=== PATIENT | male | born 1985 | race Two or more races ===

== ENCOUNTER 2020-05-23 20:52 | Emergency (ER) | payer OTHER, SELFPAY ==
--- NOTE | ~2020-05-23 | CT_ITS ---
EXAMINATION: CT ANGIOGRAM OF THE CHEST WITH AND WITHOUT CONTRAST (CT PULMONARY ANGIOGRAM FOR PE) CLINICAL INFORMATION: Reason for Exam covid tachy COMPARISON: None TECHNIQUE: Prior to contrast administration, noncontrast localization images were obtained. Subsequently, multidetector volumetric imaging was performed from the thoracic inlet to below the diaphragms following the administration of 65 mL Omnipaque 350 intravenous contrast. No contrast reaction reported Sagittal, coronal, and MIP oblique sagittal reformatted images were obtained on the CT workstation, uploaded to PACS, and reviewed. This CT examination was performed using dose optimization techniques as appropriate, variously including the following: *Automated exposure control *Adjustment of mA and/or kV according to patient size (this includes techniques or standardized protocols for targeted exams where dose is matched to indication/reason for exam; i.e. extremities or head) *Use of iterative reconstruction technique Total exam dose-length product 465 mGy-cm FINDINGS: QUALITY OF STUDY/CONTRAST BOLUS: Satisfactory. PULMONARY ARTERIES: No central or proximal segmental pulmonary emboli. Distal vessels are not adequately assessed due to extensive respiratory motion artifact. LUNG: There are moderately extensive multifocal regions of patchy consolidation and groundglass opacity bilaterally involving portions of all lobes, consistent with the history of Covid pneumonia. PLEURA: No pleural effusion or pneumothorax. MEDIASTINUM: The visualized thyroid gland is unremarkable. There are subcentimeter mediastinal lymph nodes within the range of normal variation. Cardiac size is within normal limits; no pericardial effusion. CHEST WALL/AXILLA: No axillary or internal mammary lymphadenopathy. OSSEOUS STRUCTURES: Mild degenerative endplate changes noted in the spine. UPPER ABDOMEN: The liver demonstrates hypoattenuation suspicious for steatosis. No reflux of contrast into the hepatic veins to suggest elevated right heart pressures. CT/CT angio chest PE protocol IMPRESSION: 1. No central or proximal segmental embolus identified. Incomplete assessment of the distal vasculature due to respiratory motion artifact, and therefore distal emboli cannot be excluded. 2. Moderately extensive multifocal patchy consolidations and groundglass opacities bilaterally, consistent with history of Covid infection. 3. Hepatic steatosis. VTE: negative
[2020-05-23 22:05] VITALS: BP 139/74; PULSE 118; RESP 22; TEMP 38.1; O2SAT 97
--- NOTE | 2020-05-23 23:44 | ED_ITS ---
HPI - SOB/Dyspnea General Chief Complaint: Upper Respiratory Symptoms Stated Complaint: SOB Time Seen by Provider: 05/23/20 23:30 Source: patient Mode of arrival: ambulatory Limitations: no limitations History of Present Illness HPI Narrative: Patient is a 35-year-old male with no significant past medical history who is presenting to the ED complaining of shortness of breath. Patient states that he tested positive for COVID last Wednesday and his symptoms were ?pretty bad ?, then got better then suddenly today while he was sitting on the couch, he became extremely short of breath. He states he was a little short of breath last night in his gave him some albuterol neb which helped him be able to fall asleep. Currently, he is complaining of dizziness, feeling warm alternating with chills, nausea, [place], body aches, reduced appetite but currently drinking a Gatorade. Patient states his kids are both sick wtih covid as well, they were diagnosed today before him. Related Data Previous Rx's Medication Instructions Recorded albuterol sulfate 2.5 mg INHALATION Q4-6H PRN #75 ml 05/24/20 ondansetron HCl [Zofran] 4 mg PO Q6H PRN #14 tab 05/24/20 Allergies Allergy/AdvReac Type Severity Reaction Status Date / Time SEAFOOD Allergy Unknown DIFFICULTY Uncoded 11/30/19 15:45 BREATHING Review of Systems Review of Systems: Yes all other systems are reviewed and are negative [facility] Past Medical History Medical History No known health problems Social History Social History Alcohol intake: current Smoking Status: Never smoker Advance Directives: No Physical Exam Vital Signs: Vital Signs: Last Vital Signs Temp 99.5 F 05/24/20 02:25 Pulse 113 H 05/24/20 02:25 Resp 20 05/24/20 00:16 BP 124/72 05/24/20 02:25 Pulse Ox 96 05/24/20 02:25 Body Mass Index 38.0 Const: General: cooperative, healthy appearing, well developed and tired appearing Nutritional Appearance: overweight Orientation/consciousness: patient oriented x3 Limitations: no limitations HENMT: Head: Yes normal to inspection Eyes: General: appearance normal, both eyes and all related structures Neck: Neck: Yes normal visual inspection and Yes full ROM Resp: Effort & Inspection: normal respiratory effort and able to speak in complete sentences Auscultation: clear to auscultation bilaterally Cardio: Rate: regular rate Rhythm: regular rhythm Heart sounds: normal S1 and S2 GI: Inspection: Yes normal to inspection Palpation (GI): Soft to palpation and nontender Skin: General skin exam: no rashes or lesions noted Neuro: General: patient oriented x3 Extrem: General: Yes normal to inspection Psych: Appearance: grossly normal and well kempt Speech and movement: Normal speech and movement present Affect: normal affect Attitude: c ooperative Thought process: Normal thought process present Thought content: Suicidality present, no homicidality, no hallucinations and Depressive thoughts present Insight: Good insight present (Psych) Judgement: Good judgement present (Psych) Course Course Course Narrative: Patient is a 35-year-old male with no significant past medical history who tested positive for COVID 6 days ago. He states he was managing his symptoms of cough, fever, nausea, diarrhea, abd pn, body aches, headache but suddenly today while he was sitting on the couch he became short of breath. Vital signs reveal pt tachy at 118BPM, respirations 22, temp 100.6 degrees and O2 saturation 97% on room air. Will get CTA to rule out PE as patient is tachycardic, will also get covid labs, cmp, cbc, trop, lactic acid and blood cultures. Will give 1L NS, give Tylenol and nebulizer tx. Reevaluation(s) Reevaluation #1: Patient states he is feeling a little bit better but still a little nauseous, will give IV Zofran. Explained discharge medications to patient, his has a nebulizer machine so I will give him some albuterol and some Zofran, both have been sent to his pharmacy. Lactic acid negative troponin negative. Waiting on results from CMP and CTA. 2AM Sign out to Dr King Time: 01:37 MDM - SOB/Dyspnea Lab Data Result diagrams: 05/24/20 00:07 05/24/20 00:07 Labs: Lab Results 05/24/20 05/24/20 05/24/20 Range/Units 00:07 00:07 00:07 WBC 4.1 L (4.8-10.8) X10*3/uL RBC 5.65 (4.60-5.80) X10*6/uL Hgb 15.3 (14.0-18.0) g/dl Hct 45.7 (42-52) % MCV 80.9 (80-98) fL MCH 27.1 (27.0-33.0) pg MCHC 33.5 (31.0-36.0) g/dl RDW 14.5 (11.0-16.0) % Plt Count 150 L (160-400) X10*3/uL MPV 11.4 (9.4-12.4) fL Immature Gran % (Auto) 0.2 (0.0-0.4) % Neut % (Auto) 70.0 (45-73) % Lymph % (Auto) 23.2 (20-40) % Banner % (Auto) 6.4 (2-11) % Eos % (Auto) 0.0 (0-4) % Baso % (Auto) 0.2 (0-2) % Lymph # (Auto) 0.9 L (1.2-4.9) X10*3/uL Banner # (Auto) 0.3 (0.1-1.2) X10*3/uL Eos # (Auto) 0.0 (0.0-0.4) X10*3/uL Baso # (Auto) 0.0 (0.0-0.2) X10*3/uL Abs Immat Gran (auto) 0.01 (0.00-0.03) X10*3/uL Absolute Neuts (auto) 2.8 (2.0-8.3) X10*3/uL Absolute Nucleated RBC 0.000 (0.0-0.012) X10*3/uL Nucleated RBC % (auto) 0.0 (0.0-0.2) /100WBC Sodium 136 (135-145) mmol/L Potassium 4.5 (3.3-5.1) mmol/L Chloride 101 (96-108) mmol/L Carbon Dioxide 25 (22-29) mmol/L Anion Gap 15 (12-20) BUN 8 L (9-16) mg/dL Creatinine 0.82 (0.5-1.4) mg/dL Estim Creat Clear Calc 160.2 Estimated GFR > 60 Random Glucose 155 H (60-115) mg/dL Lactic Acid (0.5-2.0) mmol/L Calcium 8.5 (8.4-10.2) mg/dL Ferritin 1730 H (20-250) ng/mL Total Bilirubin 0.4 (0.0-1.0) mg/dL AST 41 H (5-37) U/L ALT 60 H (0-40) U/L Alkaline Phosphatase 58 (39-117) U/L Lactate Dehydrogenase 315 H (118-273) U/L Troponin I High Sens 29.3 (<3.5-35.0) ng/L C-Reactive Protein 0.91 H (< or = 0.50) mg/dL Total Protein 7.2 (6.5-8.0) g/dL Albumin 4.3 (3.5-5.0) g/dL 05/24/20 Range/Units 00:07 WBC (4.8-10.8) X10*3/uL RBC (4.60-5.80) X10*6/uL Hgb (14.0-18.0) g/dl Hct (42-52) % MCV (80-98) fL MCH (27.0-33.0) pg MCHC (31.0-36.0) g/dl RDW (11.0-16.0) % Plt Count (160-400) X10*3/uL MPV (9.4-12.4) fL Immature Gran % (Auto) (0.0-0.4) % Neut % (Auto) (45-73) % Lymph % (Auto) (20-40) % Banner % (Auto) (2-11) % Eos % (Auto) (0-4) % Baso % (Auto) (0-2) % Lymph # (Auto) (1.2-4.9) X10*3/uL Banner # (Auto) (0.1-1.2) X10*3/uL Eos # (Auto) (0.0-0.4) X10*3/uL Baso # (Auto) (0.0-0.2) X10*3/uL Abs Immat Gran (auto) (0.00-0.03) X10*3/uL Absolute Neuts (auto) (2.0-8.3) X10*3/uL Absolute Nucleated RBC (0.0-0.012) X10*3/uL Nucleated RBC % (auto) (0.0-0.2) /100WBC Sodium (135-145) mmol/L Potassium (3.3-5.1) mmol/L Chloride (96-108) mmol/L Carbon Dioxide (22-29) mmol/L Anion Gap (12-20) BUN (9-16) mg/dL Creatinine (0.5-1.4) mg/dL Estim Creat Clear Calc Estimated GFR Random Glucose (60-115) mg/dL Lactic Acid 1.4 (0.5-2.0) mmol/L Calcium (8.4-10.2) mg/dL Ferritin (20-250) ng/mL Total Bilirubin (0.0-1.0) mg/dL AST (5-37) U/L ALT (0-40) U/L Alkaline Phosphatase (39-117) U/L Lactate Dehydrogenase (118-273) U/L Troponin I High Sens (<3.5-35.0) ng/L C-Reactive Protein (< or = 0.50) mg/dL Total Protein (6.5-8.0) g/dL Albumin (3.5-5.0) g/dL Discharge Plan Discharge Clinical Impression: COVID-19 Patient Disposition: Home, Self-Care Instructions: COVID-19 (Coronavirus Disease 2019) (ED) Additional Instructions: Resume all home medications as prescribed. Follow-up with your primary care provider in the next 2-3 days. Do not hesitate to return in this emergency department should you experience any additional worsening symptoms. Prescriptions: New ondansetron HCl [Zofran] 4 mg tablet 4 mg PO Q6H PRN (Reason: nausea and vomiting) Qty: 14 RF: 0 albuterol sulfate 2.5 mg /3 mL (0.083 %) solution for nebulization 2.5 mg inhalation Q4-6H PRN (Reason: shortness of breath or wheezing) Qty: 75 RF: 0 Referrals: Physician,None [Primary Care Provider] - 2 days Interventions: ED Discharge Assessment Last Done: 05/24/20 03:45 Discharge Date/Time: 05/24/20 03:55
[2020-05-23 23:47] VITALS: BP 128/80; PULSE 110; RESP 22; TEMP 38.8; O2SAT 91; BMI 38.0
[2020-05-23] MEDS: Albuterol Sulfate (0.083%) 2.5 MG/3 ML VIAL.NEB 5 MG INHALE (23:55)
[2020-05-24 00:05] VITALS: PULSE 118; O2SAT 95
[2020-05-24 00:16] VITALS: PULSE 118; RESP 20; O2SAT 98
[2020-05-24 00:19] LABS: MANUAL DIFF FLAG NO
[2020-05-24 00:21] LABS: Basophils Percent Auto 0.2 % (0-2); Hematocrit 45.7 % (42-52); Hemoglobin 15.3 g/dl (14.0-18.0); Imm Gran Abs Auto 0.01 X10*3/uL (0.00-0.03); Imm Gran Pct Auto 0.2 % (0.0-0.4); Lymphocytes Absolute Auto 0.9 X10*3/uL (1.2-4.9); Lymphocytes Percent Auto 23.2 % (20-40); Mean Corpuscular HGB Conc 33.5 g/dl (31.0-36.0); Mean Corpuscular Hemoglobin 27.1 pg (27.0-33.0); Mean Corpuscular Volume 80.9 fL (80-98); Mean Platelet Volume 11.4 fL (9.4-12.4); Monocytes Absolute Auto 0.3 X10*3/uL (0.1-1.2); Monocytes Percent Auto 6.4 % (2-11); Neutrophils Absolute Auto 2.8 X10*3/uL (2.0-8.3); Platelet Count 150 X10*3/uL (160-400); Red Blood Count 5.65 X10*6/uL (4.60-5.80); Red Cell Distribution Width 14.5 % (11.0-16.0); White Blood Count 4.1 X10*3/uL (4.8-10.8)
[2020-05-24] MEDS: 0.9 % Sodium Chloride 1,000 ML 999 ML IVCONT (00:30)
[2020-05-24] MEDS: Acetaminophen 325 MG TABLET 650 MG PO (00:30)
[2020-05-24 00:43] LABS: Lactic Acid 1.4 mmol/L (0.5-2.0)
[2020-05-24 00:46] LABS: Lactate Dehydrogenase 315 U/L (118-273)
[2020-05-24 00:53] LABS: Troponin-I High Sensitivity 29.3 ng/L (<3.5-35.0)
[2020-05-24 01:21] VITALS: BP 120/69; PULSE 113; TEMP 37.7; O2SAT 95
[2020-05-24 01:55] LABS: Alanine Aminotransferase 60 U/L (0-40); Albumin Level 4.3 g/dL (3.5-5.0); Alkaline Phosphatase 58 U/L (39-117); Anion Gap 15 (12-20); Aspartate Amino Transferase 41 U/L (5-37); Bilirubin Total 0.4 mg/dL (0.0-1.0); Blood Urea Nitrogen 8 mg/dL (9-16); C Reactive Protein 0.91 mg/dL (< or = 0.50); Calcium 8.5 mg/dL (8.4-10.2); Carbon Dioxide 25 mmol/L (22-29); Chloride 101 mmol/L (96-108); Creatinine Clr Calc Pharmacy 160.2; Estimated Glomerular Filt Rate > 60; Glucose Random 155 mg/dL (60-115); Potassium 4.5 mmol/L (3.3-5.1); Sodium 136 mmol/L (135-145); Total Protein 7.2 g/dL (6.5-8.0)
[2020-05-24 01:56] LABS: Ferritin 1730 ng/mL (20-250)
[2020-05-24] MEDS: ondansetron HCL 4 MG/2 ML VIAL IVPUSH (01:56)
[2020-05-24 02:25] VITALS: BP 124/72; PULSE 113; TEMP 37.5; O2SAT 96
== END 2020-05-24 03:55 | disposition home or self-care (01) ==
PROVIDERS: Physician Assistant; Emergency Provider Student in an Organized Health Care Education/Training Program
DX: U07.1 COVID-19 (principal); R06.02 Shortness of breath; R00.0 Tachycardia, unspecified; R50.9 Fever, unspecified
CPT/HCPCS: 36415; 71275; 80053; 82728; 83605; 83615; 84484; 85025; 86140; 87040; 94640; 94644; 96361; 96374; 99285; J2405; Q9967

== ENCOUNTER 2020-05-27 16:20 | Inpatient (IN) | payer OTHER, SELFPAY ==
--- NOTE | ~2020-05-27 | US_ITS ---
EXAMINATION: US ABDOMEN LIMITED CLINICAL INFORMATION: Right upper quadrant, elevated LFTs, evaluate for gallstones or CBD dilatation. COMPARISON: None TECHNIQUE: Real-time imaging of the right upper quadrant abdominal viscera. FINDINGS: PANCREAS: Normal. LIVER: There is increased hepatic echogenicity suggesting hepatic steatosis with regions of focal fatty sparing. The liver is normal in size. The liver contour is normal. No focal hepatic lesion. There is no intrahepatic biliary duct dilatation seen. GALLBLADDER: Normal. The gallbladder is contracted without evidence of stones, sludge, polyps, wall thickening or pericholecystic fluid. Sonographic Mena sign is negative. COMMON BILE DUCT: Normal in caliber measuring 0.3 cm in diameter. RIGHT KIDNEY: Normal. No hydronephrosis. No renal calculi or focal parenchymal lesions. The kidney measures 12.6 cm in maximum dimension. FREE FLUID: None. US/US abdomen limited IMPRESSION: Increased hepatic echogenicity suggesting hepatic steatosis with regions of focal fatty sparing.
--- NOTE | ~2020-05-27 | CT_ITS ---
EXAMINATION: CT ANGIOGRAM OF THE CHEST WITH AND WITHOUT CONTRAST (CT PULMONARY ANGIOGRAM FOR PE) CLINICAL INFORMATION: Reason for Exam sob, pain on inspiration, hypoxia COMPARISON: CT angiogram of the chest 3 days ago on 05/24/2020 TECHNIQUE: Prior to contrast administration, noncontrast localization images were obtained. Subsequently, multidetector volumetric imaging was performed from the thoracic inlet to below the diaphragms following the administration of 71 mL Omnipaque 350 intravenous contrast. No contrast reaction reported Sagittal, coronal, and MIP oblique sagittal reformatted images were obtained on the CT workstation, uploaded to PACS, and reviewed. This CT examination was performed using dose optimization techniques as appropriate, variously including the following: *Automated exposure control *Adjustment of mA and/or kV according to patient size (this includes techniques or standardized protocols for targeted exams where dose is matched to indication/reason for exam; i.e. extremities or head) *Use of iterative reconstruction technique Total exam dose-length product 394 mGy-cm FINDINGS: QUALITY OF STUDY/CONTRAST BOLUS: Satisfactory. PULMONARY ARTERIES: No large central or segmental pulmonary emboli. THORACIC AORTA: No aneurysm or dissection. LUNG: There has been worsening of groundglass infiltrates since the prior study with more areas of involvement involving all lobes. Findings are characteristic of Covid 19 infection. PLEURA: No pleural effusion or pneumothorax. MEDIASTINUM: The heart is enlarged.. No pericardial effusion. Some small mediastinal nodes are present but there is no hilar or mediastinal lymphadenopathy. No evidence of septal bowing or right heart strain. CHEST WALL/AXILLA: No axillary or internal mammary lymphadenopathy. OSSEOUS STRUCTURES: No acute or suspicious osseous abnormality. There is some mild wedging of a midthoracic vertebral body, unchanged. UPPER ABDOMEN: The liver is enlarged and demonstrates hepatic steatosis. No reflux of contrast into the hepatic veins to suggest elevated right heart pressures. CT/CT angio chest PE protocol IMPRESSION: 1. No evidence of acute pulmonary emboli. 2. Worsening of diffuse airspace disease consistent with progression of Covid pulmonary involvement. 3. Enlarged fatty liver VTE: negative
[2020-05-27 16:47] VITALS: BP 132/62; PULSE 89; RESP 20; TEMP 36.8; O2SAT 93; BMI 38.0
--- NOTE | 2020-05-27 17:19 | ED_ITS ---
HPI - General Adult General Chief complaint: General Medical Stated complaint: SOB Time Seen by Provider: 05/27/20 16:47 Source: patient Mode of arrival: ambulatory Limitations: no limitations History of Present Illness HPI narrative: 35-year-old male diagnosed with COVID-19 on 05/23/2020, presents with hypoxia, shortness of breath, pain on inspiration, pallor to his extremities, fevers, and diaphoresis. Patient has been monitoring his O2 saturation at home, dropped down to 86% on minimal exertion, is unable to walk up stairs. He has not been able to eat in several days. He is able to speak in complete sentences as long as he is not walking. Patient denies chest pain, palpitations, abdominal pain, abdominal distention, dysuria, hematuria, edema, and weakness. Onset (ago): day(s) (Several) Location: chest Radiation: non-radiation Severity: severe Severity scale (1-10): 9 Exacerbating factors: movement Associated symptoms: cough, diaphoresis, fever/chills, headaches, loss of appetite, malaise and shortness of breath Related Data Previous Rx's Medication Instructions Recorded albuterol sulfate 2.5 mg INHALATION Q4-6H PRN #75 ml 05/24/20 ondansetron HCl [Zofran] 4 mg PO Q6H PRN #14 tab 05/24/20 Allergies Allergy/AdvReac Type Severity Reaction Status Date / Time SEAFOOD Allergy Unknown DIFFICULTY Uncoded 11/30/19 15:45 BREATHING Review of Systems Review of Systems: Constitutional: positive Fever, positive Chills, positive fatigue, positive Malaise ENT/Mouth: No sore throat, positive runny nose Eyes: No Discharge Cardiovascular: No Chest Pain, positive SOB Respiratory: Positive Cough, No Sputum, positive Wheezing, No Smoke Exposure, positive Dyspnea Gastrointestinal: No Nausea, No Vomiting, No Diarrhea Genitourinary: no irregular bleeding, No Dysuria, No Urinary Frequency, No Hematuria, No Urinary Incontinence, No Urgency, No Flank Pain, Musculoskeletal: positive Myalgia Skin: No rash Neuro: Positive Headache Yes all other systems are reviewed and are negative [facility] Past Medical History Attestation statement: The following information was validated with the patient. Source: old records reviewed Medical History No known health problems Social History Social History Household Members: Family Housing: House Do you presently have visiting nurse or other home services: No Alcohol intake: never Smoking Status: Former smoker Cigarettes Per Day: 3 Smoked in Last 30 Days: No Use of substances other than those prescribed or required for medical reasons: No Have you been hit, kicked, punched, or otherwise hurt by someone within the past year? If so, by whom?: No Do you feel safe in your current relationship?: Yes Is there a partner from a previous relationship who is making you feel unsafe now?: No Are you made to feel afraid or neglected: No Advance Directives: No Advance Directives Information Provided: No Do you have thoughts of harming others: None Do you have a plan to hurt others: No Plan Recently lost weight without trying: No Physical Exam Vital Signs: Vital Signs: Last Vital Signs Temp 98.2 F 05/27/20 16:47 Pulse 95 05/27/20 22:41 Resp 28 H 05/27/20 22:41 BP 120/70 05/27/20 22:41 Pulse Ox 96 05/27/20 22:41 Body Mass Index 38.0 Appearance: Alert. Oriented X3. Moderate distress. Face is flushed Head: Normal external exam. Normocephalic. Atraumatic. No Navarro signs noted. No raccoon eyes noted Eyes: PERRLA. EOMI. Conjunctiva and sclera normal. Eyelids normal. ENT: TM's Normal. Pharynx normal. Uvula midline. Moist mucous membranes. No trismus noted. No drooling noted. No muffled voice noted. Neck: Normal inspection. Neck supple. No adenopathy. Thyroid Normal. No meningeal signs. No neck mass noted. CVS: Tachycardic heart rate and rhythm. Heart sound normal. No murmurs noted. Pulses equal to all extremities. Respiratory: Moderate respiratory distress. Painless inspiration. Lung sounds coarse with expiratory wheezing with decreased air movement. Chest nontender. No accessory muscle use Abdomen: Soft and nontender. Obese. Bowel sounds normal in all 4 quadrants. No distention noted. No organomegaly noted. No visible injury noted. Back: No CVA tenderness. Full range of motion noted. Skin: Skin flushed, warm and dry. Pallor noted to fingers and toes, pedal pulses and radial pulses are equal. Normal skin turgor. Extremities: No lower extremity edema. Extremities exhibit normal range of motion. Extremities nontender. Neuro: cranial nerves 2-12 intact, no focal neural deficits, strength 5/5 to all extremities, No motor deficit. No sensory deficit. Reflexes normal. Course Course Course Narrative: 35-year-old male presents with known positive COVID-19 on 05/23/2020, was worked up with CT for PE at that time which was negative. On my ambulatory pulse ox exam, patient's heart rate is bumped up to 120, O2 sats dropped down to 88%, and respiration rate between 30 and 35 on minimal exertion. Based on his history, his inability to walk up stairs, chest pain on inspiration, and intermittent diaphoresis I will repeat CT study for PE. Will place patient on nasal cannula for O2 supplementation. 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 PE study is negative, LDH 478, CRP 4.35, ferritin 2158. CT scan does show worse hugh patchy infiltrates consistent with COVID-19 since 05/23/2020. Discussion with hospitalist for admission for COVID-19, hypoxia. Will treat with azithromycin, ceftriaxone. No fluid resuscitation at this time secondary to COVID-19 viral infection. 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, both are in agreement of plan of care to admit for COVID-19 hypoxia. Consultations Consultation #1: tuan Time: 20:38 Medical Decision Making Differential Diagnosis Differential Diagnosis: COVID-19, hypoxia, PE, sepsis Medical Records Medical records reviewed: Yes I reviewed the patient's medical records. Lab Data Lab results reviewed: Yes I reviewed the patient's lab results. Result diagrams: 05/27/20 18:18 05/27/20 18:18 Labs: Lab Results 05/27/20 05/27/20 05/27/20 Range/Units 18:16 18:17 18:17 WBC (4.8-10.8) X10*3/uL RBC (4.60-5.80) X10*6/uL Hgb (14.0-18.0) g/dl Hct (42-52) % MCV (80-98) fL MCH (27.0-33.0) pg MCHC (31.0-36.0) g/dl RDW (11.0-16.0) % Plt Count (160-400) X10*3/uL MPV (9.4-12.4) fL Immature Gran % (Auto) (0.0-0.4) % Neut % (Auto) (45-73) % Lymph % (Auto) (20-40) % Mcintosh % (Auto) (2-11) % Eos % (Auto) (0-4) % Baso % (Auto) (0-2) % Lymph # (Auto) (1.2-4.9) X10*3/uL Mcintosh # (Auto) (0.1-1.2) X10*3/uL Eos # (Auto) (0.0-0.4) X10*3/uL Baso # (Auto) (0.0-0.2) X10*3/uL Abs Immat Gran (auto) (0.00-0.03) X10*3/uL Absolute Neuts (auto) (2.0-8.3) X10*3/uL Absolute Nucleated RBC (0.0-0.012) X10*3/uL Nucleated RBC % (auto) (0.0-0.2) /100WBC Smear Tech's Comments PT 15.0 H (10.8-13.0) SEC INR 1.3 H (0.9-1.1) APTT 30.6 (24.1-38.0) SEC Sodium (135-145) mmol/L Potassium (3.3-5.1) mmol/L Chloride (96-108) mmol/L Carbon Dioxide (22-29) mmol/L Anion Gap (12-20) BUN (9-16) mg/dL Creatinine (0.5-1.4) mg/dL Estim Creat Clear Calc Estimated GFR Random Glucose (60-115) mg/dL Lactic Acid (0.5-2.0) mmol/L Calcium (8.4-10.2) mg/dL Magnesium (1.6-2.6) mg/dL Ferritin (20-250) ng/mL Total Bilirubin (0.0-1.0) mg/dL Direct Bilirubin (0.0-0.5) mg/dL AST (5-37) U/L ALT (0-40) U/L Alkaline Phosphatase (39-117) U/L Lactate Dehydrogenase (118-273) U/L Troponin I High Sens 15.6 (<3.5-35.0) ng/L C-Reactive Protein (< or = 0.50) mg/dL Total Protein (6.5-8.0) g/dL Albumin (3.5-5.0) g/dL Lipase (8-78) U/L Procalcitonin 0.08 ng/mL Coronavirus (PCR) (Negative) Influenza Type A (PCR) (Negative) Influenza Type B (PCR) (Negative) RSV RNA Qual (PCR) (Negative) 05/27/20 05/27/20 05/27/20 Range/Units 18:17 18:17 18:18 WBC 4.4 L (4.8-10.8) X10*3/uL RBC 5.37 (4.60-5.80) X10*6/uL Hgb 14.4 (14.0-18.0) g/dl Hct 44.4 (42-52) % MCV 82.7 (80-98) fL MCH 26.8 L (27.0-33.0) pg MCHC 32.4 (31.0-36.0) g/dl RDW 14.8 (11.0-16.0) % Plt Count 273 D (160-400) X10*3/uL MPV 10.5 (9.4-12.4) fL Immature Gran % (Auto) 0.5 H (0.0-0.4) % Neut % (Auto) 57.7 (45-73) % Lymph % (Auto) 33.6 (20-40) % Mcintosh % (Auto) 7.3 (2-11) % Eos % (Auto) 0.7 (0-4) % Baso % (Auto) 0.2 (0-2) % Lymph # (Auto) 1.5 (1.2-4.9) X10*3/uL Mcintosh # (Auto) 0.3 (0.1-1.2) X10*3/uL Eos # (Auto) 0.0 (0.0-0.4) X10*3/uL Baso # (Auto) 0.0 (0.0-0.2) X10*3/uL Abs Immat Gran (auto) 0.02 (0.00-0.03) X10*3/uL Absolute Neuts (auto) 2.5 (2.0-8.3) X10*3/uL Absolute Nucleated RBC 0.000 (0.0-0.012) X10*3/uL Nucleated RBC % (auto) 0.0 (0.0-0.2) /100WBC Smear Tech's Comments VERIFIED PT (10.8-13.0) SEC INR (0.9-1.1) APTT (24.1-38.0) SEC Sodium (135-145) mmol/L Potassium (3.3-5.1) mmol/L Chloride (96-108) mmol/L Carbon Dioxide (22-29) mmol/L Anion Gap (12-20) BUN (9-16) mg/dL Creatinine (0.5-1.4) mg/dL Estim Creat Clear Calc Estimated GFR Random Glucose (60-115) mg/dL Lactic Acid (0.5-2.0) mmol/L Calcium (8.4-10.2) mg/dL Magnesium (1.6-2.6) mg/dL Ferritin 2158 H (20-250) ng/mL Total Bilirubin (0.0-1.0) mg/dL Direct Bilirubin (0.0-0.5) mg/dL AST (5-37) U/L ALT (0-40) U/L Alkaline Phosphatase (39-117) U/L Lactate Dehydrogenase (118-273) U/L Troponin I High Sens (<3.5-35.0) ng/L C-Reactive Protein (< or = 0.50) mg/dL Total Protein (6.5-8.0) g/dL Albumin (3.5-5.0) g/dL Lipase (8-78) U/L Procalcitonin ng/mL Coronavirus (PCR) POSITIVE A (Negative) Influenza Type A (PCR) NEGATIVE (Negative) Influenza Type B (PCR) NEGATIVE (Negative) RSV RNA Qual (PCR) NEGATIVE (Negative) 03/15/21 03/15/21 Range/Units 18:18 18:18 WBC (4.8-10.8) X10*3/uL RBC (4.60-5.80) X10*6/uL Hgb (14.0-18.0) g/dl Hct (42-52) % MCV (80-98) fL MCH (27.0-33.0) pg MCHC (31.0-36.0) g/dl RDW (11.0-16.0) % Plt Count (160-400) X10*3/uL MPV (9.4-12.4) fL Immature Gran % (Auto) (0.0-0.4) % Neut % (Auto) (45-73) % Lymph % (Auto) (20-40) % Mcintosh % (Auto) (2-11) % Eos % (Auto) (0-4) % Baso % (Auto) (0-2) % Lymph # (Auto) (1.2-4.9) X10*3/uL Mcintosh # (Auto) (0.1-1.2) X10*3/uL Eos # (Auto) (0.0-0.4) X10*3/uL Baso # (Auto) (0.0-0.2) X10*3/uL Abs Immat Gran (auto) (0.00-0.03) X10*3/uL Absolute Neuts (auto) (2.0-8.3) X10*3/uL Absolute Nucleated RBC (0.0-0.012) X10*3/uL Nucleated RBC % (auto) (0.0-0.2) /100WBC Smear Tech's Comments PT (10.8-13.0) SEC INR (0.9-1.1) APTT (24.1-38.0) SEC Sodium 140 (135-145) mmol/L Potassium 4.4 (3.3-5.1) mmol/L Chloride 101 (96-108) mmol/L Carbon Dioxide 30 H (22-29) mmol/L Anion Gap 13 (12-20) BUN 9 (9-16) mg/dL Creatinine 0.76 (0.5-1.4) mg/dL Estim Creat Clear Calc 172.9 Estimated GFR > 60 Random Glucose 97 D (60-115) mg/dL Lactic Acid 1.0 (0.5-2.0) mmol/L Calcium 8.5 (8.4-10.2) mg/dL Magnesium 2.3 (1.6-2.6) mg/dL Ferritin (20-250) ng/mL Total Bilirubin 0.9 (0.0-1.0) mg/dL Direct Bilirubin 0.4 (0.0-0.5) mg/dL AST 45 H (5-37) U/L ALT 49 H (0-40) U/L Alkaline Phosphatase 56 (39-117) U/L Lactate Dehydrogenase 478 H (118-273) U/L Troponin I High Sens (<3.5-35.0) ng/L C-Reactive Protein 4.35 H (< or = 0.50) mg/dL Total Protein 7.0 (6.5-8.0) g/dL Albumin 4.0 (3.5-5.0) g/dL Lipase 36 (8-78) U/L Procalcitonin ng/mL Coronavirus (PCR) (Negative) Influenza Type A (PCR) (Negative) Influenza Type B (PCR) (Negative) RSV RNA Qual (PCR) (Negative) Imaging Data CT PE: Attestation: I personally reviewed and interpreted this imaging study as follows: Radiologist's impression: EXAMINATION: CT ANGIOGRAM OF THE CHEST WITH AND WITHOUT CONTRAST (CT PULMONARY ANGIOGRAM FOR PE) CLINICAL INFORMATION: Reason for Exam sob, pain on inspiration, hypoxia COMPARISON: CT angiogram of the chest 3 days ago on 05/24/2020 TECHNIQUE: Prior to contrast administration, noncontrast localization images were obtained. Subsequently, multidetector volumetric imaging was performed from the thoracic inlet to below the diaphragms following the administration of 71 mL Omnipaque 350 intravenous contrast. No contrast reaction reported Sagittal, coronal, and MIP oblique sagittal reformatted images were obtained on the CT workstation, uploaded to PACS, and reviewed. This CT examination was performed using dose optimization techniques as appropriate, variously including the following: *Automated exposure control *Adjustment of mA and/or kV according to patient size (this includes techniques or standardized protocols for targeted exams where dose is matched to indication/reason for exam; i.e. extremities or head) *Use of iterative reconstruction technique Total exam dose-length product 394 mGy-cm FINDINGS: QUALITY OF STUDY/CONTRAST BOLUS: Satisfactory. PULMONARY ARTERIES: No large central or segmental pulmonary emboli. THORACIC AORTA: No aneurysm or dissection. LUNG: There has been worsening of groundglass infiltrates since the prior study with more areas of involvement involving all lobes. Findings are characteristic of Covid 19 infection. PLEURA: No pleural effusion or pneumothorax. MEDIASTINUM: The heart is enlarged.. No pericardial effusion. Some small mediastinal nodes are present but there is no hilar or mediastinal lymphadenopathy. No evidence of septal bowing or right heart strain. CHEST WALL/AXILLA: No axillary or internal mammary lymphadenopathy. OSSEOUS STRUCTURES: No acute or suspicious osseous abnormality. There is some mild wedging of a midthoracic vertebral body, unchanged. UPPER ABDOMEN: The liver is enlarged and demonstrates hepatic steatosis. No reflux of contrast into the hepatic veins to suggest elevated right heart pressures. CT/CT angio chest PE protocol IMPRESSION: 1. No evidence of acute pulmonary emboli. 2. Worsening of diffuse airspace disease consistent with progression of Covid pulmonary involvement. 3. Enlarged fatty liver ECG Data Attestation: I personally reviewed and interpreted this ECG as follows: Prior ECG tracings: available for review Interpretation: Vent. rate 97 BPM NE interval 168 ms QRS duration 84 ms QT/QTc 346/439 ms P-R-T axes 36 8 -12 Normal sinus rhythm Moderate voltage criteria for LVH, may be normal variant Nonspecific T wave abnormality Abnormal ECG No previous ECGs available 27-MAY-2020 18:05:46 Critical Care Time Critical Care Time Critical Care Time: Yes Total Critical Care Time: 60 Attestation: I have personally provided critical care time exclusive of time spent on separately billable procedures. Time includes review of laboratory data, radiology results, discussion with consultants, and monitoring for potential decompensation. Interventions were performed as documented. Discharge Plan Discharge Clinical Impression: COVID-19, Hypoxia Patient Disposition: Admitted As Inpatient Interventions: Admission Worksheet (ED) Last Done: 05/27/20 23:47 Discharge Date/Time: 05/27/20 23:50
--- NOTE | 2020-05-27 17:47 | ECG_ITS ---
Test Reason : SHORTNSS OF BREATH Blood Pressure : / mmHG Vent. Rate : 097 BPM Atrial Rate : 097 BPM P-R Int : 168 ms QRS Dur : 084 ms QT Int : 346 ms P-R-T Axes : 036 008 -12 degrees QTc Int : 439 ms Normal sinus rhythm Moderate voltage criteria for LVH, may be normal variant Nonspecific T wave abnormality Abnormal ECG No previous ECGs available Referred By: Nory Nguyễn Electronically Signed By:ERIC LINTON MD
--- NOTE | 2020-05-27 17:53 | PC.NURSE ---
male infertility specialist ambulated pt and state his o2 dropped to 88% and rr was 30. plan to move pt into covid + bed when one becomes available.
[2020-05-27 18:32] LABS: Basophils Percent Auto 0.2 % (0-2); Eosinophils Percent Auto 0.7 % (0-4); Hematocrit 44.4 % (42-52); Hemoglobin 14.4 g/dl (14.0-18.0); Imm Gran Abs Auto 0.02 X10*3/uL (0.00-0.03); Imm Gran Pct Auto 0.5 % (0.0-0.4); Lymphocytes Absolute Auto 1.5 X10*3/uL (1.2-4.9); Lymphocytes Percent Auto 33.6 % (20-40); MANUAL DIFF FLAG SCAN; Mean Corpuscular HGB Conc 32.4 g/dl (31.0-36.0); Mean Corpuscular Hemoglobin 26.8 pg (27.0-33.0); Mean Corpuscular Volume 82.7 fL (80-98); Mean Platelet Volume 10.5 fL (9.4-12.4); Monocytes Absolute Auto 0.3 X10*3/uL (0.1-1.2); Monocytes Percent Auto 7.3 % (2-11); Neutrophils Absolute Auto 2.5 X10*3/uL (2.0-8.3); Neutrophils Percent Auto 57.7 % (45-73); Platelet Count 273 X10*3/uL (160-400); Red Blood Count 5.37 X10*6/uL (4.60-5.80); Red Cell Distribution Width 14.8 % (11.0-16.0); SCAN SMEAR FLAG 1; White Blood Count 4.4 X10*3/uL (4.8-10.8)
[2020-05-27 18:41] LABS: INTERNATIONAL NORM RATIO 1.3 (0.9-1.1)
[2020-05-27] MEDS: methylPREDNISolone Sod Succ 125 MG/2 ML VIAL IVPUSH (18:42)
[2020-05-27] MEDS: Famotidine/PF 20 MG/2 ML VIAL IVPUSH (18:42)
[2020-05-27] MEDS: diphenhydrAMINE HCL 50 MG/ML VIAL IVPUSH (18:42)
[2020-05-27 18:44] LABS: Partial Thromboplastin Time 30.6 SEC (24.1-38.0)
--- NOTE | 2020-05-27 18:45 | PC.NURSE ---
pre medicated per corporate legal assistant order for ct
[2020-05-27 18:49] LABS: SLIDE REVIEW VERIFIED
[2020-05-27 19:01] LABS: Alanine Aminotransferase 49 U/L (0-40); Alkaline Phosphatase 56 U/L (39-117); Anion Gap 13 (12-20); Aspartate Amino Transferase 45 U/L (5-37); Bilirubin Direct 0.4 mg/dL (0.0-0.5); Bilirubin Total 0.9 mg/dL (0.0-1.0); Blood Urea Nitrogen 9 mg/dL (9-16); C Reactive Protein 4.35 mg/dL (< or = 0.50); Calcium 8.5 mg/dL (8.4-10.2); Carbon Dioxide 30 mmol/L (22-29); Chloride 101 mmol/L (96-108); Creatinine Clr Calc Pharmacy 172.9; Estimated Glomerular Filt Rate > 60; Glucose Random 97 mg/dL (60-115); Lactate Dehydrogenase 478 U/L (118-273); Lipase 36 U/L (8-78); Magnesium 2.3 mg/dL (1.6-2.6); Potassium 4.4 mmol/L (3.3-5.1); Sodium 140 mmol/L (135-145)
[2020-05-27 19:07] LABS: Troponin-I High Sensitivity 15.6 ng/L (<3.5-35.0)
[2020-05-27 19:14] VITALS: BP 117/69; PULSE 94; RESP 20; O2SAT 95
[2020-05-27 19:15] LABS: Influenza A PCR NEGATIVE (Negative); Influenza B PCR NEGATIVE (Negative); Resp Syncy Virus RNA Qual PCR NEGATIVE (Negative); SARS COV2 PCR INHOUSE POSITIVE (Negative)
[2020-05-27 19:17] LABS: Procalcitonin 0.08 ng/mL
--- NOTE | 2020-05-27 19:27 | PC.NURSE ---
PT BACK FROM CT SCAN, IN NO DISTRESS AND FEELING MILDLY DYSPNEIC ON 3 LPM AT REST.
[2020-05-27 20:13] LABS: Ferritin 2158 ng/mL (20-250)
--- NOTE | 2020-05-27 20:59 | P.HPHOSP_ITS ---
History of Present Illness Date of Service: 05/27/20 Chief Complaint: Shortness of breath 35-year-old male with no significant past medical history, recently diagnosed with COVID on 05/23/2020 presented to the hospital today with a chief complaint of cough and shortness of breath. Patient mentioned that he becomes severely short of breath with minimal exertion. Denies any chest pain palpitations. Denies any numbness tingling. Reports diarrhea. Review of all other systems is negative except mentioned above ER course: Per ER team patient was noted to be hypoxic to 88% on room air with minimal movement. Placed on 3 L of nasal cannula with increase in oxygenation to 95%. CT scan showed no evidence of PE but noted worsening opacities consistent with the COVID-19 pneumonia. Admitted to the hospital for further management. ER team mentioned that patient was given Solu-Medrol for premedication for con trast. Also given ceftriaxone and azithromycin. [facility] Medical History No known health problems Social History Household Members: Family Housing: House Do you presently have visiting nurse or other home services: No Alcohol intake: never Smoking Status: Former smoker Cigarettes Per Day: 3 Smoked in Last 30 Days: No Use of substances other than those prescribed or required for medical reasons: No Currently Displaying Signs/Symptoms of Drug Intoxication Withdrawal: No Have you been hit, kicked, punched, or otherwise hurt by someone within the past year? If so, by whom?: No Do you feel safe in your current relationship?: Yes Is there a partner from a previous relationship who is making you feel unsafe now?: No Are you made to feel afraid or neglected: No Advance Directives: No Advance Directives Information Provided: No Do you have thoughts of harming others: None Do you have a plan to hurt others: No Plan Recently lost weight without trying: No Meds Allergies Allergy/AdvReac Type Severity Reaction Status Date / Time SEAFOOD Allergy Unknown DIFFICULTY Uncoded 11/30/19 15:45 BREATHING Active Medications: Current Medications Generic Name Dose Route Start Last Admin Trade Name Freq PRN Reason Stop Dose Admin Acetaminophen 650 mg 05/27/20 20:38 Acetaminophen 325 Mg Tablet PO Q6H PRN Pain, Mild (Pain Scale 1-3) Albuterol Sulfate 2.5 mg 05/27/20 20:52 Albuterol Sulfate (0.083%) 2.5 Mg/3 Ml Vial.Neb INHALE Q4-6H PRN shortness of breath or wheezing Azithromycin 500 mg 05/27/20 20:45 Azithromycin 500 Mg Tablet PO Q24H [facility] Dexamethasone 6 mg 05/28/20 09:00 Dexamethasone 6 Mg Tablet PO DAILY [facility] Enoxaparin Sodium 40 mg 05/27/20 20:45 Enoxaparin Sodium 40 Mg/0.4 Ml Syringe SUBCUT Q24H [facility] Ceftriaxone Sodium 1 gm/ 50 mls @ 100 mls/hr 05/27/20 20:37 Sodium Chloride IV 05/27/20 21:06 ONCE ONE Ceftriaxone Sodium 1 gm/ 50 mls @ 100 mls/hr 05/27/20 20:45 Sodium Chloride IV Q24H [facility] Pharmacy Consult 1 each 05/27/20 19:25 Consult Rx Perform Med Rec MISCELLANE ONCE PRN Consult order Senna 17.2 mg 05/27/20 20:38 Sennosides 8.6 Mg Tablet PO BEDTIME PRN Constipation Sodium Chloride 3 ml 05/28/20 00:00 0.9 % Sodium Chloride Flush 3 Ml Syringe IVFLUSH QSHIFT [facility] Physical Exam Vital Signs and Narrative: Vital Signs: Last Vital Signs Temp 98.2 F 05/27/20 16:47 Pulse 94 05/27/20 19:14 Resp 20 05/27/20 19:14 BP 117/69 05/27/20 19:14 Pulse Ox 95 05/27/20 19:14 Body Mass Index 38.0 Gen: Appears be in no acute distress. Speaks in full sentences HEENT: NCAT, Moist mucosa. Pulmonary: Course breath sounds, fair air entry CVS: Normal S1-S2 Abdomen: BS+, Soft, Nontender Extremities: Warm well perfused Neuro: Alert and awake. Results Labs CBC and Chem 7: 05/27/20 18:18 05/27/20 18:18 Labs: Laboratory Results - last 24 hr 05/27/20 05/27/20 05/27/20 18:16 18:17 18:17 MCV MCH MCHC RDW Plt Count MPV Immature Gran % (Auto) Neut % (Auto) Lymph % (Auto) Alcorn % (Auto) Eos % (Auto) Baso % (Auto) Lymph # (Auto) [place] # (Auto) Eos # (Auto) Baso # (Auto) Abs Immat Gran (auto) Absolute Neuts (auto) Absolute Nucleated RBC Nucleated RBC % (auto) Smear Tech's Comments PT 15.0 H INR 1.3 H APTT 30.6 Anion Gap Estim Creat Clear Calc Estimated GFR Random Glucose Lactic Acid Calcium Magnesium Ferritin Total Bilirubin Direct Bilirubin AST ALT Alkaline Phosphatase Lactate Dehydrogenase Troponin I High Sens 15.6 C-Reactive Protein Total Protein Albumin Lipase Procalcitonin 0.08 Coronavirus (PCR) Influenza Type A (PCR) Influenza Type B (PCR) RSV RNA Qual (PCR) 05/27/20 05/27/20 05/27/20 18:17 18:17 18:18 MCV 82.7 MCH 26.8 L MCHC 32.4 RDW 14.8 Plt Count 273 D MPV 10.5 Immature Gran % (Auto) 0.5 H Neut % (Auto) 57.7 Lymph % (Auto) 33.6 [place]corn % (Auto) 7.3 Eos % (Auto) 0.7 Baso % (Auto) 0.2 Lymph # (Auto) 1.5 [place] # (Auto) 0.3 Eos # (Auto) 0.0 Baso # (Auto) 0.0 Abs Immat Gran (auto) 0.02 Absolute Neuts (auto) 2.5 Absolute Nucleated RBC 0.000 Nucleated RBC % (auto) 0.0 Smear Tech's Comments VERIFIED PT INR APTT Anion Gap Estim Creat Clear Calc Estimated GFR Random Glucose Lactic Acid Calcium Magnesium Ferritin 2158 H Total Bilirubin Direct Bilirubin AST ALT Alkaline Phosphatase Lactate Dehydrogenase Troponin I High Sens C-Reactive Protein Total Protein Albumin Lipase Procalcitonin Coronavirus (PCR) POSITIVE A Influenza Type A (PCR) NEGATIVE Influenza Type B (PCR) NEGATIVE RSV RNA Qual (PCR) NEGATIVE 05/27/20 05/27/20 18:18 18:18 MCV MCH MCHC RDW Plt Count MPV Immature Gran % (Auto) Neut % (Auto) Lymph % (Auto) Alcorn % (Auto) Eos % (Auto) Baso % (Auto) Lymph # (Auto) [place] # (Auto) Eos # (Auto) Baso # (Auto) Abs Immat Gran (auto) Absolute Neuts (auto) Absolute Nucleated RBC Nucleated RBC % (auto) Smear Tech's Comments PT INR APTT Anion Gap 13 Estim Creat Clear Calc 172.9 Estimated GFR > 60 Random Glucose 97 D Lactic Acid 1.0 Calcium 8.5 Magnesium 2.3 Ferritin Total Bilirubin 0.9 Direct Bilirubin 0.4 AST 45 H ALT 49 H Alkaline Phosphatase 56 Lactate Dehydrogenase 478 H Troponin I High Sens C-Reactive Protein 4.35 H Total Protein 7.0 Albumin 4.0 Lipase 36 Procalcitonin Coronavirus (PCR) Influenza Type A (PCR) Influenza Type B (PCR) RSV RNA Qual (PCR) Imaging Radiologist's Impressions: Impressions Chest CTA 05/27/20 17:47 IMPRESSION: 1. No evidence of acute pulmonary emboli. 2. Worsening of diffuse airspace disease consistent with progression of Covid pulmonary involvement. 3. Enlarged fatty liver VTE: negative Assessment and Plan (1) COVID-19: Status: Acute 35-year-old male with no significant past medical history presented to the hospital with a chief complaint of shortness of breath or dyspnea on exertion. Noted to have COVID-19 pneumonia causing acute hypoxic failure. Admitted for further management. Acute hypoxic respiratory failure: In the setting of COVID-19 pneumonia. Improving on supplemental oxygen. Will continue to monitor. Albuterol inhaler p.r.n.. COVID-19 pneumonia: Continue ceftriaxone, azithromycin, dexamethasone. Id consultation for further recommendations. Diarrhea: Received Fluids in ER; supportive care. DVT prophylaxis: Lovenox GI prophylaxis: Pepcid Code status: Full code
[2020-05-27] MEDS: cefTRIAXone sodium 1 GM in 0.9 % Sodium Chloride 50 ML IV (21:04)
[2020-05-27] MEDS: Azithromycin 500 MG TABLET PO (21:04)
--- NOTE | 2020-05-27 22:20 | PC.NURSE ---
report given to rn, pt ready for transport.
[2020-05-27 22:41] VITALS: BP 120/70; PULSE 95; RESP 28; O2SAT 96
[2020-05-28] VITALS (7 sets, daily range): BP systolic 112–149; BP diastolic 67–80; PULSE 86–93; RESP 18–32; TEMP 35.8–37.1; O2SAT 90–93; BMI 38.0
[2020-05-28] MEDS: Enoxaparin Sodium 40 MG/0.4 ML SYRINGE SUBCUT ×2 (00:47→21:42)
[2020-05-28] MEDS: 0.9 % Sodium Chloride Flush 3 ML SYRINGE IVFLUSH ×4 (00:47→21:42)
[2020-05-28 07:11] LABS: Hematocrit 44.1 % (42-52); Hemoglobin 14.2 g/dl (14.0-18.0); Imm Gran Abs Auto 0.01 X10*3/uL (0.00-0.03); Imm Gran Pct Auto 0.4 % (0.0-0.4); Lymphocytes Absolute Auto 0.8 X10*3/uL (1.2-4.9); Lymphocytes Percent Auto 30.3 % (20-40); MANUAL DIFF FLAG SCAN; Mean Corpuscular HGB Conc 32.2 g/dl (31.0-36.0); Mean Corpuscular Hemoglobin 26.7 pg (27.0-33.0); Mean Corpuscular Volume 83.1 fL (80-98); Mean Platelet Volume 10.7 fL (9.4-12.4); Monocytes Absolute Auto 0.1 X10*3/uL (0.1-1.2); Monocytes Percent Auto 4.6 % (2-11); Neutrophils Absolute Auto 1.7 X10*3/uL (2.0-8.3); Neutrophils Percent Auto 64.7 % (45-73); Platelet Count 304 X10*3/uL (160-400); Red Blood Count 5.31 X10*6/uL (4.60-5.80); Red Cell Distribution Width 14.7 % (11.0-16.0); SCAN SMEAR FLAG 1; White Blood Count 2.6 X10*3/uL (4.8-10.8)
[2020-05-28 07:36] LABS: Anion Gap 16 (12-20); Blood Urea Nitrogen 12 mg/dL (9-16); Calcium 8.8 mg/dL (8.4-10.2); Carbon Dioxide 25 mmol/L (22-29); Chloride 103 mmol/L (96-108); Creatinine Clr Calc Pharmacy 182.5; Estimated Glomerular Filt Rate > 60; Glucose Random 149 mg/dL (60-115); Magnesium 2.3 mg/dL (1.6-2.6); Sodium 139 mmol/L (135-145)
[2020-05-28] MEDS: Famotidine 20 MG TABLET PO (07:40)
[2020-05-28] MEDS: dexAMETHasone 6 MG TABLET PO (07:40)
[2020-05-28 07:55] LABS: SLIDE REVIEW VERIFIED
--- NOTE | 2020-05-28 09:49 | MHC.CM.PN ---
Male 35 DX Covid+. He lives with family. He is independent all functional mobility. No HCP, Education provided. HCP offered and declined. The Pt does not have a PCP. [facility] provider information given to the pt. DP home no services family transport. CM will follow.
[2020-05-28] MEDS: guaiFENesin 100 MG/5 ML LIQUID PO (11:14)
[2020-05-28] MEDS: ondansetron HCL 4 MG/2 ML VIAL IVPUSH (11:14)
[2020-05-28] MEDS: Acetaminophen 325 MG TABLET 650 MG PO (12:03)
--- NOTE | 2020-05-28 15:29 | W.PM.IDCN ---
History of Present Illness Data of Consult Service Date: 05/28/20 Requesting physician: Montez Lopez Primary Care Provider: None Physician HPI Reason for consult: COVID pneumonia He presents to hospital with shortness of breath and cough and had oxygen saturation of 88% He has no productive phlegm He has exposure from children who had asymptomatic COVID He has no productive sputum or leg pain He has had symptoms for two weeks and was diagnosed on 05/23 He is on 3 liters but is comfortable and brushing his teeth Review of Systems Review of Systems: Yes all other systems are reviewed and are negative PMFSH Past Medical History Medical History No known health problems Family History Family history: reviewed and not pertinent Social History Social History Household Members: Family Housing: House Do you presently have visiting nurse or other home services: No Alcohol intake: never Smoking Status: Former smoker Cigarettes Per Day: 3 Smoked in Last 30 Days: No Use of substances other than those prescribed or required for medical reasons: No Currently Displaying Signs/Symptoms of Drug Intoxication Withdrawal: No Have you been hit, kicked, punched, or otherwise hurt by someone within the past year? If so, by whom?: No Do you feel safe in your current relationship?: Yes Is there a partner from a previous relationship who is making you feel unsafe now?: No Are you made to feel afraid or neglected: No Advance Directives: No Advance Directives Information Provided: No Do you have thoughts of harming others: None Do you have a plan to hurt others: No Plan Recently lost weight without trying: No service: No Current occupational status: employed Meds Allergies Allergy/AdvReac Type Severity Reaction Status Date / Time SEAFOOD Allergy Unknown DIFFICULTY Uncoded 11/30/19 15:45 BREATHING Active Medications: Current Medications Generic Name Dose Route Start Last Admin Trade Name Freq PRN Reason Stop Dose Admin Acetaminophen 650 mg 05/27/20 20:38 05/28/20 12:03 Acetaminophen 325 Mg Tablet PO 650 mg Q6H PRN Administration Pain, Mild (Pain Scale 1-3) Albuterol Sulfate 2.5 mg 05/27/20 20:52 Albuterol Sulfate (0.083%) 2.5 Mg/3 Ml Vial.Neb INHALE Q4H PRN shortness of breath or wheezin Azithromycin 500 mg 05/28/20 20:00 Azithromycin 500 Mg Tablet PO Q24H GABBIE Dexamethasone 6 mg 05/28/20 09:00 05/28/20 07:40 Dexamethasone 6 Mg Tablet PO 6 mg DAILY GABBIE Administration Enoxaparin Sodium 40 mg 05/27/20 22:00 05/28/20 00:47 Enoxaparin Sodium 40 Mg/0.4 Ml Syringe SUBCUT 40 mg Q24H GABBIE Administration Famotidine 20 mg 05/28/20 09:00 05/28/20 07:40 Famotidine 20 Mg Tablet PO 20 mg DAILY GABBIE Administration Guaifenesin 5 ml 05/28/20 10:59 05/28/20 11:14 Guaifenesin 100 Mg/5 Ml Liquid PO 5 ml Q6H PRN Administration Cough Ceftriaxone Sodium 1 gm/ 50 mls @ 100 mls/hr 05/28/20 21:00 Sodium Chloride IV Q24H GABBIE Ondansetron HCl 4 mg 05/28/20 10:58 05/28/20 11:14 Ondansetron Hcl 4 Mg/2 Ml Vial IVPUSH 4 mg Q6H PRN Administration Nausea and Vomiting Pharmacy Consult 1 each 05/27/20 19:25 Consult Rx Perform Med Rec MISCELLANE ONCE PRN Consult order Senna 17.2 mg 05/27/20 20:38 Sennosides 8.6 Mg Tablet PO BEDTIME PRN Constipation Sodium Chloride 3 ml 05/28/20 00:00 05/28/20 15:14 0.9 % Sodium Chloride Flush 3 Ml Syringe IVFLUSH 3 ml QSHIFT GABBIE Administration Physical Exam Vital Signs: Vital Signs: Last Vital Signs Temp 97.5 F 05/28/20 15:13 Pulse 88 05/28/20 15:13 Resp 20 05/28/20 15:13 BP 112/68 05/28/20 15:13 Pulse Ox 92 05/28/20 15:13 Body Mass Index 38.0 Const: General: cooperative HENMT: Head: Yes normal to inspection Mouth: Normal oral and palatal mucosa present Eyes: General: appearance normal, both eyes and all related structures Neck: Neck: Yes normal visual inspection Resp: Effort & Inspection: normal respiratory effort and able to speak in complete sentences Cardio: Rate: regular rate Rhythm: regular rhythm GI: Palpation (GI): nontender : General: Yes no CVA tenderness Back/Spine/Pelvis: Back: no CVA tenderness Results Labs CBC & Chem 7: 05/28/20 06:52 05/28/20 06:52 Labs: Short CBC 05/27/20 05/27/20 05/28/20 Range/Units 18:16 18:18 06:52 WBC 4.4 L 2.6 L (4.8-10.8) X10*3/uL Hgb 14.4 14.2 (14.0-18.0) g/dl Hct 44.4 44.1 (42-52) % Plt Count 273 D 304 (160-400) X10*3/uL Procalcitonin 0.08 ng/mL BMP 05/27/20 05/28/20 18:18 06:52 Sodium 140 139 Potassium 4.4 5.0 Chloride 101 103 Carbon Dioxide 30 H 25 BUN 9 12 Creatinine 0.76 0.72 Calcium 8.5 8.8 Liver Function 05/27/20 Range/Units 18:18 Total Bilirubin 0.9 (0.0-1.0) mg/dL Direct Bilirubin 0.4 (0.0-0.5) mg/dL AST 45 H (5-37) U/L ALT 49 H (0-40) U/L Alkaline Phosphatase 56 (39-117) U/L Albumin 4.0 (3.5-5.0) g/dL Assessment and Plan (1) COVID-19: Problem details: COVID pneumonia He has had symptoms for two weeks She has no purulence sputum or signs of bacterial infection Status: Acute Would continue oxygen and steroids as indicated No Remdesivir as over 10 days (2) Hypoxia: Problem details: oxygen as needed Status: Acute
--- NOTE | 2020-05-28 15:53 | HO.PM.IMPN ---
Subjective Subjective Date of Service: 05/28/20 Interval History: Patient seen and examined at bedside Patient was reporting shortness of breath Review of Systems Constitutional: positive Fever, positive Chills, positive fatigue, positive Malaise ENT/Mouth: No sore throat, positive runny nose Eyes: No Discharge Cardiovascular: No Chest Pain, positive SOB Respiratory: Positive Cough, No Sputum, positive Wheezing, No Smoke Exposure, positive Dyspnea Gastrointestinal: No Nausea, No Vomiting, No Diarrhea Genitourinary: no irregular bleeding, No Dysuria, No Urinary Frequency, No Hematuria, No Urinary Incontinence, No Urgency, No Flank Pain, Musculoskeletal: positive Myalgia Skin: No rash Neuro: Positive Headache Physical Exam Vital Signs: Vital Signs: Last Vital Signs Temp 97.5 F 05/28/20 15:13 Pulse 88 05/28/20 15:13 Resp 20 05/28/20 15:13 BP 112/68 05/28/20 15:13 Pulse Ox 92 05/28/20 15:13 Body Mass Index 38.0 Const: General: cooperative HENMT: Head: Yes normal to inspection Mouth: Normal oral and palatal mucosa present Eyes: General: appearance normal, both eyes and all related structures Neck: Neck: Yes normal visual inspection Resp: Auscultation: wheezes Cardio: Rate: regular rate Rhythm: regular rhythm GI: Palpation (GI): nontender : General: Yes no CVA tenderness Back/Spine/Pelvis: Back: no CVA tenderness Objective Data Current Medications Generic Name Dose Route Start Last Admin Trade Name Freq PRN Reason Stop Dose Admin Acetaminophen 650 mg 05/27/20 20:38 05/28/20 12:03 Acetaminophen 325 Mg Tablet PO 650 mg Q6H PRN Administration Pain, Mild (Pain Scale 1-3) Albuterol Sulfate 2.5 mg 05/27/20 20:52 Albuterol Sulfate (0.083%) 2.5 Mg/3 Ml Vial.Neb INHALE Q4H PRN shortness of breath or wheezin Azithromycin 500 mg 05/28/20 20:00 Azithromycin 500 Mg Tablet PO Q24H GABBIE Dexamethasone 6 mg 05/28/20 09:00 05/28/20 07:40 Dexamethasone 6 Mg Tablet PO 6 mg DAILY GABBIE Administration Enoxaparin Sodium 40 mg 05/27/20 22:00 05/28/20 00:47 Enoxaparin Sodium 40 Mg/0.4 Ml Syringe SUBCUT 40 mg Q24H GABBIE Administration Famotidine 20 mg 05/28/20 09:00 05/28/20 07:40 Famotidine 20 Mg Tablet PO 20 mg DAILY GABBIE Administration Guaifenesin 5 ml 05/28/20 10:59 05/28/20 11:14 Guaifenesin 100 Mg/5 Ml Liquid PO 5 ml Q6H PRN Administration Cough Ceftriaxone Sodium 1 gm/ 50 mls @ 100 mls/hr 05/28/20 21:00 Sodium Chloride IV Q24H GABBIE Ondansetron HCl 4 mg 05/28/20 10:58 05/28/20 11:14 Ondansetron Hcl 4 Mg/2 Ml Vial IVPUSH 4 mg Q6H PRN Administration Nausea and Vomiting Pharmacy Consult 1 each 05/27/20 19:25 Consult Rx Perform Med Rec MISCELLANE ONCE PRN Consult order Senna 17.2 mg 05/27/20 20:38 Sennosides 8.6 Mg Tablet PO BEDTIME PRN Constipation Sodium Chloride 3 ml 05/28/20 00:00 05/28/20 15:14 0.9 % Sodium Chloride Flush 3 Ml Syringe IVFLUSH 3 ml QSHIFT GABBIE Administration Labs CBC & Chem 7: 05/28/20 06:52 05/28/20 06:52 Assessment and Plan (1) COVID-19: Status: Acute Assessment and Plan: 35-year-old male with no significant past medical history presented to the hospital with a chief complaint of shortness of breath or dyspnea on exertion. Noted to have COVID-19 pneumonia causing acute hypoxic failure. Admitted for further management. Acute hypoxic respiratory failure: In the setting of COVID-19 pneumonia. Continue oxygen supplementation Continue supportive management Continue antibiotic for now follow-up cultures Continue dexamethasone Id consult pending DVT prophylaxis: Lovenox
[2020-05-29 04:00] VITALS: BP 134/68; PULSE 74; RESP 18; TEMP 36.3; O2SAT 94
[2020-05-29 07:42] VITALS: BP 118/70; PULSE 80; RESP 20; TEMP 36.8; O2SAT 94
[2020-05-29] MEDS: Famotidine 20 MG TABLET PO (10:08)
[2020-05-29] MEDS: dexAMETHasone sod phosphate 4 MG/ML VIAL 6 MG IVPUSH (10:08)
[2020-05-29] MEDS: 0.9 % Sodium Chloride Flush 3 ML SYRINGE IVFLUSH ×3 (10:08→22:34)
[2020-05-29 11:27] VITALS: BP 114/63; PULSE 81; RESP 27; TEMP 36.7; O2SAT 91
--- NOTE | 2020-05-29 13:31 | MHC.CM.PN ---
Patient is on IV Dexamethasone and 4.5 liters O2 via [place] for COVID+. Discharge plan is home no services. family will provide transport. CM will continue to follow patient for discharge needs.
--- NOTE | 2020-05-29 15:06 | HO.PM.IMPN ---
Subjective Subjective Date of Service: 05/29/20 Interval History: Patient seen and examined at bedside Patient was reporting shortness of breath and cough Review of Systems Constitutional: positive Fever, positive Chills, positive fatigue, positive Malaise ENT/Mouth: No sore throat, positive runny nose Eyes: No Discharge Cardiovascular: No Chest Pain, positive SOB Respiratory: Positive Cough, No Sputum, positive Wheezing, No Smoke Exposure, positive Dyspnea Gastrointestinal: No Nausea, No Vomiting, No Diarrhea Genitourinary: no irregular bleeding, No Dysuria, No Urinary Frequency, No Hematuria, No Urinary Incontinence, No Urgency, No Flank Pain, Musculoskeletal: positive Myalgia Skin: No rash Neuro: Positive Headache Physical Exam Vital Signs: Vital Signs: Last Vital Signs Temp 98.1 F 05/29/20 11:27 Pulse 81 05/29/20 11:27 Resp 27 H 05/29/20 11:27 BP 114/63 05/29/20 11:27 Pulse Ox 91 L 05/29/20 11:27 Body Mass Index 38.0 Const: General: cooperative HENMT: Head: Yes normal to inspection Mouth: Normal oral and palatal mucosa present Eyes: General: appearance normal, both eyes and all related structures Neck: Neck: Yes normal visual inspection Resp: Auscultation: wheezes Cardio: Rate: regular rate Rhythm: regular rhythm GI: Palpation (GI): nontender : General: Yes no CVA tenderness Back/Spine/Pelvis: Back: no CVA tenderness Objective Data Current Medications Generic Name Dose Route Start Last Admin Trade Name Freq PRN Reason Stop Dose Admin Acetaminophen 650 mg 05/27/20 20:38 05/28/20 12:03 Acetaminophen 325 Mg Tablet PO 650 mg Q6H PRN Administration Pain, Mild (Pain Scale 1-3) Albuterol Sulfate 2.5 mg 05/29/20 15:00 Albuterol Sulfate (0.083%) 2.5 Mg/3 Ml Vial.Neb INHALE Q6H GABBIE Dexamethasone Sodium Phosphate 6 mg 05/29/20 09:00 05/29/20 10:08 Dexamethasone Sod Phosphate 4 Mg/Ml Vial IVPUSH 6 mg DAILY GABBIE Administration Enoxaparin Sodium 40 mg 05/27/20 22:00 05/28/20 21:42 Enoxaparin Sodium 40 Mg/0.4 Ml Syringe SUBCUT 40 mg Q24H GABBIE Administration Famotidine 20 mg 05/28/20 09:00 05/29/20 10:08 Famotidine 20 Mg Tablet PO 20 mg DAILY GABBIE Administration Guaifenesin 5 ml 05/28/20 10:59 05/28/20 11:14 Guaifenesin 100 Mg/5 Ml Liquid PO 5 ml Q6H PRN Administration Cough Ondansetron HCl 4 mg 05/28/20 10:58 05/28/20 11:14 Ondansetron Hcl 4 Mg/2 Ml Vial IVPUSH 4 mg Q6H PRN Administration Nausea and Vomiting Pharmacy Consult 1 each 05/27/20 19:25 Consult Rx Perform Med Rec MISCELLANE ONCE PRN Consult order Senna 17.2 mg 05/27/20 20:38 Sennosides 8.6 Mg Tablet PO BEDTIME PRN Constipation Sodium Chloride 3 ml 05/28/20 00:00 05/29/20 10:08 0.9 % Sodium Chloride Flush 3 Ml Syringe IVFLUSH 3 ml QSHIFT GABBIE Administration Labs CBC & Chem 7: 05/28/20 06:52 05/28/20 06:52 Microbiology Microbiology Results: Microbiology 05/27/20 21:03 Blood - Venous Blood Culture - Preliminary No growth after 24 hours. 05/27/20 18:16 Blood - Venous Blood Culture - Preliminary No growth after 24 hours. Assessment and Plan (1) COVID-19: Status: Acute Assessment and Plan: 35-year-old male with no significant past medical history presented to the hospital with a chief complaint of shortness of breath or dyspnea on exertion. Noted to have COVID-19 pneumonia causing acute hypoxic failure. Admitted for further management. Acute hypoxic respiratory failure: In the setting of COVID-19 pneumonia. Continue oxygen supplementation Continue supportive management Continue dexamethasone Id consulted recommended continue dexamethasone commended no remdesivir given symptoms for more than 10 days Monitor closely DVT prophylaxis: Lovenox
[2020-05-29 15:26] VITALS: BP 108/72; PULSE 81; RESP 20; TEMP 36.1; O2SAT 95
[2020-05-29 15:51] LABS: D Dimer < 200 NG/ML
[2020-05-29 19:13] VITALS: BP 114/65; PULSE 82; RESP 20; TEMP 36.6; O2SAT 94
[2020-05-29] MEDS: Enoxaparin Sodium 40 MG/0.4 ML SYRINGE SUBCUT (22:33)
[2020-05-30] VITALS (7 sets, daily range): BP systolic 119–136; BP diastolic 64–79; PULSE 74–90; RESP 18–21; TEMP 36.1–37.1; O2SAT 90–96
[2020-05-30] MEDS: Famotidine 20 MG TABLET PO (09:04)
[2020-05-30] MEDS: 0.9 % Sodium Chloride Flush 3 ML SYRINGE IVFLUSH ×3 (09:04→23:41)
[2020-05-30] MEDS: dexAMETHasone sod phosphate 4 MG/ML VIAL 6 MG IVPUSH (09:04)
--- NOTE | 2020-05-30 14:59 | HO.PM.IMPN ---
Subjective Subjective Date of Service: 05/30/20 Interval History: Patient seen and examined at bedside Patient was reporting shortness of breath and cough Review of Systems Constitutional: positive Fever, positive Chills, positive fatigue, positive Malaise ENT/Mouth: No sore throat, positive runny nose Eyes: No Discharge Cardiovascular: No Chest Pain, positive SOB Respiratory: Positive Cough, No Sputum, positive Wheezing, No Smoke Exposure, positive Dyspnea Gastrointestinal: No Nausea, No Vomiting, No Diarrhea Genitourinary: no irregular bleeding, No Dysuria, No Urinary Frequency, No Hematuria, No Urinary Incontinence, No Urgency, No Flank Pain, Musculoskeletal: positive Myalgia Skin: No rash Neuro: Positive Headache Physical Exam Vital Signs: Vital Signs: Last Vital Signs Temp 97.8 F 05/30/20 11:52 Pulse 90 05/30/20 11:52 Resp 20 05/30/20 11:52 BP 125/70 05/30/20 11:52 Pulse Ox 92 05/30/20 11:52 Body Mass Index 38.0 Const: General: cooperative HENMT: Head: Yes normal to inspection Mouth: Normal oral and palatal mucosa present Eyes: General: appearance normal, both eyes and all related structures Neck: Neck: Yes normal visual inspection Resp: Auscultation: wheezes Cardio: Rate: regular rate Rhythm: regular rhythm GI: Palpation (GI): nontender : General: Yes no CVA tenderness Back/Spine/Pelvis: Back: no CVA tenderness Objective Data Current Medications Generic Name Dose Route Start Last Admin Trade Name Freq PRN Reason Stop Dose Admin Acetaminophen 650 mg 05/27/20 20:38 05/28/20 12:03 Acetaminophen 325 Mg Tablet PO 650 mg Q6H PRN Administration Pain, Mild (Pain Scale 1-3) Albuterol Sulfate 1 puff 05/30/20 18:00 Albuterol Sulfate 90 Mcg 8 Gm Inhaler INHALE RQ6H GABBIE Dexamethasone Sodium Phosphate 6 mg 05/29/20 09:00 05/30/20 09:04 Dexamethasone Sod Phosphate 4 Mg/Ml Vial IVPUSH 6 mg DAILY GABBIE Administration Enoxaparin Sodium 40 mg 05/27/20 22:00 05/29/20 22:33 Enoxaparin Sodium 40 Mg/0.4 Ml Syringe SUBCUT 40 mg Q24H GABBIE Administration Famotidine 20 mg 05/28/20 09:00 05/30/20 09:04 Famotidine 20 Mg Tablet PO 20 mg DAILY GABBIE Administration Guaifenesin 5 ml 05/28/20 10:59 05/28/20 11:14 Guaifenesin 100 Mg/5 Ml Liquid PO 5 ml Q6H PRN Administration Cough Ondansetron HCl 4 mg 05/28/20 10:58 05/28/20 11:14 Ondansetron Hcl 4 Mg/2 Ml Vial IVPUSH 4 mg Q6H PRN Administration Nausea and Vomiting Pharmacy Consult 1 each 05/27/20 19:25 Consult Rx Perform Med Rec MISCELLANE ONCE PRN Consult order Senna 17.2 mg 05/27/20 20:38 Sennosides 8.6 Mg Tablet PO BEDTIME PRN Constipation Sodium Chloride 3 ml 05/28/20 00:00 05/30/20 09:04 0.9 % Sodium Chloride Flush 3 Ml Syringe IVFLUSH 3 ml QSHIFT GABBIE Administration Labs CBC & Chem 7: 05/28/20 06:52 05/28/20 06:52 Microbiology Microbiology Results: Microbiology 05/27/20 21:03 Blood - Venous Blood Culture - Preliminary No growth after 48 hours. 05/27/20 18:16 Blood - Venous Blood Culture - Preliminary No growth after 48 hours. Assessment and Plan (1) COVID-19: Status: Acute Assessment and Plan: 35-year-old male with no significant past medical history presented to the hospital with a chief complaint of shortness of breath or dyspnea on exertion. Noted to have COVID-19 pneumonia causing acute hypoxic failure. Admitted for further management. Acute hypoxic respiratory failure: In the setting of COVID-19 pneumonia. history of asthma still requiring 3-4 L of oxygen reported shortness of breath Continue oxygen supplementation Continue supportive management Continue dexamethasone continue inhaler Id consulted recommended continue dexamethasone recommended no remdesivir given symptoms for more than 10 days Monitor closely DVT prophylaxis: Lovenox
[2020-05-30] MEDS: guaiFENesin 100 MG/5 ML LIQUID PO (21:10)
[2020-05-30] MEDS: Enoxaparin Sodium 40 MG/0.4 ML SYRINGE SUBCUT (21:10)
[2020-05-30] MEDS: ondansetron HCL 4 MG/2 ML VIAL IVPUSH (21:10)
[2020-05-31] VITALS (8 sets, daily range): BP systolic 107–131; BP diastolic 64–85; PULSE 68–92; RESP 18–20; TEMP 36.4–36.9; O2SAT 92–98
[2020-05-31] MEDS: Albuterol Sulfate 90 MCG 8 GM INHALER 1 PUFF INHALE ×4 (00:10→18:00)
[2020-05-31 09:10] LABS: Alanine Aminotransferase 170 U/L (0-40); Albumin Level 3.9 g/dL (3.5-5.0); Alkaline Phosphatase 52 U/L (39-117); Anion Gap 13 (12-20); Aspartate Amino Transferase 69 U/L (5-37); Bilirubin Total 0.8 mg/dL (0.0-1.0); Blood Urea Nitrogen 19 mg/dL (9-16); Calcium 8.9 mg/dL (8.4-10.2); Carbon Dioxide 27 mmol/L (22-29); Chloride 102 mmol/L (96-108); Creatinine Clr Calc Pharmacy 185.1; Estimated Glomerular Filt Rate > 60; Glucose Random 106 mg/dL (60-115); Potassium 4.7 mmol/L (3.3-5.1); Sodium 137 mmol/L (135-145)
[2020-05-31] MEDS: Famotidine 20 MG TABLET PO (09:46)
[2020-05-31] MEDS: dexAMETHasone sod phosphate 4 MG/ML VIAL 6 MG IVPUSH (09:46)
[2020-05-31] MEDS: 0.9 % Sodium Chloride Flush 3 ML SYRINGE IVFLUSH ×3 (09:46→22:26)
--- NOTE | 2020-05-31 16:55 | P.PNIM_ITS ---
Subjective Subjective Date of Service: 05/31/20 Interval History: Patient seen and examined at bedside Patient was reporting shortness of breath and cough with some improvement Review of Systems Constitutional: positive Fever, positive Chills, positive fatigue, positive Malaise ENT/Mouth: No sore throat, positive runny nose Eyes: No Discharge Cardiovascular: No Chest Pain, positive SOB Respiratory: Positive Cough, No Sputum, positive Wheezing, No Smoke Exposure, positive Dyspnea Gastrointestinal: No Nausea, No Vomiting, No Diarrhea Genitourinary: no irregular bleeding, No Dysuria, No Urinary Frequency, No Hematuria, No Urinary Incontinence, No Urgency, No Flank Pain, Musculoskeletal: positive Myalgia Skin: No rash Neuro: Positive Headache Physical Exam Vital Signs: Vital Signs: Last Vital Signs Temp 98.4 F 05/31/20 15:56 Pulse 82 05/31/20 15:56 Resp 18 05/31/20 15:56 BP 123/74 05/31/20 15:56 Pulse Ox 93 05/31/20 15:56 Body Mass Index 38.0 Const: General: cooperative HENMT: Head: Yes normal to inspection Mouth: Normal oral and palatal mucosa present Eyes: General: appearance normal, both eyes and all related structures Neck: Neck: Yes normal visual inspection Resp: Auscultation: wheezes Cardio: Rate: regular rate Rhythm: regular rhythm GI: Palpation (GI): nontender : General: Yes no CVA tenderness Back/Spine/Pelvis: Back: no CVA tenderness Objective Data Current Medications Generic Name Dose Route Start Last Admin Trade Name Freq PRN Reason Stop Dose Admin Acetaminophen 650 mg 05/27/20 20:38 05/28/20 12:03 Acetaminophen 325 Mg Tablet PO 650 mg Q6H PRN Administration Pain, Mild (Pain Scale 1-3) Albuterol Sulfate 1 puff 05/30/20 18:00 05/31/20 11:59 Albuterol Sulfate 90 Mcg 8 Gm Inhaler INHALE 1 puff RQ6H GABBIE Administration Dexamethasone Sodium Phosphate 6 mg 05/29/20 09:00 05/31/20 09:46 Dexamethasone Sod Phosphate 4 Mg/Ml Vial IVPUSH 6 mg DAILY GABBIE Administration Enoxaparin Sodium 40 mg 05/27/20 22:00 05/30/20 21:10 Enoxaparin Sodium 40 Mg/0.4 Ml Syringe SUBCUT 40 mg Q24H GABBIE Administration Famotidine 20 mg 05/28/20 09:00 05/31/20 09:46 Famotidine 20 Mg Tablet PO 20 mg DAILY GABBIE Administration Guaifenesin 5 ml 05/28/20 10:59 05/30/20 21:10 Guaifenesin 100 Mg/5 Ml Liquid PO 5 ml Q6H PRN Administration Cough Ondansetron HCl 4 mg 05/28/20 10:58 05/30/20 21:10 Ondansetron Hcl 4 Mg/2 Ml Vial IVPUSH 4 mg Q6H PRN Administration Nausea and Vomiting Pharmacy Consult 1 each 05/27/20 19:25 Consult Rx Perform Med Rec MISCELLANE ONCE PRN Consult order Senna 17.2 mg 05/27/20 20:38 Sennosides 8.6 Mg Tablet PO BEDTIME PRN Constipation Sodium Chloride 3 ml 05/28/20 00:00 05/31/20 09:46 0.9 % Sodium Chloride Flush 3 Ml Syringe IVFLUSH 3 ml QSHIFT GABBIE Administration Labs CBC & Chem 7: 05/28/20 06:52 05/31/20 08:25 Microbiology Microbiology Results: Microbiology 05/27/20 21:03 Blood - Venous Blood Culture - Preliminary No growth after 48 hours. 05/27/20 18:16 Blood - Venous Blood Culture - Preliminary No growth after 48 hours. Assessment and Plan (1) COVID-19: Status: Acute Assessment and Plan: 35-year-old male with no significant past medical history [facility] with a chief complaint of shortness of breath or dyspnea on exertion. Noted to have COVID-19 pneumonia causing acute hypoxic failure. Admitted for further management. Acute hypoxic respiratory failure: In the setting of COVID-19 pneumonia. history of asthma still requiring 3-4 L of oxygen reported shortness of breath Continue oxygen supplementation Continue supportive management Continue dexamethasone continue inhaler Id consulted recommended continue dexamethasone recommended no remdesivir given symptoms for more than 10 days Monitor closely DVT prophylaxis: Lovenox
[2020-05-31] MEDS: Enoxaparin Sodium 40 MG/0.4 ML SYRINGE SUBCUT (22:25)
[2020-06-01] VITALS (7 sets, daily range): BP systolic 113–140; BP diastolic 62–73; PULSE 68–112; RESP 18–20; TEMP 36.2–37; O2SAT 91–98
[2020-06-01] MEDS: Albuterol Sulfate 90 MCG 8 GM INHALER 1 PUFF INHALE (08:33)
[2020-06-01] MEDS: Famotidine 20 MG TABLET PO (09:34)
[2020-06-01] MEDS: 0.9 % Sodium Chloride Flush 3 ML SYRINGE IVFLUSH (09:35)
[2020-06-01] MEDS: dexAMETHasone sod phosphate 4 MG/ML VIAL 6 MG IVPUSH (09:35)
--- NOTE | 2020-06-01 14:22 | PM.DS ---
DS: Providers Provider Date of Service: 06/01/20 Date of admission: 05/27/20 20:38 Primary care physician: None Physician Consults: 05/27/20 20:52 Consult to Infectious Diseases Routine Consulting Provider: Zainab Silva Reason for consultation: COVID PNA DS: Diagnosis Discharge Diagnosis (1) COVID-19: Status: Acute DS: Medications Discharge Medications Home Medications: Previous Rx's Medication Instructions Recorded albuterol sulfate 2.5 mg INHALATION Q4-6H PRN #75 ml 05/24/20 ondansetron HCl [Zofran] 4 mg PO Q6H PRN #14 tab 05/24/20 dexamethasone 6 mg PO DAILY #5 tab 06/01/20 guaifenesin 100 mg PO Q6H PRN #500 ml 06/01/20 DS: Summary Hospital Course Hospital Course: HPI 35-year-old male with no significant past medical history, recently diagnosed with COVID on 05/23/2020 presented to the hospital today with a chief complaint of cough and shortness of breath. Patient mentioned that he becomes severely short of breath with minimal exertion. Denies any chest pain palpitations. Denies any numbness tingling. Reports diarrhea. Review of all other systems is negative except mentioned above ER course: Per ER team patient was noted to be hypoxic to 88% on room air with minimal movement. Placed on 3 L of nasal cannula with increase in oxygenation to 95%. CT scan showed no evidence of PE but noted worsening opacities consistent with the COVID-19 pneumonia. Admitted to the hospital for further management. ER team mentioned that patient was given Solu-Medrol for premedication for contrast. Also given ceftriaxone and azithromycin. Hospital course 35-year-old male admitted with COVID pneumonia and acute hypoxic respiratory failure, patient was started on oxygen supplementation and dexamethasone, patient was seen by infectious disease recommended no remdesivir given symptoms more than 10 days, patient's hypoxia was , patient's symptoms were improving, patient was evaluated for home oxygen patient did not qualify for home oxygen, patient was stable discharged home on p.o. dexamethasone, patient was instructed to quarantine for total 14 days. Time Spent with Patient Time attestation: Total time spent providing and/or coordinating discharge services: Discharge coordination time: Greater than 30 minutes Physical Exam Vital Signs: Vital Signs: Last Vital Signs Temp 97.2 F 06/01/20 12:00 Pulse 82 06/01/20 12:00 Resp 20 06/01/20 12:00 BP 113/62 06/01/20 12:00 Pulse Ox 93 06/01/20 14:17 Body Mass Index 38.0 DS: Data Data Completed and Pending Labs on day of discharge: Preliminary micro results at discharge 05/27/20 21:03 Blood Culture - Preliminary Blood - Venous No growth after 48 hours. 05/27/20 18:16 Blood Culture - Preliminary Blood - Venous No growth after 48 hours. Discharge Plan Discharge Anticipated Discharge Date/Time: 06/01/20 14:19 Patient Disposition: Home, Self-Care Referrals: Physician,None [Primary Care Provider] - Discharge Medications: New guaifenesin 100 mg/5 mL Liquid 100 mg PO Q6H PRN (Reason: Cough) Qty: 500 RF: 0 dexamethasone 6 mg tablet 6 mg PO DAILY Qty: 5 RF: 0 Continued ondansetron HCl [Zofran] 4 mg tablet 4 mg PO Q6H PRN (Reason: nausea and vomiting) Qty: 14 RF: 0 albuterol sulfate 2.5 mg /3 mL (0.083 %) solution for nebulization 2.5 mg inhalation Q4-6H PRN (Reason: shortness of breath or wheezing) Qty: 75 RF: 0 Discharge Orders: Discharge Order (Routine); Ordered 06/01/20 Ordered By: Montez Lopez Activity on Discharge: As tolerated Stand Alone Forms: Patient Portal Discharge page Care Plan Goals: see above Health Concerns: see above Plan of Treatment: see above Discharge Date/Time: 06/01/20 15:26
--- NOTE | 2020-06-01 15:47 | MHC.CM.PN ---
PT DISCHAEGED HOME SELF-CARE, FAMILY TRANSPORTED.
== END 2020-06-01 15:26 | disposition home or self-care (01) | DRG 137 ==
LOC: HO.ED 20:39 → HO.IMC 21:04
PROVIDERS: Nurse Practitioner Family; Admitting Provider Hospitalist; Emergency Provider Emergency Medicine; Visit Provider Internal Medicine
DX: U07.1 COVID-19 (principal); J96.01 Acute respiratory failure with hypoxia; J12.82 Pneumonia due to coronavirus disease 2019; Z87.891 Personal history of nicotine dependence; Z79.899 Other long term (current) drug therapy
CPT/HCPCS: 0241U; 36415; 71275; 76705; 80048; 80053; 80076; 82728; 83605; 83615; 83690; 83735; 84145; 84484; 85025; 85379; 85610; 85730; 86140; 87040; 93005; 96365; 96375; 99285; 99291; J0696; J1100; J1200; J1650; J2405; J2930; J8540; Q9967

== ENCOUNTER 2020-06-05 08:58 | Emergency (ER) | payer OTHER, SELFPAY ==
--- NOTE | ~2020-06-05 | US_ITS ---
EXAMINATION: US VENOUS ULTRASOUND WITH DOPPLER LOWER EXTREMITY, BILATERAL CLINICAL INFORMATION: Bilateral calf pain. COMPARISON: None TECHNIQUE: Ultrasound of the deep veins is performed from the hip to the calf with compression sonography and color and pulse Doppler assessment. Spectral analysis with color-flow imaging is performed. FINDINGS: RIGHT: There is normal venous compression and respiratory variation and augmented flow. The visualized common femoral vein, superficial femoral vein, profunda femoral vein, popliteal vein, and the trifurcation region shows no evidence of deep venous thrombosis. There is no significant popliteal fossa cyst. LEFT: There is acute thrombus in the proximal posterior tibial vein and peroneal veins. The left common femoral, greater saphenous, superficial femoral and profunda veins are widely patent with normal compression. The soft tissues are normal. No Fernandez's cyst seen. If the patient's symptoms persist, followup ultrasound in 5 days 7 days might be of value to exclude proximal propagation from a non-visualized calf vein. US/US venous duplex LE BI IMPRESSION: DVT demonstrated in the left lower extremity below the popliteal fossa. Normal right lower leg ultrasound venous study. No evidence of DVT.
[2020-06-05 09:03] VITALS: BP 156/90; PULSE 99; RESP 20; TEMP 36.6; O2SAT 95; BMI 38.0
--- NOTE | 2020-06-05 09:29 | ED.LOWEXIN ---
HPI - Extremity Injury (Lower) General Chief Complaint: Extremity Injury, Lower Stated Complaint: bilateral calf pain Time Seen by Provider: 06/05/20 09:11 Source: patient Mode of arrival: ambulatory History of Present Illness HPI Narrative: 35-year-old male with a past medical history recent COVID-19 positive on 05/23, discharged on at 06/01/20 complaining of bilateral calf pain/cramping x4-5 days. Admits to continued exertional shortness of breath from COVID-19, however improved from diagnosis. Patient was previous cigarette smoker. Denies being on anticoagulation. Denies recent travel, fever, chills, numbness, tingling Of Note patient with Negative D-dimer on 05/29 and two negative CTAs on 05/24 and 05/27 Related Data Previous Rx's Medication Instructions Recorded albuterol sulfate 2.5 mg INHALATION Q4-6H PRN #75 ml 05/24/20 ondansetron HCl [Zofran] 4 mg PO Q6H PRN #14 tab 05/24/20 dexamethasone 6 mg PO DAILY #5 tab 06/01/20 guaifenesin 100 mg PO Q6H PRN #500 ml 06/01/20 apixaban [Eliquis DVT-PE Treat 30D 5 mg PO PER PKG DIR #74 ea 06/05/20 Start] Allergies Allergy/AdvReac Type Severity Reaction Status Date / Time SEAFOOD Allergy Unknown DIFFICULTY Uncoded 11/30/19 15:45 BREATHING Review of Systems Review of Systems: Constitutional:No Fever, No Chills Cardiovascular: No Chest Pain, +exertional SOB, no edema Respiratory: No Cough, No Sputum, No Wheezing Musculoskeletal:+ joint pain, No Myalgias, No Joint Swelling Skin: No Skin Lesions, No rash Neuro: No Weakness, No Numbness, No Paresthesias Yes all other systems are reviewed and are negative [facility] Past Medical History Attestation statement: The following information was validated with the patient. Medical History No known health problems Social History Social History Household Members: Family Housing: House Alcohol intake: never Smoking Status: Former smoker Cigarettes Per Day: 3 Advance Directives: No Advance Directives Information Provided: No service: No Current occupational status: employed Physical Exam Vital Signs: Vital Signs: Last Vital Signs Temp 97.8 F 06/05/20 09:03 Pulse 88 06/05/20 10:34 Resp 17 06/05/20 10:34 BP 134/76 06/05/20 10:34 Pulse Ox 96 06/05/20 10:34 Body Mass Index 38.0 Const: General: cooperative and healthy appearing Orientation/consciousness: patient oriented x3 Limitations: no limitations HENMT: Head: Yes normal to inspection Ears: hearing grossly normal bilaterally General nose exam: Normal external nose present Face and sinus: Yes normal facial exam Eyes: General: appearance normal, both eyes and all related structures EOM: EOMs intact bilaterally Neck: Neck: Yes normal visual inspection Resp: Effort & Inspection: normal respiratory effort Auscultation: clear to auscultation bilaterally, no rales, no rhonchi and no wheezes Cardio: Rate: regular rate Heart sounds: S1 normal heart sound present and S2 normal heart sound present Peripheral pulses: dorsalis pedis present Skin: Rashes: no rashes Wounds: no wounds Neuro: General: patient oriented x3 Gait exam (Neuro): Normal gait present Extrem: General: Yes normal to inspection, Yes no pedal edema and Yes calf tenderness (bilateral) Course Course Course Narrative: US venous duplex LE BI IMPRESSION: DVT demonstrated in the left lower extremity below the popliteal fossa. Normal right lower leg ultrasound venous study. No evidence of DVT >> results discussed with patient and at bedside. Patient given 1st dose of Eliquis in the ED. Worrisome signs and symptoms and strict return precautions discussed. He verbalized understanding feel safe for discharge home to follow-up with Hematology MDM - Extremity Injury (Lower) MDM Narrative Medical decision making narrative: 35-year-old male with a past medical history recent COVID-19 positive on 05/23, discharged on at 06/01/20 complaining of bilateral calf pain/cramping x4-5 days. On exam VSS, NAD/well-appearing, bilateral calf tenderness elicited on exam, lungs CTA, no edema. Concern for DVT. Lower concern for PE without new or worsening SOB. Two recent CTA's negative for PE Plan: Bilateral venous duplex ultrasound Medical Records Attestation: I reviewed the patient's medical records. Lab Data Attestation: I reviewed the patient's lab results. Discharge Plan Discharge Clinical Impression: DVT (deep venous thrombosis) Qualifiers: DVT location: lower extremity Affected thrombotic vein of extremity: popliteal Chronicity: acute Laterality: left Qualified Code(s): I82.432 - Acute embolism and thrombosis of left popliteal vein Patient Disposition: Home, Self-Care Instructions: Deep Vein Thrombosis (ED) Additional Instructions: Your ultrasound showed a DVT in your left lower extremity below the popliteal fossa Eliquis as a blood thinner, take as prescribed, your supplied with a 30 day starter pack, you need to follow-up with a civil rights attorney for further management/extension of this blood thinner, call to make an appointment within the next 1-2 weeks If you develop any worsening or unremitting calf pain/shortness of breath, chest pain, redness, swelling in her legs return to the ED Prescriptions: New Eliquis DVT-PE Treat 30D Start 5 mg (74 tabs) tablets,dose pack 5 mg PO PER PKG DIR Qty: 74 RF: 0 No Action ondansetron HCl [Zofran] 4 mg tablet 4 mg PO Q6H PRN (Reason: nausea and vomiting) Qty: 14 RF: 0 albuterol sulfate 2.5 mg /3 mL (0.083 %) solution for nebulization 2.5 mg inhalation Q4-6H PRN (Reason: shortness of breath or wheezing) Qty: 75 RF: 0 guaifenesin 100 mg/5 mL Liquid 100 mg PO Q6H PRN (Reason: Cough) Qty: 500 RF: 0 dexamethasone 6 mg tablet 6 mg PO DAILY Qty: 5 RF: 0 Referrals: Alonzo Franco MD [Physician] - 1 week
[2020-06-05 10:34] VITALS: BP 134/76; PULSE 88; RESP 17; O2SAT 96
[2020-06-05] MEDS: Apixaban 5 MG TABLET 10 MG PO (10:37)
== END 2020-06-05 11:00 | disposition home or self-care (01) ==
PROVIDERS: Emergency Provider Emergency Medicine; PCP Family Medicine
DX: I82.432 Acute embolism and thrombosis of left popliteal vein (principal); M79.662 Pain in left lower leg; M79.661 Pain in right lower leg; Z86.16 Personal history of COVID-19; Z79.899 Other long term (current) drug therapy
CPT/HCPCS: 93970; 99283; 99284

== ENCOUNTER 2020-06-14 08:38 | Outpatient (REF) | payer OTHER, SELFPAY ==
[2020-06-14 11:16] LABS: Alanine Aminotransferase 108 U/L (0-40); Albumin Level 4.2 g/dL (3.5-5.0); Alkaline Phosphatase 63 U/L (39-117); Anion Gap 14 (12-20); Aspartate Amino Transferase 29 U/L (5-37); Bilirubin Total 0.5 mg/dL (0.0-1.0); Blood Urea Nitrogen 13 mg/dL (9-16); Calcium 9.2 mg/dL (8.4-10.2); Carbon Dioxide 24 mmol/L (22-29); Chloride 105 mmol/L (96-108); Cholesterol 246 mg/dL; Estimated Glomerular Filt Rate > 60; Glucose Fasting 156 mg/dL (60-99); HDL Cholesterol 43 mg/dL; LDL Cholesterol Calculated 173 mg/dl; Potassium 4.2 mmol/L (3.3-5.1); Sodium 139 mmol/L (135-145); Total Protein 7.5 g/dL (6.5-8.0); Triglycerides 154 mg/dL
[2020-06-14 11:36] LABS: TSH reflex Free T4 1.59 uIU/mL (0.32-4.0)
== END 2020-06-14 08:39 | disposition home or self-care (01) ==
LOC: HO.WFDLDS 08:38
PROVIDERS: Visit Provider Family Medicine
DX: Z00.00 Encounter for general adult medical examination without abnormal findings (principal)
CPT/HCPCS: 36415; 80053; 80061; 84443

== ENCOUNTER 2020-09-12 10:12 | Outpatient (REF) | payer OTHER, SELFPAY ==
--- NOTE | ~2020-09-12 | US_ITS ---
EXAMINATION: US VENOUS ULTRASOUND WITH DOPPLER LOWER EXTREMITY, LEFT CLINICAL INFORMATION: Follow-up left leg DVT COMPARISON: Previous exam May 2020 TECHNIQUE: Ultrasound of the deep veins is performed from the hip to the calf with compression sonography and color and pulse Doppler assessment. Spectral analysis with color-flow imaging is performed. FINDINGS: There is normal venous compression and respiratory variation and augmented flow. The visualized common femoral vein, superficial femoral vein, profunda femoral vein, popliteal vein, and the trifurcation region shows no evidence of deep venous thrombosis. There is no significant popliteal fossa cyst. US/US venous duplex LE LT IMPRESSION: No DVT demonstrated in the left lower extremity. The previously identified posterior tibial and peroneal vein calf DVT is no longer seen.
== END 2020-09-12 10:13 | disposition home or self-care (01) ==
LOC: HO.US 10:12
PROVIDERS: PCP Family Medicine; Visit Provider Internal Medicine Medical Oncology
DX: I82.402 Acute embolism and thrombosis of unspecified deep veins of left lower extremity (principal)
CPT/HCPCS: 93971

== ENCOUNTER 2021-08-08 07:18 | Outpatient (REF) | payer OTHER, SELFPAY ==
[2021-08-08 11:24] LABS: MANUAL DIFF FLAG NO
[2021-08-08 11:34] LABS: Basophils Percent Auto 0.3 % (0-2); Eosinophils Absolute Auto 0.2 X10*3/uL (0.0-0.4); Eosinophils Percent Auto 3.1 % (0-4); Hematocrit 47.4 % (42.0-52.0); Hemoglobin 15.3 g/dl (14.0-18.0); Imm Gran Abs Auto 0.05 X10*3/uL (0.00-0.03); Imm Gran Pct Auto 0.7 % (0.0-0.4); Lymphocytes Absolute Auto 2.5 X10*3/uL (1.2-4.9); Lymphocytes Percent Auto 35.2 % (20-40); Mean Corpuscular HGB Conc 32.3 g/dl (31.0-36.0); Mean Corpuscular Hemoglobin 27.3 pg (27.0-33.0); Mean Corpuscular Volume 84.5 fL (80.0-98.0); Mean Platelet Volume 11.9 fL (9.4-12.4); Monocytes Absolute Auto 0.6 X10*3/uL (0.1-1.2); Monocytes Percent Auto 7.9 % (2-11); Neutrophils Absolute Auto 3.8 x10*3/uL (2.0-8.3); Neutrophils Percent Auto 52.8 % (45-73); Platelet Count 207 X10*3/uL (160-400); Red Blood Count 5.61 X10*6/uL (4.60-5.80); Red Cell Distribution Width 14.9 % (11.0-16.0); White Blood Count 7.2 X10*3/uL (4.8-10.8)
[2021-08-08 11:59] LABS: Alanine Aminotransferase 81 U/L (0-40); Albumin Level 4.3 g/dL (3.5-5.0); Alkaline Phosphatase 53 U/L (39-117); Anion Gap 11 (12-20); Aspartate Amino Transferase 34 U/L (5-37); Bilirubin Total 0.7 mg/dL (0.0-1.0); Blood Urea Nitrogen 14 mg/dL (9-16); Calcium 9.4 mg/dL (8.4-10.2); Carbon Dioxide 27 mmol/L (22-29); Chloride 104 mmol/L (96-108); Cholesterol 241 mg/dL; Estimated Glomerular Filt Rate > 60; Glucose Fasting 114 mg/dL (60-99); HDL Cholesterol 41 mg/dL; LDL Cholesterol Calculated 181 mg/dl; Potassium 4.5 mmol/L (3.3-5.1); Sodium 137 mmol/L (135-145); Total Protein 7.4 g/dL (6.5-8.0); Triglycerides 95 mg/dL
[2021-08-08 12:22] LABS: TSH reflex Free T4 1.22 uIU/mL (0.32-4.0)
[2021-08-08 13:15] LABS: Creatinine Urine 143.36 mg/dL; Microalbum/Creatinine Ratio Ur 4.1 ug/mg cr
== END 2021-08-08 07:19 | disposition home or self-care (01) ==
LOC: HO.WFDLDS 07:18
PROVIDERS: Visit Provider Family Medicine
DX: Z00.00 Encounter for general adult medical examination without abnormal findings (principal); I10 Essential (primary) hypertension
CPT/HCPCS: 36415; 80053; 80061; 82043; 84443; 85025

== ENCOUNTER 2022-01-02 10:14 | Outpatient (REF) | payer OTHER, SELFPAY ==
[2022-01-02 15:30] LABS: Alanine Aminotransferase 75 U/L (0-40); Albumin Level 4.6 g/dL (3.5-5.0); Alkaline Phosphatase 58 U/L (39-117); Anion Gap 17 (12-20); Aspartate Amino Transferase 38 U/L (5-37); Bilirubin Total 0.7 mg/dL (0.0-1.0); Blood Urea Nitrogen 12 mg/dL (9-16); Calcium 9.5 mg/dL (8.4-10.2); Carbon Dioxide 25 mmol/L (22-29); Chloride 102 mmol/L (96-108); Cholesterol 170 mg/dL; Estimated Glomerular Filt Rate > 60; Glucose Random 122 mg/dL (60-115); HDL Cholesterol 43 mg/dL; LDL Cholesterol Calculated 108 mg/dl; Potassium 4.6 mmol/L (3.3-5.1); Sodium 139 mmol/L (135-145); Total Protein 7.7 g/dL (6.5-8.0); Triglycerides 96 mg/dL
== END 2022-01-02 10:15 | disposition home or self-care (01) ==
LOC: HO.WFDLDS 10:14
PROVIDERS: Visit Provider Family Medicine
DX: Z00.00 Encounter for general adult medical examination without abnormal findings (principal); E78.00 Pure hypercholesterolemia, unspecified; R74.8 Abnormal levels of other serum enzymes
CPT/HCPCS: 36415; 80053; 80061

== ENCOUNTER 2022-10-22 13:17 | Outpatient (AMB) | payer OTHER, SELFPAY ==
--- NOTE | 2022-10-22 13:22 | MHC.PC.OV ---
Vital Signs 10/22/22 13:24 Height 5 ft 10 in Weight 275 lb BMI 39.5 BP 124/80 Blood Pressure Location Lt brachial Position Sitting Pulse 76 Pulse Source Pulse Oximeter Pulse Oximetry (%) 97 Oxygen Delivery Method Room Air Intake Visit Reasons: Diabetic follow up Intake Note: Patient is here to follow up on his diabetes. Allergies SEAFOOD Allergy (Severe, Uncoded 10/22/22 13:25) DIFFICULTY BREATHING Medication List - Last Reconciled 10/22/22 by Liu Nava MD atorvastatin 40 mg PO BEDTIME 30 days metformin 500 mg PO DAILY 90 days Tobacco use date assessed: 10/22/22 Dental Screening Did you have a dental visit in the last 12 months?: Yes Did you have a dental problem in the last 6 months where you did not have access to dental care?: No Was dental information given to patient?: No HPI Diabetic follow up HPI Details 37 y/o male presents to f/u diabetes. Last A1c 01/02/22 6.2%. A1c today 10/22/22 is 6.4%. He is on metformin 500mg daily. He denies any problems with his metformin. [facility] Medical History DVT (deep venous thrombosis) History of asthma History of COVID-19 Surgical History No pertinent past surgical history Family History Mother Glioblastoma Social History Household Members: Family Housing: House Do you presently have visiting nurse or other home services: No Alcohol intake: current Alcohol intake frequency: holidays/special occasions only Patient Tobacco Use Status: Former Tobacco user Quit Date: 2020 Tobacco use type: Cigarette e-Cigarette/Vaping Use: Never Used Substance Use Type: Marijuana service: No Current occupational status: employed 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 Current occupational exposures/hazards: No Cognitive needs: No Hearing needs: No Vision needs: No Questionnaire PHQ-9 Over the last 2 weeks, how often have you been bothered by any of the following problems? 1. Little interest or pleasure in doing things: not at all 2. Feeling down, depressed, or hopeless: not at all 3. Trouble falling or staying asleep, or sleeping too much: not at all 4. Feeling tired or having little energy: not at all 5. Poor appetite or overeating: not at all 6. Feeling bad about yourself - or that you are a failure or have let yourself or your family down: not at all 7. Trouble concentrating on things, such as reading the newspaper or watching television: not at all 8. Moving or speaking so slowly that other people could have noticed. Or the opposite - being so fidgety or restless that you have been moving around a lot more than usual: not at all 9. Thoughts that you would be better off or of hurting yourself in some way: not at all Total score: 0 Source: Developed by Drs. Henri Chavez, Ana Jett, Pedro Gibson and colleagues, with an educational livier from [employer]. Thrive Questionnaire Date Thrive assessed: 09/26/20 I am a: Patient What is your living situation today?: I have a steady place to live Within the past 12 months, did the food you bought not last and you didn't have the money to get more?: Never true Within the past 12 months, did you worry whether your food would run out before you got money to buy more?: Never true Do you have trouble paying for medicines?: No Do you have trouble getting transportation to medical appointments?: No Do you have trouble paying your heating and electricity bill?: No Do you have trouble taking care of your child, family member or friend?: No Do you have trouble with day-to-day activities such as bathing, preparing meals, shopping, managing finances, etc.?: No Are you currently unemployed and looking for a job?: No Are you interested in more education?: No AUDIT C Alcohol Use Questionnaire (AUDIT-C) 1. How often do you have a drink containing alcohol?: 2-3 times a week 2. How many drinks containing alcohol do you have on a typical day when you are drinking?: 5 or 6 3. How often do you have six or more drinks on one occasion?: Weekly Total Score: 8 ZULY-7 AMB Questionnaire ZULY-7 Feeling nervous, anxious, or on edge: 0 = Not at all Not being able to stop or control worryin = Not at all Worrying too much about different things: 0 = Not at all Trouble relaxin = Not at all Being so restless that it is hard to sit still: 0 = Not at all Becoming easily annoyed or irritable: 0 = Not at all Feeling afraid as if something awful might happen: 0 = Not at all Total ZULY-7 score (0-4 normal; 5-9 mild; 10-14 moderate; 15-21 severe): 0 Source: Developed by Drs. Henri Chavez, Ana Jett, Pedro Gibson and colleagues, with an educational livier from [employer]. Review of Systems Const Denies chills, Denies fatigue, Denies fever(s), Denies headache(s) and Denies weakness ENT Denies dizziness and Denies headache(s) Card Denies dyspnea Resp Denies cough, Denies dyspnea, Denies wheezing and Denies other (shortness of breath) Musc Denies numbness and Denies tingling Neuro Denies dizziness, Denies headache(s), Denies numbness, Denies tingling and Denies weakness Psych Denies anxiety and Denies depression Endo Denies fatigue Aller/Immun Denies wheezing Physical exam (Primary Care) Vital Signs: Last Vital Signs Pulse 76 10/22/22 13:24 BP 124/80 10/22/22 13:24 Pulse Ox 97 10/22/22 13:24 Oxygen Delivery Method Room Air 10/22/22 13:24 BMI result Body Mass Index 39.5 Tobacco/Smoking Status: Tobacco use Status Tobacco use date assessed 10/22/22 10/22/22 13:27 Patient Tobacco Use Status Former Tobacco user 10/22/22 13:27 Tobacco use type Cigarette 10/22/22 13:27 e-Cigarette/Vaping Use Never Used 10/22/22 13:27 PHQ-9: PHQ-9 Score PHQ-9: Total score 0 10/22/22 13:53 Thrive Assessment: Date of Thrive Assessment Date Thrive assessed 09/26/20 10/22/22 13:27 Const General: well developed; No acute distress Nutritional Appearance: well nourished Orientation/consciousness: patient oriented x3 HENMT Head: Yes normocephalic and Yes atraumatic Eyes General: appearance normal, both eyes and all related structures Pupils: Equal, round and reactive pupils present EOM: EOMs intact bilaterally Resp Effort & Inspection: normal respiratory effort Auscultation: clear to auscultation bilaterally Cardio Rate: regular rate Rhythm: regular rhythm Heart sounds: S1 normal heart sound present, S2 normal heart sound present, no gallops, no murmurs and no rubs Neuro General: patient oriented x3 and gait normal Cranial nerves: Yes Equal, round and reactive pupils present Psych Affect: normal affect Results AMB Hemoglobin A1c AMB Hemoglobin A1c 6.4 % Last Edit by Coral Graham CMA on 10/22/22 13:47 Results Reviewed Results Reviewed: Laboratory Last Values Hgb A1c (Clinic) 6.4 % (4.0-6.0) H 10/22/22 13:46 Assessment and Plan Assessment & Plan (1) Diabetes: Code(s): E11.9 - Type 2 diabetes mellitus without complications Plan: A1c is 6.4%; good control. Goal is less than 7.0% Continue current medication Has not had an eye exam. Will resend referral Orders: Orders Comprehensive [place]. Panel Fast Today Z00.00 - Encounter for general adult medical examination without abnormal findings Lipid Panel Today Z00.00 - Encounter for general adult medical examination without abnormal findings TSH reflex Free T4 Today Z00.00 - Encounter for general adult medical examination without abnormal findings Microalbumin, Random (w Creat) Today I10 - Essential (primary) hypertension UA and rflx microscopic Today Z00.00 - Encounter for general adult medical examination without abnormal findings AMB Hemoglobin A1c Today Z13.9 - Encounter for screening, unspecified Coding Level of Care Code Est Pt Level 3 (13712) Diagnoses Diabetes E11.9
[2022-10-22 13:24] VITALS: BP 124/80; PULSE 76; O2SAT 97; BMI 39.5
== END 2022-10-22 14:21 | disposition home or self-care (01) ==
PROVIDERS: PCP Family Medicine; Visit Provider Family Medicine
DX: E11.9 Type 2 diabetes mellitus without complications (principal)
CPT/HCPCS: 83036; 99213

== ENCOUNTER 2023-01-28 09:02 | Outpatient (AMB) | payer OTHER, SELFPAY ==
[2023-01-28 09:12] VITALS: BP 122/74; PULSE 78; O2SAT 98; BMI 40.2
--- NOTE | 2023-01-28 09:12 | MHC.PC.OV ---
Vital Signs 01/28/23 09:12 Height 5 ft 10 in Weight 280 lb 8 oz BMI 40.2 BP 122/74 Blood Pressure Location Lt brachial Position Sitting Pulse 78 Pulse Source Pulse Oximeter Pulse Oximetry (%) 98 Oxygen Delivery Method Room Air Intake Visit Reasons: CPE Intake Note: Patient is here for a physical today. Allergies SEAFOOD Allergy (Severe, Uncoded 10/22/22 13:25) DIFFICULTY BREATHING Tobacco use date assessed: 01/28/23 HPI CPE HPI Details 37 y/o male presents for a CPE with f/u labs and health maintenance. No recent labs to review. Last A1c 10/22/22 6.4%. A1c today 01/28/23 6.6%. He is on metformin 500mg daily. He continues to work on a diabetic diet. He denies any tingling/burning or loss of sensation of his feet. Pt does report fungal infection of his foot. He states he has an appt. with an eye doctor at [facility]. Pt reports mild hearing loss that has been the same for years. Pt reports recent coughing. His son was recently sick with a viral illness. [facility] Medical History DVT (deep venous thrombosis) History of asthma History of COVID-19 Surgical History No pertinent past surgical history Family History Mother Glioblastoma Social History Household Members: Family Housing: House Do you presently have visiting nurse or other home services: No Alcohol intake: current Alcohol intake frequency: holidays/special occasions only Patient Tobacco Use Status: Former Tobacco user Quit Date: 2020 Tobacco use type: Cigarette e-Cigarette/Vaping Use: Never Used Substance Use Type: Marijuana service: No Current occupational status: employed 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 Current occupational exposures/hazards: No Cognitive needs: No Hearing needs: No Vision needs: No Questionnaire Thrive Questionnaire Date Thrive assessed: 09/26/20 Review of Systems Const Denies chills, Denies fatigue, Denies fever(s), Denies headache(s) and Denies weakness Eyes Denies change in vision ENT Denies dizziness, Denies headache(s), Denies hearing loss, Denies nasal congestion, Denies sinus pain, Denies sinus pressure and Denies sore throat Card Denies chest pain, Denies lightheadedness, Denies dyspnea and Denies other (palpitations) Resp Reports cough, Denies dyspnea and Denies wheezing GI Denies abdominal pain, Denies melena, Denies hematochezia, Denies change in bowel habits, Denies dyspepsia and Denies nausea Denies hematuria and Denies dysuria Musc Denies abnormal gait, Denies myalgias, Denies arthralgias, Denies numbness and Denies tingling Skin/Breast Denies rash, Denies unusual bruising and Denies wounds Neuro Denies abnormal gait, Denies dizziness, Denies headache(s), Denies memory loss, Denies numbness, Denies Sensory deficit (Neuro), Denies tingling and Denies weakness Psych Denies anxiety, Denies depression and Denies memory loss Endo Denies cold intolerance, Denies fatigue, Denies heat intolerance, Denies polydipsia and Denies polyuria Chad/Lymph Denies easy bleeding and Denies easy bruising Aller/Immun Denies wheezing Physical exam (Primary Care) Vital Signs: Last Vital Signs Pulse 78 01/28/23 09:12 BP 122/74 01/28/23 09:12 Pulse Ox 98 01/28/23 09:12 Oxygen Delivery Method Room Air 01/28/23 09:12 BMI result Body Mass Index 40.2 Tobacco/Smoking Status: Tobacco use Status Tobacco use date assessed 01/28/23 01/28/23 09:20 Patient Tobacco Use Status Former Tobacco user 01/28/23 09:13 Tobacco use type Cigarette 01/28/23 09:13 e-Cigarette/Vaping Use Never Used 01/28/23 09:13 Thrive Assessment: Date of Thrive Assessment Date Thrive assessed 09/26/20 01/28/23 09:13 Const General: no acute distress, well developed, alert and awake Nutritional Appearance: well nourished and obese morbidly obese Orientation/consciousness: patient oriented x3 HENMT Head: Yes normocephalic and Yes atraumatic Ears: hearing grossly normal bilaterally and TM's normal bilaterally General nose exam: Normal external nose present and Normal nares present Mouth: Normal oral and palatal mucosa present and moist mucous membranes Teeth and gingiva: dentition normal Throat: Yes posterior oropharynx normal Eyes General: appearance normal, both eyes and all related structures Pupils: Equal, round and reactive pupils present and Pupil accommodation reflex normal EOM: EOMs intact bilaterally Neck Neck: Yes normal visual inspection, Yes no lymphadenopathy and Yes trachea midline Thyroid: Thyroid normal Carotids: no bruits Lymphatic: no lymphadenopathy noted Chest Chest palpation & inspection: normal inspection of the chest Resp Effort & Inspection: normal respiratory effort Auscultation: clear to auscultation bilaterally Cardio Rate: regular rate Rhythm: regular rhythm Heart sounds: S1 normal heart sound present, S2 normal heart sound present, no gallops, no murmurs and no rubs Bruits: no abdominal aortic bruits and no carotid bruits GI Palpation (GI): No Abdominal aortic bruit present, Soft to palpation, nontender, No hepatosplenomegaly present and No Rebound tenderness present Auscultation: normal bowel sounds General: Yes no CVA tenderness Back/Spine/Pelvis Back: no CVA tenderness Cervical Spine: cervical ROM normal and No Cervical spine tenderness Thoracic/Lumbar Spine: thoraco-lumbar ROM normal, No pain with thoraco-lumbar ROM, No thoracic spinal tenderness and No lumbar spinal tenderness Skin Lesions: no lesions Rashes: no rashes Trauma: no lacerations or abrasions Wounds: no wounds Nails: normal Neuro General: patient oriented x3 Cranial nerves: Yes Equal, round and reactive pupils present Cognition (Neuro): normal cognition Gait exam (Neuro): Normal gait present Motor exam (neuro): 5/5 motor strength present throughout Sensory Exam: No Sensory deficit (Neuro) Deep tendon reflexes (DTR's): Right patellar reflex intensity grade: 2+ and Left patellar reflex intensity grade: 2+ Extrem General: Yes normal to inspection and No edema Psych Appearance: grossly normal Affect: normal affect Attitude: cooperative Thought process: Normal thought process present Results AMB Hemoglobin A1c AMB Hemoglobin A1c 6.6 % Last Edit by Coral Graham CMA on 01/28/23 09:27 Results Reviewed Results Reviewed: Laboratory Last Values Hgb A1c (Clinic) 6.6 % (4.0-6.0) H 01/28/23 09:23 Assessment and Plan Assessment & Plan (1) Annual physical exam: Code(s): Z00.00 - Encounter for general adult medical examination without abnormal findings Plan: 37-year-old?male?presents?for?complete?physical?exam (2) Diabetes: Code(s): E11.9 - Type 2 diabetes mellitus without complications Plan: A1c?6.6%?is?good?control.??Goal?is?less?than?7.0% Encouraged?diabetic?diet Encouraged?weight?loss (3) Essential hypertension: Code(s): I10 - Essential (primary) hypertension Plan: Blood?pressure?is?controlled. Goal?is?less?than?140/90 Continue?diet-control (4) Elevated liver enzymes: Code(s): R74.8 - Abnormal levels of other serum enzymes Plan: Elevated?liver?enzymes. Encouraged?weight?loss Will?continue?to?follow (5) Hypercholesterolemia: Code(s): E78.00 - Pure hypercholesterolemia, unspecified Plan: Continue?atorvastatin Recheck?labs; LDL?was?slightly?above?goal?of?less?than?100?at?last?check (6) Decreased hearing of left ear: Code(s): H91.92 - Unspecified hearing loss, left ear Plan: Stable He?will?let?me?know?if?this?is?changing (7) Fungal infection of foot: Code(s): B35.3 - Tinea pedis Plan: Avoid?excess?moisture Trial?terbinafine Change?socks?twice?a?day Orders: Orders AMB Hemoglobin A1c Today Z13.9 - Encounter for screening, unspecified Medications: New terbinafine HCl 1% (Antifungal (terbinafine)) 1 appl topical BID 45 grams 2RF 30 days Coding Level of Care Code Est Pt Level 3 (74473) Est Pt Prev Care 18-39y(48392) Diagnoses Annual physical exam Z00.00 Diabetes E11.9 Essential hypertension I10 Elevated liver enzymes R74.8 Hypercholesterolemia E78.00 Decreased hearing of left ear H91.92 Fungal infection of foot B35.3
== END 2023-01-28 09:42 | disposition home or self-care (01) ==
PROVIDERS: PCP Family Medicine; Visit Provider Family Medicine
DX: Z00.00 Encounter for general adult medical examination without abnormal findings (principal); E11.9 Type 2 diabetes mellitus without complications; I10 Essential (primary) hypertension; R74.8 Abnormal levels of other serum enzymes; E78.00 Pure hypercholesterolemia, unspecified; H91.92 Unspecified hearing loss, left ear; B35.3 Tinea pedis
CPT/HCPCS: 83036; 99395

== ENCOUNTER 2023-02-12 07:18 | Outpatient (REF) | payer OTHER, SELFPAY ==
[2023-02-12 11:26] LABS: Appearance Urine Clear; Color Urine Yellow; Glucose Urine UA Negative (Negative); Leukocyte Esterase Urine Negative (Negative); Nitrite Urine Negative (Negative); PH 7.5 (5.0-9.0); Specific Gravity - Urine 1.025 (1.005-1.025); Urine Blood Negative (Negative); Urine Ketones Negative (Negative); Urine Protein Negative (Neg-Trace)
[2023-02-12 12:23] LABS: Alanine Aminotransferase 68 U/L (0-40); Albumin Level 4.2 g/dL (3.5-5.0); Alkaline Phosphatase 53 U/L (39-117); Anion Gap 9 (12-20); Aspartate Amino Transferase 32 U/L (5-37); Bilirubin Total 0.6 mg/dL (0.0-1.0); Blood Urea Nitrogen 14 mg/dL (9-16); Calcium 9.2 mg/dL (8.4-10.2); Carbon Dioxide 29 mmol/L (22-29); Chloride 106 mmol/L (96-108); Cholesterol 153 mg/dL (<200); Estimated Glomerular Filt Rate > 60; Glucose Fasting 142 mg/dL (60-99); HDL Cholesterol 41 mg/dL (>40); LDL Cholesterol Calculated 98 mg/dL (<100); Potassium 4.4 mmol/L (3.3-5.1); Sodium 140 mmol/L (135-145); Total Protein 7.5 g/dL (6.5-8.0); Triglycerides 74 mg/dL (<150)
[2023-02-12 12:24] LABS: TSH reflex Free T4 1.44 uIU/mL (0.32-4.0)
[2023-02-12 12:30] LABS: Creatinine Urine 120.91 mg/dL; Microalbum/Creatinine Ratio Ur 6.6 ug/mg cr (<30)
== END 2023-02-12 07:19 | disposition home or self-care (01) ==
LOC: HO.WFDLDS 07:18
PROVIDERS: Visit Provider Family Medicine
DX: Z00.00 Encounter for general adult medical examination without abnormal findings (principal); I10 Essential (primary) hypertension
CPT/HCPCS: 36415; 80053; 80061; 81003; 82043; 82570; 84443

== ENCOUNTER 2023-03-11 14:20 | Outpatient (AMB) | payer OTHER, SELFPAY ==
--- NOTE | 2023-03-11 14:17 | A.OFFPC_ITS ---
Intake Visit Reasons: f/u CPE-labs Intake Note: Patient would like to go over his lab results. Sales And Training Specialist Required: No Allergies SEAFOOD Allergy (Severe, Uncoded 10/22/22 13:25) DIFFICULTY BREATHING Tobacco use date assessed: 01/28/23 HPI f/u CPE-labs HPI Details 37 y/o male presents to f/u CPE-labs via telemedicine. Labs were drawn 02/12/23. Reviewed labs with pt. Elevated fasting glucose of 142 and last A1c in January 6.6%. ALT elevated at 68. Triglycerides 74. TC 153. LDL 98. HDL 41. He is on artovastatin 40mg. [facility] Medical History DVT (deep venous thrombosis) History of asthma History of COVID-19 Surgical History No pertinent past surgical history Family History Mother Glioblastoma Social History Household Members: Family Housing: House Do you presently have visiting nurse or other home services: No Alcohol intake: current Alcohol intake frequency: holidays/special occasions only Comment: sleeping Patient Tobacco Use Status: Former Tobacco user Quit Date: 2020 Tobacco use type: Cigarette e-Cigarette/Vaping Use: Never Used Substance Use Type: Marijuana service: No Current occupational status: employed 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 Current occupational exposures/hazards: No Cognitive needs: No Hearing needs: No Vision needs: No Questionnaire Thrive Questionnaire Date Thrive assessed: 09/26/20 Review of Systems Const Denies chills, Denies fatigue, Denies fever(s), Denies headache(s) and Denies weakness ENT Denies dizziness and Denies headache(s) Card Denies dyspnea Resp Denies cough, Denies dyspnea, Denies wheezing and Denies other (shortness of breath) Musc Denies numbness and Denies tingling Neuro Denies dizziness, Denies headache(s), Denies numbness, Denies tingling and Denies weakness Psych Denies anxiety and Denies depression Endo Denies fatigue Aller/Immun Denies wheezing Physical exam (Primary Care) Tobacco/Smoking Status: Tobacco use Status Tobacco use date assessed 01/28/23 03/11/23 14:19 Patient Tobacco Use Status Former Tobacco user 03/11/23 14:19 Tobacco use type Cigarette 03/11/23 14:19 e-Cigarette/Vaping Use Never Used 03/11/23 14:19 Thrive Assessment: Date of Thrive Assessment Date Thrive assessed 09/26/20 03/11/23 14:19 Telehealth Telehealth Location of provider rendering services: practice address Location of patient: address on file Patient Identification confirmed using: Name, : Yes Telehealth method: voice only Patient verbally consented to treatment: Yes Patient verbally consented to billing insurance company: Yes Patient informed of any privacy concerns related to visit: Yes Minutes spent on Phone/Video with Pt.: 5 Assessment and Plan Assessment & Plan (1) Hypercholesterolemia: Code(s): E78.00 - Pure hypercholesterolemia, unspecified Plan: Cholesterol?levels?appear?well?controlled?on?atorvastatin Continue?current?medication (2) Elevated liver enzymes: Code(s): R74.8 - Abnormal levels of other serum enzymes Plan: Liver?enzymes?have?decreased?though?still?elevated. He?had?an?ultrasound?in?2020?which?showed?hepatic?steatosis?and?this? is?the?most?likely?cause?of?his?elevated?liver?enzymes. Encouraged?weight?loss Will?recheck?transaminase?levels?prior?to?his?next?visit Orders: Orders Comprehensive [place]. Panel Fast Today R74.8 - Abnormal levels of other serum enzymes, Z00.00 - Encounter for general adult medical examination without abnormal findings Microalbumin, Random (w Creat) Today I10 - Essential (primary) hypertension Coding Level of Care Code Tele Est Pt Level 2 (90243) Diagnoses Hypercholesterolemia E78.00 Elevated liver enzymes R74.8
== END 2023-03-11 16:45 | disposition home or self-care (01) ==
PROVIDERS: PCP Family Medicine; Visit Provider Family Medicine
DX: E78.00 Pure hypercholesterolemia, unspecified (principal); R74.8 Abnormal levels of other serum enzymes
CPT/HCPCS: 99212

== ENCOUNTER 2023-04-29 08:34 | Outpatient (AMB) | payer OTHER, SELFPAY ==
[2023-04-29 08:41] VITALS: BP 130/82; PULSE 86; O2SAT 96; BMI 38.6
--- NOTE | 2023-04-29 08:41 | MHC.PC.OV ---
Vital Signs 04/29/23 08:41 Height 5 ft 10 in Weight 269 lb BMI 38.6 BP 130/82 Blood Pressure Location Lt brachial Position Sitting Pulse 86 Pulse Source Pulse Oximeter Pulse Oximetry (%) 96 Oxygen Delivery Method Room Air Intake Visit Reasons: f/u diabetes, hypertension Intake Note: Pt presents to the office today for a follow up for diabetes and hypertension. Allergies SEAFOOD Allergy (Severe, Uncoded 04/29/23 08:43) DIFFICULTY BREATHING Medication List - Last Reconciled 04/29/23 by Liu Nava MD atorvastatin 40 mg PO BEDTIME 30 days metformin 500 mg PO DAILY 90 days Tobacco use date assessed: 04/29/23 Dental Screening Dental Screen Date: 04/29/23 Did you have a dental visit in the last 12 months?: No Did you have a dental problem in the last 6 months where you did not have access to dental care?: No Was dental information given to patient?: Patient declined HPI f/u diabetes, hypertension HPI Details 38 y/o male presents to f/u diabetes and hypertension. Also following up elevated liver enzymes. Last A1c in January 6.6%. A1c today 04/29/23 is 11.7%. He is on metformin 500mg daily. He notes increased polydipsia/polyuria but otherwise had no changes to his diet. Pt also reports tingling. No recent labs to review for his liver enzymes. Blood pressure today is PFSH Medical History History of COVID-19 History of asthma DVT (deep venous thrombosis) Surgical History No pertinent past surgical history Family History Mother Glioblastoma Social History Household Members: Family Housing: House Do you presently have visiting nurse or other home services: No Alcohol intake: current Alcohol intake frequency: holidays/special occasions only Comment: sleeping Patient Tobacco Use Status: Former Tobacco user Quit Date: 2020 Tobacco use type: Cigarette e-Cigarette/Vaping Use: Never Used Substance Use Type: Marijuana service: No Current occupational status: employed 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 Current occupational exposures/hazards: No Cognitive needs: No Hearing needs: No Vision needs: No Questionnaire PHQ-9 Over the last 2 weeks, how often have you been bothered by any of the following problems? 1. Little interest or pleasure in doing things: not at all 2. Feeling down, depressed, or hopeless: not at all 3. Trouble falling or staying asleep, or sleeping too much: not at all 4. Feeling tired or having little energy: not at all 5. Poor appetite or overeating: not at all 6. Feeling bad about yourself - or that you are a failure or have let yourself or your family down: not at all 7. Trouble concentrating on things, such as reading the newspaper or watching television: not at all 8. Moving or speaking so slowly that other people could have noticed. Or the opposite - being so fidgety or restless that you have been moving around a lot more than usual: not at all 9. Thoughts that you would be better off or of hurting yourself in some way: not at all Total score: 0 Source: Developed by Drs. Henri Chavez, Ana Jett, Pedro Gibson and colleagues, with an educational livier from [employer]. Thrive Questionnaire Date Thrive assessed: 09/26/20 I am a: Patient What is your living situation today?: I have a steady place to live Within the past 12 months, did the food you bought not last and you didn't have the money to get more?: Never true Within the past 12 months, did you worry whether your food would run out before you got money to buy more?: Never true Do you have trouble paying for medicines?: No Do you have trouble getting transportation to medical appointments?: No Do you have trouble paying your heating and electricity bill?: No Do you have trouble taking care of your child, family member or friend?: No Do you have trouble with day-to-day activities such as bathing, preparing meals, shopping, managing finances, etc.?: No Are you currently unemployed and looking for a job?: No Are you interested in more education?: No THRIVE Score: 0 AUDIT C Alcohol Use Questionnaire (AUDIT-C) 1. How often do you have a drink containing alcohol?: Monthly or less 2. How many drinks containing alcohol do you have on a typical day when you are drinking?: 3 or 4 3. How often do you have six or more drinks on one occasion?: Never Total Score: 2 ZULY-7 AMB Questionnaire ZULY-7 Feeling nervous, anxious, or on edge: 0 = Not at all Not being able to stop or control worryin = Not at all Worrying too much about different things: 0 = Not at all Trouble relaxin = Not at all Being so restless that it is hard to sit still: 0 = Not at all Becoming easily annoyed or irritable: 0 = Not at all Feeling afraid as if something awful might happen: 0 = Not at all Total ZULY-7 score (0-4 normal; 5-9 mild; 10-14 moderate; 15-21 severe): 0 Source: Developed by Drs. Henri Chavez, Ana Jett, Pedro Gibson and colleagues, with an educational livier from [employer]. Review of Systems Const Denies chills, Denies fatigue, Denies fever(s), Denies headache(s) and Denies weakness ENT Denies dizziness and Denies headache(s) Card Denies dyspnea Resp Denies cough, Denies dyspnea, Denies wheezing and Denies other (shortness of breath) Musc Denies numbness and Denies tingling Neuro Denies dizziness, Denies headache(s), Denies numbness, Denies tingling and Denies weakness Psych Denies anxiety and Denies depression Endo Denies fatigue, Reports polydipsia and Reports polyuria Aller/Immun Denies wheezing Physical exam (Primary Care) Vital Signs: Last Vital Signs Pulse 86 04/29/23 08:41 BP 130/82 04/29/23 08:41 Pulse Ox 96 04/29/23 08:41 Oxygen Delivery Method Room Air 04/29/23 08:41 BMI result Body Mass Index 38.6 Tobacco/Smoking Status: Tobacco use Status Tobacco use date assessed 04/29/23 04/29/23 08:48 Patient Tobacco Use Status Former Tobacco user 04/29/23 08:48 Tobacco use type Cigarette 04/29/23 08:48 e-Cigarette/Vaping Use Never Used 04/29/23 08:48 PHQ-9: PHQ-9 Score PHQ-9: Total score 0 02/15/24 09:07 Thrive Assessment: Date of Thrive Assessment Date Thrive assessed 09/26/20 04/29/23 08:48 Const General: well developed; No acute distress Nutritional Appearance: obese Orientation/consciousness: patient oriented x3 HENMT Head: Yes normocephalic and Yes atraumatic Eyes General: appearance normal, both eyes and all related structures Pupils: Equal, round and reactive pupils present EOM: EOMs intact bilaterally Resp Effort & Inspection: normal respiratory effort Auscultation: clear to auscultation bilaterally Cardio Rate: regular rate Rhythm: regular rhythm Heart sounds: S1 normal heart sound present, S2 normal heart sound present, no gallops, no murmurs and no rubs Neuro General: patient oriented x3 and gait normal Cranial nerves: Yes Equal, round and reactive pupils present Psych Affect: normal affect Results AMB Hemoglobin A1c AMB Hemoglobin A1c 11.7 % Last Edit by Ana Wilcox MA on 04/29/23 08:54 Results Reviewed Results Reviewed: Laboratory Last Values Hgb A1c (Clinic) 11.7 % (4.0-6.0) H 04/29/23 08:52 Assessment and Plan Assessment & Plan (1) Uncontrolled diabetes mellitus with hyperglycemia: Code(s): E11.65 - Type 2 diabetes mellitus with hyperglycemia Plan: A1c very high Increase metformin and added glipizide. Also?gave?Patient?a?meter?to?check?blood?sugars?at?home (2) Essential hypertension: Code(s): I10 - Essential (primary) hypertension Plan: BP in prehypertensive range Encouraged?lifestyle?change Orders: Orders AMB Hemoglobin A1c Today E11.9 - Type 2 diabetes mellitus without complications Medications: New blood sugar diagnostic (FreeStyle Lite Strips) DX: E11.9, test blood sugar 2 times a day, 90 days 200 ea 4RF E11.9 - Type 2 diabetes mellitus without complications lancets (FreeStyle Lancets) As directed 200 ea 4RF DX: E11.9, test blood sugar 2 times a day, 90 day E11.9 - Type 2 diabetes mellitus without complications blood-glucose meter (FreeStyle Lite Meter kit) DX: E11.9, test blood sugar 2 times a day, duration 999 days 1 ea 0RF E11.65 - Type 2 diabetes mellitus with hyperglycemia glipizide 5 mg PO QAM 30 tabs 2RF 30 days Changed From metformin 500 mg PO DAILY 90 days 90 tabs 3RF To metformin 500 mg PO BID 180 tabs 3RF 90 days Coding Level of Care Code Est Pt Level 3 (68113) Diagnoses Uncontrolled diabetes mellitus with hyperglycemia E11.65 Essential hypertension I10
== END 2023-04-29 09:27 | disposition home or self-care (01) ==
PROVIDERS: PCP Family Medicine; Visit Provider Family Medicine
DX: E11.65 Type 2 diabetes mellitus with hyperglycemia (principal); I10 Essential (primary) hypertension; E11.9 Type 2 diabetes mellitus without complications
CPT/HCPCS: 83036; 99213

== ENCOUNTER 2023-05-20 07:32 | Outpatient (REF) | payer OTHER, SELFPAY ==
[2023-05-20 12:32] LABS: Creatinine Urine 228.56 mg/dL; Microalbum/Creatinine Ratio Ur 8.3 ug/mg cr (<30)
[2023-05-20 12:39] LABS: Alanine Aminotransferase 98 U/L (0-40); Albumin Level 4.5 g/dL (3.5-5.0); Alkaline Phosphatase 63 U/L (39-117); Anion Gap 11 (12-20); Aspartate Amino Transferase 41 U/L (5-37); Bilirubin Total 0.8 mg/dL (0.0-1.0); Blood Urea Nitrogen 13 mg/dL (9-16); Calcium 9.4 mg/dL (8.4-10.2); Carbon Dioxide 27 mmol/L (22-29); Chloride 105 mmol/L (96-108); Cholesterol 114 mg/dL (<200); Estimated Glomerular Filt Rate > 60; Glucose Fasting 175 mg/dL (60-99); HDL Cholesterol 41 mg/dL (>40); LDL Cholesterol Calculated 59 mg/dL (<100); Potassium 4.1 mmol/L (3.3-5.1); Sodium 139 mmol/L (135-145); Total Protein 7.4 g/dL (6.5-8.0); Triglycerides 74 mg/dL (<150)
== END 2023-05-20 07:33 | disposition home or self-care (01) ==
LOC: HO.WFDLDS 07:32
PROVIDERS: Visit Provider Family Medicine
DX: Z00.00 Encounter for general adult medical examination without abnormal findings (principal); R74.8 Abnormal levels of other serum enzymes; I10 Essential (primary) hypertension; E78.00 Pure hypercholesterolemia, unspecified
CPT/HCPCS: 36415; 80053; 80061; 82043; 82570

== ENCOUNTER 2024-01-06 15:09 | Outpatient (AMB) | payer OTHER, SELFPAY ==
--- NOTE | 2024-01-06 15:41 | A.OFFPC_ITS ---
Vital Signs 01/06/24 15:42 01/06/24 15:47 Height 5 ft 10 in Weight 276 lb BMI 39.6 BP 106/57 L 119/68 Blood Pressure Location Lt brachial Lt brachial Position Sitting Sitting Respiration 16 Pulse 84 Pulse Source Pulse Oximeter Temp 97.3 F Temp Source Temporal Artery Scan Pulse Oximetry (%) 97 Oxygen Delivery Method Room Air Intake Visit Reasons: F/U Diabetes Intake Note: f/u DM Allergies SEAFOOD Allergy (Severe, Uncoded 01/06/24 15:41) DIFFICULTY BREATHING Tobacco use date assessed: 04/29/23 Dental Screening Dental Screen Date: 04/29/23 HPI F/U Diabetes HPI Details 38 y/o male presents to f/u diabetes, el evated liver enzymes and lipids. Had increased metformin and added glipizide. Last A1c 04/29/23 11.7%. A1c today 01/06/24 6.2%. Blood pressure today 119/68, 84p. Most recent labs drawn 05/20/23. Reviewed labs with pt. Ongoing elevated liver enzymes - AST 41/ALT 98. Triglycerides 74. TC 114. LDL 59. HDL 41. 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 Current occupational exposures/hazards: No Cognitive needs: No Hearing needs: No Vision needs: No Questionnaire PHQ-9 Over the last 2 weeks, how often have you been bothered by any of the following problems? 1. Little interest or pleasure in doing things: not at all 2. Feeling down, depressed, or hopeless: not at all 3. Trouble falling or staying asleep, or sleeping too much: not at all 4. Feeling tired or having little energy: not at all 5. Poor appetite or overeating: not at all 6. Feeling bad about yourself - or that you are a failure or have let yourself or your family down: not at all 7. Trouble concentrating on things, such as reading the newspaper or watching television: not at all 8. Moving or speaking so slowly that other people could have noticed. Or the opposite - being so fidgety or restless that you have been moving around a lot more than usual: not at all 9. Thoughts that you would be better off or of hurting yourself in some wa y: not at all Total score: 0 Source: Developed by Drs. Henri Chavez, Ana Jett, Pedro Gibson and colleagues, with an educational livier from [employer]. Thrive Questionnaire Date Thrive assessed: 01/06/24 I am a: Patient What is your living situation today?: I have a steady place to live Within the past 12 months, did the food you bought not last and you didn't have the money to get more?: Never true THRIVE Score: 0 Review of Systems Const Denies chills, Denies fatigue, Denies fever(s), Denies headache(s) and Denies weakness ENT Denies dizziness and Denies headache(s) Card Denies dyspnea Resp Denies cough, Denies dyspnea, Denies wheezing and Denies other (shortness of breath) Musc Denies numbness and Denies tingling Neuro Denies dizziness, Denies headache(s), Denies numbness, Denies tingling and Denies weakness Psych Denies anxiety and Denies depression Endo Denies fatigue Aller/Immun Denies wheezing Physical exam (Primary Care) Vital Signs: Last Vital Signs Temp 97.3 F 01/06/24 15:42 Pulse 84 01/06/24 15:42 Resp 16 01/06/24 15:42 BP 119/68 01/06/24 15:47 Pulse Ox 97 01/06/24 15:42 Oxygen Delivery Method Room Air 01/06/24 15:42 BMI result Body Mass Index 39.6 Tobacco/Smoking Status: Tobacco use Status Tobacco use date assessed 04/29/23 01/06/24 15:46 Patient Tobacco Use Status Former Tobacco user 01/06/24 15:46 Tobacco use type Cigarette 01/06/24 15:46 e-Cigarette/Vaping Use Never Used 01/06/24 15:46 PHQ-9: PHQ-9 Score PHQ-9: Total score 0 01/06/24 16:15 Thrive Assessment: Date of Thrive Assessment Date Thrive assessed 01/06/24 01/06/24 15:46 Const General: well developed; No acute distress Nutritional Appearance: well nourished Orientation/consciousness: patient oriented x3 HENMT Head: Yes normocephalic and Yes atraumatic Eyes General: appearance normal, both eyes and all related structures Pupils: Equal, round and reactive pupils present EOM: EOMs intact bilaterally Resp Effort & Inspection: normal respiratory effort Auscultation: clear to auscultation bilaterally Cardio Rate: regular rate Rhythm: regular rhythm Heart sounds: S1 normal heart sound present, S2 normal heart sound present, no gallops, no murmurs and no rubs Neuro General: patient oriented x3 and gait normal Cranial nerves: Yes Equal, round and reactive pupils present Psych Affect: normal affect Coding Level of Care Code Est Pt Level 4 (56909) Diagnoses Diabetes E11.9 Essential hypertension I10 Hypercholesterolemia E78.00 Elevated liver enzymes R74.8 Assessment & Plan Assessment & Plan (1) Diabetes: Code(s): E11.9 - Type 2 diabetes mellitus without complications Category: Medical Plan: A1c?much?improved?and?now?6.2%.??Good?control?and?at?goal?of?less?than?7.0% Continue?current?medication Continue?to?work?at?a?diet?low?in?sugars?and?starches,?advised?exercise?and?weig ht?loss Referred?to?ophthalmology (2) Essential hypertension: Code(s): I10 - Essential (primary) hypertension Category: Medical Plan: Blood?pressure?is?controlled.??Goal?is?less?than?140/90 No?medication?changes (3) Hypercholesterolemia: Code(s): E78.00 - Pure hypercholesterolemia, unspecified Category: Medical Plan: Lipids?are?well?controlled?on?atorvastatin Continue?current?medication (4) Elevated liver enzymes: Code(s): R74.8 - Abnormal levels of other serum enzymes Category: Medical Plan: History?of?elevated?liver?enzymes?and?hepatic?steatosis Will?recheck?liver?enzymes Recheck?ultrasound?of?liver?and?will?check?elastography Advised?weight?loss Orders: Orders AMB Hemoglobin A1c Today E11.9 - Type 2 diabetes mellitus without complications US abdomen soria w elastography Today R74.8 - Abnormal levels of other serum enzymes Lipid Panel Today E78.00 - Pure hypercholesterolemia, unspecified, Z00.00 - Encounter for general adult medical examination without abnormal findings Comprehensive Colp. Panel Fast Today R74.8 - Abnormal levels of other serum enzymes, Z00.00 - Encounter for general adult medical examination without abnormal findings SARS-CoV2/FLU/RSV Today I10 - Essential (primary) hypertension, Z20.822 - Contact with and (suspected) exposure to COVID-19 Referrals Ophthalmology Referral E11.9 - Type 2 diabetes mellitus without complications Medications: Refilled metformin 500 mg PO BID 180 tabs 3RF 90 days glipizide 5 mg PO QAM 30 tabs 2RF 30 days
[2024-01-06 15:42] VITALS: BP 106/57; PULSE 84; RESP 16; TEMP 36.3; O2SAT 97; BMI 39.6
[2024-01-06 15:47] VITALS: BP 119/68
== END 2024-01-06 16:27 | disposition home or self-care (01) ==
PROVIDERS: PCP Family Medicine; Visit Provider Family Medicine
DX: E11.9 Type 2 diabetes mellitus without complications (principal); I10 Essential (primary) hypertension; E78.00 Pure hypercholesterolemia, unspecified; R74.8 Abnormal levels of other serum enzymes

== ENCOUNTER → 2024-01-06 15:09 | Outpatient (BNVA) | payer OTHER, SELFPAY | PROVIDERS: PCP Family Medicine; Visit Provider Family Medicine ==

== ENCOUNTER 2024-02-29 08:31 | Outpatient (REF) | payer OTHER, SELFPAY ==
[2024-02-29 10:48] LABS: Alanine Aminotransferase 95 U/L (0-40); Albumin Level 4.3 g/dL (3.5-5.0); Alkaline Phosphatase 50 U/L (39-117); Anion Gap 10 (12-20); Aspartate Amino Transferase 42 U/L (5-37); Bilirubin Total 0.7 mg/dL (0.0-1.0); Blood Urea Nitrogen 12 mg/dL (9-16); Carbon Dioxide 30 mmol/L (22-29); Chloride 103 mmol/L (96-108); Cholesterol 169 mg/dL (<200); Estimated Glomerular Filt Rate > 60; Glucose Fasting 174 mg/dL (60-99); HDL Cholesterol 46 mg/dL (>40); LDL Cholesterol Calculated 100 mg/dL (<100); Potassium 4.1 mmol/L (3.3-5.1); Sodium 139 mmol/L (135-145); Total Protein 7.6 g/dL (6.5-8.0); Triglycerides 118 mg/dL (<150)
== END 2024-02-29 08:32 | disposition home or self-care (01) ==
LOC: HO.US 08:31
PROVIDERS: PCP Family Medicine; Visit Provider Family Medicine
DX: Z00.00 Encounter for general adult medical examination without abnormal findings (principal); R74.8 Abnormal levels of other serum enzymes; E11.9 Type 2 diabetes mellitus without complications; E78.00 Pure hypercholesterolemia, unspecified
CPT/HCPCS: 76705; 76981; 80053; 80061

== ENCOUNTER → 2024-02-29 08:33 | Outpatient (BNV) | payer OTHER, SELFPAY | PROVIDERS: PCP Family Medicine; Visit Provider Radiology Diagnostic Radiology | DX: R16.0 Hepatomegaly, not elsewhere classified (principal); K76.0 Fatty (change of) liver, not elsewhere classified | CPT/HCPCS: 76705 ==

== ENCOUNTER 2024-04-25 15:22 | Outpatient (AMB) | payer OTHER, SELFPAY ==
--- NOTE | 2024-04-25 15:35 | MHC.PC.OV ---
Vital Signs 04/25/24 15:37 Height 5 ft 10 in Weight 275 lb 8 oz BMI 39.5 BP 110/60 Blood Pressure Location Rt brachial Position Sitting Respiration 14 Pulse 74 Pulse Source Pulse Oximeter Temp 98.2 F Temp Source Oral Pulse Oximetry (%) 97 Oxygen Delivery Method Room Air Intake Visit Reasons: f/u diabetes, elevated liver enzymes, labs Intake Note: f/u for dm Allergies SEAFOOD Allergy (Severe, Uncoded 01/06/24 15:41) DIFFICULTY BREATHING Medication List - Last Reconciled 04/25/24 by Liu Nava MD atorvastatin 40 mg PO BEDTIME 30 days blood sugar diagnostic (FreeStyle Lite Strips) DX: E11.9, test blood sugar 2 times a day, 90 days blood-glucose meter (FreeStyle Lite Meter kit) DX: E11.9, test blood sugar 2 times a day, duration 999 days glipizide 5 mg PO QAM 30 days lancets (FreeStyle Lancets) As directed metformin 500 mg PO BID 90 days Tobacco use date assessed: 04/29/23 Dental Screening Dental Screen Date: 04/29/23 HPI f/u diabetes, elevated liver enzymes, labs HPI Details 39 y/o male presents to f/u diabetes, elevated liver enzymes, labs. Last A1c 01/06/24 6.2%. A1c today 04/25/24 is 9.3%. He reports he had stopped taking his glipizide. He is only on his metformin. Labs drawn 02/29/24. Reviewed labs with pt. Ongoing elevated liver enzymes - AST 42, ALT 95. Triglycerides 118. TC 169. LDl 100. HDL 46. HPI Comments History of Present Illness Details Documentation assistance for Liu Nava MD, was provided by Terry Francisco,? Mechanic Chief on 04/25/2024 at 3:45 PM EST. I, Dr. Nava, have read, observed, and verified documentation. ?? [facility] Medical History History of COVID-19 History of asthma DVT (deep venous thrombosis) Surgical History No pertinent past surgical history Family History Mother Glioblastoma Social History Household Members: Family Housing: House Do you presently have visiting nurse or other home services: No Alcohol intake: current Alcohol intake frequency: holidays/special occasions only Comment: sleeping Patient Tobacco Use Status: Former Tobacco user Tobacco use type: Cigarette e-Cigarette/Vaping Use: Never Used Substance Use Type: Marijuana service: No Current occupational status: employed 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 Current occupational exposures/hazards: No Cognitive needs: No Hearing needs: No Vision needs: No Questionnaire PHQ-9 Over the last 2 weeks, how often have you been bothered by any of the following problems? 1. Little interest or pleasure in doing things: not at all 2. Feeling down, depressed, or hopeless: not at all 3. Trouble falling or staying asleep, or sleeping too much: not at all 4. Feeling tired or having little energy: not at all 5. Poor appetite or overeating: not at all 6. Feeling bad about yourself - or that you are a failure or have let yourself or your family down: not at all 7. Trouble concentrating on things, such as reading the newspaper or watching television: not at all 8. Moving or speaking so slowly that other people could have noticed. Or the opposite - being so fidgety or restless that you have been moving around a lot more than usual: not at all 9. Thoughts that you would be better off or of hurting yourself in some way: not at all Total score: 0 Source: Developed by Drs. Henri Chavez, Ana Jett, Pedro Gibson and colleagues, with an educational livier from [employer]. Thrive Questionnaire Date Thrive assessed: 01/06/24 I am a: Patient What is your living situation today?: I have a steady place to live Within the past 12 months, did the food you bought not last and you didn't have the money to get more?: Never true Within the past 12 months, did you worry whether your food would run out before you got money to buy more?: Never true Do you have trouble paying for medicines?: No Do you have trouble getting transportation to medical appointments?: No Do you have trouble paying your heating and electricity bill?: No Do you have trouble taking care of your child, family member or friend?: No Do you have trouble with day-to-day activities such as bathing, preparing meals, shopping, managing finances, etc.?: No Are you currently unemployed and looking for a job?: No Are you interested in more education?: No Please select the resources that you would like help with: None Currently or been in a relationship where the following occur: No concerns reported THRIVE Score: 0 AUDIT C Alcohol Use Questionnaire (AUDIT-C) 1. How often do you have a drink containing alcohol?: 2-4 times a month 2. How many drinks containing alcohol do you have on a typical day when you are drinking?: 1 or 2 3. How often do you have six or more drinks on one occasion?: Less than monthly Total Score: 3 ZULY-7 AMB Questionnaire ZULY-7 Feeling nervous, anxious, or on edge: 0 = Not at all Not being able to stop or control worryin = Not at all Worrying too much about different things: 0 = Not at all Trouble relaxin = Not at all Being so restless that it is hard to sit still: 0 = Not at all Becoming easily annoyed or irritable: 0 = Not at all Feeling afraid as if something awful might happen: 0 = Not at all Total ZULY-7 score (0-4 normal; 5-9 mild; 10-14 moderate; 15-21 severe): 0 Source: Developed by Drs. Henri Chavez, Ana Jett, Pedro Gibson and colleagues, with an educational livier from [employer]. Review of Systems Const Denies chills, Denies fatigue, Denies fever(s), Denies headache(s) and Denies weakness ENT Denies dizziness and Denies headache(s) Card Denies dyspnea Resp Denies cough, Denies dyspnea, Denies wheezing and Denies other (shortness of breath) Musc Denies numbness and Denies tingling Neuro Denies dizziness, Denies headache(s), Denies numbness, Denies tingling and Denies weakness Psych Denies anxiety and Denies depression Endo Denies fatigue Aller/Immun Denies wheezing Physical exam (Primary Care) Vital Signs: Last Vital Signs Temp 98.2 F 04/25/24 15:37 Pulse 74 04/25/24 15:37 Resp 14 04/25/24 15:37 BP 110/60 04/25/24 15:37 Pulse Ox 97 04/25/24 15:37 Oxygen Delivery Method Room Air 04/25/24 15:37 BMI result Body Mass Index 39.5 Tobacco/Smoking Status: Tobacco use Status Tobacco use date assessed 04/29/23 04/25/24 15:36 Patient Tobacco Use Status Former Tobacco user 04/25/24 15:36 Tobacco use type Cigarette 04/25/24 15:36 e-Cigarette/Vaping Use Never Used 04/25/24 15:36 PHQ-9: PHQ-9 Score PHQ-9: Total score 0 04/25/24 15:43 Thrive Assessment: Date of Thrive Assessment Date Thrive assessed 01/06/24 04/25/24 15:36 Currently or been in a relationship where the following occur: No concerns reported Const General: well developed; No acute distress Nutritional Appearance: well nourished and obese Orientation/consciousness: patient oriented x3 HENMT Head: Yes normocephalic and Yes atraumatic Eyes General: appearance normal, both eyes and all related structures Pupils: Equal, round and reactive pupils present EOM: EOMs intact bilaterally Resp Effort & Inspection: normal respiratory effort Auscultation: clear to auscultation bilaterally Cardio Rate: regular rate Rhythm: regular rhythm Heart sounds: S1 normal heart sound present, S2 normal heart sound present, no gallops, no murmurs and no rubs Neuro General: patient oriented x3 and gait normal Cranial nerves: Yes Equal, round and reactive pupils present Psych Affect: normal affect Results AMB Hemoglobin A1c AMB Hemoglobin A1c 9.3 % Last Edit by Ana Maria Li CMA on 04/25/24 15:45 Results Reviewed Results Reviewed: Laboratory Last Values Hgb A1c (Clinic) 9.3 % (4.0-6.0) H 04/25/24 15:42 Coding Level of Care Code Est Pt Level 4 (46015) Diagnoses Diabetes E11.9 Essential hypertension I10 Elevated liver enzymes R74.8 Hypercholesterolemia E78.00 Assessment & Plan Assessment & Plan (1) Diabetes: Code(s): E11.9 - Type 2 diabetes mellitus without complications Category: Medical Plan: A1c?climbed?from?controlled?range?up?to?9.3%.??Goal?is?less?than?7.0% He?had?discontinued?glipizide?as?he?was?feeling?shaky/sweaty?from?this.??He?was?taking?the?immediate?release?formulation. He?will?continue?metformin?and?we?will?give?him?glipizide?ER?5?mg?daily He?has?heard?to?check?his?blood?sugars?will?let?me?know?if?he?is?having?low?blood?sugars. Work?on?diet?low?in?sugars?and?starches Patient?inquires?about?Ozempic?but?his?insurance?does?not?cover. If?he?is?not?tolerating extended?release?glipizide,?we?could?try?Trulicity?which?is?covered?by?insurance (2) Essential hypertension: Code(s): I10 - Essential (primary) hypertension Category: Medical Plan: Blood?pressure?is?within?normal?range (3) Elevated liver enzymes: Code(s): R74.8 - Abnormal levels of other serum enzymes Category: Medical Plan: Ongoing?mildly?elevated?liver?enzymes Ultrasound?shows?hepatic?steatosis?without?focal?mass?and?elastography?is?within?range Encouraged?weight?loss (4) Hypercholesterolemia: Code(s): E78.00 - Pure hypercholesterolemia, unspecified Category: Medical Plan: LDL?cholesterol?climbed?from?59-100.??Fair?control.??Goal?is?less?than?100 He?is?on?atorvastatin?40?mg?daily No?change?to?his?medication?but?I?advised?work?on?diet?low?in?saturated?fats?and?cholesterol?and?work?at?weight?loss. Orders: Orders AMB Hemoglobin A1c Today E11.9 - Type 2 diabetes mellitus without complications Medications: New glipizide ER 5 mg PO QAM 90 days 90 tabs 3RF Discontinued glipizide Discontinued Reason: Doctor's Order 5 mg PO QAM 30 days 30 tabs 2RF
[2024-04-25 15:37] VITALS: BP 110/60; PULSE 74; RESP 14; TEMP 36.8; O2SAT 97; BMI 39.5
== END 2024-04-25 16:01 | disposition home or self-care (01) ==
PROVIDERS: PCP Family Medicine; Visit Provider Family Medicine
DX: E11.9 Type 2 diabetes mellitus without complications (principal); I10 Essential (primary) hypertension; R74.8 Abnormal levels of other serum enzymes; E78.00 Pure hypercholesterolemia, unspecified

== ENCOUNTER → 2024-04-25 15:22 | Outpatient (BNVA) | payer OTHER, SELFPAY | PROVIDERS: PCP Family Medicine; Visit Provider Family Medicine | DX: E11.9 Type 2 diabetes mellitus without complications (principal); I10 Essential (primary) hypertension; R74.8 Abnormal levels of other serum enzymes; E78.00 Pure hypercholesterolemia, unspecified; Z79.899 Other long term (current) drug therapy | CPT/HCPCS: 83036; 96127 ==

== ENCOUNTER 2024-07-24 07:28 | Outpatient (REF) | payer BC, SELFPAY ==
--- OUTSIDE RECORDS SUMMARY | 2024-07-24 07:31 | XMS_ITS | Clinical Summary ---
Author Organization [facility] Address [address] [place] [address] Phone Care Team Providers Care Periodontist Name Role Phone Liu Nava MD Primary Care Provider [phone] Allergies Active Allergy Reactions Criticality Noted Date Comments Shellfish Derived Shortness of breath High 5 Medications aspirin 81 mg EC tablet Take 1 tablet (81 mg total) by mouth 1 (one) time each day. 30 each 2 07/14/19 25 026 Active atorvastatin (LIPITOR) 80 mg tablet Take 1 tablet (80 mg total) by mouth at bedtime. 30 each 2 07/14/19 25 026 Active Admelog U-100 insulin lispro 100 unit/mL injection Inject 2-12 Units under the skin 4 (four) times a day (before meals and nightly). -Administer within 15 minutes of a meal 10 mL 2 07/14/19 25 025 Active glipiZIDE (GLUCOTROL XL) 5 mg 24 hr tablet Take 1 tablet (5 mg total) by mouth 1 (one) time each day. Do not crush, chew, or split. Active metFORMIN 750 mg tabletIndicati ons:Type 2 diabetes mellitus with hyperglycemia, without long-term current use of insulin (CMS/[facility] V24, CMS/HCC V28) Take 750 mg by mouth 2 (two) times a day with meals. 60 tablet 2 07/16/19 25 Active metoprolol succinate (TOPROL-XL) 50 mg 24 hr tablet Take 1 tablet (50 mg total) by mouth 1 (one) time for 1 dose. Do not crush or chew. 1 each 07/14/19 Active empagliflozin (Jardiance) 10 mg tabletIndicati ons:NSTEMI (non-ST elevated myocardial infarction) ([facility] V24, [facility] V28),Type 2 diabetes mellitus with hyperglycemia, without long-term current use of insulin ([facility] V24, [facility] V28) Take 1 tablet (10 mg total) by mouth 1 (one) time each day. 30 tablet 2 07/14/19 Active insulin syringe-needle U-100 0.5 mL 29 gauge x 1/2 syringe Use to inject 1-4 times daily as directed. 200 each 1 07/14/19 25 026 Active atorvastatin (LIPITOR) 40 mg tablet Take 1 tablet (40 mg total) by mouth at bedtime. at bedtime. 04/23/19 25 025 Discontinued(St op Taking at Discharge) glipiZIDE (GLUCOTROL XL) 5 mg 24 hr tablet Take 1 tablet (5 mg total) by mouth 1 (one) time each day in the morning. 04/25/19 025 Discontinued(St op Taking at Discharge) metFORMIN (GLUCOPHAGE) 500 mg tablet Take 1 tablet (500 mg total) by mouth 2 (two) times a day. 07/09/19 025 Discontinued(St op Taking at Discharge) atorvastatin (LIPITOR) 80 mg tablet Take 1 tablet (80 mg total) by mouth at bedtime. 30 each 11 07/12/19 025 Discontinued Admelog U-100 insulin lispro 100 unit/mL injection Inject 2-12 Units under the skin 4 (four) times a day (before meals and nightly). -Administer within 15 minutes of a meal 0 07/12/19 025 Discontinued heparin sodium,porcine /D5W (heparin, UFH,) 25,000 unit/250 mL(100 unit/mL) parenteral solution in D5W infusion Infuse 944 Units/hr into a venous catheter continuously . 07/12/19 025 Discontinued(St op Taking at Discharge) aspirin 81 mg EC tablet Take 1 tablet (81 mg total) by mouth 1 (one) time each day. 07/13/19 025 Discontinued metFORMIN (GLUCOPHAGE) 500 mg tablet Take 1 tablet (500 mg total) by mouth 2 (two) times a day with meals. 60 each 2 07/14/19 25 025 Discontinued(St op Taking at Discharge) metFORMIN (GLUCOPHAGE) 500 mg tablet Take 1 tablet (500 mg total) by mouth 2 (two) times a day with meals. 025 Discontinued Active Problems Problem Noted Date Diagnosed Date NSTEMI (non-ST elevated myoc ardial infarction) ([facility] V24, [facility] V28) 07/10/2024 Encounters Date Type Department Care Team Description 07/12/2024 2:49 PM EDT - 07/12/2024 4:19 PM EDT Surgery [facility] [address] [place] [id number] Yaquelin Kim MD Left heart cath / Coronary angiography 07/11/2024 4:03 PM EDT - 07/13/2024 2:31 PM EDT Hospital Encounter [facility] 9-[address] [place] [id number] Di Tse MD Kochar, MD Mary Hein Rachna, MD Kapur, MD Pastora Type 2 diabetes mellitus with hyperglycemia, without long-term current use of insulin ([facility] V24, [facility] V28) (Primary Dx); NSTEMI (non-ST elevated myocardial infarction) ([facility] V24, [facility] V28) Discharge Disposition: Home or Self Care 07/10/2024 5:08 PM EDT - 07/11/2024 3:37 PM EDT Hospital Encounter [facility] [address] [place] [phone] Yong Monaco MD Japaridze, Anna, MD Chest pain, unspecified type (Primary Dx); Troponin level elevated; NSTEMI (non-ST elevated myocardial infarction) ([facility] V24, [facility] V28) Discharge Disposition: Short Term Hospital from Last 3 Months Medical History Medical History Date Comments Diabetes mellitus ([facility] V24, [facility] V28) Hyperlipidemia Family History Medical History Relation Name Comments Glioblastoma Maternal Grandmother Glioblastoma Mother Relation Name Status Comments Maternal Grandmother Mother Social History Tobacco Use Types Packs/Day Years Used Date Smoking Tobacco: Former Cigarettes Smokeless Tobacco: Never Tobacco Cessation:Counseling Given: Not Answered Comments:Smoking cessation occurring a few months ago Alcohol Use Standard Drinks/Week Comments Yes 0 (1 standard drink = 0.6 oz pur e alcohol) Socially Interpersonal Safety Answer Date Record ed Physical Abuse 07/11/2024 Verbal Abuse 07/11/2024 Sex and Gender Information Value Date Recorded Sex Assigned at Male 07/12/2024 9:03 AM EDT Legal Sex Male 4:57 PM EDT Gender Identity Male 07/12/2024 9:03 AM EDT Sexual Orientation Straight 07/12/2024 9: 03 AM EDT Obstetrics History Last Filed Vital Signs Vital Sign Reading Time Taken Comments Blood Pressure 126/95 07/13/2024 12:13 PM EDT Pulse 102 07/13/2024 12:13 PM EDT Temperature 36.4 ??C (97.5 ??F) 07/13/2024 8:47 AM ED T Respiratory Rate 15 07/13/2024 12:13 PM EDT Oxygen Saturation 98% 07/13/2024 12:13 PM EDT Inhaled Oxygen Concentration - - Weight 119 kg (261 lb 4.8 oz) 07/13/2024 4:15 AM EDT Height 177.8 cm (5' 10 ) 07/11/2024 4:13 PM EDT Body Mass Index 37.49 07/11/2024 4:13 PM EDT Plan of Treatment Health Maintenance Due Date Last Done Comments Diabetes: Annual Foot Exam 1993 Diabetes: Annual Retina Eye Exam 1993 DTaP,Tdap,and Td Vaccines (1 - Tdap) 2002 Hepatitis B Vaccines (1 of 3 - 19+ 3-dose series) 2002 Pneumococcal Vaccine: Pediatrics (0 to 5 Years) and At-Risk Patients (6 to 64 Years) (1 of 2 - PCV) 2002 COVID-19 Vaccine ( season) 2023 03/23/2021, 07/28/2020, 07/07/2020 Depression Screening 07/11/2024 HIV Screening 07/11/2024 Social Influencers of Health Screening 07/11/2024 Diabetes: Annual Urine Albumin-Creatinine Ratio (uACR) 07/13/2024 Influenza Vaccine (Season Ended) 2024 Diabetes: Blood Sugar Control Test (HGBA1C) 01/09/2025 07/10/2024 Diabetes: Annual GFR (Glomerular Filtration Rate) 07/13/2025 07/13/2024, 07/12/2024, 07/11/2024, Additional history exists Cholesterol Screening (Lipid Panel) 07/11/2029 07/11/2024 Hepatitis C Screening Completed 07/11/2024 HIB Vaccines Aged Out No longer eligi ble based on patient's age to complete this topic HPV Vaccines Aged Out No longer eligi ble based on patient's age to complete this topic Hepatitis A Vaccines Aged Out No long er eligible based on patient's age to complete this topic IPV Vaccines Aged Out No longer eligi ble based on patient's age to complete this topic MMR Vaccines Aged Out No longer eligi ble based on patient's age to complete this topic Meningococcal ACWY Vaccine Aged Out N o longer eligible based on patient's age to complete this topic Meningococcal B Vaccine Aged Out No l onger eligible based on patient's age to complete this topic RSV Immunization Patients Under 20 months Aged Out No longer eligible based on patient's age to complete this topic Varicella Vaccines Aged Out No longer eligible based on patient's age to complete this topic Procedures Procedure Name Priority Date/Time Associated Diagnosis Comments POCT GLUCOSE BLOOD Routine 07/13/2024 1: 11 PM EDT ECG 12-LEAD STAT 07/13/2024 12:51 PM EDT POCT GLUCOSE BLOOD Routine 07/13/2024 9: 16 AM EDT COMPREHENSIVE METABOLIC PANEL Timed 07/13/2024 5:52 AM EDT MAGNESIUM Timed 07/13/2024 5:52 AM EDT COMPLETE BLOOD COUNT Timed 07/13/2024 5:52 AM EDT POCT GLUCOSE BLOOD Routine 07/12/2024 5: 10 PM EDT LEFT HEART CATH / CORONARY ANGIOGRAPHY Routine 07/12/2024 3:18 PM EDT NSTEMI (non-ST elevated myocardial infarction) (CMS/HCC V24, CMS/HCC V28) HEPARIN ANTI XA Timed 07/12/2024 1:50 PM EDT OXYGEN THERAPY, ADULT Routine 07/12/2024 8:02 AM EDT HEPARIN ANTI XA Timed 07/12/2024 6:20 AM EDT COMPLETE BLOOD COUNT Routine 07/12/2024 6:20 AM EDT MAGNESIUM Routine 07/12/2024 6:20 AM EDT BASIC METABOLIC PANEL Routine 07/12/2024 6:20 AM EDT ECG ANNOTATED 07/12/2024 OXYGEN THERAPY, ADULT Routine 07/11/2024 8:01 PM EDT XR CHEST 1 VIEW STAT 07/11/2024 6:06 PM EDT CBC WITH AUTO DIFFERENTIAL STAT 07/11/2024 4:54 PM EDT BASIC METABOLIC PANEL STAT 07/11/2024 4:54 PM EDT CBC AND DIFFERENTIAL STAT 07/11/2024 4:54 PM EDT TROPONIN I HIGH SENSITIVITY STAT 07/11/2024 4:54 PM EDT OXYGEN THERAPY, ADULT Routine 07/11/2024 4:28 PM EDT OXYGEN THERAPY, ADULT Routine 07/11/2024 4:28 PM EDT POCT GLUCOSE BLOOD Routine 07/11/2024 12 :16 PM EDT TRANSTHORACIC ECHOCARDIOGRAM (TTE) COMPLETE W/ CONTRAST Routine 07/11/2024 10:49 AM EDT NSTEMI (non-ST elevated myocardial infarction) (CMS/HCC V24, CMS/HCC V28) HEPARIN ANTI XA Timed 07/11/2024 10:28 AM EDT POCT GLUCOSE BLOOD Routine 07/11/2024 7: 51 AM EDT CBC WITH AUTO DIFFERENTIAL Routine 07/11/2024 4:09 AM EDT HEPATITIS PANEL, ACUTE WITH REFLEX TO CONFIRMATION Routine 07/11/2024 4:09 AM EDT TROPONIN I HIGH SENSITIVITY Routine 07/11/2024 4:09 AM EDT LIPID PANEL WITH REFLEX TO DIRECT LDL Routine 07/11/2024 4:09 AM EDT CBC AND DIFFERENTIAL Routine 07/11/2024 4:09 AM EDT BASIC METABOLIC PANEL Routine 07/11/2024 4:09 AM EDT HEPARIN ANTI XA Timed 07/11/2024 4:09 AM EDT HEPARIN ANTI XA STAT 07/10/2024 11:01 PM EDT SST - GOLD Routine 07/10/2024 10:55 PM EDT EXTRA TUBES Routine 07/10/2024 10:55 PM EDT POCT GLUCOSE BLOOD Routine 07/10/2024 9: [address] ANGIO CHEST WO AND/OR W CONTRAST STAT 07/10/2024 8:51 PM EDT Chest pain, unspecified type TROPONIN I HIGH SENSITIVITY STAT 07/10/2024 6:48 PM EDT ECG 12-LEAD STAT 07/10/2024 6:37 PM EDT XR CHEST 2 VIEWS STAT 07/10/2024 5:41 PM EDT HEMOGLOBIN A1C Add-On 07/10/2024 5:32 PM EDT PROTHROMBIN TIME WITH INR STAT 07/10/2024 5:32 PM EDT ACTIVATED PARTIAL THROMBOPLASTIN TIME STAT 07/10/2024 5:32 PM EDT CBC WITH AUTO DIFFERENTIAL STAT 07/10/2024 5:32 PM EDT B-TYPE NATRIURETIC PEPTIDE STAT 07/10/2024 5:32 PM EDT MAGNESIUM STAT 07/10/2024 5:32 PM EDT LIPASE STAT 07/10/2024 5:32 PM EDT COMPREHENSIVE METABOLIC PANEL STAT 07/10/2024 5:32 PM EDT CBC AND DIFFERENTIAL STAT 07/10/2024 5:32 PM EDT TROPONIN I HIGH SENSITIVITY STAT 07/10/2024 5:32 PM EDT ECG 12-LEAD STAT 07/10/2024 5:01 PM EDT from Last 3 Months Results * (ABNORMAL) POCT Glucose, blood (07/13/2024 1:11 PM EDT) Only the most recent of6 resultswithin the time period is included. [facility] Glucose POCT 229(H) 70 - 199 mg/dL 07/13/2024 1:13 PM EDT [facility] ([facility] Comment: Fasting Reference Range: ? 70-99 mg/dL Non-Fasting Reference Range: 70-199 mg/dL Blood Capillary blood specimen / Unknown 07/13/2024 1:11 PM EDT 07/13/2024 1:14 PM EDT us Pastora Eastman MD LAB POINT OF CARE TE ST DOCKED DEVICE UNSOLICITED RESULTS Final Result Performing Organization Address City/[facility]/ZIP Co de Phone Number [facility] [address] [place] [address], [place] [phone] * ECG 12 lead (07/13/2024 12:51 PM EDT) Only the most recent of3 resultswithin the time period is included. Pathologist [facility] Ventricular Rate ECG 81 BPM GEMUSE Atrial Rate 81 BPM GEMUSE P-R Interval 208 ms GEMUSE QRS Duration 88 ms GEMUSE Q-T Interval 344 ms GEMUSE QTc 399 ms GEMUSE P Wave [place] 18 degrees GEMUSE R [place] 10 degrees GEMUSE T [place] -30 degrees GEMUSE ECG Interpretation Normal sinus rhythm Minimal voltage criteria for LVH, may be normal variant ( R in aVL ) Nonspecific T wave abnormality Abnormal ECG No previous ECGs available Confirmed by Cira Yanez ([id number]) on 07/13/2024 5:46:23 PM GEMUSE 07/13/2024 12:5 1 PM EDT 07/13/2024 5:46 PM EDT Pastora Eastman MD ECG ORDERABLES Final Result Performing Organization Address City/[facility]/ZIP Co de Phone Number GEMUSE * Complete blood count (07/13/2024 5:52 AM EDT) Only the most recent of2 resultswithin the time period is included. WBC 6.2 4.0 - 10.5 K/mcL LAB HEMETOLOGY METHOD 07/13/2024 6:45 AM EDT [facility] RBC 5.81 4.70 - 6.00 M/mcL LAB HEMETOLOGY METHOD 07/13/2024 6:45 AM EDT [facility] Hemoglobin 15.8 13.5 - 18.0 g/dL LAB HEMETOLOGY METHOD 07/13/2024 6:45 AM EDT [facility] Hematocrit 48.3 40.0 - 54.0 % LAB HEMETOLOGY METHOD 07/13/2024 6:45 AM EDT [facility] MCV 83.1 78.0 - 100.0 FL LAB HEMETOLOGY METHOD 07/13/2024 6:45 AM EDT [facility] MCH 27.1 25.0 - 33.0 pcg LAB HEMETOLOGY METHOD 07/13/2024 6:45 AM EDT [facility] MCHC 32.7 32.0 - 36.0 g/dL LAB HEMETOLOGY METHOD 07/13/2024 6:45 AM EDT [facility] RDW 14.4 12.1 - 17.7 % LAB HEMETOLOGY METHOD 07/13/2024 6:45 AM EDT [facility] Platelets 174 150 - 450 K/mcL LAB HEMETOLOGY METHOD 07/13/2024 6:45 AM EDT [facility] MPV 10.0 7.4 - 11.4 FL LAB HEMETOLOGY METHOD 07/13/2024 6:45 AM EDT [facility] Blood Venous blood specimen / Unknown Venipuncture / Unknown 07/13/2024 5:52 AM EDT 07/13/2024 6:32 AM EDT us Rekha Hernandez MD LAB BLOOD ORDERABLES Final Resu lt [facility] [address] [place] [address], [place] [phone] * Magnesium (07/13/2024 5:52 AM EDT) Only the most recent of3 resultswithin the time period is included. Magnesium 2.0 1.7 - 2.8 mg/dL LAB CHEMISTRY METHOD 07/13/2024 7:12 AM EDT [facility] Blood Venous blood specimen / Unknown Venipuncture / Unknown 07/13/2024 5:52 AM EDT 07/13/2024 6:32 AM EDT us Rekha Hernandez MD LAB BLOOD ORDERABLES Final Resu lt [facility] [address] [place] [address], [place] [phone] * (ABNORMAL) Comprehensive metabolic panel (07/13/2024 5:52 AM EDT) Only the most recent of2 resultswithin the time period is included. Sodium 138 135 - 145 mmol/L LAB CHEMISTRY METHOD 07/13/2024 7:12 AM EDT [facility] Potassium 4.4 3.5 - 5.1 mmol/L LAB CHEMISTRY METHOD 07/13/2024 7:12 AM EDT [facility] Chloride 100 98 - 107 mmol/L LAB CHEMISTRY METHOD 07/13/2024 7:12 AM EDT [facility] CO2 30 24 - 32 mmol/L LAB CHEMISTRY METHOD 07/13/2024 7:12 AM EDT [facility] Anion Gap 8 5 - 14 LAB CHEMISTRY METHOD 07/13/2024 7:12 AM EDT [facility] Glucose 167 70 - 199 mg/dL LAB CHEMISTRY METHOD 07/13/2024 7:12 AM EDT [facility] BUN 12 9 - 20 mg/dL LAB CHEMISTRY METHOD 07/13/2024 7:12 AM EDT [facility] Creatinine 0.80 0.70 - 1.30 mg/dL LAB CHEMISTRY METHOD 07/13/2024 7:12 AM EDT [facility] eGFR 114 >=60 mL/min/1. 73m2 LAB CHEMISTRY METHOD 07/13/2024 7:12 AM EDT [facility] Comment:Calculation based on the??Chronic Kidney Disease Epidemiology Collaboration (CKD-EPI) equation refit??without adjustment for race. BUN/Creatinine Ratio 15.0 12.0 - 20.0 LAB CHEMISTRY METHOD 07/13/2024 7:12 AM EDT [facility] Calcium 9.2 8.4 - 10.2 mg/dL LAB CHEMISTRY METHOD 07/13/2024 7:12 AM EDT [facility] AST (SGOT) 44(H) 5 - 40 unit/L LAB CHEMISTRY METHOD 07/13/2024 7:12 AM EDT [facility] ALT (SGPT) 82(H) 7 - 52 unit/L LAB CHEMISTRY METHOD 07/13/2024 7:12 AM EDT [facility] Alkaline Phosphatase 53 34 - 104 unit/L LAB CHEMISTRY METHOD 07/13/2024 7:12 AM EDT [facility] Total Protein 7.1 6.4 - 8.5 g/dL LAB CHEMISTRY METHOD 07/13/2024 7:12 AM EDT [facility] Albumin 4.3 3.5 - 5.0 g/dL LAB CHEMISTRY METHOD 07/13/2024 7:12 AM EDT [facility] Total Bilirubin 0.7 0.3 - 1.0 mg/dL LAB CHEMISTRY METHOD 07/13/2024 7:12 AM EDT [facility] Blood Venous blood specimen / Unknown Venipuncture / Unknown 07/13/2024 5:52 AM EDT 07/13/2024 6:32 AM EDT us Rekha Hernandez MD LAB BLOOD ORDERABLES Final Resu lt [facility] [address] [place] [address], [place] [phone] * LEFT HEART CATH / CORONARY ANGIOGRAPHY (07/12/2024 3:18 PM EDT) Anatomical Region Laterality Modality X-Ray Angiograph y Narrative 07/12/2024 6:54 PM EDT No significant epicardial coronary artery disease. Normal left-sided filling pressures, LVEDP 12 mmHg. Recommendations Continue lifestyle and risk factor modifications. Routine post cath care. Continue rest of the care per inpatient cardiology team. Coronary Findings Diagnostic Dominance: Right Left Main: The vessel was visualized by angiography. Left main arises from the left coronary cusp. Left main is a large-caliber vessel that bifurcates into LAD and left circumflex branches. Proximal left main has 30 to 40% stenosis. Distal left main and proximal LAD are large caliber vessels in comparison to the rest of the epicardial coronary arterial tree. Left Anterior Descending: The vessel was visualized by angiography. LAD is a large-caliber vessel that runs in the interventricular groove and reaches LV apex. LAD gives rise to medium sized diagonal 1 and 2 branches. Proximal LAD is a large caliber compared to the rest of the vessel. LAD has slow flow but no significant disease. Left Circumflex: The vessel was visualized by angiography. Left circumflex is a large-caliber vessel that gives rise to medium sized OM1, small sized OM 2, OM 3 and large sized OM 4 and OM 5 branches. Left circumflex has no significant disease. Right Coronary Artery: The vessel was visualized by angiography. RCA arises from the right coronary cusp with an anterior takeoff. RCA is a large-caliber vessel that gives rise to conus and right atrial branches proximally, small sized RV marginal branches in the midsection and terminates by bifurcating into PDA and PLV branches. RCA has minimal luminal irregularities, slow flow but no significant disease. Intervention No interventions have been documented. Study Details NSTEMI Cardiac Cath Measurements 1 Pressure measurements: LVED pressure = 12 mmHg. Cardiac Cath Measurements 2 Pressure measurements: LVED pressure = 7 mmHg. Cath Recommendations Recommendations: routine post-cath care. Clinical Background 39-year-old male with past medical history of DM2, provoked DVT, HLD, morbid obesity, prior tobacco use who presented to [facility] on 07/10 for chest pain at rest and exertion. He was admitted for NSTEMI and transferred to [facility] for coronary angiogram. TTE showed preserved LVEF around 60% without wall motion abnormalities. He now presents for coronary angiogram to evaluate for coronary artery disease. Procedure Details The risks, benefits, complications, treatment options, and expected outcomes were discussed with the patient. The patient and/or family concurred with the proposed plan, giving informed consent. An Darrell's test was performed and was favorable. The patient was evaluated for moderate sedation and felt to be an appropriate candidate for moderate sedation. He was prepped and draped in the usual manner. Arterial access was obtained via the right radial artery using a 6F sheath. A 6F JL 3.5 catheter was used to engage the LCA. A 6F JR 4.0 catheter was used to engage the RCA and to cross into the LV to measure LVEDP and the gradient across the AV. At the end of the procedure a TR band was used to achieve hemostasis. Yaquelin Kim MD CV CARDIAC CATH PROCEDURES Brianda l Result * Heparin and low molecular weight anti Xa level (07/12/2024 1:50 PM EDT) Only the most recent of5 resultswithin the time period is included. Heparin Anti-Xa 0.49 I Unit/mL LAB COAGULATION METHOD 07/12/2024 2:17 PM EDT [facility] Blood Venous blood specimen / Unknown Venipuncture / Unknown 07/12/2024 1:50 PM EDT 07/12/2024 1:55 PM EDT Narrative [facility] - 07/12/2024 2:17 PM EDT Therapeutic Ranges Heparin Thromboembolic/Standard/Full Dose Protocol: Age 18+ Years ?? 0.30-0.70 IU/mL Age 0-17 Years ??0.35-0.70 IU/mL Heparin Cardiac/Low Dose Protocol: 0.30-0.5 IU/mL Low Molecular Weight Heparin: Age 18+ Years ?? 0.50-1.50 IU/mL Age 0-17 Years ??0.50-1.00 IU/mL us Rekha Hernandez MD LAB BLOOD ORDERABLES Final Resu lt [facility] [address] [place] [address], [place] [phone] * Basic metabolic panel (07/12/2024 6:20 AM EDT) Only the most recent of3 resultswithin the time period is included. Sodium 138 135 - 145 mmol/L LAB CHEMISTRY METHOD 07/12/2024 7:11 AM T [facility] Potassium 4.6 3.5 - 5.1 mmol/L LAB CHEMISTRY METHOD 07/12/2024 7:11 AM [facility] Chloride 102 98 - 107 mmol/L LAB CHEMISTRY METHOD 07/12/2024 7:11 AM [facility] CO2 30 24 - 32 mmol/L LAB CHEMISTRY METHOD 07/12/2024 7:11 AM [facility] Anion Gap 6 5 - 14 LAB CHEMISTRY METHOD 07/12/2024 7:11 AM [facility] Glucose 186 70 - 199 mg/dL LAB CHEMISTRY METHOD 07/12/2024 7:11 AM [facility] BUN 13 9 - 20 mg/dL LAB CHEMISTRY METHOD 07/12/2024 7:11 AM [facility] Creatinine 0.80 0.70 - 1.30 mg/dL LAB CHEMISTRY METHOD 07/12/2024 7:11 AM [facility] eGFR 114 >=60 mL/min/1. 73m2 LAB CHEMISTRY METHOD 07/12/2024 7:11 AM [facility] Comment:Calculation based on the??Chronic Kidney Disease Epidemiology Collaboration (CKD-EPI) equation refit??without adjustment for race. BUN/Creatinine Ratio 16.3 12.0 - 20.0 LAB CHEMISTRY METHOD 07/12/2024 7:11 AM [facility] Calcium 9.3 8.4 - 10.2 mg/dL LAB CHEMISTRY METHOD 07/12/2024 7:11 AM [facility] Blood Venous blood specimen / Unknown Venipuncture / Unknown 07/12/2024 6:20 AM EDT 07/12/2024 6:32 AM EDT us Oanh Parham MD LAB BLOOD ORDERABLES Fi nal Result [facility] ([facility]) [facility] [address] [place] [address], [place] [phone] * ECG-Annotated (07/12/2024) us Provider Onbase ECG ORDERABLES Final Result * XR Chest 1 View (07/11/2024 6:06 PM EDT) Anatomical Region Laterality Modality Body Radiographic Vonda ging 07/11/2024 9:03 PM EDT Impressions 07/11/2024 9:05 PM EDT 1. No acute process in the chest. Report reviewed and signed by : Dr. Kei Myers MD on 07/11/2024 9:05 PM. Workstation Name - [id number] -------- FINAL REPORT -------- Dictated By: Kei Myers Dictated Date: 07/11/2024 21:03 ET Assigned Physician: Kei Myers Reviewed and Electronically Signed By: Kei Myers Signed Date: 07/11/2024 21:05 ET Workstation ID: [id number] Transcribed By: Self Edit Transcribed Date: 07/11/2024 21:03 ET Narrative 07/11/2024 9:05 PM EDT EXAMINATION: Radiography of the Chest CLINICAL INDICATION: shortneses of breath NUMBER OF VIEWS: 1 COMPARISON: None. FINDINGS: LUNGS/PLEURA: Lungs are clear. No pleural effusion. No pneumothorax. MEDIASTINUM AND LISA: Unremarkable. HEART AND VESSELS: Normal sized heart. BONES: No acute osseous abnormality. LINES/TUBES/DEVICES: None Procedure Note Kei Myers MD - 07/11/2024 EXAMINATION: Radiography of the Chest CLINICAL INDICATION: shortneses of breath NUMBER OF VIEWS: 1 COMPARISON: None. FINDINGS: LUNGS/PLEURA: Lungs are clear. No pleural effusion. No pneumothorax. MEDIASTINUM AND LISA: Unremarkable. HEART AND VESSELS: Normal sized heart. BONES: No acute osseous abnormality. LINES/TUBES/DEVICES: None IMPRESSION: 1. No acute process in the chest. Report reviewed and signed by : Dr. Kei Myers MD on 07/11/2024 9:05 PM.Workstation Name - [id number] -------- FINAL REPORT -------- Dictated By: Kei Myers Dictated Date: 07/11/2024 21:03 ET Assigned Physician: Kei Myers Reviewed and Electronically Signed By: Kei Myers Signed Date: 07/11/2024 21:05 ET Workstation ID: [id number] Transcribed By: Self Edit Transcribed Date: 07/11/2024 21:03 ET Oanh Parham MD IMG XR PROCEDURES Final Result * (ABNORMAL) Troponin I high sensitivity (07/11/2024 4:54 PM EDT) Only the most recent of4 resultswithin the time period is included. High Sensitivity Troponin I 36(H) 0 - 20 ng/L LAB CHEMISTRY METHOD 07/11/2024 6:00 PM EDT [facility] Blood Venous blood specimen / Unknown Venipuncture / Unknown 07/11/2024 4:54 PM EDT 07/11/2024 5:19 PM EDT Narrative [facility] - 07/11/2024 6:00 PM EDT HSTnI results stratify to HIGH RISK category if any value >100 ng/L or delta at 1 hour is greater than or equal to 15 ng/L (male and female). Note: Delta values are not applicable if symptoms began more than 12 hours pre-arrival. Risk stratification should include the calculation of the HEART score. The testing method is an immunoenzymatic assay manufactured by [employer] and performed on the Spotzer DxI 800. us Oanh Parham MD LAB BLOOD ORDERABLES Fi nal Result [facility] [address] [place] [address], [place] [phone] * CBC auto differential (07/11/2024 4:54 PM EDT) Only the most recent of3 resultswithin the time period is included. [facility] Signature WBC 7.1 4.0 - 10.5 K/mcL LAB HEMETOLOGY METHOD 07/11/2024 5:30 PM EDT [facility] RBC 5.80 4.70 - 6.00 M/mcL LAB HEMETOLOGY METHOD 07/11/2024 5:30 PM EDT [facility] Hemoglobin 15.9 13.5 - 18.0 g/dL LAB HEMETOLOGY METHOD 07/11/2024 5:30 PM EDT [facility] Hematocrit 48.5 40.0 - 54.0 % LAB HEMETOLOGY METHOD 07/11/2024 5:30 PM EDT [facility] MCV 83.6 78.0 - 100.0 FL LAB HEMETOLOGY METHOD 07/11/2024 5:30 PM EDT [facility] MCH 27.4 25.0 - 33.0 pcg LAB HEMETOLOGY METHOD 07/11/2024 5:30 PM EDT [facility] MCHC 32.7 32.0 - 36.0 g/dL LAB HEMETOLOGY METHOD 07/11/2024 5:30 PM EDT [facility] RDW 14.4 12.1 - 17.7 % LAB HEMETOLOGY METHOD 07/11/2024 5:30 PM EDT [facility] Platelets 184 150 - 450 K/mcL LAB HEMETOLOGY METHOD 07/11/2024 5:30 PM EDT [facility] MPV 10.0 7.4 - 11.4 FL LAB HEMETOLOGY METHOD 07/11/2024 5:30 PM EDT [facility] Neutrophils Relative 54.2 44.0 - 74.0 % LAB HEMETOLOGY METHOD 07/11/2024 5:30 PM EDT [facility] Lymphocytes Relative 35.8 20.0 - 48.0 % LAB HEMETOLOGY METHOD 07/11/2024 5:30 PM EDT [facility] Monocytes Relative 8.0 2.0 - 12.0 % LAB HEMETOLOGY METHOD 07/11/2024 5:30 PM EDT [facility] Eosinophils Relative 1.7 0.0 - 6.0 % LAB HEMETOLOGY METHOD 07/11/2024 5:30 PM EDT [facility] Basophils Relative 0.3 0.0 - 2.0 % LAB HEMETOLOGY METHOD 07/11/2024 5:30 PM EDT [facility] Neutrophils Absolute 3.80 1.80 - 7.80 K/mcL LAB HEMETOLOGY METHOD 07/11/2024 5:30 PM EDT [facility] Lymphocytes Absolute 2.50 1.00 - 3.20 K/mcL LAB HEMETOLOGY METHOD 07/11/2024 5:30 PM EDT [facility] Monocytes Absolute 0.60 0.00 - 0.80 K/mcL LAB HEMETOLOGY METHOD 07/11/2024 5:30 PM EDT [facility] Eosinophils Absolute 0.10 0.00 - 0.50 K/mcL LAB HEMETOLOGY METHOD 07/11/2024 5:30 PM EDT [facility] Basophils Absolute 0.00 0.00 - 0.20 K/mcL LAB HEMETOLOGY METHOD 07/11/2024 5:30 PM EDT [facility] Blood Venous blood specimen / Unknown Venipuncture / Unknown 07/11/2024 4:54 PM EDT 07/11/2024 5:19 PM EDT us Oanh Parham MD LAB BLOOD ORDERABLES Fi nal Result [facility] [address] [place] [address], [place] [phone] * (ABNORMAL) TRANSTHORACIC ECHOCARDIOGRAM (TTE) COMPLETE W/ CONTRAST (07/11/2024 10:49 AM EDT) BSA 2.44 m2 CV PACS Est. RA Pressure 3 mmHg CV PACS LVPWD 1.1(A) 0.6 - 1.0 cm CV PACS IVSD 1.3(A) 0.6 - 1.0 cm CV PACS TR Peak Gradient 212 mmHg CV PACS Anatomical Region Laterality Modality Ultrasound Narrative 07/11/2024 11:07 AM EDT ?Left ventricle cavity size is normal. There is mild concentric hypertrophy. Systolic function is normal with an ejection fraction of 55-60%. There are no regional LV wall motion abnormalities. ?Right ventricle was not well visualized. Right ventricle cavity appears dilated. ?No hemodynamically significant valvular disease. Left Ventricle Left ventricle cavity size is normal. There is mild concentric hypertrophy. Systolic function is normal with an ejection fraction of 55-60%. There are no regional LV wall motion abnormalities. There is no diastolic dysfunction. Right Ventricle Right ventricle was not well visualized. Right ventricle cavity appears dilated. Left Atrium Left atrium cavity size is normal. Right Atrium Right atrium was not well visualized. IVC/SVC Inferior vena cava structure is normal. RA pressures is estimated to be 3 mmHg (IVC diameter <21 mm and decreases >50% during inspiration). Mitral Valve The leaflets are mildly thickened. There is mild annular calcification. There is trace regurgitation. There is no evidence of mitral valve stenosis. Tricuspid Valve Tricuspid valve structure is normal. There is trace regurgitation. There is no evidence of tricuspid valve stenosis. Cannot assess RVSP. Aortic Valve The aortic valve is trileaflet. The leaflets are mildly thickened. There is no regurgitation or stenosis. Pulmonic Valve Pulmonic valve structure is normal. There is trace pulmonic valve regurgitation. There is no evidence of pulmonic valve stenosis. Ascending Aorta The aorta appears normal in size. Pericardium Pericardium appears normal. There is no pericardial effusion. Study Details Overall the study quality was adequate. Definity contrast was given to enhance imaging. Lilian TAVERAS CV ECHO PROCEDURES Final Result * Lipid panel with reflex to direct LDL (07/11/2024 4:09 AM EDT) Cholesterol 144 0 - 200 mg/dL LAB CHEMISTRY METHOD 07/11/2024 6:41 AM T [facility] Triglycerides 145 0 - 150 mg/dL LAB CHEMISTRY METHOD 07/11/2024 6:41 AM EDT [facility] HDL 45 >=40 mg/dL LAB CHEMISTRY METHOD 07/11/2024 6:41 AM EDT [facility] LDL Calculated 70 0 - 100 mg/dL LAB CHEMISTRY METHOD 07/11/2024 6:41 AM [facility] VLDL Cholesterol Naun 29 mg/dL LAB CHEMISTRY METHOD 07/11/2024 6:41 AM [facility] Non HDL Chol. (LDL+VLDL) 99 <145 mg/dL LAB CHEMISTRY METHOD 07/11/2024 6:41 AM [facility] Chol/HDL Ratio 3.2 0.0 - 4.4 LAB CHEMISTRY METHOD 07/11/2024 6:41 AM [facility] Blood Venous blood specimen / Unknown Venipuncture / Unknown 07/11/2024 4:09 AM EDT 07/11/2024 4:14 AM EDT us Lilian TAVERAS LAB BLOOD ORDERABLES Final Resu lt [facility] [address] [place] [address], [place] [phone] * Hepatitis panel, acute with reflex to confirmation (07/11/2024 4:09 AM EDT) Pathologist [facility] Hepatitis B Surface Ag Negative Negative LAB CHEMISTRY METHOD 07/11/2024 11:27 AM EDT [facility] Hepatitis A Antibody IgM Negative Negative LAB CHEMISTRY METHOD 07/11/2024 11:27 AM EDT [facility] Hep B Core IgM Negative Negative LAB CHEMISTRY METHOD 07/11/2024 11:27 AM EDT [facility] Hepatitis C Antibody Negative Negative LAB CHEMISTRY METHOD 07/11/2024 11:27 AM EDT [facility] Blood Venous blood specimen / Unknown Venipuncture / Unknown 07/11/2024 4:09 AM EDT 07/11/2024 4:14 AM EDT Lilian TAVERAS LAB BLOOD ORDERABLES Final Resu lt Performing Organization Address [facility]/ZIP Co de Phone Number [facility] [address] [place] [address], [place] [phone] * SST tube (07/10/2024 10:55 PM EDT) Extra Tube Hold for add-ons. 07/11/2024 1:01 AM EDT [facility] Comment:Auto resulted. Blood Venous blood specimen / Unknown 07/10/2024 10:55 PM EDT 07/10/2024 11:09 PM EDT Yong Monaco MD LAB BLOOD ORDERABLES Final Result Performing Organization Address [facility]/ZIP Co de Phone Number [facility] [address] [place] [address], [place] [phone] * CT Angio Chest wo and/or w Contrast (07/10/2024 8:51 PM EDT) Anatomical Region Laterality Modality Body Computed Tomogra phy 07/10/2024 9:41 PM EDT Impressions 07/10/2024 9:41 PM EDT 1. No pulmonary embolus. 2. Abnormal RV/LV ratio. 3. Hepatic steatosis and likely hepatomegaly. This document has been electronically signed by: Kell Bansal MD on 07/10/2024 21:41:55 Narrative 07/10/2024 9:41 PM EDT INDICATION: PE suspected, high prob CT angiography chest with contrast. 3D Postprocessing. Comparison: None Findings: The heart is borderline enlarged. RV/LV ratio is abnormal normal, greater than 1. No pericardial effusion. Unremarkable thoracic aorta with no aneurysm. No acute pulmonary embolus. Main pulmonary artery within normal limits in size. Low lung volumes. No consolidation, pleural effusion or pneumothorax. Thyroid and thoracic esophagus within normal limits. The upper abdomen demonstrate hepatic steatosis and likely hepatomegaly. No acute fractures. Procedure Note Kell Bansal MD - 07/10/2024 INDICATION: PE suspected, high prob CT angiography chest with contrast. 3D Postprocessing. Comparison: None Findings: The heart is borderline enlarged. RV/LV ratio is abnormal normal,greater than 1. No pericardial effusion. Unremarkable thoracic aorta with no aneurysm. No acute pulmonaryembolus. Main pulmonary artery within normal limits in size. Low lung volumes. No consolidation, pleural effusion or pneumothorax. Thyroid and thoracic esophagus within normal limits. The upper abdomen demonstrate hepatic steatosis and likely hepatomegaly. No acute fractures. IMPRESSION: 1. No pulmonary embolus. 2. Abnormal RV/LV ratio. 3. Hepatic steatosis and likely hepatomegaly. This document has been electronically signed by: Kell Bansal MD on 07/10/2024 21:41:[address] PROCEDURES Final Result * XR Chest 2 Views (07/10/2024 5:41 PM EDT) Anatomical Region Laterality Modality Body Radiographic Vonda ging 07/11/2024 8:53 AM EDT Impressions 07/11/2024 8:54 AM EDT Impression: 1. Poor inspiration. 2. No active pulmonary process. Chato TAVERAS ([id number]) -------- FINAL REPORT -------- Dictated By: Jory Johnson Dictated Date: 07/11/2024 08:53 ET Assigned Physician: Jory Johnson Reviewed and Electronically Signed By: Jory Johnson Signed Date: 07/11/2024 08:54 ET Workstation ID: [id number] Transcribed By: Self Edit Transcribed Date: 07/11/2024 08:53 ET Narrative 07/11/2024 8:54 AM EDT History: Chest pain since yesterday. Comparison: No previous imaging at this institution. Findings: PA and lateral views. This is a poor inspiration. The cardiac silhouette is normal in size. Hilar contours and pulmonary vascularity are within normal limits. The lungs are clear. The costophrenic angles are sharp. Minimal thoracic vertebral endplate spurring is seen. Procedure Note Jory Johnson MD - 07/11/2024 History: Chest pain since yesterday. Comparison: No previous imaging at this institution. Findings: PA and lateral views. This is a poor inspiration. The cardiac silhouetteis normal in size. Hilar contours and pulmonary vascularity are withinnormal limits. The lungs are clear. The costophrenic angles are sharp. Minimal thoracic vertebral endplate spurring is seen. IMPRESSION: Impression: 1. Poor inspiration. 2. No active pulmonary process. Telerad DARCY ([id number]) -------- FINAL REPORT -------- Dictated By: Jory Johnson Dictated Date: 07/11/2024 08:53 ET Assigned Physician: Jory Johnson Reviewed and Electronically Signed By: Jory Johnson Signed Date: 07/11/2024 08:54 ET Workstation ID: [id number] Transcribed By: Self Edit Transcribed Date: 07/11/2024 08:53 ET Yong Monaco MD IMG XR PROCEDURES Final Res ult * APTT (07/10/2024 5:32 PM EDT) aPTT 31.1 24.1 - 39.3 sec LAB COAGULATION METHOD 07/10/2024 6:29 PM EDT [facility] ([facility] Blood Venous blood specimen / Unknown Venipuncture / Unknown 07/10/2024 5:32 PM EDT 07/10/2024 6:10 PM EDT Yong Monaco MD LAB BLOOD ORDERABLES Final Result [facility] [address] [place] [address], [place] [phone] * Protime-INR (07/10/2024 5:32 PM EDT) [facility] Protime 10.7 10.6 - 13.9 sec LAB COAGULATION METHOD 07/10/2024 6:29 PM EDT [facility] INR 0.9 LAB COAGULATION METHOD 07/10/2024 6:29 PM EDT [facility] Blood Venous blood specimen / Unknown Venipuncture / Unknown 07/10/2024 5:32 PM EDT 07/10/2024 6:10 PM EDT Yong Monaco MD LAB BLOOD ORDERABLES Final Result Performing Organization Address [facility]/ZIP Co de Phone Number [facility] [address] [place] [address], [place] [phone] * B-type natriuretic peptide (07/10/2024 5:32 PM EDT) [facility] BNP 9 <=100 pcg/mL LAB CHEMISTRY METHOD 07/10/2024 6:57 PM EDT [facility] Blood Venous blood specimen / Unknown Venipuncture / Unknown 07/10/2024 5:32 PM EDT 07/10/2024 6:11 PM EDT Yong Monaco MD LAB BLOOD ORDERABLES Final Result [facility] [address] [place] [address], [place] [phone] * Lipase (07/10/2024 5:32 PM EDT) [facility] Lipase 33 13 - 75 unit/L LAB CHEMISTRY METHOD 07/10/2024 6:52 PM EDT [facility] Blood Venous blood specimen / Unknown Venipuncture / Unknown 07/10/2024 5:32 PM EDT 07/10/2024 6:10 PM EDT Yong Monaco MD LAB BLOOD ORDERABLES Final Result [facility] [address] [place] [address], [place] [phone] * (ABNORMAL) Hemoglobin A1c (07/10/2024 5:32 PM EDT) Hemoglobin A1C 10.6(H) <6.5 % LAB CHEMISTRY METHOD 07/11/2024 12:47 PM EDT [facility] Mean Bld Glu Estim. 258 mg/dL LAB CHEMISTRY METHOD 07/11/2024 12:47 PM EDT [facility] Blood Venous blood specimen / Unknown Venipuncture / Unknown 07/10/2024 5:32 PM EDT 07/10/2024 6:10 PM EDT Yong Monaco MD LAB BLOOD ORDERABLES Final Result [facility] [address] [place] [address], [place] [phone] from Last 3 Months Insurance [facility] Advance Directives * Full Code - Default (Latest Code Status on File) Date Activated Date Inactivated Comments 07/11/2024 4:28 PM 07/13/2024 4:36 PM This is order is used when code status has not been discussed with the patient, or code status is otherwise unknown/unconfirmed To update the patient's code status, place a code status order. Do not modify or discontinue any currently active code status orders. * Full Code - Default Date Activated Date Inactivated Comments 07/10/2024 10:12 PM 07/11/2024 4:03 PM This is ord er is used when code status has not been discussed with the patient, or code status is otherwise unknown/unconfirmed To update the patient's code status, place a code status order. Do not modify or discontinue any currently active code status orders. Care Teams Periodontist Relationship Specialty Start Date End Date Liu Nava MD [address] [place] [id number] PCP - General Family Medicine 07/10/24
--- OUTSIDE RECORDS SUMMARY | 2024-07-24 07:31 | XMS_ITS ---
Author Name [facility] Organization Unknown Results Test Name/Text Value Interpretation Date Range Source Glucose Bld-mCnc 229mg/dL Above high normal [id number] 70 - 199 [facility] Glucose Bld-mCnc 182mg/dL Normal [id number] 70 - 199 [facility] BUN SerPl-mCnc 12mg/dL Normal [id number] 9 - 20 [facility] Bilirub SerPl-mCnc 0.7mg/dL Normal [id number] 0.3 - 1 [facility] ALT SerPl-cCnc 82unit/L Above high normal [id number] 7 - 52 [facility] Potassium SerPl-sCnc 4.4mmol/L Normal [id number] 3.5 - 5.1 [facility] CO2 SerPl-sCnc 30mmol/L Normal [id number] 24 - 32 [facility] Prot SerPl-mCnc 7.1g/dL Normal [id number] 6.4 - 8.5 [facility] Glucose SerPl-mCnc 167mg/dL Normal [id number] 70 - 199 [facility] eGFRcr SerPlBld CKD-EPI 2020 114mL/min/1. 73m2 Normal [id number] - [facility] AST SerPl-cCnc 44unit/L Above high normal [id number] 5 - 40 [facility] Anion Gap SerPl Calc-sCnc 8 Normal [id number] 5 - 14 [facility] Calcium SerPl-mCnc 9.2mg/dL Normal [id number] 8.4 - 10 .2 [facility] ALP SerPl-cCnc 53unit/L Normal [id number] 34 - 104 [facility] Chloride SerPl-sCnc 100mmol/L Normal [id number] 98 - 10 7 [facility] Sodium SerPl-sCnc 138mmol/L Normal [id number] 135 - 145 [facility] Albumin SerPl-mCnc 4.3g/dL Normal [id number] 3.5 - 5 [facility] BUN/Creat SerPl 15 Normal [id number] 12 - 20 [facility] Creat SerPl-mCnc 0.8mg/dL Normal 0.7 - 1.3 [facility] Magnesium SerPl-mCnc 2mg/dL Normal 1.7 - 2.8 [facility] Hgb Bld-mCnc 15.8g/dL Normal 13.5 - 18 [facility] Platelet # Bld Auto 174K/mcL Normal [id number] 150 - 4 50 [facility] PMV Bld Auto 10FL Normal [id number] 7.4 - 11.4 [facility] RBC Auto 83.1FL Normal 78 - 100 [facility] MCH RBC Qn Auto 27.1pcg Normal [id number] 25 - 33 [facility] MCHC RBC Auto-EntMCnc 32.7g/dL Normal 32 - 36 [facility] Hct VFr Bld Auto 48.3% Normal [id number] 40 - 54 [facility] WBC # Bld Auto 6.2K/mcL Normal [id number] 4 - 10.5 [facility] RDW RBC Auto 14.4% Normal [id number] 12.1 - 17.7 [facility] RBC # Bld Auto 5.81M/mcL Normal 4.7 - 6 [facility] Glucose Bld-mCnc 195mg/dL Normal [id number] 70 - 199 [facility] Heparin Anti Xa Fld.NB-aCnc 0.49IUnit/mL Normal [id number] [facility] CO2 SerPl-sCnc 30mmol/L Normal [id number] 24 - 32 [facility] Chloride SerPl-sCnc 102mmol/L Normal [id number] 98 - 10 7 [facility] Creat SerPl-mCnc 0.8mg/dL Normal [id number] 0.7 - 1.3 [facility] Calcium SerPl-mCnc 9.3mg/dL Normal [id number] 8.4 - 10 .2 [facility] BUN/Creat SerPl 16.3 Normal [id number] 12 - 20 [facility] eGFRcr SerPlBld CKD-EPI 2020 114mL/min/1. 73m2 Normal [id number] - [facility] Sodium SerPl-sCnc 138mmol/L Normal [id number] 135 - 145 [facility] Potassium SerPl-sCnc 4.6mmol/L Normal [id number] 3.5 - 5.1 [facility] BUN SerPl-mCnc 13mg/dL Normal [id number] 9 - 20 [facility] Glucose SerPl-mCnc 186mg/dL Normal [id number] 70 - 199 [facility] Anion Gap SerPl Calc-sCnc 6 Normal [id number] 5 - 14 [facility] Magnesium SerPl-mCnc 2mg/dL Normal [id number] 1.7 - 2.8 [facility] Heparin Anti Xa Fld.NB-aCnc 0.26IUnit/mL Normal [id number] [facility] RBC # Bld Auto 5.88M/mcL Normal [id number] 4.7 - 6 [facility] RDW RBC Auto 14.4% Normal [id number] 12.1 - 17.7 [facility] PMV Bld Auto 9.5FL Normal [id number] 7.4 - 11.4 [facility] Hct VFr Bld Auto 49% Normal [id number] 40 - 54 [facility] RBC Auto 83.3FL Normal [id number] 78 - 100 [facility] MCHC RBC Auto-EntMCnc 32.5g/dL Normal [id number] 32 - 36 [facility] WBC # Bld Auto 5.9K/mcL Normal [id number] 4 - 10.5 [facility] Hgb Bld-mCnc 15.9g/dL Normal [id number] 13.5 - 18 [facility] MCH RBC Qn Auto 27.1pcg Normal [id number] 25 - 33 [facility] Platelet # Bld Auto 176K/mcL Normal [id number] 150 - 4 50 [facility] Troponin I SerPl HS-mCnc 36ng/L Above high normal [id number] 0 - 20 [facility] Glucose SerPl-mCnc 120mg/dL Normal [id number] 70 - 199 [facility] Creat SerPl-mCnc 0.8mg/dL Normal [id number] 0.7 - 1.3 [facility] BUN SerPl-mCnc 9mg/dL Normal [id number] 9 - 20 [facility] Potassium SerPl-sCnc 4.1mmol/L Normal [id number] 3.5 - 5.1 [facility] CO2 SerPl-sCnc 28mmol/L Normal [id number] 24 - 32 [facility] eGFRcr SerPlBld CKD-EPI 2020 114mL/min/1. 73m2 Normal [id number] - [facility] Anion Gap SerPl Calc-sCnc 11 Normal [id number] 5 - 14 [facility] BUN/Creat SerPl 11.3 Below low normal [id number] 12 - 20 [facility] Chloride SerPl-sCnc 100mmol/L Normal [id number] 98 - 10 7 [facility] Sodium SerPl-sCnc 139mmol/L Normal [id number] 135 - 145 [facility] Calcium SerPl-mCnc 9.6mg/dL Normal [id number] 8.4 - 10 .2 [facility] Neutrophils NFr Bld Auto 54.2% Normal [id number] 44 - 74 [facility] Basophils NFr Bld Auto 0.3% Normal [id number] 0 - 2 [facility] Eosinophil NFr Bld Auto 1.7% Normal [id number] 0 - 6 [facility] Eosinophil # Bld Auto 0.1K/mcL Normal [id number] 0 - 0.5 [facility] RDW RBC Auto 14.4% Normal [id number] 12.1 - 17.7 [facility] RBC # Bld Auto 5.8M/mcL Normal [id number] 4.7 - 6 [facility] MCHC RBC Auto-EntMCnc 32.7g/dL Normal [id number] 32 - 36 [facility] Hgb Bld-mCnc 15.9g/dL Normal [id number] 13.5 - 18 [facility] Lymphocytes # Bld Auto 2.5K/mcL Normal [id number] 1 - 3.2 [facility] PMV Bld Auto 10FL Normal [id number] 7.4 - 11.4 [facility] Lymphocytes NFr Bld Auto 35.8% Normal [id number] 20 - 48 [facility] Neutrophils # Bld Auto 3.8K/mcL Normal [id number] 1.8 - 7.8 [facility] MCH RBC Qn Auto 27.4pcg Normal [id number] 25 - 33 [facility] RBC Auto 83.6FL Normal [id number] 78 - 100 [facility] Hct VFr Bld Auto 48.5% Normal [id number] 40 - 54 [facility] Monocytes NFr Bld Auto 8% Normal [id number] 2 - 12 [facility] Platelet # Bld Auto 184K/mcL Normal [id number] 150 - 4 50 [facility] Basophils # Bld Auto 0K/mcL Normal [id number] 0 - 0.2 [facility] Monocytes # Bld Auto 0.6K/mcL Normal [id number] 0 - 0.8 [facility] WBC # Bld Auto 7.1K/mcL Normal [id number] 4 - 10.5 [facility] History of Medication Use Medication Directions Dispensed Refills Start Date End Date Stat metFORMIN 750 mg tablet Take 750 mg by mouth 2 (two) times a day with meals. 07/15/2024 active metFORMIN (GLUCOPHAGE) 500 mg tablet Take 1 tablet (500 mg total) by mouth 2 (two) times a day with meals. 07/13/2024 07/13/2024 aborted empagliflozin (Jardiance) 10 mg tablet Take 1 tablet (10 mg total) by mouth 1 (one) time each day. 07/13/2024 active insulin syringe-needle U-100 0.5 mL 29 gauge x 1/2 syringe Use to inject 1-4 times daily as directed. 07/13/2024 active metoprolol succinate (TOPROL-XL) 24 Hour tablet 25 mg 25 mg, oral, Once, On Cherie 07/13/24 at 1245, For 1 dose, Do not crush or chew. 07/13/2024 active metoprolol succinate (TOPROL-XL) 50 mg 24 hr tablet Take 1 tablet (50 mg total) by mouth 1 (one) time for 1 dose. Do not crush or chew. 07/13/2024 active aspirin 81 mg EC tablet Take 1 tablet (81 mg total) by mouth 1 (one) time each day. 07/12/2024 07/13/2024 active dextrose (D50W) 50% injection 12.5 g 12.5 g, intravenous, Every 15 min PRN, low blood sugar, moderate hypoglycemia *Patient is Unconscious, NPO, unable to swallow: BG 54 - 69 mg/dl*, Starting on Wed07/12/24 at 1540 07/12/2024 active dextrose (D50W) 50% injection 25 g 25 g, intravenous, Every 15 min PRN, low blood sugar, severe hypoglycemia *Patient is Unconscious, NPO, unable to swallow: BG LESS than 54 mg/dL*, Starting on Wed07/12/24 at 1540 07/12/2024 active dextrose 15 gram/60 mL oral solution 15 g 15 g, oral, Every 15 min PRN, low blood sugar, hypoglycemia *Patient conscious AND able to drink and swallow safely*, Starting on Wed07/12/24 at 1540 07/12/2024 active dextrose 15 gram/60 mL oral solution 30 g 30 g, oral, Every 15 min PRN, low blood sugar, hypoglycemia *Patient conscious AND able to drink and swallow safely*, Starting on Wed07/12/24 at 1540 07/12/2024 active Glucagon HCl (rDNA) injection 1 mg 1 mg, intramuscular, Once as needed, low blood sugar, severe hypoglycemia, Starting on Wed07/12/24 at 1540, For 1 dose 07/12/2024 active metoprolol tartrate (LOPRESSOR) tablet 25 mg 25 mg, oral, 2 times daily, First dose on Wed07/11/24 at 2100 07/12/2024 active senna-docusate (PERICOLACE) 8.6-50 mg per tablet 1 tablet 1 tablet, oral, Nightly, First dose on Wed07/11/24 at 2100, Bowel Regimen - for prevention of constipation 07/12/2024 active sodium chloride 0.9 % flush 10 mL [Order 1 Start] Name: Insert peripheral IV Signed Summary: STAT, Once, On Wed07/11/24 at 1628, For 1 occurrence [Order 1 End] [Order 2 Start] Name: Maintain IV access Signed Summary: Until discontinued, Starting on Wed07/11/24 at 1628, Until Specified [Order 2 End] [Order 3 Start] Name: Saline lock 07/12/2024 active Admelog U-100 insulin lispro 100 unit/mL injection Inject 2-12 Units under the skin 4 (four) times a day (before meals and nightly). -Administer within 15 minutes of a meal 07/11/2024 07/13/2024 active atorvastatin (LIPITOR) 80 mg tablet Take 1 tablet (80 mg total) by mouth at bedtime. 07/11/2024 07/13/2024 active heparin sodium,porcine/D5W (heparin, UFH,) 25,000 unit/250 mL(100 unit/mL) parenteral solution in D5W infusion Infuse 944 Units/hr into a venous catheter continuously. 07/11/2024 07/13/2024 aborted acetaminophen (TYLENOL) tablet 650 mg 650 mg, oral, Every 6 hours PRN, mild pain, Starting on Wed07/11/24 at 1627 07/11/2024 active polyethylene glycol (MIRALAX) packet 17 g 17 g, oral, Daily, First dose on Wed07/11/24 at 1645, Bowel Regimen - for prevention of constipation 07/11/2024 active glipiZIDE (GLUCOTROL XL) 5 mg 24 hr tablet Take 1 tablet (5 mg total) by mouth 1 (one) time each day. Do not crush, chew, or split. active Problems Problem Status Onset Date Problem Type Date of Resolution Source Type 2 diabetes mellitus with hyperglycemia, without long-term current use of [place] [place] [facility] [place] active [facility]counterDiagnosisAct [facility] NSTEMI (non-ST elevated myocardial infarction) [place] [place] [facility] [place] active 2024-07-[address] [facility] Encounters Encounter Type Encounter Reason Primary Diagnosis Location Date Inpatient NStemi Type 2 diabetes mellitus [facility] hyperglycemia [place] [place] [facility] [place] [facility] 07/11/2024 Care Team Organization Name Specialty Phone Email Start Date End [facility] te [facility] [place]/12/2024 [facility] 07/11/2024
[2024-07-24 12:49] LABS: Alanine Aminotransferase 98 U/L (0-40); Albumin Level 4.4 g/dL (3.5-5.0); Alkaline Phosphatase 47 U/L (39-117); Anion Gap 13 (12-20); Aspartate Amino Transferase 56 U/L (5-37); Bilirubin Total 0.5 mg/dL (0.0-1.0); Blood Urea Nitrogen 14 mg/dL (9-16); Calcium 9.4 mg/dL (8.4-10.2); Carbon Dioxide 28 mmol/L (22-29); Chloride 104 mmol/L (96-108); Estimated Glomerular Filt Rate > 60; Glucose Fasting 118 mg/dL (60-99); Potassium 4.1 mmol/L (3.3-5.1); Sodium 141 mmol/L (135-145); Total Protein 7.5 g/dL (6.5-8.0)
== END 2024-07-24 07:29 | disposition home or self-care (01) ==
LOC: HO.WFDLDS 07:28
PROVIDERS: Visit Provider Family Medicine
DX: Z00.00 Encounter for general adult medical examination without abnormal findings (principal); E11.9 Type 2 diabetes mellitus without complications; R74.8 Abnormal levels of other serum enzymes
CPT/HCPCS: 36415; 80053; 83036

== ENCOUNTER 2024-07-24 15:36 | Outpatient (AMB) | payer BC, SELFPAY ==
--- OUTSIDE RECORDS SUMMARY | 2024-07-24 15:39 | XMS_ITS | Clinical Summary ---
Author Organization [facility] Address [address] [place] [address] Phone Care Team Providers Care Vocational Teacher Name Role Phone Liu Nava MD Primary Care Provider [phone] Allergies Active Allergy Reactions Criticality Noted Date [...] hyperglycemia, without long-term current use of insulin (CMS/[facility] V24, CMS/HCC V28) Take 750 mg by mouth 2 (two) times a day with meals. 60 tablet 2 07/16/19 25 Active metoprolol succinate (TOPROL-XL) 50 mg 24 hr tablet Take 1 tablet (50 mg total) by mouth 1 (one) time for 1 dose. Do not crush or chew. 1 each 07/14/19 Active empagliflozin (Jardiance) 10 mg tabletIndicati ons:NSTEMI (non-ST elevated myocardial infarction) ([facility] V24, [facility] V28),Type 2 diabetes mellitus with hyperglycemia, without long-term current use of insulin ([facility] V24, [facility] V28) Take 1 tablet (10 mg total) [...] Date NSTEMI (non-ST elevated myoc ardial infarction) ([facility] V24, [facility] V28) 07/10/2024 Encounters Date Type Department Care Team Description 07/12/2024 2:49 PM EDT - 07/12/2024 4:19 PM EDT Surgery [facility] Cardiac Siding Installer [address] [place] [phone] Yaquelin Kim MD Left heart cath / Coronary angiography 07/11/2024 4:03 PM EDT - 07/13/2024 2:31 PM EDT Hospital Encounter [facility] Med Card 9-[address] [place] [phone] Di Tse MD Kochar, MD Mary Hein Rachna, MD Kapur, MD Pastora Type 2 diabetes mellitus with hyperglycemia, without long-term current use of insulin ([facility] V24, [facility] V28) (Primary Dx); NSTEMI (non-ST elevated myocardial infarction) ([facility] V24, [facility] V28) Discharge Disposition: Home or Self Care 07/10/2024 5:08 PM EDT - 07/11/2024 3:37 PM EDT Hospital Encounter [facility] [address] [place] [phone] Yong Monaco MD Japaridze, Anna, MD Chest pain, unspecified type (Primary Dx); Troponin level elevated; NSTEMI (non-ST elevated myocardial infarction) ([facility] V24, [facility] V28) Discharge Disposition: Short Term Hospital from Last 3 Months Medical History Medical History Date Comments Diabetes mellitus ([facility] V24, [facility] V28) Hyperlipidemia Family History Medical History Relation [...] of6 resultswithin the time period is included. [facility] Glucose POCT 229(H) 70 - 199 mg/dL 07/13/2024 1:13 PM EDT [facility] Comment: Fasting Reference Range: ? 70-99 mg/dL Non-Fasting Reference Range: 70-199 mg/dL Blood Capillary blood specimen / Unknown 07/13/2024 1:11 PM EDT 07/13/2024 1:14 PM EDT us Pastora Eastman MD LAB POINT OF CARE TE ST DOCKED DEVICE UNSOLICITED RESULTS Final Result Performing Organization Address City/[facility]/ZIP Co de Phone Number [facility] [address] [place] [address], [place] [phone] * ECG 12 lead (07/13/2024 12:51 PM EDT) Only the most recent of3 resultswithin the time period is included. Pathologist [facility] Ventricular Rate ECG 81 BPM GEMUSE Atrial Rate 81 BPM GEMUSE P-R Interval 208 ms GEMUSE QRS Duration 88 ms GEMUSE Q-T Interval 344 ms GEMUSE QTc 399 ms GEMUSE P Wave Porter 18 degrees GEMUSE R Porter 10 degrees GEMUSE T Porter -30 degrees GEMUSE ECG Interpretation Normal sinus rhythm Minimal voltage criteria for LVH, may be normal variant ( R in aVL ) Nonspecific T wave abnormality Abnormal ECG No previous ECGs available Confirmed by Cira Yanez ([id number]) on 07/13/2024 5:46:23 PM GEMUSE 07/13/2024 12:5 1 PM EDT 07/13/2024 5:46 PM EDT Pastora Eastman MD ECG ORDERABLES Final Result Performing Organization Address City/[facility]/ZIP Co de Phone Number GEMUSE * Complete blood count (07/13/2024 5:52 AM EDT) Only the most recent of2 resultswithin the time period is included. WBC 6.2 4.0 - 10.5 K/mcL LAB HEMETOLOGY METHOD 07/13/2024 6:45 AM EDT [facility] RBC 5.81 4.70 - 6.00 M/mcL LAB HEMETOLOGY METHOD 07/13/2024 6:45 AM EDT [facility] Hemoglobin 15.8 13.5 - 18.0 g/dL LAB HEMETOLOGY METHOD 07/13/2024 6:45 AM EDT [facility] Hematocrit 48.3 40.0 - 54.0 % LAB HEMETOLOGY METHOD 07/13/2024 6:45 AM EDT [facility] MCV 83.1 78.0 - 100.0 FL LAB HEMETOLOGY METHOD 07/13/2024 6:45 AM EDT [facility] MCH 27.1 25.0 - 33.0 pcg LAB HEMETOLOGY METHOD 07/13/2024 6:45 AM EDT [facility] MCHC 32.7 32.0 - 36.0 g/dL LAB HEMETOLOGY METHOD 07/13/2024 6:45 AM EDT [facility] RDW 14.4 12.1 - 17.7 % LAB HEMETOLOGY METHOD 07/13/2024 6:45 AM EDT [facility] Platelets 174 150 - 450 K/mcL LAB HEMETOLOGY METHOD 07/13/2024 6:45 AM EDT [facility] MPV 10.0 7.4 - 11.4 FL LAB HEMETOLOGY METHOD 07/13/2024 6:45 AM EDT [facility] Blood Venous blood specimen / Unknown Venipuncture / Unknown 07/13/2024 5:52 AM EDT 07/13/2024 6:32 AM EDT us Rekha Hernandez MD LAB BLOOD ORDERABLES Final Resu lt [facility] [address] [place] [address], [place] [phone] * Magnesium (07/13/2024 5:52 AM EDT) Only the most recent of3 resultswithin the time period is included. Magnesium 2.0 1.7 - 2.8 mg/dL LAB CHEMISTRY METHOD 07/13/2024 7:12 AM EDT [facility] Blood Venous blood specimen / Unknown Venipuncture / Unknown 07/13/2024 5:52 AM EDT 07/13/2024 6:32 AM EDT us Rekha Hernandez MD LAB BLOOD ORDERABLES Final Resu lt [facility] [address] [place] [address], [place] [phone] * (ABNORMAL) Comprehensive metabolic panel (07/13/2024 5:52 AM EDT) Only the most recent of2 resultswithin the time period is included. Sodium 138 135 - 145 mmol/L LAB CHEMISTRY METHOD 07/13/2024 7:12 AM EDT [facility] Potassium 4.4 3.5 - 5.1 mmol/L LAB CHEMISTRY METHOD 07/13/2024 7:12 AM EDT [facility] Chloride 100 98 - 107 mmol/L LAB CHEMISTRY METHOD 07/13/2024 7:12 AM EDT [facility] CO2 30 24 - 32 mmol/L LAB CHEMISTRY METHOD 07/13/2024 7:12 AM EDT [facility] Anion Gap 8 5 - 14 LAB CHEMISTRY METHOD 07/13/2024 7:12 AM EDT [facility] Glucose 167 70 - 199 mg/dL LAB CHEMISTRY METHOD 07/13/2024 7:12 AM EDT [facility] BUN 12 9 - 20 mg/dL LAB CHEMISTRY METHOD 07/13/2024 7:12 AM EDT [facility] Creatinine 0.80 0.70 - 1.30 mg/dL LAB CHEMISTRY METHOD 07/13/2024 7:12 AM EDT [facility] eGFR 114 >=60 mL/min/1. 73m2 LAB CHEMISTRY METHOD 07/13/2024 7:12 AM EDT [facility] Comment:Calculation based on the??Chronic Kidney Disease Epidemiology Collaboration (CKD-EPI) equation refit??without adjustment for race. BUN/Creatinine Ratio 15.0 12.0 - 20.0 LAB CHEMISTRY METHOD 07/13/2024 7:12 AM EDT [facility] Calcium 9.2 8.4 - 10.2 mg/dL LAB CHEMISTRY METHOD 07/13/2024 7:12 AM EDT [facility] AST (SGOT) 44(H) 5 - 40 unit/L LAB CHEMISTRY METHOD 07/13/2024 7:12 AM EDT [facility] ALT (SGPT) 82(H) 7 - 52 unit/L LAB CHEMISTRY METHOD 07/13/2024 7:12 AM EDT [facility] Alkaline Phosphatase 53 34 - 104 unit/L LAB CHEMISTRY METHOD 07/13/2024 7:12 AM EDT [facility] Total Protein 7.1 6.4 - 8.5 g/dL LAB CHEMISTRY METHOD 07/13/2024 7:12 AM EDT [facility] Albumin 4.3 3.5 - 5.0 g/dL LAB CHEMISTRY METHOD 07/13/2024 7:12 AM EDT [facility] Total Bilirubin 0.7 0.3 - 1.0 mg/dL LAB CHEMISTRY METHOD 07/13/2024 7:12 AM EDT [facility] Blood Venous blood specimen / Unknown Venipuncture / Unknown 07/13/2024 5:52 AM EDT 07/13/2024 6:32 AM EDT us Rekha Hernandez MD LAB BLOOD ORDERABLES Final Resu lt [facility] [address] [place] [address], [place] [phone] * LEFT HEART CATH / CORONARY ANGIOGRAPHY [...] obesity, prior tobacco use who presented to [facility] on 07/10 for chest pain at rest and exertion. He was admitted for NSTEMI and transferred to [facility] for coronary angiogram. TTE showed preserved LVEF [...] LAB COAGULATION METHOD 07/12/2024 2:17 PM EDT [facility] Blood Venous blood specimen / Unknown Venipuncture / Unknown 07/12/2024 1:50 PM EDT 07/12/2024 1:55 PM EDT Narrative [facility] - 07/12/2024 2:17 PM EDT Therapeutic Ranges Heparin Thromboembolic/Standard/Full Dose Protocol: Age 18+ Years ?? 0.30-0.70 IU/mL Age 0-17 Years ??0.35-0.70 IU/mL Heparin Cardiac/Low Dose Protocol: 0.30-0.5 IU/mL Low Molecular Weight Heparin: Age 18+ Years ?? 0.50-1.50 IU/mL Age 0-17 Years ??0.50-1.00 IU/mL us Rekha Hernandez MD LAB BLOOD ORDERABLES Final Resu lt [facility] [address] [place] [address], [place] [phone] * Basic metabolic panel (07/12/2024 6:20 AM EDT) Only the most recent of3 resultswithin the time period is included. Sodium 138 135 - 145 mmol/L LAB CHEMISTRY METHOD 07/12/2024 7:11 AM T [facility] Potassium 4.6 3.5 - 5.1 mmol/L LAB CHEMISTRY METHOD 07/12/2024 7:11 AM [facility] Chloride 102 98 - 107 mmol/L LAB CHEMISTRY METHOD 07/12/2024 7:11 AM [facility] CO2 30 24 - 32 mmol/L LAB CHEMISTRY METHOD 07/12/2024 7:11 AM [facility] Anion Gap 6 5 - 14 LAB CHEMISTRY METHOD 07/12/2024 7:11 AM [facility] Glucose 186 70 - 199 mg/dL LAB CHEMISTRY METHOD 07/12/2024 7:11 AM [facility] BUN 13 9 - 20 mg/dL LAB CHEMISTRY METHOD 07/12/2024 7:11 AM [facility] Creatinine 0.80 0.70 - 1.30 mg/dL LAB CHEMISTRY METHOD 07/12/2024 7:11 AM [facility] eGFR 114 >=60 mL/min/1. 73m2 LAB CHEMISTRY METHOD 07/12/2024 7:11 AM [facility] Comment:Calculation based on the??Chronic Kidney Disease Epidemiology Collaboration (CKD-EPI) equation refit??without adjustment for race. BUN/Creatinine Ratio 16.3 12.0 - 20.0 LAB CHEMISTRY METHOD 07/12/2024 7:11 AM [facility] Calcium 9.3 8.4 - 10.2 mg/dL LAB CHEMISTRY METHOD 07/12/2024 7:11 AM [facility] Blood Venous blood specimen / Unknown Venipuncture / Unknown 07/12/2024 6:20 AM EDT 07/12/2024 6:32 AM EDT us Oanh Parham MD LAB BLOOD ORDERABLES Fi nal Result [facility] ([facility] [address] [place] [address], [place] [phone] * ECG-Annotated (07/12/2024) us Provider Onbase ECG ORDERABLES Final Result * XR Chest 1 View (07/11/2024 6:06 PM EDT) Anatomical Region Laterality Modality Body Radiographic Vonda ging 07/11/2024 9:03 PM EDT Impressions 07/11/2024 9:05 PM EDT 1. No acute process in the chest. Report reviewed and signed by : Dr. Kei Myers MD on 07/11/2024 9:05 PM. Workstation Name - [id number] -------- FINAL REPORT -------- Dictated By: Kei Myers Dictated Date: 07/11/2024 21:03 ET Assigned Physician: Kei Myers Reviewed and Electronically Signed By: Kei Myers Signed Date: 07/11/2024 21:05 ET Workstation ID: [id number] Transcribed By: Self Edit Transcribed Date: 07/11/2024 [...] MD on 07/11/2024 9:05 PM.Workstation Name - [id number] -------- FINAL REPORT -------- Dictated By: Kei Myers Dictated Date: 07/11/2024 21:03 ET Assigned Physician: Kei Myers Reviewed and Electronically Signed By: Kei Myers Signed Date: 07/11/2024 21:05 ET Workstation ID: [id number] Transcribed By: Self Edit Transcribed Date: 07/11/2024 21:03 ET Oanh Parham MD IMG XR PROCEDURES Final Result * (ABNORMAL) Troponin I high sensitivity (07/11/2024 4:54 PM EDT) Only the most recent of4 resultswithin the time period is included. High Sensitivity Troponin I 36(H) 0 - 20 ng/L LAB CHEMISTRY METHOD 07/11/2024 6:00 PM EDT [facility] Blood Venous blood specimen / Unknown Venipuncture / Unknown 07/11/2024 4:54 PM EDT 07/11/2024 5:19 PM EDT Narrative [facility] - 07/11/2024 6:00 PM EDT [...] method is an immunoenzymatic assay manufactured by [employer] and performed on the [employer] DxI 800. us Oanh Parham MD LAB BLOOD ORDERABLES Fi nal Result [facility] [address] [place] [address], [place] [phone] * CBC auto differential (07/11/2024 4:54 PM EDT) Only the most recent of3 resultswithin the time period is included. [facility] Signature WBC 7.1 4.0 - 10.5 K/mcL LAB HEMETOLOGY METHOD 07/11/2024 5:30 PM EDT [facility] RBC 5.80 4.70 - 6.00 M/mcL LAB HEMETOLOGY METHOD 07/11/2024 5:30 PM EDT [facility] Hemoglobin 15.9 13.5 - 18.0 g/dL LAB HEMETOLOGY METHOD 07/11/2024 5:30 PM EDT [facility] Hematocrit 48.5 40.0 - 54.0 % LAB HEMETOLOGY METHOD 07/11/2024 5:30 PM EDT [facility] MCV 83.6 78.0 - 100.0 FL LAB HEMETOLOGY METHOD 07/11/2024 5:30 PM EDT [facility] MCH 27.4 25.0 - 33.0 pcg LAB HEMETOLOGY METHOD 07/11/2024 5:30 PM EDT [facility] MCHC 32.7 32.0 - 36.0 g/dL LAB HEMETOLOGY METHOD 07/11/2024 5:30 PM EDT [facility] RDW 14.4 12.1 - 17.7 % LAB HEMETOLOGY METHOD 07/11/2024 5:30 PM EDT [facility] Platelets 184 150 - 450 K/mcL LAB HEMETOLOGY METHOD 07/11/2024 5:30 PM EDT [facility] MPV 10.0 7.4 - 11.4 FL LAB HEMETOLOGY METHOD 07/11/2024 5:30 PM EDT [facility] Neutrophils Relative 54.2 44.0 - 74.0 % LAB HEMETOLOGY METHOD 07/11/2024 5:30 PM EDT [facility] Lymphocytes Relative 35.8 20.0 - 48.0 % LAB HEMETOLOGY METHOD 07/11/2024 5:30 PM EDT [facility] Monocytes Relative 8.0 2.0 - 12.0 % LAB HEMETOLOGY METHOD 07/11/2024 5:30 PM EDT [facility] Eosinophils Relative 1.7 0.0 - 6.0 % LAB HEMETOLOGY METHOD 07/11/2024 5:30 PM EDT [facility] Basophils Relative 0.3 0.0 - 2.0 % LAB HEMETOLOGY METHOD 07/11/2024 5:30 PM EDT [facility] Neutrophils Absolute 3.80 1.80 - 7.80 K/mcL LAB HEMETOLOGY METHOD 07/11/2024 5:30 PM EDT [facility] Lymphocytes Absolute 2.50 1.00 - 3.20 K/mcL LAB HEMETOLOGY METHOD 07/11/2024 5:30 PM EDT [facility] Monocytes Absolute 0.60 0.00 - 0.80 K/mcL LAB HEMETOLOGY METHOD 07/11/2024 5:30 PM EDT [facility] Eosinophils Absolute 0.10 0.00 - 0.50 K/mcL LAB HEMETOLOGY METHOD 07/11/2024 5:30 PM EDT [facility] Basophils Absolute 0.00 0.00 - 0.20 K/mcL LAB HEMETOLOGY METHOD 07/11/2024 5:30 PM EDT [facility] Blood Venous blood specimen / Unknown Venipuncture / Unknown 07/11/2024 4:54 PM EDT 07/11/2024 5:19 PM EDT us Oanh Parham MD LAB BLOOD ORDERABLES Fi nal Result [facility] [address] [place] [address], [place] [phone] * (ABNORMAL) TRANSTHORACIC ECHOCARDIOGRAM (TTE) COMPLETE W/ [...] LAB CHEMISTRY METHOD 07/11/2024 6:41 AM T [facility] Triglycerides 145 0 - 150 mg/dL LAB CHEMISTRY METHOD 07/11/2024 6:41 AM EDT [facility] HDL 45 >=40 mg/dL LAB CHEMISTRY METHOD 07/11/2024 6:41 AM EDT [facility] LDL Calculated 70 0 - 100 mg/dL LAB CHEMISTRY METHOD 07/11/2024 6:41 AM [facility] VLDL Cholesterol Naun 29 mg/dL LAB CHEMISTRY METHOD 07/11/2024 6:41 AM [facility] Non HDL Chol. (LDL+VLDL) 99 <145 mg/dL LAB CHEMISTRY METHOD 07/11/2024 6:41 AM [facility] Chol/HDL Ratio 3.2 0.0 - 4.4 LAB CHEMISTRY METHOD 07/11/2024 6:41 AM [facility] Blood Venous blood specimen / Unknown Venipuncture / Unknown 07/11/2024 4:09 AM EDT 07/11/2024 4:14 AM EDT us Lilian TAVERAS LAB BLOOD ORDERABLES Final Resu lt [facility] [address] [place] [address], [place] [phone] * Hepatitis panel, acute with reflex to confirmation (07/11/2024 4:09 AM EDT) Pathologist [facility] Hepatitis B Surface Ag Negative Negative LAB CHEMISTRY METHOD 07/11/2024 11:27 AM EDT [facility] Hepatitis A Antibody IgM Negative Negative LAB CHEMISTRY METHOD 07/11/2024 11:27 AM EDT [facility] Hep B Core IgM Negative Negative LAB CHEMISTRY METHOD 07/11/2024 11:27 AM EDT [facility] Hepatitis C Antibody Negative Negative LAB CHEMISTRY METHOD 07/11/2024 11:27 AM EDT [facility] Blood Venous blood specimen / Unknown Venipuncture / Unknown 07/11/2024 4:09 AM EDT 07/11/2024 4:14 AM EDT Lilian TAVERAS LAB BLOOD ORDERABLES Final Resu lt Performing Organization Address [facility]/ZIP Co de Phone Number [facility] [address] [place] [address], [place] [phone] * SST tube (07/10/2024 10:55 PM EDT) Extra Tube Hold for add-ons. 07/11/2024 1:01 AM EDT [facility] Comment:Auto resulted. Blood Venous blood specimen / Unknown 07/10/2024 10:55 PM EDT 07/10/2024 11:09 PM EDT Yong Monaco MD LAB BLOOD ORDERABLES Final Result Performing Organization Address [facility]/ZIP Co de Phone Number [facility] [address] [place] [address], [place] [phone] * CT Angio Chest wo and/or w [...] 2. No active pulmonary process. Chato TAVERAS ([id number]) -------- FINAL REPORT -------- Dictated By: Jory Johnson Dictated Date: 07/11/2024 08:53 ET Assigned Physician: Jory Johnson Reviewed and Electronically Signed By: Jory Johnson Signed Date: 07/11/2024 08:54 ET Workstation ID: [id number] Transcribed By: Self Edit Transcribed Date: 07/11/2024 [...] 2. No active pulmonary process. Telerad DARCY ([id number]) -------- FINAL REPORT -------- Dictated By: Jory Johnson Dictated Date: 07/11/2024 08:53 ET Assigned Physician: Jory Johnson Reviewed and Electronically Signed By: Jory Johnson Signed Date: 07/11/2024 08:54 ET Workstation ID: [id number] Transcribed By: Self Edit Transcribed Date: 07/11/2024 08:53 ET Yong Monaco MD IMG XR PROCEDURES Final Res ult * APTT (07/10/2024 5:32 PM EDT) aPTT 31.1 24.1 - 39.3 sec LAB COAGULATION METHOD 07/10/2024 6:29 PM EDT [facility] Blood Venous blood specimen / Unknown Venipuncture / Unknown 07/10/2024 5:32 PM EDT 07/10/2024 6:10 PM EDT Yong Monaco MD LAB BLOOD ORDERABLES Final Result [facility] [address] [place] [address], [place] [phone] * Protime-INR (07/10/2024 5:32 PM EDT) [facility] Protime 10.7 10.6 - 13.9 sec LAB COAGULATION METHOD 07/10/2024 6:29 PM EDT [facility] INR 0.9 LAB COAGULATION METHOD 07/10/2024 6:29 PM EDT [facility] Blood Venous blood specimen / Unknown Venipuncture / Unknown 07/10/2024 5:32 PM EDT 07/10/2024 6:10 PM EDT Yong Monaco MD LAB BLOOD ORDERABLES Final Result Performing Organization Address [facility]/ZIP Co de Phone Number [facility] [address] [place] [address], [place] [phone] * B-type natriuretic peptide (07/10/2024 5:32 PM EDT) [facility] BNP 9 <=100 pcg/mL LAB CHEMISTRY METHOD 07/10/2024 6:57 PM EDT [facility] Blood Venous blood specimen / Unknown Venipuncture / Unknown 07/10/2024 5:32 PM EDT 07/10/2024 6:11 PM EDT Yong Monaco MD LAB BLOOD ORDERABLES Final Result [facility] [address] [place] [address], [place] [phone] * Lipase (07/10/2024 5:32 PM EDT) [facility] Lipase 33 13 - 75 unit/L LAB CHEMISTRY METHOD 07/10/2024 6:52 PM EDT [facility] Blood Venous blood specimen / Unknown Venipuncture / Unknown 07/10/2024 5:32 PM EDT 07/10/2024 6:10 PM EDT Yong Monaco MD LAB BLOOD ORDERABLES Final Result [facility] [address] [place] [address], [place] [phone] * (ABNORMAL) Hemoglobin A1c (07/10/2024 5:32 PM EDT) Hemoglobin A1C 10.6(H) <6.5 % LAB CHEMISTRY METHOD 07/11/2024 12:47 PM EDT [facility] Mean Bld Glu Estim. 258 mg/dL LAB CHEMISTRY METHOD 07/11/2024 12:47 PM EDT [facility] Blood Venous blood specimen / Unknown Venipuncture / Unknown 07/10/2024 5:32 PM EDT 07/10/2024 6:10 PM EDT Yong Monaco MD LAB BLOOD ORDERABLES Final Result [facility] [address] [place] [address], [place] [phone] from Last 3 Months Insurance [facility] Advance Directives * Full Code [...] currently active code status orders. Care Teams Vocational Teacher Relationship Specialty Start Date End Date Liu Nava MD [address] [place] [address] PCP - General Family Medicine 07/10/24
--- NOTE | 2024-07-24 15:57 | A.OFFPC_ITS ---
Vital Signs 07/24/24 16:03 Height 5 ft 10 in Weight 265 lb BMI 38.0 BP 110/78 Blood Pressure Location Rt brachial Position Sitting Respiration 14 Pulse 75 Pulse Source Pulse Oximeter Temp 98.0 F Temp Source Oral Pulse Oximetry (%) 97 Oxygen Delivery Method Room Air Intake Visit Reasons: f/u DM, labs Intake Note: patient is scheduled for dm follow up. patient would also like todiscuss if he should be taking all 3 dm meds due to developing sx after taking them Care Transport Nurse Required: No Allergies SEAFOOD Allergy (Severe, Uncoded 01/06/24 15:41) DIFFICULTY BREATHING Tobacco use date assessed: 04/29/23 Dental Screening Dental Screen Date: 04/29/23 HPI f/u DM, labs HPI Details 39 y/o male presents to f/u [facility]. Recent ED visit for chest pain, admit date 07/10/24, discharge date 07/11/24. Had experienced sudden onset chest tightness while watching TV. Workup significant for mildly elevated troponin with EKG changes suspicious for acute coronary syndrome. CTA ruled out PE, demonstrated abnormal RV to LV ratio and hepatic steatosis with likely hepatomegaly. Was admitted and initiated on IV heparin drip. DC diagnosis ACS/NSTEMI [facility] Medical History History of COVID-19 History of asthma DVT (deep venous thrombosis) Surgical History No pertinent past surgical history Family History Mother Glioblastoma Social History Household Members: Family Housing: House Do you presently have visiting nurse or other home services: No Alcohol intake: current Alcohol intake frequency: holidays/special occasions only Comment: sleeping Patient Tobacco Use Status: Former Tobacco user Tobacco use type: Cigarette e-Cigarette/Vaping Use: Never Used Substance Use Type: Marijuana service: No Current occupational status: employed 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 Current occupational exposures/hazards: No Cognitive needs: No Hearing needs: No Vision needs: No Questionnaire Thrive Questionnaire Date Thrive assessed: 04/25/24 I am a: Patient What is your living situation today?: I have a steady place to live Within the past 12 months, did the food you bought not last and you didn't have the money to get more?: Never true Within the past 12 months, did you worry whether your food would run out before you got money to buy more?: Never true Do you have trouble paying for medicines?: No Do you have trouble getting transportation to medical appointments?: No Do you have trouble paying your heating and electricity bill?: No Do you have trouble taking care of your child, family member or friend?: No Do you have trouble with day-to-day activities such as bathing, preparing meals, shopping, managing finances, etc.?: No Are you currently unemployed and looking for a job?: No Are you interested in more education?: No Please select the resources that you would like help with: None Currently or been in a relationship where the following occur: No concerns reported THRIVE Score: 0 Review of Systems Const Denies chills, Denies fatigue, Denies fever(s), Denies headache(s) and Denies weakness ENT Denies dizziness and Denies headache(s) Card Denies dyspnea Resp Denies cough, Denies dyspnea, Denies wheezing and Denies other (shortness of breath) Musc Denies numbness and Denies tingling Neuro Denies dizziness, Denies headache(s), Denies numbness, Denies tingling and Denies weakness Psych Denies anxiety and Denies depression Endo Denies fatigue Aller/Immun Denies wheezing Physical exam (Primary Care) Vital Signs: Last Vital Signs Temp 98.0 F 07/24/24 16:03 Pulse 75 07/24/24 16:03 Resp 14 07/24/24 16:03 BP 110/78 07/24/24 16:03 Pulse Ox 97 07/24/24 16:03 Oxygen Delivery Method Room Air 07/24/24 16:03 BMI result Body Mass Index 38.0 Tobacco/Smoking Status: Tobacco use Status Tobacco use date assessed 04/29/23 07/24/24 15:59 Patient Tobacco Use Status Former Tobacco user 07/24/24 15:59 Tobacco use type Cigarette 07/24/24 15:59 e-Cigarette/Vaping Use Never Used 07/24/24 15:59 Thrive Assessment: Date of Thrive Assessment Date Thrive assessed 04/25/24 07/24/24 15:59 Currently or been in a relationship where the following occur: No concerns reported Const General: well developed; No acute distress Nutritional Appearance: well nourished Orientation/consciousness: patient oriented x3 [facility] Head: Yes normocephalic and Yes atraumatic Eyes General: appearance normal, both eyes and all related structures Pupils: Equal, round and reactive pupils present EOM: EOMs intact bilaterally Resp Effort & Inspection: normal respiratory effort Auscultation: clear to auscultation bilaterally Cardio Rate: regular rate Rhythm: regular rhythm Heart sounds: S1 normal heart sound present, S2 normal heart sound present, no gallops, no murmurs and no rubs Neuro General: patient oriented x3 and gait normal Cranial nerves: Yes Equal, round and reactive pupils present Psych Affect: normal affect Coding Level of Care Code Est Pt Level 4 (63552) Diagnoses Diabetes E11.9 Essential hypertension I10 NSTEMI (non-ST elevated myocardial infarction) I21.4 Assessment & Plan Assessment & Plan (1) Diabetes: Code(s): E11.9 - Type 2 diabetes mellitus without complications Category: Medical Plan: Poorly?controlled?diabetes?with?A1c?still?above?8%. He?also?notes?some?hypoglycemic?episodes Currently?taking?metformin?500?mg?b.i.d.?and?glipizide?ER?5?mg?daily. He?recently?c hanged?insurance?and?would?like?to?try?Ozempic?which?was?declined?by?prior?insur ance - will?send?script As?he?is?having both?high?and?low?blood?sugars?and?is?symptomatic,?I?am?referring?him?to?endocr inology (2) Essential hypertension: Code(s): I10 - Essential (primary) hypertension Category: Medical Plan: Controlled Blood?pressure?goal?is?less?than?130/80 Will?follow (3) NSTEMI (non-ST elevated myocardial infarction): Code(s): I21.4 - Non-ST elevation (NSTEMI) myocardial infarction Category: Medical Plan: Recent?hospital?visit?for?NSTEMI?with?preserved?EF?and?major?vessels?clear Continue?atorvastatin and ASA,?continue?good?blood?pressure?control?needs?improved?blood?sugar?control Referred?to?cardiology Orders: Referrals Cardiology Referral I21.4 - Non-ST elevation (NSTEMI) myocardial infarction Endocrinology Referral E11.9 - Type 2 diabetes mellitus without complications, E16.2 - Hypoglycemia, unspecified
[2024-07-24 16:03] VITALS: BP 110/78; PULSE 75; RESP 14; TEMP 36.7; O2SAT 97; BMI 38.0
== END 2024-07-24 16:59 | disposition home or self-care (01) ==
LOC: HO.HMCFM 15:37
PROVIDERS: PCP Family Medicine; Visit Provider Family Medicine
DX: E11.9 Type 2 diabetes mellitus without complications (principal)

== ENCOUNTER 2024-08-15 14:36 | Outpatient (AMB) | payer BC, SELFPAY ==
--- NOTE | 2024-08-15 14:38 | A.OFFVIS_ITS ---
Vital Signs 08/15/24 14:45 Height 5 ft 10 in Weight 262 lb 9.129 oz BMI 37.7 BP 126/70 Blood Pressure Location Rt brachial Position Sitting Pulse 96 Pulse Source Pulse Oximeter Pulse Oximetry (%) 96 Oxygen Delivery Method Room Air Intake Visit Reasons: T2DM Intake Note: New patient internally referred by PCP for T2DM. Patient reports he started Ozempic last week, no side effects reported. Last Diabetic Eye exam: Approx in February 2024 Last Podiatry Visit: Does not see a Public Health Assistant Random Glucose: 110 mg/dl HgA1C: 8.9% 07/24/2024 Capsule Filling Machine Operator Required: No Accompanied by: Self / Same As Patient Allergies SEAFOOD Allergy (Severe, Uncoded 08/15/24 14:46) DIFFICULTY BREATHING HPI Comments Details: This is a 39-year-old male with a past medical history of type 2 diabetes, NSTEMI, hypertension, hyperlipidemia, hepatic steatosis and obesity presenting to establish care for diabetic management. He was diagnosed with diabetes in 2020 when he had lab work that demonstrated a hemoglobin A1c of 7.4%. Hemoglobin A1c was as high as 11.7% in April of 2023. His hemoglobin A1c on 07/24/2024 was 8.9%. He forgot his freestyle glucometer. During the past week he reports fasting sugars in the morning are between 100-12 0, and at night when he checks blood sugars are between 100-150. He endorses frequent hypoglycemia. Episodes occur 3 times per week late morning and afternoon while he is working. 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 He gets shaky and dizzy. It makes it difficult for him to treat low sugars because he is less coordinated. He attempts treatment with a candy or something else sweet. Lowest blood sugar recorded was 63, but he is not always able to check when he feels low so he might have been lower than this. Current medication regimen: Metformin 500 mg twice daily, Ozempic 0.25 mg weekly, glipizide ER 5 mg every morning. He has had 2 doses of Ozempic, and he denies side effects. Compliance issues: None The patient was hospitalized for chest pain 07/10/2024. Discharge diagnosis was ACS/NSTEMI. He is on high-dose atorvastatin and baby aspirin. He has a follow up scheduled with Cardiology. He has changed his diet drastically in the last couple of weeks. He stopped drinking soda, and he has no juice. He only has water and seltzer water. He stopped having sugary foods and fried foods and cut back on carbohydrates. He is eating more salads, vegetables and protein. He has 1 cup of coffee in the morning with splenda. He has lost 3 lb. He started walking for exercise. Hypoglycemia symptoms: See above Hyperglycemia symptoms: Previously polyuria and polydipsia. Eye exam: Up-to-date and no retinopathy per patient Microvascular complications: None Macrovascular complications: CAD Hyperlipidemia: treated with LDL at goal <100. ROS: Constitutional: No unexplained weight loss, fever, chills, fatigue or night sweats. Eyes: No vision changes, blurry vision, double vision Respiratory: No shortness of breath, cough or sputum production. Cardiovascular: No chest pain, chest pressure or chest discomfort. No palpitations or pedal edema. Gastrointestinal: No anorexia, nausea, vomiting or diarrhea. No abdominal pain or blood in stool. Neurologic: No headache, syncope, unilateral weakness, ataxia, numbness or tingling in the extremities. Endocrine: No cold or heat intolerance. Physical exam: Constitutional: Alert, in no distress. Head: Normocephalic. Neck: Supple, Full range of motion. No lymphadenopathy. No palpable thyroid masses. Respiratory: Clear to auscultation. Cardiovascular: S1 S2 regular. No murmurs. Right foot: Warm and well perfused. No clubbing, cyanosis or edema. Intact DP pulse. Intact vibratory sensation. Intact sensation to monofilament. No open wounds. Left foot: Warm and well perfused. No clubbing, cyanosis or edema. Intact DP pulse. Intact vibratory sensation. Intact sensation to monofilament. No open wounds. [facility] Medical History (Updated 08/15/24 @ 15:41 by DARCY Stoddard) Hepatic steatosis Uncontrolled type 2 diabetes mellitus with hyperglycemia History of COVID-19 History of asthma DVT (deep venous thrombosis) Surgical History No pertinent past surgical history Family History Mother Glioblastoma Social History Household Members: Family Housing: House Do you presently have visiting nurse or other home services: No Alcohol intake: current Alcohol intake frequency: holidays/special occasions only Comment: sleeping Patient Tobacco Use Status: Former Tobacco user Tobacco use type: Cigarette e-Cigarette/Vaping Use: Never Used Substance Use Type: Marijuana service: No Current occupational status: employed 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 Current occupational exposures/hazards: No Cognitive needs: No Hearing needs: No Vision needs: No Physical Exam Vital Signs: Last Vital Signs Pulse 96 08/15/24 14:45 BP 126/70 08/15/24 14:45 Pulse Ox 96 08/15/24 14:45 Oxygen Delivery Method Room Air 08/15/24 14:45 BMI result Body Mass Index 37.7 Results Reviewed Results Reviewed: Laboratory Last Values Glucose (Clinic) 110 mg/dL (60-115) 08/15/24 14:51 Laboratory Tests 08/08/21 02/12/23 05/20/23 07:25 07:21 07:56 Plt Count 207 Creatinine Estimated GFR Hgb A1c (Clinic) AST ALT Alkaline Phosphatase Triglycerides Cholesterol LDL Cholesterol, Calc HDL Cholesterol TSH 1.44 Urine Creatinine 228.56 Urine Microalbumin 19.0 Microalb/Creat Ratio 8.3 02/29/24 07/24/24 07/24/24 09:08 07:29 17:31 Plt Count Creatinine 0.74 Estimated GFR > 60 Hgb A1c (Clinic) 8.9 H AST 56 H ALT 98 H Alkaline Phosphatase 47 Triglycerides 118 Cholesterol 169 LDL Cholesterol, Calc 100 H HDL Cholesterol 46 TSH Urine Creatinine Urine Microalbumin Microalb/Creat Ratio Assessment & Plan Assessment & Plan (1) Uncontrolled type 2 diabetes mellitus with hyperglycemia: Code(s): E11.65 - Type 2 diabetes mellitus with hyperglycemia Category: Medical Plan: In summary this is a 39-year-old male with type 2 diabetes and CAD. Stop glipizide due to hypoglycemia. Continue metformin 500 mg twice a day. After 1 month on Ozempic 0.25 mg increase to 0.5 mg weekly. Side effects and administration reviewed. Discussed pathophysiology of Type II Diabetes Mellitus with the patient in detail.? I explained the terminal clerk risks and complications associated with uncontrolled diabetes including nephropathy, neuropathy, peripheral vascular disease, retinopathy, increased risk of heart disease and stroke.? Given information on [email or web address]. Lifestyle modifications and dietary recommendations reviewed. Defers referral to dietitian. Recommended avoidance of alcohol given hepatic steatosis and diabetes. Instructed to bring glucometer to appointments. Refilled test supplies. Submitted CGM to pharmacy. (2) Hypoglycemia: Code(s): E16.2 - Hypoglycemia, unspecified Category: Medical Plan: The patient has problematic, frequent hypoglycemia, and it is difficult for him to check his blood sugar and treat lows due to decreased coordination, shakiness and dizziness during episodes. CGM is medically necessary. Prescribed freestyle Ivette 3 Plus. Patient advised to call us when he picks it up from the pharmacy to schedule appointment with myself for the certified lactation educator so we can set this up. Written instructions given on treating hypoglycemia. Glucose tablets sent to pharmacy. Reviewed rule a 15s. Plan Follow up in 5-6 weeks for type 2 diabetes. Medications: New semaglutide (Ozempic) 0.5 mg (0.736 mL) subcut QWEEK 3 mL 1RF glucose (Dex4 Glucose Quick Dissolve) until symptoms of low blood sugar are controlled 16 grams (4 x 4 gram) PO Q15M PRN 10 tabs 3RF hypoglycemia Changed From lancets (FreeStyle Lancets) As directed 200 ea 4RF DX: E11.9, test blood sugar 2 times a day, 90 day E11.9 - Type 2 diabetes mellitus without complications To lancets (FreeStyle Lancets) As directed to test blood sugar twice daily 200 ea 4RF DX: E11.9, test blood sugar 2 times a day, 90 day E11.9 - Type 2 diabetes mellitus without complications From blood sugar diagnostic (FreeStyle Lite Strips) DX: E11.9, test blood sugar 2 times a day, 90 days 200 ea 4RF E11.9 - Type 2 diabetes mellitus without complications To blood sugar diagnostic (FreeStyle Lite Strips) As directed to check blood sugar twice daily 200 ea 4RF E11.9 - Type 2 diabetes mellitus without complications Discontinued glipizide ER Discontinued Reason: Doctor's Order 5 mg PO QAM 90 days 90 tabs 3RF semaglutide (Ozempic) for 4 weeks Discontinued Reason: Duplicate 0.25 mg (0.368 mL) subcut QWEEK 28 days 1.472 mL 3RF E11.9 - Type 2 diabetes mellitus without complications Patient Instructions: Stop Glipizide. Take 2 more doses of Ozempic 0.25 mg weekly and then increase to 0.5 mg weekly. Continue metformin 500 mg twice a day. Please bring your glucometer with you to all appointments. I will submit a prescription for the continuous glucose meter due to episodes of hypoglycemia. It will require a prior authorization. If the insurance covers it and you diamond picker the sensors and reader from the pharmacy please call the office so we can set up an appointment with the certified lactation educator or myself to set it up. If you experience low blood sugar, treat this by eating a chewable fruit candy like skittles or jelly beans (about 8 pieces), 4 ounces (1/2 cup) of fruit juice (not diet), 1 tablespoon of honey or 4 glucose tablets. If your blood sugar is under 55, take double the amount of one of the above. Recheck your blood sugar in 15 minutes. [email or web address] Coding Level of Care Code New Pt Level 4 (01285) Complex EM visit Add On G2211 Diagnoses Uncontrolled type 2 diabetes mellitus with hyperglycemia E11.65 Hypoglycemia E16.2
[2024-08-15 14:45] VITALS: BP 126/70; PULSE 96; O2SAT 96; BMI 37.7
[2024-08-15 14:54] LABS: Glucose, Whole Blood 110 mg/dL (60-115)
--- OUTSIDE RECORDS SUMMARY | 2024-08-15 16:23 | XMS_ITS | Clinical Summary ---
Author Organization [facility] Address [address] [place] [address] Phone Care Team Providers Care Clinical Laboratory Service Teacher Name Role Phone Liu Nava MD Primary Care Provider [phone] Allergies Active Allergy Reactions Criticality Noted Date Comments Shellfish Derived Shortness of breath High 5 Medications aspirin 81 mg EC tablet Take 1 tablet (81 mg total) by mouth 1 (one) time each day. 30 each 2 07/13/2024 6 Active atorvastatin (LIPITOR) 80 mg tablet Take 1 tablet (80 mg total) by mouth at bedtime. 30 each 2 07/13/2024 6 Active Admelog U-100 insulin lispro 100 unit/mL injection Inject 2-12 Units under the skin 4 (four) times a day (before meals and nightly). -Administer within 15 minutes of a meal 10 mL 2 07/13/2024 5 Active glipiZIDE (GLUCOTROL XL) 5 mg 24 hr tablet Take 1 tablet (5 mg total) by mouth 1 (one) time each day. Do not crush, chew, or split. Active metFORMIN 750 mg tabletIndicatio ns:Type 2 diabetes mellitus with hyperglycemia, without long-term current use of insulin (CMS/[facility] V24, CMS/HCC V28) Take 750 mg by mouth 2 (two) times a day with meals. 60 tablet 2 07/15/2024 Active metoprolol succinate (TOPROL-XL) 50 mg 24 hr tablet Take 1 tablet (50 mg total) by mouth 1 (one) time for 1 dose. Do not crush or chew. 1 each 07/13/2024 Active empagliflozin (Jardiance) 10 mg tabletIndicatio ns:NSTEMI (non-ST elevated myocardial infarction) ([facility] V24, [facility] V28),Type 2 diabetes mellitus with hyperglycemia, without long-term current use of insulin ([facility] V24, [facility] V28) Take 1 tablet (10 mg total) by mouth 1 (one) time each day. 30 tablet 2 07/13/2024 Active insulin syringe-needle U-100 0.5 mL 29 gauge x 1/2 syringe Use to inject 1-4 times daily as directed. 200 each 1 07/13/2024 Active Active Problems Problem Noted Date Diagnosed Date NSTEMI (non-ST elevated myoc ardial infarction) ([facility] V24, [facility] V28) 07/10/2024 Encounters Date Type Department Care Team Description 07/12/2024 2:49 PM EDT - 07/12/2024 4:19 PM EDT Surgery [facility] Cardiac Cargo Service Agent [address] [place] [phone] Yaquelin Kim MD Left heart cath / Coronary angiography 07/11/2024 4:03 PM EDT - 07/13/2024 2:31 PM EDT Hospital Encounter [facility] Med Card 9-[address] [place] [address] [phone] Di Tse MD Kochar, MD Mary Hein Rachna, MD Kapur, MD Pastora Type 2 diabetes mellitus with hyperglycemia, without long-term current use of insulin ([facility] V24, [facility] V28) (Primary Dx); NSTEMI (non-ST elevated myocardial infarction) ([facility] V24, [facility] V28) Discharge Disposition: Home or Self Care 07/10/2024 5:08 PM EDT - 07/11/2024 3:37 PM EDT Hospital Encounter [facility] [address] [place] [phone] Yong Monaco MD Japaridze, Anna, MD Chest pain, unspecified type (Primary Dx); Troponin level elevated; NSTEMI (non-ST elevated myocardial infarction) ([facility] V24, [facility] V28) Discharge Disposition: Short Term Hospital from Last 3 Months Medical History Medical History Date Comments Diabetes mellitus ([facility] V24, [facility] V28) Hyperlipidemia Family History Medical History Relation [...] of 2 - PCV) 2002 COVID-19 Vaccine (4 - season) 2023 03/23/2021, 07/28/2020, 07/07/2020 Depression Screening [...] of6 resultswithin the time period is included. [facility] Glucose POCT 229(H) 70 - 199 mg/dL 07/13/2024 1:13 PM EDT [facility] Comment: Fasting Reference Range: ? 70-99 mg/dL Non-Fasting Reference Range: 70-199 mg/dL Blood Capillary blood specimen / Unknown 07/13/2024 1:11 PM EDT 07/13/2024 1:14 PM EDT Pastora Eastman MD LAB POINT OF CARE TE ST DOCKED DEVICE UNSOLICITED RESULTS Final Result Performing Organization Address City/[facility]/ZIP Co de Phone Number [facility] [address] [place] [address], [place] [phone] * ECG 12 lead (07/13/2024 12:51 PM EDT) Only the most recent of3 resultswithin the time period is included. Ventricular Rate ECG 81 BPM GEMUSE Atrial Rate 81 BPM GEMUSE P-R Interval 208 ms GEMUSE QRS Duration 88 ms GEMUSE Q-T Interval 344 ms GEMUSE QTc 399 ms GEMUSE P Wave [place] 18 degrees GEMUSE R [place] 10 degrees GEMUSE T [place] -30 degrees GEMUSE ECG Interpretation Normal sinus rhythm Minimal voltage criteria for LVH, may be normal variant ( R in aVL ) Nonspecific T wave abnormality Abnormal ECG No previous ECGs available Confirmed by Cira Yanez ([id number]) on 07/13/2024 5:46:23 PM GEMUSE 07/13/2024 12:5 1 PM EDT 07/13/2024 5:46 PM EDT Pastora Eastman MD ECG ORDERABLES Final Result Performing Organization Address City/[facility]/ZIP Co de Phone Number GEMUSE * Complete blood count (07/13/2024 5:52 AM EDT) Only the most recent of2 resultswithin the time period is included. WBC 6.2 4.0 - 10.5 K/[facility] LAB HEMETOLOGY METHOD 07/13/2024 6:45 AM EDT [facility] RBC 5.81 4.70 - 6.00 M/[facility] LAB HEMETOLOGY METHOD 07/13/2024 6:45 AM EDT [facility] Hemoglobin 15.8 13.5 - 18.0 g/dL LAB HEMETOLOGY METHOD 07/13/2024 6:45 AM EDT [facility] Hematocrit 48.3 40.0 - 54.0 % LAB HEMETOLOGY METHOD 07/13/2024 6:45 AM EDT [facility] MCV 83.1 78.0 - 100.0 FL LAB HEMETOLOGY METHOD 07/13/2024 6:45 AM EDT [facility] MCH 27.1 25.0 - 33.0 pcg LAB HEMETOLOGY METHOD 07/13/2024 6:45 AM EDT [facility] MCHC 32.7 32.0 - 36.0 g/dL LAB HEMETOLOGY METHOD 07/13/2024 6:45 AM EDT [facility] RDW 14.4 12.1 - 17.7 % LAB HEMETOLOGY METHOD 07/13/2024 6:45 AM EDT [facility] Platelets 174 150 - 450 K/mcL LAB HEMETOLOGY METHOD 07/13/2024 6:45 AM EDT [facility] MPV 10.0 7.4 - 11.4 FL LAB HEMETOLOGY METHOD 07/13/2024 6:45 AM EDT [facility] Blood Venous blood specimen / Unknown Venipuncture / Unknown 07/13/2024 5:52 AM EDT 07/13/2024 6:32 AM EDT us Rekha Hernandez MD LAB BLOOD ORDERABLES Final Resu lt [facility] [address] [place] [address], [place] [phone] * Magnesium (07/13/2024 5:52 AM EDT) Only the most recent of3 resultswithin the time period is included. Magnesium 2.0 1.7 - 2.8 mg/dL LAB CHEMISTRY METHOD 07/13/2024 7:12 AM EDT [facility] Blood Venous blood specimen / Unknown Venipuncture / Unknown 07/13/2024 5:52 AM EDT 07/13/2024 6:32 AM EDT us Rekha Hernandez MD LAB BLOOD ORDERABLES Final Resu lt [facility] [address] [place] [address], [place] [phone] * (ABNORMAL) Comprehensive metabolic panel (07/13/2024 5:52 AM EDT) Only the most recent of2 resultswithin the time period is included. Sodium 138 135 - 145 mmol/L LAB CHEMISTRY METHOD 07/13/2024 7:12 AM EDT [facility] Potassium 4.4 3.5 - 5.1 mmol/L LAB CHEMISTRY METHOD 07/13/2024 7:12 AM EDT [facility] Chloride 100 98 - 107 mmol/L LAB CHEMISTRY METHOD 07/13/2024 7:12 AM EDT [facility] CO2 30 24 - 32 mmol/L LAB CHEMISTRY METHOD 07/13/2024 7:12 AM EDT [facility] Anion Gap 8 5 - 14 LAB CHEMISTRY METHOD 07/13/2024 7:12 AM EDT [facility] Glucose 167 70 - 199 mg/dL LAB CHEMISTRY METHOD 07/13/2024 7:12 AM EDT [facility] BUN 12 9 - 20 mg/dL LAB CHEMISTRY METHOD 07/13/2024 7:12 AM EDT [facility] Creatinine 0.80 0.70 - 1.30 mg/dL LAB CHEMISTRY METHOD 07/13/2024 7:12 AM EDT [facility] eGFR 114 >=60 mL/min/1. 73m2 LAB CHEMISTRY METHOD 07/13/2024 7:12 AM EDT [facility] Comment:Calculation based on the??Chronic Kidney Disease Epidemiology Collaboration (CKD-EPI) equation refit??without adjustment for race. BUN/Creatinine Ratio 15.0 12.0 - 20.0 LAB CHEMISTRY METHOD 07/13/2024 7:12 AM EDT [facility] Calcium 9.2 8.4 - 10.2 mg/dL LAB CHEMISTRY METHOD 07/13/2024 7:12 AM EDT [facility] AST (SGOT) 44(H) 5 - 40 unit/L LAB CHEMISTRY METHOD 07/13/2024 7:12 AM EDT [facility] ALT (SGPT) 82(H) 7 - 52 unit/L LAB CHEMISTRY METHOD 07/13/2024 7:12 AM EDT [facility] Alkaline Phosphatase 53 34 - 104 unit/L LAB CHEMISTRY METHOD 07/13/2024 7:12 AM EDT [facility] Total Protein 7.1 6.4 - 8.5 g/dL LAB CHEMISTRY METHOD 07/13/2024 7:12 AM EDT [facility] Albumin 4.3 3.5 - 5.0 g/dL LAB CHEMISTRY METHOD 07/13/2024 7:12 AM EDT [facility] Total Bilirubin 0.7 0.3 - 1.0 mg/dL LAB CHEMISTRY METHOD 07/13/2024 7:12 AM EDT [facility] Blood Venous blood specimen / Unknown Venipuncture / Unknown 07/13/2024 5:52 AM EDT 07/13/2024 6:32 AM EDT us Rekha Hernandez MD LAB BLOOD ORDERABLES Final Resu lt [facility] [address] [place] [address], [place] [phone] * LEFT HEART CATH / CORONARY ANGIOGRAPHY [...] was admitted for NSTEMI and transferred to [facility] for coronary angiogram. TTE showed preserved LVEF [...] TR band was used to achieve hemostasis. us Yaquelin Kim MD CV CARDIAC CATH PROCEDURES Brianda l Result * Heparin and low molecular weight anti Xa level (07/12/2024 1:50 PM EDT) Only the most recent of5 resultswithin the time period is included. Heparin Anti-Xa 0.49 I Unit/mL LAB COAGULATION METHOD 07/12/2024 2:17 PM EDT [facility] Blood Venous blood specimen / Unknown Venipuncture / Unknown 07/12/2024 1:50 PM EDT 07/12/2024 1:55 PM EDT Narrative [facility] - 07/12/2024 2:17 PM EDT Therapeutic Ranges Heparin Thromboembolic/Standard/Full Dose Protocol: Age 18+ Years ?? 0.30-0.70 IU/mL Age 0-17 Years ??0.35-0.70 IU/mL Heparin Cardiac/Low Dose Protocol: 0.30-0.5 IU/mL Low Molecular Weight Heparin: Age 18+ Years ?? 0.50-1.50 IU/mL Age 0-17 Years ??0.50-1.00 IU/mL Rekha Hernandez MD LAB BLOOD ORDERABLES Final Resu lt [facility] [address] [place] [address], [place] [phone] * Basic metabolic panel (07/12/2024 6:20 AM EDT) Only the most recent of3 resultswithin the time period is included. Sodium 138 135 - 145 mmol/L LAB CHEMISTRY METHOD 07/12/2024 7:11 AM EDT [facility] Potassium 4.6 3.5 - 5.1 mmol/L LAB CHEMISTRY METHOD 07/12/2024 7:11 AM EDT [facility] Chloride 102 98 - 107 mmol/L LAB CHEMISTRY METHOD 07/12/2024 7:11 AM EDT [facility] CO2 30 24 - 32 mmol/L LAB CHEMISTRY METHOD 07/12/2024 7:11 AM EDT [facility] Anion Gap 6 5 - 14 LAB CHEMISTRY METHOD 07/12/2024 7:11 AM EDT [facility] Glucose 186 70 - 199 mg/dL LAB CHEMISTRY METHOD 07/12/2024 7:11 AM EDT [facility] BUN 13 9 - 20 mg/dL LAB CHEMISTRY METHOD 07/12/2024 7:11 AM EDT [facility] Creatinine 0.80 0.70 - 1.30 mg/dL LAB CHEMISTRY METHOD 07/12/2024 7:11 AM EDT [facility] eGFR 114 >=60 mL/min/1. 73m2 LAB CHEMISTRY METHOD 07/12/2024 7:11 AM EDT [facility] Comment:Calculation based on the??Chronic Kidney Disease Epidemiology Collaboration (CKD-EPI) equation refit??without adjustment for race. BUN/Creatinine Ratio 16.3 12.0 - 20.0 LAB CHEMISTRY METHOD 07/12/2024 7:11 AM EDT [facility] Calcium 9.3 8.4 - 10.2 mg/dL LAB CHEMISTRY METHOD 07/12/2024 7:11 AM EDT [facility] Blood Venous blood specimen / Unknown Venipuncture / Unknown 07/12/2024 6:20 AM EDT 07/12/2024 6:32 AM EDT us Oanh Parham MD LAB BLOOD ORDERABLES Fi nal Result [facility] [address] [place] [address], [place] [phone] * ECG-Annotated (07/12/2024) us Provider Onbase MD ECG ORDERABLES Final Result * XR Chest 1 View (07/11/2024 6:06 PM EDT) Anatomical Region Laterality Modality Body Radiographic Vonda ging 07/11/2024 9:03 PM EDT Impressions 07/11/2024 9:05 PM EDT 1. No acute process in the chest. Report reviewed and signed by : Dr. Kei Myers MD on 07/11/2024 9:05 PM. Workstation Name - [id number] -------- FINAL REPORT -------- Dictated By: Kei Myers Dictated Date: 07/11/2024 21:03 ET Assigned Physician: Kei Myers Reviewed and Electronically Signed By: Kei Myers Signed Date: 07/11/2024 21:05 ET Workstation ID: [id number] Transcribed By: Self Edit Transcribed Date: 07/11/2024 [...] MD on 07/11/2024 9:05 PM.Workstation Name - [id number] -------- FINAL REPORT -------- Dictated By: Kei Myers Dictated Date: 07/11/2024 21:03 ET Assigned Physician: Kei Myers Reviewed and Electronically Signed By: Kei Myers Signed Date: 07/11/2024 21:05 ET Workstation ID: [id number] Transcribed By: Self Edit Transcribed Date: 07/11/2024 21:03 ET Oanh Parham MD IMG XR PROCEDURES Final Result * (ABNORMAL) Troponin I high sensitivity (07/11/2024 4:54 PM EDT) Only the most recent of4 resultswithin the time period is included. Pathologist [facility] High Sensitivity Troponin I 36(H) 0 - 20 ng/L LAB CHEMISTRY METHOD 07/11/2024 6:00 PM EDT [facility] Blood Venous blood specimen / Unknown Venipuncture / Unknown 07/11/2024 4:54 PM EDT 07/11/2024 5:19 PM EDT Narrative [facility] - 07/11/2024 6:00 PM EDT [...] method is an immunoenzymatic assay manufactured by [employer] and performed on the [employer] DxI 800. us Oanh Parham MD LAB BLOOD ORDERABLES Fi nal Result [facility] [address] [place] [address], [place] [phone] * CBC auto differential (07/11/2024 4:54 PM EDT) Only the most recent of3 resultswithin the time period is included. [facility] WBC 7.1 4.0 - 10.5 K/mcL LAB HEMETOLOGY METHOD 07/11/2024 5:30 PM EDT [facility] RBC 5.80 4.70 - 6.00 M/mcL LAB HEMETOLOGY METHOD 07/11/2024 5:30 PM EDT [facility] Hemoglobin 15.9 13.5 - 18.0 g/dL LAB HEMETOLOGY METHOD 07/11/2024 5:30 PM EDT [facility] Hematocrit 48.5 40.0 - 54.0 % LAB HEMETOLOGY METHOD 07/11/2024 5:30 PM EDT [facility] MCV 83.6 78.0 - 100.0 FL LAB HEMETOLOGY METHOD 07/11/2024 5:30 PM EDT [facility] MCH 27.4 25.0 - 33.0 pcg LAB HEMETOLOGY METHOD 07/11/2024 5:30 PM EDT [facility] MCHC 32.7 32.0 - 36.0 g/dL LAB HEMETOLOGY METHOD 07/11/2024 5:30 PM EDT [facility] RDW 14.4 12.1 - 17.7 % LAB HEMETOLOGY METHOD 07/11/2024 5:30 PM EDT [facility] Platelets 184 150 - 450 K/mcL LAB HEMETOLOGY METHOD 07/11/2024 5:30 PM EDT [facility] MPV 10.0 7.4 - 11.4 FL LAB HEMETOLOGY METHOD 07/11/2024 5:30 PM EDT [facility] Neutrophils Relative 54.2 44.0 - 74.0 % LAB HEMETOLOGY METHOD 07/11/2024 5:30 PM EDT [facility] Lymphocytes Relative 35.8 20.0 - 48.0 % LAB HEMETOLOGY METHOD 07/11/2024 5:30 PM EDT [facility] Monocytes Relative 8.0 2.0 - 12.0 % LAB HEMETOLOGY METHOD 07/11/2024 5:30 PM EDT [facility] Eosinophils Relative 1.7 0.0 - 6.0 % LAB HEMETOLOGY METHOD 07/11/2024 5:30 PM EDT [facility] Basophils Relative 0.3 0.0 - 2.0 % LAB HEMETOLOGY METHOD 07/11/2024 5:30 PM EDT [facility] Neutrophils Absolute 3.80 1.80 - 7.80 K/mcL LAB HEMETOLOGY METHOD 07/11/2024 5:30 PM EDT [facility] Lymphocytes Absolute 2.50 1.00 - 3.20 K/mcL LAB HEMETOLOGY METHOD 07/11/2024 5:30 PM EDT [facility] Monocytes Absolute 0.60 0.00 - 0.80 K/mcL LAB HEMETOLOGY METHOD 07/11/2024 5:30 PM EDT [facility] Eosinophils Absolute 0.10 0.00 - 0.50 K/mcL LAB HEMETOLOGY METHOD 07/11/2024 5:30 PM EDT [facility] Basophils Absolute 0.00 0.00 - 0.20 K/mcL LAB HEMETOLOGY METHOD 07/11/2024 5:30 PM EDT [facility] Blood Venous blood specimen / Unknown Venipuncture / Unknown 07/11/2024 4:54 PM EDT 07/11/2024 5:19 PM EDT us Oanh Parham MD LAB BLOOD ORDERABLES Fi nal Result [facility]) [facility] [address] [place] [address], [place] [phone] * (ABNORMAL) TRANSTHORACIC ECHOCARDIOGRAM (TTE) COMPLETE W/ [...] Definity contrast was given to enhance imaging. us Lilian TAVERAS CV ECHO PROCEDURES Final Result * Lipid panel with reflex to direct LDL (07/11/2024 4:09 AM EDT) Cholesterol 144 0 - 200 mg/dL LAB CHEMISTRY METHOD 07/11/2024 6:41 AM EDT [facility] Triglycerides 145 0 - 150 mg/dL LAB CHEMISTRY METHOD 07/11/2024 6:41 AM [facility] HDL 45 >=40 mg/dL LAB CHEMISTRY METHOD 07/11/2024 6:41 AM [facility] LDL Calculated 70 0 - 100 mg/dL LAB CHEMISTRY METHOD 07/11/2024 6:41 AM [facility] VLDL Cholesterol Naun 29 mg/dL LAB CHEMISTRY METHOD 07/11/2024 6:41 AM [facility] Non HDL Chol. (LDL+VLDL) 99 <145 mg/dL LAB CHEMISTRY METHOD 07/11/2024 6:41 AM [facility] Chol/HDL Ratio 3.2 0.0 - 4.4 LAB CHEMISTRY METHOD 07/11/2024 6:41 AM [facility] Blood Venous blood specimen / Unknown Venipuncture / Unknown 07/11/2024 4:09 AM EDT 07/11/2024 4:14 AM EDT us Lilian TAVERAS LAB BLOOD ORDERABLES Final Resu lt [facility] [address] [place] [address], [place] [phone] * Hepatitis panel, acute with reflex to confirmation (07/11/2024 4:09 AM EDT) Pathologist [facility] Hepatitis B Surface Ag Negative Negative LAB CHEMISTRY METHOD 07/11/2024 11:27 AM EDT [facility] Hepatitis A Antibody IgM Negative Negative LAB CHEMISTRY METHOD 07/11/2024 11:27 AM EDT [facility] Hep B Core IgM Negative Negative LAB CHEMISTRY METHOD 07/11/2024 11:27 AM EDT [facility] Hepatitis C Antibody Negative Negative LAB CHEMISTRY METHOD 07/11/2024 11:27 AM EDT [facility] Blood Venous blood specimen / Unknown Venipuncture / Unknown 07/11/2024 4:09 AM EDT 07/11/2024 4:14 AM EDT Lilian TAVERAS LAB BLOOD ORDERABLES Final Resu lt Performing Organization Address City/[facility]/ZIP Co de Phone Number [facility] [address] [place] [address], [place] [phone] * SST tube (07/10/2024 10:55 PM EDT) [facility] Extra Tube Hold for add-ons. 07/11/2024 1:01 AM EDT [facility] Comment:Auto resulted. Blood Venous blood specimen / Unknown 07/10/2024 10:55 PM EDT 07/10/2024 11:09 PM EDT us Yong Monaco MD LAB BLOOD ORDERABLES Final Result [facility] [address] [place] [address], [place] [phone] * CT Angio Chest wo and/or w [...] 2. No active pulmonary process. Chato TAVERAS ([id number]) -------- FINAL REPORT -------- Dictated By: Jory Johnson Dictated Date: 07/11/2024 08:53 ET Assigned Physician: Jory Johnson Reviewed and Electronically Signed By: Jory Johnson Signed Date: 07/11/2024 08:54 ET Workstation ID: [id number] Transcribed By: Self Edit Transcribed Date: 07/11/2024 [...] 2. No active pulmonary process. Telerad DARCY ([id number]) -------- FINAL REPORT -------- Dictated By: Jory Johnson Dictated Date: 07/11/2024 08:53 ET Assigned Physician: Jory Johnosn Reviewed and Electronically Signed By: Jory Johnson Signed Date: 07/11/2024 08:54 ET Workstation ID: [id number] Transcribed By: Self Edit Transcribed Date: 07/11/2024 08:53 ET us Yong Monaco MD IMG XR PROCEDURES Final Res ult * APTT (07/10/2024 5:32 PM EDT) aPTT 31.1 24.1 - 39.3 sec LAB COAGULATION METHOD 07/10/2024 6:29 PM EDT [facility]) [facility] Blood Venous blood specimen / Unknown Venipuncture / Unknown 07/10/2024 5:32 PM EDT 07/10/2024 6:10 PM EDT us Yong Monaco MD LAB BLOOD ORDERABLES Final Result [facility] [address] [place] [address], [place] [phone] * Protime-INR (07/10/2024 5:32 PM EDT) Protime 10.7 10.6 - 13.9 sec LAB COAGULATION METHOD 07/10/2024 6:29 PM EDT [facility] INR 0.9 LAB COAGULATION METHOD 07/10/2024 6:29 PM EDT [facility] Blood Venous blood specimen / Unknown Venipuncture / Unknown 07/10/2024 5:32 PM EDT 07/10/2024 6:10 PM EDT us Yong Monaco MD LAB BLOOD ORDERABLES Final Result Performing Organization Address [facility]/ZIP Co de Phone Number [facility] [address] [place] [address], [place] [phone] * B-type natriuretic peptide (07/10/2024 5:32 PM EDT) BNP 9 <=100 pcg/mL LAB CHEMISTRY METHOD 07/10/2024 6:57 PM EDT [facility] Blood Venous blood specimen / Unknown Venipuncture / Unknown 07/10/2024 5:32 PM EDT 07/10/2024 6:11 PM EDT us Yong Monaco MD LAB BLOOD ORDERABLES Final Result [facility] [address] [place] [address], [place] [phone] * Lipase (07/10/2024 5:32 PM EDT) Lipase 33 13 - 75 unit/L LAB CHEMISTRY METHOD 07/10/2024 6:52 PM EDT [facility] Blood Venous blood specimen / Unknown Venipuncture / Unknown 07/10/2024 5:32 PM EDT 07/10/2024 6:10 PM EDT Yong Monaco MD LAB BLOOD ORDERABLES Final Result [facility] [address] [place] [address], [place] [phone] * (ABNORMAL) Hemoglobin A1c (07/10/2024 5:32 PM EDT) [facility] Hemoglobin A1C 10.6(H) <6.5 % LAB CHEMISTRY METHOD 07/11/2024 12:47 PM EDT [facility] Mean Bld Glu Estim. 258 mg/dL LAB CHEMISTRY METHOD 07/11/2024 12:47 PM EDT [facility] Blood Venous blood specimen / Unknown Venipuncture / Unknown 07/10/2024 5:32 PM EDT 07/10/2024 6:10 PM EDT Yong Monaco MD LAB BLOOD ORDERABLES Final Result [facility] [address] [place] [address], [place] [phone] from Last 3 Months Insurance Advance Directives * Full Code - Default [...] currently active code status orders. Care Teams Clinical Laboratory Service Teacher Relationship Specialty Start Date End Date Liu Nava MD [address] [place] [address] PCP - General Family Medicine 07/10/24
== END 2024-08-15 15:37 | disposition home or self-care (01) ==
LOC: HO.ENCR 14:36
PROVIDERS: PCP Family Medicine; Visit Provider Physician Assistant Medical
DX: E11.65 Type 2 diabetes mellitus with hyperglycemia (principal); E16.2 Hypoglycemia, unspecified

== ENCOUNTER → 2024-08-15 14:36 | Outpatient (BNVA) | payer BC, SELFPAY | PROVIDERS: PCP Family Medicine; Visit Provider Physician Assistant Medical | DX: E16.2 Hypoglycemia, unspecified (principal) | CPT/HCPCS: 82947 ==

== ENCOUNTER 2024-09-01 14:51 | Outpatient (AMB) | payer BC, SELFPAY ==
--- OUTSIDE RECORDS SUMMARY | 2024-09-01 14:55 | XMS_ITS | Clinical Summary ---
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 60 tablet 2 07/15/2024 Active metoprolol succinate (TOPROL-XL) 50 mg 24 hr tablet Take 1 tablet (50 mg total) by mouth 1 (one) time for 1 dose. Do not crush or chew. 1 each 07/13/2024 Active empagliflozin (Jardiance) 10 mg tabletIndicatio ns:NSTEMI (non-ST elevated myocardial infarction) ([facility] V24, [facility] V28),Type 2 diabetes mellitus with hyperglycemia, without long-term current use of insulin ([facility] V24, [facility] V28) Take 1 tablet (10 mg total) by mouth 1 (one) time each day. 30 tablet 2 07/13/2024 Active insulin syringe-needle U-100 0.5 mL 29 gauge x 1/2 syringe Use to inject 1-4 times daily as directed. 200 each 1 07/13/2024 Active Active Problems Problem Noted Date Diagnosed Date NSTEMI (non-ST elevated myoc ardial infarction) ([facility] V24, [facility] V28) 07/10/2024 Encounters Date Type Department Care Team Description 07/12/2024 2:49 PM EDT - 07/12/2024 4:19 PM EDT Surgery [facility] Cardiac [employer] Transactions Attorney [address] [place] [address] [phone] Yaquelin Kim MD Left heart cath / Coronary angiography 07/11/2024 4:03 PM EDT - 07/13/2024 2:31 PM EDT Hospital Encounter [facility] Med Card 9-[address] [place] [address] [phone] Di Tse MD Kochar, MD Mary Hein Rachna, MD Kapur, MD Pastora Type 2 diabetes mellitus with hyperglycemia, without long-term current use of insulin ([facility] V24, [facility] V28) (Primary Dx); NSTEMI (non-ST elevated myocardial infarction) ([facility] V24, [facility] V28) Discharge Disposition: Home or Self Care 07/10/2024 5:08 PM EDT - 07/11/2024 3:37 PM EDT Hospital Encounter [facility] [address] [place] [phone] Yong Monaco MD Japaridze, Anna, MD Chest pain, unspecified type (Primary Dx); Troponin level elevated; NSTEMI (non-ST elevated myocardial infarction) ([facility] V24, [facility] V28) Discharge Disposition: Short Term Hospital from Last 3 Months Medical History Medical History Date Comments Diabetes mellitus ([facility] V24, [facility] V28) Hyperlipidemia Family History Medical History Relation [...] 102 07/13/2024 12:13 PM EDT Temperature 36.4 C (97.5 F) 07/13/2024 8:47 AM EDT Respiratory Rate 15 07/13/2024 12:13 PM EDT [...] 2 - PCV) 2002 COVID-19 Vaccine ( - season) 2023 03/23/2021, 07/28/2020, 07/07/2020 Depression [...] of6 resultswithin the time period is included. [facility] Glucose POCT 229(H) 70 - 199 mg/dL 07/13/2024 1:13 PM EDT [facility] ([facility] Comment: Fasting Reference Range: 70-99 mg/dL Non-Fasting Reference Range: 70-199 mg/dL Blood Capillary blood specimen / Unknown 07/13/2024 1:11 PM EDT 07/13/2024 1:14 PM EDT Pastora Eastman MD LAB POINT OF CARE TE ST DOCKED DEVICE UNSOLICITED RESULTS Final Result Performing Organization Address [facility]/ZIP Co de Phone Number [facility] [address] [place] [address], [place] [phone] * ECG 12 lead (07/13/2024 12:51 PM EDT) Only the most recent of3 resultswithin the time period is included. Ventricular Rate ECG 81 BPM GEMUSE Atrial Rate 81 BPM GEMUSE P-R Interval 208 ms GEMUSE QRS Duration 88 ms GEMUSE Q-T Interval 344 ms GEMUSE QTc 399 ms GEMUSE P Wave Lillian 18 degrees GEMUSE R Lillian 10 degrees GEMUSE T Lillian -30 degrees GEMUSE ECG Interpretation Normal sinus rhythm Minimal voltage criteria for LVH, may be normal variant ( R in aVL ) Nonspecific T wave abnormality Abnormal ECG No previous ECGs available Confirmed by Cira Yanez ([id number]) on 07/13/2024 5:46:23 PM GEMUSE 07/13/2024 12:5 1 PM EDT 07/13/2024 5:46 PM EDT Pastora Eastman MD ECG ORDERABLES Final Result Performing Organization Address City/[facility]/ZIP Co de Phone Number GEMUSE * Complete blood count (07/13/2024 5:52 AM EDT) Only the most recent of2 resultswithin the time period is included. WBC 6.2 4.0 - 10.5 K/[facility] HEMETOLOGY METHOD 07/13/2024 6:45 AM EDT [facility] RBC 5.81 4.70 - 6.00 M/[facility] LAB HEMETOLOGY METHOD 07/13/2024 6:45 AM EDT [facility] Hemoglobin 15.8 13.5 - 18.0 g/dL LAB HEMETOLOGY METHOD 07/13/2024 6:45 AM EDT [facility] Hematocrit 48.3 40.0 - 54.0 % LAB HEMETOLOGY METHOD 07/13/2024 6:45 AM EDT [facility] MCV 83.1 78.0 - 100.0 FL LAB HEMETOLOGY METHOD 07/13/2024 6:45 AM EDT [facility] MCH 27.1 25.0 - 33.0 pcg LAB HEMETOLOGY METHOD 07/13/2024 6:45 AM EDT [facility] MCHC 32.7 32.0 - 36.0 g/dL LAB HEMETOLOGY METHOD 07/13/2024 6:45 AM EDT [facility] RDW 14.4 12.1 - 17.7 % LAB HEMETOLOGY METHOD 07/13/2024 6:45 AM EDT [facility] Platelets 174 150 - 450 K/mcL LAB HEMETOLOGY METHOD 07/13/2024 6:45 AM EDT [facility] MPV 10.0 7.4 - 11.4 FL LAB HEMETOLOGY METHOD 07/13/2024 6:45 AM EDT [facility] Blood Venous blood specimen / Unknown Venipuncture / Unknown 07/13/2024 5:52 AM EDT 07/13/2024 6:32 AM EDT us Rekha Hernandez MD LAB BLOOD ORDERABLES Final Resu lt [facility] [address] [place] [address], * Magnesium (07/13/2024 5:52 AM EDT) Only the most recent of3 resultswithin the time period is included. [facility] Magnesium 2.0 1.7 - 2.8 mg/dL LAB CHEMISTRY METHOD 07/13/2024 7:12 AM EDT [facility] Blood Venous blood specimen / Unknown Venipuncture / Unknown 07/13/2024 5:52 AM EDT 07/13/2024 6:32 AM EDT Rekha Hernandez MD LAB BLOOD ORDERABLES Final Resu lt [facility] [address] [place] [address], [place] [phone] * (ABNORMAL) Comprehensive metabolic panel (07/13/2024 5:52 AM EDT) Only the most recent of2 resultswithin the time period is included. Pathologist [facility] Sodium 138 135 - 145 mmol/L LAB CHEMISTRY METHOD 07/13/2024 7:12 AM EDT [facility] Potassium 4.4 3.5 - 5.1 mmol/L LAB CHEMISTRY METHOD 07/13/2024 7:12 AM EDT [facility] Chloride 100 98 - 107 mmol/L LAB CHEMISTRY METHOD 07/13/2024 7:12 AM T [facility] CO2 30 24 - 32 mmol/L LAB CHEMISTRY METHOD 07/13/2024 7:12 AM EDT [facility] Anion Gap 8 5 - 14 LAB CHEMISTRY METHOD 07/13/2024 7:12 AM EDT [facility] Glucose 167 70 - 199 mg/dL LAB CHEMISTRY METHOD 07/13/2024 7:12 AM EDT [facility] BUN 12 9 - 20 mg/dL LAB CHEMISTRY METHOD 07/13/2024 7:12 AM EDT [facility] Creatinine 0.80 0.70 - 1.30 mg/dL LAB CHEMISTRY METHOD 07/13/2024 7:12 AM EDT [facility] eGFR 114 >=60 mL/min/1. 73m2 LAB CHEMISTRY METHOD 07/13/2024 7:12 AM EDT [facility] Comment:Calculation based on the Chronic Kidney Disease Epidemiology Collaboration (CKD-EPI) equation refit without adjustment for race. BUN/Creatinine Ratio 15.0 12.0 - 20.0 LAB CHEMISTRY METHOD 07/13/2024 7:12 AM EDT [facility] Calcium 9.2 8.4 - 10.2 mg/dL LAB CHEMISTRY METHOD 07/13/2024 7:12 AM EDT [facility] AST (SGOT) 44(H) 5 - 40 unit/L LAB CHEMISTRY METHOD 07/13/2024 7:12 AM EDT [facility] ALT (SGPT) 82(H) 7 - 52 unit/L LAB CHEMISTRY METHOD 07/13/2024 7:12 AM EDT [facility] Alkaline Phosphatase 53 34 - 104 unit/L LAB CHEMISTRY METHOD 07/13/2024 7:12 AM EDT [facility] Total Protein 7.1 6.4 - 8.5 g/dL LAB CHEMISTRY METHOD 07/13/2024 7:12 AM EDT [facility] Albumin 4.3 3.5 - 5.0 g/dL LAB CHEMISTRY METHOD 07/13/2024 7:12 AM EDT [facility] Total Bilirubin 0.7 0.3 - 1.0 mg/dL LAB CHEMISTRY METHOD 07/13/2024 7:12 AM EDT [facility] Blood Venous blood specimen / Unknown Venipuncture / Unknown 07/13/2024 5:52 AM EDT 07/13/2024 6:32 AM EDT us Rekha Hernandez MD LAB BLOOD ORDERABLES Final Resu lt [facility] [address] [place] [address], [place] [phone] * LEFT HEART CATH / CORONARY ANGIOGRAPHY [...] obesity, prior tobacco use who presented to [facility] on 07/10 for chest pain at rest and exertion. He was admitted for NSTEMI and transferred to [facility] for coronary angiogram. TTE showed preserved LVEF [...] LAB COAGULATION METHOD 07/12/2024 2:17 PM EDT [facility] Blood Venous blood specimen / Unknown Venipuncture / Unknown 07/12/2024 1:50 PM EDT 07/12/2024 1:55 PM EDT Narrative [facility] - 07/12/2024 2:17 PM EDT Therapeutic Ranges Heparin Thromboembolic/Standard/Full Dose Protocol: Age 18+ Years 0.30-0.70 IU/mL Age 0-17 Years 0.35-0.70 IU/mL Heparin Cardiac/Low Dose Protocol: 0.30-0.5 IU/mL Low Molecular Weight Heparin: Age 18+ Years 0.50-1.50 IU/mL Age 0-17 Years 0.50-1.00 IU/mL us Rekha Hernandez MD LAB BLOOD ORDERABLES Final Resu lt [facility] [address] [place] [address], [place] [phone] * Basic metabolic panel (07/12/2024 6:20 AM EDT) Only the most recent of3 resultswithin the time period is included. Sodium 138 135 - 145 mmol/L LAB CHEMISTRY METHOD 07/12/2024 7:11 AM EDT [facility] Potassium 4.6 3.5 - 5.1 mmol/L LAB CHEMISTRY METHOD 07/12/2024 7:11 AM EDT [facility] Chloride 102 98 - 107 mmol/L LAB CHEMISTRY METHOD 07/12/2024 7:11 AM EDT [facility] CO2 30 24 - 32 mmol/L LAB CHEMISTRY METHOD 07/12/2024 7:11 AM [facility] Anion Gap 6 5 - 14 LAB CHEMISTRY METHOD 07/12/2024 7:11 AM EDT [facility] Glucose 186 70 - 199 mg/dL LAB CHEMISTRY METHOD 07/12/2024 7:11 AM [facility] BUN 13 9 - 20 mg/dL LAB CHEMISTRY METHOD 07/12/2024 7:11 AM [facility] Creatinine 0.80 0.70 - 1.30 mg/dL LAB CHEMISTRY METHOD 07/12/2024 7:11 AM [facility] eGFR 114 >=60 mL/min/1. 73m2 LAB CHEMISTRY METHOD 07/12/2024 7:11 AM T [facility] Comment:Calculation based on the Chronic Kidney Disease Epidemiology Collaboration (CKD-EPI) equation refit without adjustment for race. BUN/Creatinine Ratio 16.3 12.0 - 20.0 LAB CHEMISTRY METHOD 07/12/2024 7:11 AM [facility] Calcium 9.3 8.4 - 10.2 mg/dL LAB CHEMISTRY METHOD 07/12/2024 7:11 AM [facility] Blood Venous blood specimen / Unknown Venipuncture / Unknown 07/12/2024 6:20 AM EDT 07/12/2024 6:32 AM EDT Oanh Parham MD LAB BLOOD ORDERABLES Fi nal Result [facility] ([facility]) [facility] [address] [place] [address], [place] [phone] * ECG-Annotated (07/12/2024) us Provider Onbase ECG ORDERABLES Final Result * XR Chest 1 View (07/11/2024 6:06 PM EDT) Anatomical Region Laterality Modality Body Radiographic Vonda ging 07/11/2024 9:03 PM EDT Impressions 07/11/2024 9:05 PM EDT 1. No acute process in the chest. Report reviewed and signed by : Dr. Kei Myers MD on 07/11/2024 9:05 PM. Workstation Name - [id number] -------- FINAL REPORT -------- Dictated By: Kei Myers Dictated Date: 07/11/2024 21:03 ET Assigned Physician: Kei Myers Reviewed and Electronically Signed By: Kei Myers Signed Date: 07/11/2024 21:05 ET Workstation ID: [id number] Transcribed By: Self Edit Transcribed Date: 07/11/2024 [...] MD on 07/11/2024 9:05 PM.Workstation Name - [id number] -------- FINAL REPORT -------- Dictated By: Kei Myers Dictated Date: 07/11/2024 21:03 ET Assigned Physician: Kei Myers Reviewed and Electronically Signed By: Kei Myers Signed Date: 07/11/2024 21:05 ET Workstation ID: [id number] Transcribed By: Self Edit Transcribed Date: 07/11/2024 21:03 ET Oanh Parham MD IMG XR PROCEDURES Final Result * (ABNORMAL) Troponin I high sensitivity (07/11/2024 4:54 PM EDT) Only the most recent of4 resultswithin the time period is included. High Sensitivity Troponin I 36(H) 0 - 20 ng/L LAB CHEMISTRY METHOD 07/11/2024 6:00 PM EDT [facility] Blood Venous blood specimen / Unknown Venipuncture / Unknown 07/11/2024 4:54 PM EDT 07/11/2024 5:19 PM EDT Narrative [facility] - 07/11/2024 6:00 PM EDT [...] method is an immunoenzymatic assay manufactured by [employer] and performed on the [employer] DxI 800. Oanh Parham MD LAB BLOOD ORDERABLES Fi nal Result [facility] [address] [place] [address], [place] [phone] * CBC auto differential (07/11/2024 4:54 PM EDT) Only the most recent of3 resultswithin the time period is included. [facility] Signature WBC 7.1 4.0 - 10.5 K/mcL LAB HEMETOLOGY METHOD 07/11/2024 5:30 PM EDT [facility] RBC 5.80 4.70 - 6.00 M/mcL LAB HEMETOLOGY METHOD 07/11/2024 5:30 PM EDT [facility] Hemoglobin 15.9 13.5 - 18.0 g/dL LAB HEMETOLOGY METHOD 07/11/2024 5:30 PM EDT [facility] Hematocrit 48.5 40.0 - 54.0 % LAB HEMETOLOGY METHOD 07/11/2024 5:30 PM EDT [facility] MCV 83.6 78.0 - 100.0 FL LAB HEMETOLOGY METHOD 07/11/2024 5:30 PM EDT [facility] MCH 27.4 25.0 - 33.0 pcg LAB HEMETOLOGY METHOD 07/11/2024 5:30 PM EDT [facility] MCHC 32.7 32.0 - 36.0 g/dL LAB HEMETOLOGY METHOD 07/11/2024 5:30 PM EDT [facility] RDW 14.4 12.1 - 17.7 % LAB HEMETOLOGY METHOD 07/11/2024 5:30 PM EDT [facility] Platelets 184 150 - 450 K/mcL LAB HEMETOLOGY METHOD 07/11/2024 5:30 PM EDT [facility] MPV 10.0 7.4 - 11.4 FL LAB HEMETOLOGY METHOD 07/11/2024 5:30 PM EDT [facility] Neutrophils Relative 54.2 44.0 - 74.0 % LAB HEMETOLOGY METHOD 07/11/2024 5:30 PM EDT [facility] Lymphocytes Relative 35.8 20.0 - 48.0 % LAB HEMETOLOGY METHOD 07/11/2024 5:30 PM EDT [facility] Monocytes Relative 8.0 2.0 - 12.0 % LAB HEMETOLOGY METHOD 07/11/2024 5:30 PM EDT [facility] Eosinophils Relative 1.7 0.0 - 6.0 % LAB HEMETOLOGY METHOD 07/11/2024 5:30 PM EDT [facility] Basophils Relative 0.3 0.0 - 2.0 % LAB HEMETOLOGY METHOD 07/11/2024 5:30 PM EDT [facility] Neutrophils Absolute 3.80 1.80 - 7.80 K/mcL LAB HEMETOLOGY METHOD 07/11/2024 5:30 PM EDT [facility] Lymphocytes Absolute 2.50 1.00 - 3.20 K/mcL LAB HEMETOLOGY METHOD 07/11/2024 5:30 PM EDT [facility] Monocytes Absolute 0.60 0.00 - 0.80 K/mcL LAB HEMETOLOGY METHOD 07/11/2024 5:30 PM EDT [facility] Eosinophils Absolute 0.10 0.00 - 0.50 K/mcL LAB HEMETOLOGY METHOD 07/11/2024 5:30 PM EDT [facility] Basophils Absolute 0.00 0.00 - 0.20 K/mcL LAB HEMETOLOGY METHOD 07/11/2024 5:30 PM EDT [facility] Blood Venous blood specimen / Unknown Venipuncture / Unknown 07/11/2024 4:54 PM EDT 07/11/2024 5:19 PM EDT us Thomashuber Parham MD LAB BLOOD ORDERABLES Fi nal Result [facility] [address] [place] [address], [place] [phone] * (ABNORMAL) TRANSTHORACIC ECHOCARDIOGRAM (TTE) COMPLETE W/ CONTRAST (07/11/2024 10:49 AM EDT) BSA 2.44 m2 CV PACS Est. RA Pressure 3 mmHg CV PACS LVPWD 1.1(A) 0.6 - 1.0 cm CV PACS IVSD 1.3(A) 0.6 - 1.0 cm CV PACS TR Peak Gradient 212 mmHg CV PACS Anatomical Region Laterality Modality Ultrasound Narrative 07/11/2024 11:07 AM EDT Left ventricle cavity size is normal. There is mild concentric hypertrophy. Systolic function is normal with an ejection fraction of 55-60%. There are no regional LV wall motion abnormalities. Right ventricle was not well visualized. Right ventricle cavity appears dilated. No hemodynamically significant valvular disease. Left Ventricle Left [...] LAB CHEMISTRY METHOD 07/11/2024 6:41 AM EDT [facility] Triglycerides 145 0 - 150 mg/dL LAB CHEMISTRY METHOD 07/11/2024 6:41 AM EDT [facility] HDL 45 >=40 mg/dL LAB CHEMISTRY METHOD 07/11/2024 6:41 AM EDT [facility] LDL Calculated 70 0 - 100 mg/dL LAB CHEMISTRY METHOD 07/11/2024 6:41 AM T [facility] VLDL Cholesterol Naun 29 mg/dL LAB CHEMISTRY METHOD 07/11/2024 6:41 AM EDT [facility] Non HDL Chol. (LDL+VLDL) 99 <145 mg/dL LAB CHEMISTRY METHOD 07/11/2024 6:41 AM EDT [facility] Chol/HDL Ratio 3.2 0.0 - 4.4 LAB CHEMISTRY METHOD 07/11/2024 6:41 AM T [facility] Blood Venous blood specimen / Unknown Venipuncture / Unknown 07/11/2024 4:09 AM EDT 07/11/2024 4:14 AM EDT us Lilian TAVERAS LAB BLOOD ORDERABLES Final Resu lt [facility] [address] [place] [address], [place] [phone] * Hepatitis panel, acute with reflex to confirmation (07/11/2024 4:09 AM EDT) Hepatitis B Surface Ag Negative Negative LAB CHEMISTRY METHOD 07/11/2024 11:27 AM EDT [facility] Hepatitis A Antibody IgM Negative Negative LAB CHEMISTRY METHOD 07/11/2024 11:27 AM EDT [facility] Hep B Core IgM Negative Negative LAB CHEMISTRY METHOD 07/11/2024 11:27 AM EDT [facility] Hepatitis C Antibody Negative Negative LAB CHEMISTRY METHOD 07/11/2024 11:27 AM EDT [facility] Blood Venous blood specimen / Unknown Venipuncture / Unknown 07/11/2024 4:09 AM EDT 07/11/2024 4:14 AM EDT Lilian TAVERAS LAB BLOOD ORDERABLES Final Resu lt Performing Organization Address [facility]/ZIP Co de Phone Number [facility] [address] [place] [address], [place] [phone] * SST tube (07/10/2024 10:55 PM EDT) Extra Tube Hold for add-ons. 07/11/2024 1:01 AM EDT [facility] Comment:Auto resulted. Blood Venous blood specimen / Unknown 07/10/2024 10:55 PM EDT 07/10/2024 11:09 PM EDT Yong Monaco MD LAB BLOOD ORDERABLES Final Result Performing Organization Address [facility]/ZIP Co de Phone Number [facility] [address] [place] [address], [place] [phone] * CT Angio Chest wo and/or w [...] Poor inspiration. 2. No active pulmonary process. Teleaashish TAVERAS ([id number]) -------- FINAL REPORT -------- Dictated By: Jory Johnson Dictated Date: 07/11/2024 08:53 ET Assigned Physician: Jory Johnson Reviewed and Electronically Signed By: Jory Johnson Signed Date: 07/11/2024 08:54 ET Workstation ID: [id number] Transcribed By: Self Edit Transcribed Date: 07/11/2024 [...] inspiration. 2. No active pulmonary process. [place] ([id number]) -------- FINAL REPORT -------- Dictated By: Jory Johnson Dictated Date: 07/11/2024 08:53 ET Assigned Physician: Jory Johnson Reviewed and Electronically Signed By: Jory Johnson Signed Date: 07/11/2024 08:54 ET Workstation ID: [id number] Transcribed By: Self Edit Transcribed Date: 07/11/2024 08:53 ET us Yong Monaco MD IMG XR PROCEDURES Final Res ult * APTT (07/10/2024 5:32 PM EDT) aPTT 31.1 24.1 - 39.3 sec LAB COAGULATION METHOD 07/10/2024 6:29 PM EDT [facility] Blood Venous blood specimen / Unknown Venipuncture / Unknown 07/10/2024 5:32 PM EDT 07/10/2024 6:10 PM EDT us Yong Monaco MD LAB BLOOD ORDERABLES Final Result Performing Organization Address [facility]/ZIP Co de Phone Number [facility] [address] [place] [address], [place] [phone] * Protime-INR (07/10/2024 5:32 PM EDT) [facility] Protime 10.7 10.6 - 13.9 sec LAB COAGULATION METHOD 07/10/2024 6:29 PM EDT [facility] INR 0.9 LAB COAGULATION METHOD 07/10/2024 6:29 PM EDT [facility] Blood Venous blood specimen / Unknown Venipuncture / Unknown 07/10/2024 5:32 PM EDT 07/10/2024 6:10 PM EDT us Yong Monaco MD LAB BLOOD ORDERABLES Final Result Performing Organization Address [facility] Co de Phone Number [facility] [address] [place] [address], [place] [phone] * B-type natriuretic peptide (07/10/2024 5:32 PM EDT) [facility] BNP 9 <=100 pcg/mL LAB CHEMISTRY METHOD 07/10/2024 6:57 PM EDT [facility] Blood Venous blood specimen / Unknown Venipuncture / Unknown 07/10/2024 5:32 PM EDT 07/10/2024 6:11 PM EDT us Yong Monaco MD LAB BLOOD ORDERABLES Final Result Performing Organization Address City/[facility]/ZIP Co de Phone Number [facility] [address] [place] [address], [place] [phone] * Lipase (07/10/2024 5:32 PM EDT) [facility] Lipase 33 13 - 75 unit/L LAB CHEMISTRY METHOD 07/10/2024 6:52 PM EDT [facility] Blood Venous blood specimen / Unknown Venipuncture / Unknown 07/10/2024 5:32 PM EDT 07/10/2024 6:10 PM EDT Yong Monaco MD LAB BLOOD ORDERABLES Final Result Performing Organization Address City/[facility]/ZIP Co de Phone Number [facility] [address] [place] [address], [place] [phone] * (ABNORMAL) Hemoglobin A1c (07/10/2024 5:32 PM EDT) Hemoglobin A1C 10.6(H) <6.5 % LAB CHEMISTRY METHOD 07/11/2024 12:47 PM EDT [facility] Mean Bld Glu Estim. 258 mg/dL LAB CHEMISTRY METHOD 07/11/2024 12:47 PM EDT [facility] Blood Venous blood specimen / Unknown Venipuncture / Unknown 07/10/2024 5:32 PM EDT 07/10/2024 6:10 PM EDT Yong Monaco MD LAB BLOOD ORDERABLES Final Result Performing Organization Address [facility]/ZIP Co de Phone Number [facility] [address] [place] [address], [place] [phone] from Last 3 Months Insurance [facility] Advance Directives * Full Code [...] currently active code status orders. 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
--- NOTE | 2024-09-01 15:14 | A.OFFPC_ITS ---
Vital Signs 09/01/24 15:18 Height 5 ft 10 in Weight 257 lb BMI 36.9 BP 116/68 Blood Pressure Location Rt brachial Position Sitting Respiration 14 Pulse 85 Pulse Source Pulse Oximeter Temp 97.6 F Temp Source Temporal Artery Scan Pulse Oximetry (%) 96 Oxygen Delivery Method Room Air Intake Visit Reasons: f/u diabetes, chronic conditions - see comments Intake Note: Saleem present in the office today for a follow up to Diabetes etc. Allergies SEAFOOD Allergy (Severe, Uncoded 09/01/24 15:16) DIFFICULTY BREATHING Medication List - Last Reconciled 09/01/24 by Liu Nava MD aspirin (Adult Low Dose Aspirin) 81 mg PO DAILY atorvastatin 80 mg PO BEDTIME blood sugar diagnostic (FreeStyle Lite Strips) As directed to check blood sugar twice daily blood-glucose meter (FreeStyle Lite Meter kit) DX: E11.9, test blood sugar 2 times a day, duration 999 days blood-glucose sensor (FreeStyle Ivette 3 Plus Sensor device) Apply 1 new sensor every 15 days as directed to monitor blood glucose continuously. blood-glucose,aviation medicine specialist,cont (FreeStyle Ivette 3 [place]) Use daily to monitor blood glucose levels continuously. glucose (Dex4 Glucose Quick Dissolve) 16 grams (4 x 4 gram) PO Q15M PRN lancets (FreeStyle Lancets) As directed to test blood sugar twice daily metformin 500 mg PO BID 90 days semaglutide (Ozempic) 0.5 mg (0.736 mL) subcut QWEEK Tobacco use date assessed: 09/01/24 Dental Screening Dental Screen Date: 09/01/24 Did you have a dental visit in the last 12 months?: No Did you have a dental problem in the last 6 months where you did not have access to dental care?: No Was dental information given to patient?: Patient has dentist HPI f/u diabetes, chronic conditions - see comments HPI Details 39 y/o male presents to f/u diabetes, ch ronic conditions. Recent NSTEMI. Ozempic had been declined by prior insurance but has new insurance so had resent this last office visit. Referred to endocrinology. Referred to cardiology. A1c today 7.0%, improved from 8.3%. Had seen endo 08/15/24. They stopped his glipizide and recommended him to increase Ozempic 0.5mg weekly. Continued metformin 500mg twice a day. Pt notes blood sugars have been improving but still records blood sugars down in the 60s, 70s. BP today 116/68, 85p. [facility] Medical History (Updated 08/15/24 @ 15:41 by DARCY Stoddard) Hepatic steatosis Uncontrolled type 2 diabetes mellitus with hyperglycemia History of COVID-19 History of asthma DVT (deep venous thrombosis) Surgical History No pertinent past surgical history Family History (Updated 09/01/24 @ 15:17 by Cora Hinojosa MA) Mother Glioblastoma Social History (Updated 09/01/24 @ 15:18 by Cora Hinojosa MA) Household Members: Family Housing: House Do you presently have visiting nurse or other home services: No Alcohol intake: never Comment: sleeping Patient Tobacco Use Status: Former Tobacco user Tobacco use type: Cigarette e-Cigarette/Vaping Use: Never Used Second Hand Smoke Exposure: No Substance Use Type: Marijuana service: No Current occupational status: employed 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 Current occupational exposures/hazards: No Cognitive needs: No Hearing needs: No Vision needs: No Questionnaire Thrive Questionnaire Date Thrive assessed: 04/25/24 I am a: Patient What is your living situation today?: I have a steady place to live Within the past 12 months, did the food you bought not last and you didn't have the money to get more?: Never true Within the past 12 months, did you worry whether your food would run out before you got money to buy more?: Never true Do you have trouble paying for medicines?: No Do you have trouble getting transportation to medical appointments?: No Do you have trouble paying your heating and electricity bill?: No Do you have trouble taking care of your child, family member or friend?: No Do you have trouble with day-to-day activities such as bathing, preparing meals, shopping, managing finances, etc.?: No Are you currently unemployed and looking for a job?: No Are you interested in more education?: No Please select the resources that you would like help with: None Currently or been in a relationship where the following occur: No concerns reported THRIVE Score: 0 Review of Systems Const Denies chills, Denies fatigue, Denies fever(s), Denies headache(s) and Denies weakness ENT Denies dizziness and Denies headache(s) Card Denies dyspnea Resp Denies cough, Denies dyspnea, Denies wheezing and Denies other (shortness of breath) Musc Denies numbness and Denies tingling Neuro Denies dizziness, Denies headache(s), Denies numbness, Denies tingling and Denies weakness Psych Denies anxiety and Denies depression Endo Denies fatigue Aller/Immun Denies wheezing Physical exam (Primary Care) Vital Signs: Last Vital Signs Temp 97.6 F 09/01/24 15:18 Pulse 85 09/01/24 15:18 Resp 14 09/01/24 15:18 BP 116/68 09/01/24 15:18 Pulse Ox 96 09/01/24 15:18 Oxygen Delivery Method Room Air 09/01/24 15:18 BMI result Body Mass Index 36.9 Tobacco/Smoking Status: Tobacco use Status Tobacco use date assessed 09/01/24 09/01/24 15:20 Patient Tobacco Use Status Former Tobacco user 09/01/24 15:20 Tobacco use type Cigarette 09/01/24 15:20 e-Cigarette/Vaping Use Never Used 09/01/24 15:20 Thrive Assessment: Date of Thrive Assessment Date Thrive assessed 04/25/24 09/01/24 15:20 Currently or been in a relationship where the following occur: No concerns reported Const General: well developed; No acute distress Nutritional Appearance: well nourished Orientation/consciousness: [facility] oriented x3 [facility]: Yes normocephalic and Yes atraumatic Eyes General: appearance normal, both eyes and all related structures Pupils: Equal, round and reactive pupils present EOM: EOMs intact bilaterally Resp Effort & Inspection: normal respiratory effort Neuro General: patient oriented x3 and gait normal Cranial nerves: Yes Equal, round and reactive pupils present Psych Affect: normal affect Results AMB Hemoglobin A1c AMB Hemoglobin A1c 7.0 % Last Edit by Cora Hinojosa MA on 09/01/24 15:33 Results Reviewed Results Reviewed: Laboratory Last Values Hgb A1c (Clinic) 7.0 % (4.0-6.0) H 09/01/24 15:26 Coding Level of Care Code Est Pt Level 4 (88994) Diagnoses Diabetes E11.9 NSTEMI (non-ST elevated myocardial infarction) I21.4 Essential hypertension I10 Assessment & Plan Assessment & Plan (1) Diabetes: Code(s): E11.9 - Type 2 diabetes mellitus without complications Category: Medical Plan: A1c?today?7.0%?and?much?improved?from?8.3%?at?last?check. He?is?taking?metformin?and?Ozempic?as?prescribed. Review?of?his continues?glucose?monitor?shows?th at?he?has?been?maintaining?blood?sugars?above?70; no?longer?getting?low?blood?sugars Continue?working?at?diabetic?diet Encouraged?weight?loss?and?exercise Follow-up?with?endocrinology?as?recommended --- 1?of?his?Ivette?sensors?had?fallen?off.??I?sent?a?script?to?trying?get?that?repla yessenia?for him (2) NSTEMI (non-ST elevated myocardial infarction): Code(s): I21.4 - Non-ST elevation (NSTEMI) myocardial infarction Category: Medical Plan: Stable No?more?chest?pain He?has?an?appointment?with?cardiology (3) Essential hypertension: Code(s): I10 - Essential (primary) hypertension Category: Medical Plan: Blood?pressure?is?controlled.??Goal?is?less?than?130/80 Continue?weight?loss?and?a?diet?low?in?salt/sodium Orders: Orders AMB Hemoglobin A1c Today E11.65 - Type 2 diabetes mellitus with hyperglycemia, E11.9 - Type 2 diabetes mellitus without complications Medications: New blood-glucose sensor (UI Robotyle Ivette 3 Plus Sensor device) As directed. Replacement script. Once. 1 ea 0RF E11.65 - Type 2 diabetes mellitus with hyperglycemia
[2024-09-01 15:18] VITALS: BP 116/68; PULSE 85; RESP 14; TEMP 36.4; O2SAT 96; BMI 36.9
== END 2024-09-01 15:37 | disposition home or self-care (01) ==
LOC: HO.HMCFM 14:52
PROVIDERS: PCP Family Medicine; Visit Provider Family Medicine
DX: I25.2 Old myocardial infarction (principal); I10 Essential (primary) hypertension; E11.65 Type 2 diabetes mellitus with hyperglycemia

== ENCOUNTER → 2024-09-01 14:51 | Outpatient (BNVA) | payer BC, SELFPAY | PROVIDERS: PCP Family Medicine; Visit Provider Family Medicine | DX: E11.9 Type 2 diabetes mellitus without complications (principal); I10 Essential (primary) hypertension; I21.4 Non-ST elevation (NSTEMI) myocardial infarction; Z79.84 Long term (current) use of oral hypoglycemic drugs | CPT/HCPCS: 83036 ==

== ENCOUNTER 2024-09-26 15:21 | Outpatient (AMB) | payer BC, SELFPAY ==
[2024-09-26 15:32] VITALS: BP 120/80; PULSE 98; O2SAT 96; BMI 36.1
--- NOTE | 2024-09-26 15:32 | A.OFFVIS_ITS ---
Vital Signs 09/26/24 15:32 Height 5 ft 10 in Weight 251 lb 5.231 oz BMI 36.1 BP 120/80 Blood Pressure Location Rt brachial Position Sitting Pulse 98 Pulse Source Pulse Oximeter Pulse Oximetry (%) 96 Oxygen Delivery Method Room Air Intake Visit Reasons: T2DM Intake Note: Patient present today for T2DM follow up. Last Diabetic Eye exam: Approx in February 2024 Last Podiatry Visit: Does not see a Telephone Installer Random Glucose: 92 mg/dl, Today HgA1C: 7.0% 09/01/2024 Cardiac Nurse Specialist Required: No Accompanied by: Self / Same As Patient Allergies SEAFOOD Allergy (Severe, Uncoded 09/26/24 15:38) DIFFICULTY BREATHING HPI Comments Details: This is a 39-year-old male with a past medical history of type 2 diabetes, NSTEMI, hypertension, hyperlipidemia, hepatic steatosis and obesity presenting for follow up. He was diagnosed with diabetes in 2020 when he had lab work that demonstrated a hemoglobin A1c of 7.4%. Hemoglobin A1c was as high as 11.7% in April of 2023. His hemoglobin A1c decreased from 8.9% 07/24/2024 to 7% 09/01/2024. Reviewed Ivette dated September 13 to September 26 CGM active 13% Average glucose 108 Glucose variability 12.5% 0% hyperglycemia 100% in target range 0% hypoglycemia Current medication regimen: Metformin 500 mg twice daily, Ozempic 0.5 mg weekly Past medication: Glipizide discontinued due to hypoglycemia He denies side effects on Ozempic. His sensor fell off. 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 He is using at adhesive cover in addition to the sensor. Compliance issues: None The patient was hospitalized for chest pain 07/10/2024. Discharge diagnosis was ACS/NSTEMI. He is on high-dose atorvastatin and baby aspirin. He has a follow up scheduled with Cardiology. He has changed his diet drastically since the heart attack. He stopped drinking soda, and he has no juice. He only has water and seltzer water. He stopped having sugary foods and fried foods and cut back on carbohydrates. He is eating more salads, vegetables and protein. He has 1 cup of coffee in the morning with splenda. He started walking for exercise. Hypoglycemia symptoms: None Hyperglycemia symptoms: Previously polyuria and polydipsia. Eye exam: Up-to-date and no retinopathy per patient Microvascular complications: None Macrovascular complications: CAD Hyperlipidemia: treated with LDL at goal <100. ROS: Constitutional: No unexplained weight loss, fever, chills, fatigue or night sweats. Eyes: No vision changes, blurry vision, double vision Respiratory: No shortness of breath, cough or sputum production. Cardiovascular: No chest pain, chest pressure or chest discomfort. No palpitations or pedal edema. Gastrointestinal: No anorexia, nausea, vomiting or diarrhea. No abdominal pain or blood in stool. Neurologic: No headache, syncope, unilateral weakness, ataxia, numbness or tingling in the extremities. Endocrine: No cold or heat intolerance. Physical exam: Constitutional: Alert, in no distress. Head: Normocephalic. Neck: Supple, Full range of motion. No lymphadenopathy. No palpable thyroid masses. Respiratory: Clear to auscultation. Cardiovascular: S1 S2 regular. No murmurs. [facility] Medical History Hepatic steatosis Uncontrolled type 2 diabetes mellitus with hyperglycemia History of COVID-19 History of asthma DVT (deep venous thrombosis) Surgical History No pertinent past surgical history Family History Mother Glioblastoma Social History Household Members: Family Housing: House Do you presently have visiting nurse or other home services: No Alcohol intake: never Comment: sleeping Patient Tobacco Use Status: Former Tobacco user Tobacco use type: Cigarette e-Cigarette/Vaping Use: Never Used Second Hand Smoke Exposure: No Substance Use Type: Marijuana service: No Current occupational status: employed 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 Current occupational exposures/hazards: No Cognitive needs: No Hearing needs: No Vision needs: No Physical Exam Vital Signs: Last Vital Signs Pulse 98 09/26/24 15:32 BP 120/80 09/26/24 15:32 Pulse Ox 96 09/26/24 15:32 Oxygen Delivery Method Room Air 09/26/24 15:32 BMI result Body Mass Index 36.1 Results Reviewed Results Reviewed: Laboratory Last Values Glucose (Clinic) 92 mg/dL (60-115) 09/26/24 15:36 Laboratory Tests 08/08/21 02/12/23 05/20/23 07:25 07:21 07:56 Plt Count 207 Creatinine Estimated GFR Hgb A1c (Clinic) AST ALT Alkaline Phosphatase Triglycerides Cholesterol LDL Cholesterol, Calc HDL Cholesterol TSH 1.44 Urine Creatinine 228.56 Urine Microalbumin 19.0 Microalb/Creat Ratio 8.3 02/29/24 07/24/24 07/24/24 09:08 07:29 17:31 Plt Count Creatinine 0.74 Estimated GFR > 60 Hgb A1c (Clinic) 8.9 H AST 56 H ALT 98 H Alkaline Phosphatase 47 Triglycerides 118 Cholesterol 169 LDL Cholesterol, Calc 100 H HDL Cholesterol 46 TSH Urine Creatinine Urine Microalbumin Microalb/Creat Ratio Assessment & Plan Assessment & Plan (1) Uncontrolled type 2 diabetes mellitus with hyperglycemia: Code(s): E11.65 - Type 2 diabetes mellitus with hyperglycemia Category: Medical Plan: In summary this is a 39-year-old male with type 2 diabetes and CAD. Reduce metformin to 500 mg once daily and increase Ozempic to 1 mg weekly. If blood sugars stay within target range more than 70% of the time try stopping metformin. Discussed pathophysiology of Type II Diabetes Mellitus with the patient in detail.? I explained the terminal press operator risks and complications associated with uncontrolled diabetes including nephropathy, neuropathy, peripheral vascular disease, retinopathy, increased risk of heart disease and stroke.? Recommended avoidance of alcohol given hepatic steatosis and diabetes. Instructed to bring glucometer to appointments. He can try using Coban self inherent wrap to secure his sensor during the day. Follow up in 6 weeks. Medications: New elastic bandage (Coban Self-Adherent Wrap) As directed 54 ea 5RF semaglutide (Ozempic) 1 mg (0.75 mL) subcut QWEEK 3 mL 5RF Discontinued semaglutide (Ozempic) Discontinued Reason: Doctor's Order 0.5 mg (0.736 mL) subcut QWEEK 3 mL 1RF Patient Instructions: Reduce metformin to 500 mg once daily Start Ozempic 1 mg weekly 1 week after your next dose of 0.5 mg. If your blood sugars stay in target range >70% of the time after changing the medications you can try stopping Metformin. Coding Level of Care Code Est Pt Level 4 (97463) Complex EM visit Add On G2211 Diagnoses Uncontrolled type 2 diabetes mellitus with hyperglycemia E11.65
[2024-09-26 15:39] LABS: Glucose, Whole Blood 92 mg/dL (60-115)
--- OUTSIDE RECORDS SUMMARY | 2024-09-26 16:27 | XMS_ITS ---
Author Name [facility] Organization Unknown Results Test Name/Text Value Interpretation Date Range Source Glucose Bld-mCnc 229.0 mg/dL Above high normal 07/13/2024 70 - 199 [facility] Glucose Bld-mCnc 182.0 mg/dL Normal 07/13/2024 70 - 199 [facility] BUN SerPl-mCnc 12.0 mg/dL Normal 07/13/2024 9 - 20 [facility] Bilirub SerPl-mCnc 0.7 mg/dL Normal 07/13/2024 0.3 - 1 [facility] ALT SerPl-cCnc 82.0 unit/L Above high normal 07/13/2024 7 - 52 [facility] Potassium SerPl-sCnc 4.4 mmol/L Normal 07/13/2024 3.5 - 5 .1 [facility] CO2 SerPl-sCnc 30.0 mmol/L Normal 07/13/2024 24 - 32 CT [facility] Prot SerPl-mCnc 7.1 g/dL Normal 07/13/2024 6.4 - 8.5 [facility] Glucose SerPl-mCnc 167.0 mg/dL Normal 07/13/2024 70 - 199 [facility] eGFRcr SerPlBld CKD-EPI 2020 114.0 mL/min/1.73m2 Normal 07/13/2024 - [facility] AST SerPl-cCnc 44.0 unit/L Above high normal 07/13/2024 5 - 40 [facility] Anion Gap SerPl Calc-sCnc 8.0 Normal 07/13/2024 5 - 14 [facility] Calcium SerPl-mCnc 9.2 mg/dL Normal 07/13/2024 8.4 - 10.2 [facility] ALP SerPl-cCnc 53.0 unit/L Normal 07/13/2024 34 - 104 [facility] Chloride SerPl-sCnc 100.0 mmol/L Normal 07/13/2024 98 - 1 07 [facility] Sodium SerPl-sCnc 138.0 mmol/L Normal 07/13/2024 135 - 14 5 [facility] Albumin SerPl-mCnc 4.3 g/dL Normal 07/13/2024 3.5 - 5 [facility] BUN/Creat SerPl 15.0 Normal 07/13/2024 12 - 20 [facility] Creat SerPl-mCnc 0.8 mg/dL Normal 07/13/2024 0.7 - 1.3 CT [facility] Magnesium SerPl-mCnc 2.0 mg/dL Normal 07/13/2024 1.7 - 2. 8 [facility] Hgb Bld-mCnc 15.8 g/dL Normal 07/13/2024 13.5 - 18 [facility] Platelet # Bld Auto 174.0 K/mcL Normal 07/13/2024 150 - 4 50 [facility] PMV Bld Auto 10.0 FL Normal 07/13/2024 7.4 - 11.4 [facility] RBC Auto 83.1 FL Normal 07/13/2024 78 - 100 [facility] N MCH RBC Qn Auto 27.1 pcg Normal 07/13/2024 25 - 33 [facility] MCHC RBC Auto-EntMCnc 32.7 g/dL Normal 07/13/2024 32 - 36 [facility] Hct VFr Bld Auto 48.3 % Normal 07/13/2024 40 - 54 [facility] WBC # Bld Auto 6.2 K/mcL Normal 07/13/2024 4 - 10.5 [facility] RDW RBC Auto 14.4 % Normal 07/13/2024 12.1 - 17.7 [facility] RBC # Bld Auto 5.81 M/mcL Normal 07/13/2024 4.7 - 6 [facility] Glucose Bld-mCnc 195.0 mg/dL Normal 07/12/2024 70 - 199 [facility] Heparin Anti Xa Fld.NB-aCnc 0.49 I Unit/mL Normal 07/12/2024 [facility] CO2 SerPl-sCnc 30.0 mmol/L Normal 07/12/2024 24 - 32 [facility] Chloride SerPl-sCnc 102.0 mmol/L Normal 07/12/2024 98 - 1 07 [facility] Creat SerPl-mCnc 0.8 mg/dL Normal 07/12/2024 0.7 - 1.3 CT [facility] Calcium SerPl-mCnc 9.3 mg/dL Normal 07/12/2024 8.4 - 10.2 [facility] BUN/Creat SerPl 16.3 Normal 07/12/2024 12 - 20 [facility] eGFRcr SerPlBld CKD-EPI 2020 114.0 mL/min/1.73m2 Normal 07/12/2024 - [facility] Sodium SerPl-sCnc 138.0 mmol/L Normal 07/12/2024 135 - 14 5 [facility] Potassium SerPl-sCnc 4.6 mmol/L Normal 07/12/2024 3.5 - 5 .1 [facility] BUN SerPl-mCnc 13.0 mg/dL Normal 07/12/2024 9 - 20 [facility] Glucose SerPl-mCnc 186.0 mg/dL Normal 07/12/2024 70 - 199 [facility] Anion Gap SerPl Calc-sCnc 6.0 Normal 07/12/2024 5 - 14 [facility] Magnesium SerPl-mCnc 2.0 mg/dL Normal 07/12/2024 1.7 - 2. 8 [facility] Heparin Anti Xa Fld.NB-aCnc 0.26 I Unit/mL Normal 07/12/2024 [facility] RBC # Bld Auto 5.88 M/mcL Normal 07/12/2024 4.7 - 6 [facility] RDW RBC Auto 14.4 % Normal 07/12/2024 12.1 - 17.7 [facility] PMV Bld Auto 9.5 FL Normal 07/12/2024 7.4 - 11.4 [facility] Hct VFr Bld Auto 49.0 % Normal 07/12/2024 40 - 54 [facility] RBC Auto 83.3 FL Normal 07/12/2024 78 - 100 [facility] N MCHC RBC Auto-EntMCnc 32.5 g/dL Normal 07/12/2024 32 - 36 [facility] WBC # Bld Auto 5.9 K/mcL Normal 07/12/2024 4 - 10.5 [facility] Hgb Bld-mCnc 15.9 g/dL Normal 07/12/2024 13.5 - 18 [facility] MCH RBC Qn Auto 27.1 pcg Normal 07/12/2024 25 - 33 [facility] Platelet # Bld Auto 176.0 K/mcL Normal 07/12/2024 150 - 4 50 [facility] Troponin I SerPl HS-mCnc 36.0 ng/L Above high normal 07/11/2024 0 - 20 [facility] Glucose SerPl-mCnc 120.0 mg/dL Normal 07/11/2024 70 - 199 [facility] Creat SerPl-mCnc 0.8 mg/dL Normal 07/11/2024 0.7 - 1.3 CT [facility] BUN SerPl-mCnc 9.0 mg/dL Normal 07/11/2024 9 - 20 [facility] Potassium SerPl-sCnc 4.1 mmol/L Normal 07/11/2024 3.5 - 5 .1 [facility] CO2 SerPl-sCnc 28.0 mmol/L Normal 07/11/2024 24 - 32 CT [facility] eGFRcr SerPlBld CKD-EPI 2020 114.0 mL/min/1.73m2 Normal 07/11/2024 - [facility] Anion Gap SerPl Calc-sCnc 11.0 Normal 07/11/2024 5 - 14 [facility] BUN/Creat SerPl 11.3 Below low normal 07/11/2024 12 - 2 0 [facility] Chloride SerPl-sCnc 100.0 mmol/L Normal 07/11/2024 98 - 1 07 [facility] Sodium SerPl-sCnc 139.0 mmol/L Normal 07/11/2024 135 - 14 5 [facility] Calcium SerPl-mCnc 9.6 mg/dL Normal 07/11/2024 8.4 - 10.2 [facility] Neutrophils NFr Bld Auto 54.2 % Normal 07/11/2024 44 - 74 [facility] Basophils NFr Bld Auto 0.3 % Normal 07/11/2024 0 - 2 [facility] Eosinophil NFr Bld Auto 1.7 % Normal 07/11/2024 0 - 6 [facility] Eosinophil # Bld Auto 0.1 K/mcL Normal 07/11/2024 0 - 0.5 [facility] RDW RBC Auto 14.4 % Normal 07/11/2024 12.1 - 17.7 [facility] RBC # Bld Auto 5.8 M/mcL Normal 07/11/2024 4.7 - 6 [facility] MCHC RBC Auto-EntMCnc 32.7 g/dL Normal 07/11/2024 32 - 36 [facility] Hgb Bld-mCnc 15.9 g/dL Normal 07/11/2024 13.5 - 18 [facility] Lymphocytes # Bld Auto 2.5 K/mcL Normal 07/11/2024 1 - 3.2 [facility] PMV Bld Auto 10.0 FL Normal 07/11/2024 7.4 - 11.4 [facility] Lymphocytes NFr Bld Auto 35.8 % Normal 07/11/2024 20 - 48 [facility] Neutrophils # Bld Auto 3.8 K/mcL Normal 07/11/2024 1.8 - 7.8 [facility] MCH RBC Qn Auto 27.4 pcg Normal 07/11/2024 25 - 33 [facility] RBC Auto 83.6 FL Normal 07/11/2024 78 - 100 [facility] N Hct VFr Bld Auto 48.5 % Normal 07/11/2024 40 - 54 [facility] Monocytes NFr Bld Auto 8.0 % Normal 07/11/2024 2 - 12 [facility] Platelet # Bld Auto 184.0 K/mcL Normal 07/11/2024 150 - 4 50 [facility] Basophils # Bld Auto 0.0 K/mcL Normal 07/11/2024 0 - 0.2 [facility] Monocytes # Bld Auto 0.6 K/mcL Normal 07/11/2024 0 - 0.8 [facility] WBC # Bld Auto 7.1 K/mcL Normal 07/11/2024 4 - 10.5 [facility] History of Medication Use Medication Directions Dispensed [...] 25 mg 25 mg, oral, Once, On Wed07/13/24 at 1245, For 1 dose, Do not [...] Do not crush, chew, or split. active Allergies Allergen Reaction Severity Comment Documented Date Source Statu s SHELLFISH DERIVED SHORTNESS OF BREATH 07/10/2024 [facility] active Problems Problem Status Onset Date Problem Type Date of Resolution Source Type 2 diabetes mellitus with hyperglycemia, without long-term current use of insulin ([facility] V24, [facility] V28) active EncounterDiagnosisAct C [facility] NSTEMI (non-ST elevated myocardial infarction) ([facility] V24, [facility] V28) active 2024-07-10 ProblemAct [facility] Encounters Encounter Type Encounter Reason Primary Diagnosis Location Date Inpatient NStemi Type 2 diabetes mellitus with hyperglycemia ([facility] V24, [facility] V28) [facility] 07/11/2024 Care Team Organization Name Specialty Phone Email Start Date End Da te [facility] [place] [facility] 07/12/2024 [facility] [place] [facility] 07/11/2024
--- OUTSIDE RECORDS SUMMARY | 2024-09-26 16:27 | XMS_ITS | Clinical Summary ---
Author Organization [facility] Address [address] [place] [address] Phone Care Team Providers Care Account Collector Name Role Phone Liu Nava MD Primary Care Provider [phone] Allergies Active Allergy Reactions Criticality Noted Date [...] of a meal 10 mL 2 07/13/2024 Active glipiZIDE (GLUCOTROL XL) 5 mg 24 hr tablet Take 1 tablet (5 mg total) by mouth 1 (one) time each day. Do not crush, chew, or split. Active metFORMIN 750 mg tabletIndicatio ns:Type 2 diabetes mellitus with hyperglycemia, without long-term current use of insulin ([facility] V24, CMS/[facility] V28) Take 750 mg by mouth 2 (two) times a day with meals. 60 tablet 2 07/15/2024 Active metoprolol succinate (TOPROL-XL) 50 mg 24 hr tablet Take 1 tablet (50 mg total) by mouth 1 (one) time for 1 dose. Do not crush or chew. 1 each 07/13/2024 Active empagliflozin (Jardiance) 10 mg tabletIndicatio ns:NSTEMI (non-ST elevated myocardial infarction) ([facility] V[facility], [facility] V28),Type 2 diabetes mellitus with hyperglycemia, without long-term current use of insulin ([facility] V[facility], [facility] V28) Take 1 tablet (10 mg total) by mouth 1 (one) time each day. 30 tablet 2 07/13/2024 Active insulin syringe-needle U-100 0.5 mL 29 gauge x 1/2 syringe Use to inject 1-4 times daily as directed. 200 each 1 07/13/2024 Active Active Problems Problem Noted Date Diagnosed Date NSTEMI (non-ST elevated myoc ardial infarction) ([facility] V[facility], [facility] V28) 07/10/2024 Encounters Date Type Department Care Team Description 07/12/2024 2:49 PM EDT - 07/12/2024 4:19 PM EDT Surgery [facility] Cardiac Geophysical Party [employer] [address] [place] [address] [phone] Yaquelin Kim MD Left heart cath / Coronary angiography 07/11/2024 4:03 PM EDT - 07/13/2024 2:31 PM EDT Hospital Encounter [facility] Med Card 9-[address] [place] [phone] Di Tse MD Kochar, MD Mary Hein Rachna, MD Kapur, MD Pastora Type 2 diabetes mellitus with hyperglycemia, without long-term current use of insulin ([facility] V[facility], [facility] V28) (Primary Dx); NSTEMI (non-ST elevated myocardial infarction) ([facility] V[facility], [facility] V28) Discharge Disposition: Home or Self Care 07/10/2024 5:08 PM EDT - 07/11/2024 3:37 PM EDT Hospital Encounter [facility] [address] [place] [phone] Yong Monaco MD Japaridze, Anna, MD Chest pain, unspecified type (Primary Dx); Troponin level elevated; NSTEMI (non-ST elevated myocardial infarction) ([facility], [facility] V28) Discharge Disposition: Short Term Hospital from Last 3 Months Medical History Medical History Date Comments Diabetes mellitus ([facility] V[facility], [facility] V28) Hyperlipidemia Family History Medical History Relation [...] 5 Years) and At-Risk Patients (6 to 49 Years) (1 of 2 - PCV) 2002 COVID-19 Vaccine ( season) 2023 03/23/2021, 07/28/2020, 07/07/2020 Depression Screening 07/11/2024 HIV Screening 07/11/2024 Social Influencers of Health Screening 07/11/2024 Diabetes: Annual Urine Albumin-Creatinine Ratio (uACR) 07/13/2024 Influenza Vaccine (#1) 2024 Diabetes: Blood Sugar Control Test (HGBA1C) [...] myocardial infarction) (CMS/HCC V24, CMS/HCC V28) HEPARIN AND LOW MOLECULAR WEIGHT ANTI XA LEVEL Timed 07/12/2024 1:50 PM EDT OXYGEN THERAPY, ADULT Routine 07/12/2024 8:02 AM EDT HEPARIN AND LOW MOLECULAR WEIGHT ANTI XA LEVEL Timed 07/12/2024 6:20 AM EDT COMPLETE BLOOD [...] myocardial infarction) (CMS/HCC V24, CMS/HCC V28) HEPARIN AND LOW MOLECULAR WEIGHT ANTI XA LEVEL Timed 07/11/2024 10:28 AM EDT POCT GLUCOSE [...] PANEL Routine 07/11/2024 4:09 AM EDT HEPARIN AND LOW MOLECULAR WEIGHT ANTI XA LEVEL Timed 07/11/2024 4:09 AM EDT HEPARIN AND LOW MOLECULAR WEIGHT ANTI XA LEVEL STAT 07/10/2024 11:01 PM EDT SST - [...] of6 resultswithin the time period is included. [facility] Signature Glucose POCT 229(H) 70 - 199 mg/dL 07/13/2024 1:13 PM EDT [facility] Comment: Fasting Reference Range: 70-99 mg/dL Non-Fasting Reference Range: 70-199 mg/dL Blood Capillary blood specimen / Unknown 07/13/2024 1:11 PM EDT 07/13/2024 1:14 PM EDT Pastora Eastman MD LAB POINT OF CARE TE ST DOCKED DEVICE UNSOLICITED RESULTS Final Result [facility] [address] [place] [address], [place] [phone] * ECG 12 lead (07/13/2024 12:51 PM EDT) Only the most recent of3 resultswithin the time period is included. Ventricular Rate ECG 81 BPM GEMUSE Atrial Rate 81 BPM GEMUSE P-R Interval 208 ms GEMUSE QRS Duration 88 ms GEMUSE Q-T Interval 344 ms GEMUSE QTc 399 ms GEMUSE P Wave [place] 18 degrees GEMUSE R [place] 10 degrees GEMUSE T [place] -30 degrees GEMUSE ECG Interpretation Normal sinus rhythm Minimal voltage criteria for LVH, may be normal variant ( R in aVL ) Nonspecific T wave abnormality Abnormal ECG No previous ECGs available Confirmed by Cira Yanez ([id number]) on 07/13/2024 5:46:23 PM GEMUSE 07/13/2024 12:5 1 PM EDT 07/13/2024 5:46 PM EDT Pastora Eastman MD ECG ORDERABLES Final Result GEMUSE * Complete blood count (07/13/2024 5:52 AM EDT) Only the most recent of2 resultswithin the time period is included. WBC 6.2 4.0 - 10.5 K/[facility] LAB HEMETOLOGY METHOD 07/13/2024 6:45 AM EDT [facility] RBC 5.81 4.70 - 6.00 M/mcL LAB HEMETOLOGY METHOD 07/13/2024 6:45 AM EDT [facility] Hemoglobin 15.8 13.5 - 18.0 g/dL LAB HEMETOLOGY METHOD 07/13/2024 6:45 AM EDT [facility] Hematocrit 48.3 40.0 - 54.0 % LAB HEMETOLOGY METHOD 07/13/2024 6:45 AM EDT [facility] MCV 83.1 78.0 - 100.0 FL LAB HEMETOLOGY METHOD 07/13/2024 6:45 AM EDT [facility] MCH 27.1 25.0 - 33.0 pcg LAB HEMETOLOGY METHOD 07/13/2024 6:45 AM EDT [facility] MCHC 32.7 32.0 - 36.0 g/dL LAB HEMETOLOGY METHOD 07/13/2024 6:45 AM EDT [facility] RDW 14.4 12.1 - 17.7 % LAB HEMETOLOGY METHOD 07/13/2024 6:45 AM EDT [facility] Platelets 174 150 - 450 K/mcL LAB HEMETOLOGY METHOD 07/13/2024 6:45 AM EDT [facility] MPV 10.0 7.4 - 11.4 FL LAB HEMETOLOGY METHOD 07/13/2024 6:45 AM EDT [facility] Blood Venous blood specimen / Unknown Venipuncture / Unknown 07/13/2024 5:52 AM EDT 07/13/2024 6:32 AM EDT us Rekha Hernandez MD LAB BLOOD ORDERABLES Final Resu lt [facility] [address] [place] [address], * Magnesium (07/13/2024 5:52 AM EDT) Only the most recent of3 resultswithin the time period is included. Magnesium 2.0 1.7 - 2.8 mg/dL LAB CHEMISTRY METHOD 07/13/2024 7:12 AM EDT [facility] Blood Venous blood specimen / Unknown Venipuncture / Unknown 07/13/2024 5:52 AM EDT 07/13/2024 6:32 AM EDT Rekha Hernandez MD LAB BLOOD ORDERABLES Final Resu lt [facility] [address] [place] [address], [place] [phone] * (ABNORMAL) Comprehensive metabolic panel (07/13/2024 5:52 AM EDT) Only the most recent of2 resultswithin the time period is included. Sodium 138 135 - 145 mmol/L LAB CHEMISTRY METHOD 07/13/2024 7:12 AM EDT [facility] Potassium 4.4 3.5 - 5.1 mmol/L LAB CHEMISTRY METHOD 07/13/2024 7:12 AM EDT [facility] Chloride 100 98 - 107 mmol/L LAB CHEMISTRY METHOD 07/13/2024 7:12 AM EDT [facility] CO2 30 24 - 32 mmol/L LAB CHEMISTRY METHOD 07/13/2024 7:12 AM EDT [facility] Anion Gap 8 5 - 14 LAB CHEMISTRY METHOD 07/13/2024 7:12 AM EDT [facility] Glucose 167 70 - 199 mg/dL LAB CHEMISTRY METHOD 07/13/2024 7:12 AM EDT [facility] BUN 12 9 - 20 mg/dL LAB CHEMISTRY METHOD 07/13/2024 7:12 AM EDT [facility] Creatinine 0.80 0.70 - 1.30 mg/dL LAB CHEMISTRY METHOD 07/13/2024 7:12 AM EDT [facility] eGFR 114 >=60 mL/min/1. 73m2 LAB CHEMISTRY METHOD 07/13/2024 7:12 AM EDT [facility] Comment:Calculation based on the Chronic Kidney Disease Epidemiology Collaboration (CKD-EPI) equation refit without adjustment for race. BUN/Creatinine Ratio 15.0 12.0 - 20.0 LAB CHEMISTRY METHOD 07/13/2024 7:12 AM EDT [facility] Calcium 9.2 8.4 - 10.2 mg/dL LAB CHEMISTRY METHOD 07/13/2024 7:12 AM EDT [facility] AST (SGOT) 44(H) 5 - 40 unit/L LAB CHEMISTRY METHOD 07/13/2024 7:12 AM EDT [facility] ALT (SGPT) 82(H) 7 - 52 unit/L LAB CHEMISTRY METHOD 07/13/2024 7:12 AM EDT [facility] Alkaline Phosphatase 53 34 - 104 unit/L LAB CHEMISTRY METHOD 07/13/2024 7:12 AM EDT [facility] Total Protein 7.1 6.4 - 8.5 g/dL LAB CHEMISTRY METHOD 07/13/2024 7:12 AM EDT [facility] Albumin 4.3 3.5 - 5.0 g/dL LAB CHEMISTRY METHOD 07/13/2024 7:12 AM EDT [facility] Total Bilirubin 0.7 0.3 - 1.0 mg/dL LAB CHEMISTRY METHOD 07/13/2024 7:12 AM EDT [facility] Blood Venous blood specimen / Unknown Venipuncture / Unknown 07/13/2024 5:52 AM EDT 07/13/2024 6:32 AM EDT us Rekha Hernandez MD LAB BLOOD ORDERABLES Final Resu lt [facility] [address] [place] [address], [place] [phone] * LEFT HEART CATH / CORONARY ANGIOGRAPHY [...] obesity, prior tobacco use who presented to [facility] on 07/10 for chest pain at rest and exertion. He was admitted for NSTEMI and transferred to [facility] for coronary angiogram. TTE showed preserved LVEF [...] LAB COAGULATION METHOD 07/12/2024 2:17 PM EDT [facility] Blood Venous blood specimen / Unknown Venipuncture / Unknown 07/12/2024 1:50 PM EDT 07/12/2024 1:55 PM EDT Narrative [facility] - 07/12/2024 2:17 PM EDT Therapeutic Ranges Heparin Thromboembolic/Standard/Full Dose Protocol: Age 18+ Years 0.30-0.70 IU/mL Age 0-17 Years 0.35-0.70 IU/mL Heparin Cardiac/Low Dose Protocol: 0.30-0.5 IU/mL Low Molecular Weight Heparin: Age 18+ Years 0.50-1.50 IU/mL Age 0-17 Years 0.50-1.00 IU/mL Rekha Hernandez MD LAB BLOOD ORDERABLES Final Resu lt [facility] [address] [place] [address], [place] [phone] * Basic metabolic panel (07/12/2024 6:20 AM EDT) Only the most recent of3 resultswithin the time period is included. Sodium 138 135 - 145 mmol/L LAB CHEMISTRY METHOD 07/12/2024 7:11 AM EDT [facility] Potassium 4.6 3.5 - 5.1 mmol/L LAB CHEMISTRY METHOD 07/12/2024 7:11 AM EDT [facility] Chloride 102 98 - 107 mmol/L LAB CHEMISTRY METHOD 07/12/2024 7:11 AM EDT [facility] CO2 30 24 - 32 mmol/L LAB CHEMISTRY METHOD 07/12/2024 7:11 AM EDT [facility] Anion Gap 6 5 - 14 LAB CHEMISTRY METHOD 07/12/2024 7:11 AM EDT [facility] Glucose 186 70 - 199 mg/dL LAB CHEMISTRY METHOD 07/12/2024 7:11 AM EDT [facility] BUN 13 9 - 20 mg/dL LAB CHEMISTRY METHOD 07/12/2024 7:11 AM EDT [facility] Creatinine 0.80 0.70 - 1.30 mg/dL LAB CHEMISTRY METHOD 07/12/2024 7:11 AM EDT [facility] eGFR 114 >=60 mL/min/1. 73m2 LAB CHEMISTRY METHOD 07/12/2024 7:11 AM EDT [facility] Comment:Calculation based on the Chronic Kidney Disease Epidemiology Collaboration (CKD-EPI) equation refit without adjustment for race. BUN/Creatinine Ratio 16.3 12.0 - 20.0 LAB CHEMISTRY METHOD 07/12/2024 7:11 AM EDT [facility] Calcium 9.3 8.4 - 10.2 mg/dL LAB CHEMISTRY METHOD 07/12/2024 7:11 AM EDT [facility] Blood Venous blood specimen / Unknown Venipuncture / Unknown 07/12/2024 6:20 AM EDT 07/12/2024 6:32 AM EDT Oanh Parham MD LAB BLOOD ORDERABLES Fi nal Result [facility] [address] [place] [address], * ECG-Annotated (07/12/2024) us Provider Onbase ECG ORDERABLES Final Result * XR Chest 1 View (07/11/2024 6:06 PM EDT) Anatomical Region Laterality Modality Body Radiographic Vonda ging 07/11/2024 9:03 PM EDT Impressions 07/11/2024 9:05 PM EDT 1. No acute process in the chest. Report reviewed and signed by : Dr. Kei Myers MD on 07/11/2024 9:05 PM. Workstation Name - [id number] -------- FINAL REPORT -------- Dictated By: Kei Myers Dictated Date: 07/11/2024 21:03 ET Assigned Physician: Kei Myers Reviewed and Electronically Signed By: Kei Myers Signed Date: 07/11/2024 21:05 ET Workstation ID: [id number] Transcribed By: Self Edit Transcribed Date: 07/11/2024 [...] MD on 07/11/2024 9:05 PM.Workstation Name - [id number] -------- FINAL REPORT -------- Dictated By: Kei Myers Dictated Date: 07/11/2024 21:03 ET Assigned Physician: Kei Myers Reviewed and Electronically Signed By: Kei Myers Signed Date: 07/11/2024 21:05 ET Workstation ID: [id number] Transcribed By: Self Edit Transcribed Date: 07/11/2024 21:03 ET Oanh Parham MD IMG XR PROCEDURES Final Result * (ABNORMAL) Troponin I high sensitivity (07/11/2024 4:54 PM EDT) Only the most recent of4 resultswithin the time period is included. Pathologist [facility] High Sensitivity Troponin I 36(H) 0 - 20 ng/L LAB CHEMISTRY METHOD 07/11/2024 6:00 PM EDT [facility] Blood Venous blood specimen / Unknown Venipuncture / Unknown 07/11/2024 4:54 PM EDT 07/11/2024 5:19 PM EDT Narrative [facility] - 07/11/2024 6:00 PM EDT HSTnI [...] method is an immunoenzymatic assay manufactured by [employer] and performed on the [employer]. us Arupreet Nix Kochar MD LAB BLOOD ORDERABLES Fi nal Result [facility] [address] [place] [address], [place] [phone] * CBC auto differential (07/11/2024 4:54 PM EDT) Only the most recent of3 resultswithin the time period is included. [facility] Signature WBC 7.1 4.0 - 10.5 K/mcL LAB HEMETOLOGY METHOD 07/11/2024 5:30 PM EDT [facility] RBC 5.80 4.70 - 6.00 M/mcL LAB HEMETOLOGY METHOD 07/11/2024 5:30 PM EDT [facility] Hemoglobin 15.9 13.5 - 18.0 g/dL LAB HEMETOLOGY METHOD 07/11/2024 5:30 PM EDT [facility] Hematocrit 48.5 40.0 - 54.0 % LAB HEMETOLOGY METHOD 07/11/2024 5:30 PM EDT [facility] MCV 83.6 78.0 - 100.0 FL LAB HEMETOLOGY METHOD 07/11/2024 5:30 PM EDT [facility] MCH 27.4 25.0 - 33.0 pcg LAB HEMETOLOGY METHOD 07/11/2024 5:30 PM EDT [facility] MCHC 32.7 32.0 - 36.0 g/dL LAB HEMETOLOGY METHOD 07/11/2024 5:30 PM EDT [facility] RDW 14.4 12.1 - 17.7 % LAB HEMETOLOGY METHOD 07/11/2024 5:30 PM EDT [facility] Platelets 184 150 - 450 K/mcL LAB HEMETOLOGY METHOD 07/11/2024 5:30 PM EDT [facility] MPV 10.0 7.4 - 11.4 FL LAB HEMETOLOGY METHOD 07/11/2024 5:30 PM EDT [facility] Neutrophils Relative 54.2 44.0 - 74.0 % LAB HEMETOLOGY METHOD 07/11/2024 5:30 PM EDT [facility] Lymphocytes Relative 35.8 20.0 - 48.0 % LAB HEMETOLOGY METHOD 07/11/2024 5:30 PM EDT [facility] Monocytes Relative 8.0 2.0 - 12.0 % LAB HEMETOLOGY METHOD 07/11/2024 5:30 PM EDT [facility] Eosinophils Relative 1.7 0.0 - 6.0 % LAB HEMETOLOGY METHOD 07/11/2024 5:30 PM EDT [facility] Basophils Relative 0.3 0.0 - 2.0 % LAB HEMETOLOGY METHOD 07/11/2024 5:30 PM EDT [facility] Neutrophils Absolute 3.80 1.80 - 7.80 K/mcL LAB HEMETOLOGY METHOD 07/11/2024 5:30 PM EDT [facility] Lymphocytes Absolute 2.50 1.00 - 3.20 K/mcL LAB HEMETOLOGY METHOD 07/11/2024 5:30 PM EDT [facility] Monocytes Absolute 0.60 0.00 - 0.80 K/mcL LAB HEMETOLOGY METHOD 07/11/2024 5:30 PM EDT [facility] Eosinophils Absolute 0.10 0.00 - 0.50 K/mcL LAB HEMETOLOGY METHOD 07/11/2024 5:30 PM EDT [facility] Basophils Absolute 0.00 0.00 - 0.20 K/mcL LAB HEMETOLOGY METHOD 07/11/2024 5:30 PM EDT [facility] Blood Venous blood specimen / Unknown Venipuncture / Unknown 07/11/2024 4:54 PM EDT 07/11/2024 5:19 PM EDT us Oanh Parham MD LAB BLOOD ORDERABLES Fi nal Result [facility] [address] [place] [address], [place] [phone] * (ABNORMAL) TRANSTHORACIC ECHOCARDIOGRAM (TTE) COMPLETE W/ [...] LAB CHEMISTRY METHOD 07/11/2024 6:41 AM EDT [facility] Triglycerides 145 0 - 150 mg/dL LAB CHEMISTRY METHOD 07/11/2024 6:41 AM EDT [facility] HDL 45 >=40 mg/dL LAB CHEMISTRY METHOD 07/11/2024 6:41 AM [facility] LDL Calculated 70 0 - 100 mg/dL LAB CHEMISTRY METHOD 07/11/2024 6:41 AM [facility] VLDL Cholesterol Naun 29 mg/dL LAB CHEMISTRY METHOD 07/11/2024 6:41 AM [facility] Non HDL Chol. (LDL+VLDL) 99 <145 mg/dL LAB CHEMISTRY METHOD 07/11/2024 6:41 AM T [facility] Chol/HDL Ratio 3.2 0.0 - 4.4 LAB CHEMISTRY METHOD 07/11/2024 6:41 AM [facility] Blood Venous blood specimen / Unknown Venipuncture / Unknown 07/11/2024 4:09 AM EDT 07/11/2024 4:14 AM EDT us Lilian TAVERAS LAB BLOOD ORDERABLES Final Resu lt [facility] [address] [place] [address], [place] [phone] * Hepatitis panel, acute with reflex to confirmation (07/11/2024 4:09 AM EDT) Hepatitis B Surface Ag Negative Negative LAB CHEMISTRY METHOD 07/11/2024 11:27 AM EDT [facility] Hepatitis A Antibody IgM Negative Negative LAB CHEMISTRY METHOD 07/11/2024 11:27 AM EDT [facility] Hep B Core IgM Negative Negative LAB CHEMISTRY METHOD 07/11/2024 11:27 AM EDT [facility] Hepatitis C Antibody Negative Negative LAB CHEMISTRY METHOD 07/11/2024 11:27 AM EDT [facility] Blood Venous blood specimen / Unknown Venipuncture / Unknown 07/11/2024 4:09 AM EDT 07/11/2024 4:14 AM EDT Lilian TAVERAS LAB BLOOD ORDERABLES Final Resu lt Performing Organization Address [facility]/ZIP Co de Phone Number [facility] [address] [place] [address], [place] [phone] * SST tube (07/10/2024 10:55 PM EDT) Extra Tube Hold for add-ons. 07/11/2024 1:01 AM EDT [facility] Comment:Auto resulted. Blood Venous blood specimen / Unknown 07/10/2024 10:55 PM EDT 07/10/2024 11:09 PM EDT Yong Monaco MD LAB BLOOD ORDERABLES Final Result Performing Organization Address City/[facility]/ZIP Co de Phone Number [facility] [address] [place] [address], [place] [phone] * CT Angio Chest wo and/or w [...] 2. No active pulmonary process. Chato TAVERAS ([id number]) -------- FINAL REPORT -------- Dictated By: Jory Johnson Dictated Date: 07/11/2024 08:53 ET Assigned Physician: Jory Johnson Reviewed and Electronically Signed By: Jory Johnson Signed Date: 07/11/2024 08:54 ET Workstation ID: [id number] Transcribed By: Self Edit Transcribed Date: 07/11/2024 [...] 2. No active pulmonary process. [place] PA ([id number]) -------- FINAL REPORT -------- Dictated By: Jory Johnson Dictated Date: 07/11/2024 08:53 ET Assigned Physician: Jory Johnson Reviewed and Electronically Signed By: Jory Johnson Signed Date: 07/11/2024 08:54 ET Workstation ID: [id number] Transcribed By: Self Edit Transcribed Date: 07/11/2024 08:53 ET us Yong Monaco MD IMG XR PROCEDURES Final Res ult * APTT (07/10/2024 5:32 PM EDT) aPTT 31.1 24.1 - 39.3 sec LAB COAGULATION METHOD 07/10/2024 6:29 PM EDT [facility] Blood Venous blood specimen / Unknown Venipuncture / Unknown 07/10/2024 5:32 PM EDT 07/10/2024 6:10 PM EDT us Yong Monaco MD LAB BLOOD ORDERABLES Final Result Performing Organization Address City/[facility]/ZIP Co de Phone Number [facility] [address] [place] [address], [place] [phone] * Protime-INR (07/10/2024 5:32 PM EDT) [facility] Protime 10.7 10.6 - 13.9 sec LAB COAGULATION METHOD 07/10/2024 6:29 PM EDT [facility] INR 0.9 LAB COAGULATION METHOD 07/10/2024 6:29 PM EDT [facility] Blood Venous blood specimen / Unknown Venipuncture / Unknown 07/10/2024 5:32 PM EDT 07/10/2024 6:10 PM EDT us Yong Monaco MD LAB BLOOD ORDERABLES Final Result Performing Organization Address [facility]/ZIP Co de Phone Number [facility] [address] [place] [address], [place] [phone] * B-type natriuretic peptide (07/10/2024 5:32 PM EDT) [facility] BNP 9 <=100 pcg/mL LAB CHEMISTRY METHOD 07/10/2024 6:57 PM EDT [facility] Blood Venous blood specimen / Unknown Venipuncture / Unknown 07/10/2024 5:32 PM EDT 07/10/2024 6:11 PM EDT us Yong Monaco MD LAB BLOOD ORDERABLES Final Result Performing Organization Address City/[facility]/ZIP Co de Phone Number [facility] [address] [place] [address], [place] [phone] * Lipase (07/10/2024 5:32 PM EDT) [facility] Lipase 33 13 - 75 unit/L LAB CHEMISTRY METHOD 07/10/2024 6:52 PM EDT [facility] Blood Venous blood specimen / Unknown Venipuncture / Unknown 07/10/2024 5:32 PM EDT 07/10/2024 6:10 PM EDT Yong Monaco MD LAB BLOOD ORDERABLES Final Result Performing Organization Address [facility]/ZIP Co de Phone Number [facility] [address] [place] [address], [place] [phone] * (ABNORMAL) Hemoglobin A1c (07/10/2024 5:32 PM EDT) [facility] Hemoglobin A1C 10.6(H) <6.5 % LAB CHEMISTRY METHOD 07/11/2024 12:47 PM EDT [facility] Mean Bld Glu Estim. 258 mg/dL LAB CHEMISTRY METHOD 07/11/2024 12:47 PM EDT [facility] Blood Venous blood specimen / Unknown Venipuncture / Unknown 07/10/2024 5:32 PM EDT 07/10/2024 6:10 PM EDT us Yong Monaco MD LAB BLOOD ORDERABLES Final Result Performing Organization Address City/[facility]/ZIP Co de Phone Number [facility] [address] [place] [address], [place] [phone] from Last 3 Months Insurance [facility] Advance Directives * Full Code [...] currently active code status orders. Care Teams Account Collector Relationship Specialty Start Date End Date Liu Nava MD [address] [place] [address] PCP - General Family Medicine 07/10/24
== END 2024-09-26 16:05 | disposition home or self-care (01) ==
LOC: HO.ENCR 15:22
PROVIDERS: PCP Family Medicine; Visit Provider Physician Assistant Medical
DX: E11.65 Type 2 diabetes mellitus with hyperglycemia (principal)

== ENCOUNTER → 2024-09-26 15:21 | Outpatient (BNVA) | payer BC, SELFPAY | PROVIDERS: PCP Family Medicine; Visit Provider Physician Assistant Medical | DX: E11.65 Type 2 diabetes mellitus with hyperglycemia (principal) | CPT/HCPCS: 82947 ==

== ENCOUNTER 2024-11-09 12:47 | Outpatient (AMB) | payer BC, SELFPAY ==
--- NOTE | 2024-11-09 12:50 | A.OFFVIS_ITS ---
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/(NSTEMI) myocardial infarction Intake Note: New patient patient was a [facility] [place] has NSTEMI went to the hosptial for chest pain did have cardiac cath House Principal Required: No Allergies SEAFOOD Allergy (Severe, Uncoded 09/26/24 15:38) DIFFICULTY BREATHING Medication List - Last Reconciled 11/09/24 by Erik Brown MD aspirin (Adult Low Dose Aspirin) 81 mg PO DAILY atorvastatin 80 mg PO DAILY blood sugar diagnostic (FreeStyle Lite Strips) As directed to check blood sugar twice daily blood-glucose meter (FreeStyle Lite Meter kit) DX: E11.9, test blood sugar 2 times a day, duration 999 days blood-glucose sensor (FreeStyle Ivette 3 Plus Sensor device) Apply 1 new sensor every 15 days as directed to monitor blood glucose continuously. blood-glucose,glove machine operator,cont (FreeStyle Ivette 3 [place]) Use daily to monitor blood glucose levels continuously. elastic bandage (Coban Self-Adherent Wrap) As directed glucose (Dex4 Glucose Quick Dissolve) 16 grams (4 x 4 gram) PO Q15M PRN lancets (FreeStyle Lancets) As directed to test blood sugar twice daily metformin 500 mg PO DAILY semaglutide (Ozempic) 1 mg (0.75 mL) subcut QWEEK HPI Comments Details: Thank you for referring Saleem in cardiology consultation today for management of coronary artery disease. He is a pleasant 39-year-old male who has been diagnose with diabetes in the last year. He said for 6 hours months he has now very attentive to his diabetes management is was uncontrolled. He also has history of hypertension and hyperlipidemia. In June he presented to [facility] in [place] with sudden-onset chest pain at rest. When he presented to the emergency room was noted to have EKG changes subsequently troponin elevation was admitted for acute coronary syndrome high risk. He was subsequently [place] [facility] [place] cardiac catheterization. This showed nonobstructive disease with 30% disease in the left main. This could either represent NSTEMI with nonobstructive coronary artery disease either due to plaque erosion or transient plaque rupture with transient thrombosis which resolved with therapy. He had did not undergo any intervention. He was then sent home on aspirin as well as high-intensity statin therapy and aggressive management diabetes. He said he was about a week hospitalized at [facility] Patient subsequently has taken this very seriously in his has been very active in managing in his sugars. He says sugars has been better controlled. He is taking all his medications. Said he is not smoking anymore. He denies any exertional chest pain or shortness of breath. Denies any orthopnea, PND, leg edema. No prolonged palpitation irregular heartbeat. [facility] Medical History Hepatic steatosis Uncontrolled type 2 diabetes mellitus with hyperglycemia History of COVID-19 History of asthma DVT (deep venous thrombosis) Surgical History No pertinent past surgical history Family History Mother Glioblastoma Social History Household Members: Family Housing: House Do you presently have visiting nurse or other home services: No Alcohol intake: never Comment: sleeping Patient Tobacco Use Status: Former Tobacco user Tobacco use type: Cigarette e-Cigarette/Vaping Use: Never Used Second Hand Smoke Exposure: No Substance Use Type: Marijuana service: No Current occupational status: employed 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 Current occupational exposures/hazards: No Cognitive needs: No Hearing needs: No Vision needs: No Review of Systems Const Denies chills, Denies daytime sleepiness, Denies fatigue, Denies fever(s), Denies frequent falls, Denies poor appetite, Denies snoring, Denies stops breathing during sleep, Denies weakness, Denies weight gain and Denies weight loss Eyes Denies loss of vision ENT Denies dizziness and Denies hearing loss Card Denies chest pain, Denies claudication, Denies leg edema, Denies lightheadedness, Denies palpitations, Denies dyspnea, Denies dyspnea on exertion and Denies orthopnea Resp Denies cough, Denies excessive phlegm production, Denies dyspnea, Denies dyspnea on exertion, Denies snoring and Denies wheezing GI Denies abdominal pain, Denies hematochezia, Denies change in bowel habits, Den ies nausea and Denies vomiting Denies dysuria and Denies urinary frequency Musc Denies arthralgias, Denies muscle weakness and Denies numbness Skin/Breast Denies nail changes and Denies rash Neuro Denies Abnormal speech present, Denies dizziness, Denies frequent falls, Denies loss of vision, Denies memory loss, Denies numbness and Denies weakness Psych Denies depression and Denies memory loss Endo Denies fatigue and Denies palpitations Chad/Lymph Reports easy bruising and Reports other (anemia) Aller/Immun Denies wheezing Physical Exam Vital Signs: Last Vital Signs Pulse 82 11/09/24 12:54 BP 110/68 11/09/24 12:54 BMI result Body Mass Index 36.1 Const General: cooperative, comfortable, no acute distress, alert, awake, Physically active and anxious Nutritional Appearance: obese Orientation/consciousness: patient oriented x3 Limitations: no limitations HEENT Head: Yes normocephalic and Yes atraumatic Neck Neck: Yes trachea midline, Yes supple and Yes no JVD Resp Effort & Inspection: normal respiratory effort Auscultation: clear to auscultation bilaterally Cardio Jugular venous distension: no JVD Palpation: normal PMI Rate: regular rate Rhythm: regular rhythm Heart sounds: S1 normal heart sound present, S2 normal heart sound present, no click, no gallops, no murmurs and no rubs GI Auscultation: normal bowel sounds Skin General skin exam: no rashes or lesions noted Neuro General: patient oriented x3 and no focal motor deficits Speech: No Abnormal speech present Extrem General: Yes no clubbing, cyanosis or edema Office Procedures EKG Details: EKGs shows normal sinus rhythm with minimal voltage criteria for LVH with T-wave inversions in lead 3 and AVF with isolated deep Q-wave in lead 3 [place] [id number], Complete Assessment & Plan Assessment & Plan (1) CAD (coronary artery disease): Code(s): I25.10 - Atherosclerotic heart disease of [place] coronary artery without angina pectoris Category: Medical Plan: Coronary artery disease with nonobstructive disease by cardiac catheterization patient had presented with symptoms and EKGs and biomarkers suggestive of high risk acute coronary syndrome. This could represent either plaque erosion and/or transient plaque rupture with thrombosis that resolve with medical therapy. He would not undergo any percutaneous intervention. However he has significant risk factors for recurrent events. As per multiple old studies and subsequently confirmed studies he should be on dual antiplatelet therapy for medical treatment of acute coronary syndrome at least for a year. Have taken the liberty to start him on Plavix 75 mg daily in addition to aspirin. After a year of therapy this can be discontinued. This was discussed with him. He is currently back to his activity level has had no recurrent symptoms. He is now aggressively treating his risk factors especially diabetes in his very motivated about losing weight. I have also suggested him to continue with high-intensity statin therapy at this point time. Advised lipid panel in near future. Target goal LDL less than 55 mg/dL. Blood pressure is currently well optimized. Continue with low-salt diet. Advised to monitor blood pressure at home maintain a log. Goal blood pressure less than 130/84. Will follow up in the clinic in 1 year's time, sooner PRN. Thank you for allowing me to partake in his care Medications: New clopidogrel 75 mg PO DAILY 90 tabs 2RF Coding Level of Care Code New Pt Level 4 (26937) Complex EM visit Add On G2211 Diagnoses CAD (coronary artery disease) I25.10 CPT Codes EKG - CPT: 08086-[id number], Complete ([id number])
[2024-11-09 12:54] VITALS: BP 110/68; PULSE 82; BMI 36.1
--- OUTSIDE RECORDS SUMMARY | 2024-11-09 13:23 | XMS_ITS | Clinical Summary ---
Author Organization [facility] Address [address] [place] [address] Phone Care Team Providers Care Veneer Jointer Name Role Phone Liu Nava MD Primary Care Provider [phone] Allergies Active Allergy Reactions Criticality Noted Date [...] hyperglycemia, without long-term current use of insulin ([facility] V24, [facility] V28) Take 750 mg by mouth 2 (two) times a day with meals. 60 tablet 2 07/15/2024 Active metoprolol succinate (TOPROL-XL) 50 mg 24 hr tablet Take 1 tablet (50 mg total) by mouth 1 (one) time for 1 dose. Do not crush or chew. 1 each 07/13/2024 Active empagliflozin (Jardiance) 10 mg tabletIndicatio ns:NSTEMI (non-ST elevated myocardial infarction) [place] [place] [facility] [place]Type 2 diabetes mellitus with hyperglycemia, without long-term current use of insulin ([facility] [place], [facility] [place]) Take 1 tablet (10 mg total) by mouth 1 (one) time each day. 30 tablet 2 07/13/2024 Active insulin syringe-needle U-100 0.5 mL 29 gauge x 1/2 syringe Use to inject 1-4 times daily as directed. 200 each 1 07/13/2024 Active Active Problems Problem Noted Date Diagnosed Date NSTEMI (non-ST elevated myoc ardial infarction) ([facility] [place] [facility] [place] 07/10/2024 Medical History Medical History Date Comments Diabetes mellitus ([facility] [place], [facility] [place]) Hyperlipidemia Family History [...] Health Maintenance Due Date Last Done Comments DTaP,Tdap,and Td Vaccines (1 - Tdap) 2002 Hepatitis B Vaccines (1 of 3 - 19+ 3-dose series) 2002 Pneumococcal Vaccine: Pediatrics (0 to 5 Years) and At-Risk Patients (6 to 49 Years) (1 of 2 - PCV) 2002 COVID-19 Vaccine (4 - 2023-2 5 season) 2023 03/23/2021, 07/28/2020, 07/07/2020 Depression Screening 03/15/2024 HIV Screening 07/11/2024 Social Influencers of Health Screening 07/11/2024 Influenza Vaccine (#1) 2024 Cholesterol Screening (Lipid Panel) 07/11/2029 07/11/2024 Hepatitis [...] 20 months Aged Out No longer eligible b ased on patient's age to complete this topic Varicella Vaccines Aged Out No longer eligible based on patient's age to complete this topic Procedures Procedure Name Priority Date/Time Associated Diagnosis Comments HEPATITIS PANEL, ACUTE WITH REFLEX TO CONFIRMATION Routine 07/11/2024 4:09 AM EDT LIPID PANEL WITH REFLEX TO DIRECT LDL Routine 07/11/2024 4:09 AM EDT from Last 3 Months or Most Recently Relevant to Health Maintenance Results * Lipid panel with reflex to direct LDL (07/11/2024 4:09 AM EDT) Cholesterol 144 0 - 200 mg/dL LAB CHEMISTRY METHOD 07/11/2024 6:41 AM EDT [facility] Triglycerides 145 0 - 150 mg/dL LAB CHEMISTRY METHOD 07/11/2024 6:41 AM EDT [facility] HDL 45 >=40 mg/dL LAB CHEMISTRY METHOD 07/11/2024 6:41 AM EDT [facility] LDL Calculated 70 0 - 100 mg/dL LAB CHEMISTRY METHOD 07/11/2024 6:41 AM EDT [facility] VLDL Cholesterol Naun 29 mg/dL LAB CHEMISTRY METHOD 07/11/2024 6:41 AM T [facility] Non HDL Chol. (LDL+VLDL) 99 <145 mg/dL LAB CHEMISTRY METHOD 07/11/2024 6:41 AM T [facility] Chol/HDL Ratio 3.2 0.0 - 4.4 LAB CHEMISTRY METHOD 07/11/2024 6:41 AM T [facility] Blood Venous blood specimen / Unknown Venipuncture / Unknown 07/11/2024 4:09 AM EDT 07/11/2024 4:14 AM EDT us Lilian TAVERAS LAB BLOOD ORDERABLES Final Resu lt [facility] [address] [place] [address], [place] [phone] * Hepatitis panel, acute with reflex to [...] [facility]ER[facility] LAB BLOOD ORDERABLES Final Resu lt [facility]) [facility] [address] [place] [address], from Last 3 Months or Most Recently Relevant to Health Maintenance Insurance [facility] Advance Directives * Full Code - Default [...] currently active code status orders. Care Teams Veneer Jointer Relationship Specialty Start Date End Date Liu Nava MD [address] [place] [address] PCP - General Family Medicine 07/10/24
== END 2024-11-09 13:16 | disposition home or self-care (01) ==
LOC: HO.HCS 12:48
PROVIDERS: PCP Family Medicine; Visit Provider Internal Medicine Cardiovascular Disease
DX: I25.10 Atherosclerotic heart disease of native coronary artery without angina pectoris (principal)
CPT/HCPCS: 93010; 99204

== ENCOUNTER → 2024-11-09 12:47 | Outpatient (BNVA) | payer BC, SELFPAY | PROVIDERS: PCP Family Medicine; Visit Provider Internal Medicine Cardiovascular Disease | DX: I25.10 Atherosclerotic heart disease of native coronary artery without angina pectoris (principal) | CPT/HCPCS: 93005 ==

== ENCOUNTER 2025-01-15 15:49 | Outpatient (AMB) | payer BC, SELFPAY ==
--- NOTE | 2025-01-15 15:59 | A.OFFPC_ITS ---
Vital Signs 01/15/25 16:01 Height 5 ft 10 in Weight 252 lb 8 oz BMI 36.2 BP 104/60 Blood Pressure Location Rt brachial Position Sitting Respiration 16 Pulse 100 Pulse Source Pulse Oximeter Temp 98.2 F Temp Source Oral Pulse Oximetry (%) 98 Oxygen Delivery Method Room Air Intake Visit Reasons: f/u diabetes, chronic conditions Intake Note: patient is scheduled for dm follow up a1c done in office Forensic Photographer Required: No Allergies SEAFOOD Allergy (Severe, Uncoded 09/26/24 15:38) DIFFICULTY BREATHING Medication List - Last Reconciled 01/15/25 by Liu Nava MD aspirin (Adult Low Dose Aspirin) 81 mg PO DAILY atorvastatin 80 mg PO DAILY 90 days blood sugar diagnostic (FreeStyle Lite Strips) As directed to check blood sugar twice daily blood-glucose meter (FreeStyle Lite Meter kit) DX: E11.9, test blood sugar 2 times a day, duration 999 days blood-glucose sensor (FreeStyle Ivette 3 Plus Sensor device) Apply 1 new sensor every 15 days as directed to monitor blood glucose continuously. 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 clopidogrel 75 mg PO DAILY elastic bandage (Coban Self-Adherent Wrap) As directed glucose (Dex4 Glucose Quick Dissolve) 16 grams (4 x 4 gram) PO Q15M PRN lancets (FreeStyle Lancets) As directed to test blood sugar twice daily metformin 500 mg PO DAILY semaglutide (Ozempic) 1 mg (0.75 mL) subcut QWEEK Tobacco use date assessed: 09/01/24 Dental Screening Dental Screen Date: 09/01/24 HPI f/u diabetes, chronic conditions HPI Details 39 y/o male presents to f/u diabetes. A1c today 01/15/25 5.4%. He is on Ozempic, metformin 500mg daily. Blood pressure today 104/60, 100p. Hx of CAD. Continues to f/u with Dr. Brown, Cardiology. [facility] Medical History Hepatic steatosis Uncontrolled type 2 diabetes mellitus with hyperglycemia History of COVID-19 History of asthma DVT (deep venous thrombosis) Surgical History No pertinent past surgical history Family History Mother Glioblastoma Social History Household Members: Family Housing: House Do you presently have visiting nurse or other home services: No Alcohol intake: never Comment: sleeping Patient Tobacco Use Status: Former Tobacco user Tobacco use type: Cigarette e-Cigarette/Vaping Use: Never Used Second Hand Smoke Exposure: No Substance Use Type: Marijuana service: No Current occupational status: employed 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 Current occupational exposures/hazards: No Cognitive needs: No Hearing needs: No Vision needs: No Questionnaire Thrive Questionnaire Date Thrive assessed: 04/25/24 I am a: Patient What is your living situation today?: I have a steady place to live Within the past 12 months, did the food you bought not last and you didn't have the money to get more?: Never true Within the past 12 months, did you worry whether your food would run out before you got money to buy more?: Never true Do you have trouble paying for medicines?: No Do you have trouble getting transportation to medical appointments?: No Do you have trouble paying your heating and electricity bill?: No Do you have trouble taking care of your child, family member or friend?: No Do you have trouble with day-to-day activities such as bathing, preparing meals, shopping, managing finances, etc.?: No Are you currently unemployed and looking for a job?: No Are you interested in more education?: No Please select the resources that you would like help with: None Currently or been in a relationship where the following occur: No concerns reported THRIVE Score: 0 Review of Systems Const Denies chills, Denies fatigue, Denies fever(s), Denies headache(s) and Denies weakness ENT Denies dizziness and Denies headache(s) Card Denies dyspnea Resp Denies cough, Denies dyspnea, Denies wheezing and Denies other (shortness of breath) Musc Denies numbness and Denies tingling Neuro Denies dizziness, Denies headache(s), Denies numbness, Denies tingling and Denies weakness Psych Denies anxiety and Denies depression Endo Denies fatigue Aller/Immun Denies wheezing Physical exam (Primary Care) Vital Signs: Last Vital Signs Temp 98.2 F 01/15/25 16:01 Pulse 100 01/15/25 16:01 Resp 16 01/15/25 16:01 BP 104/60 01/15/25 16:01 Pulse Ox 98 01/15/25 16:01 Oxygen Delivery Method Room Air 01/15/25 16:01 BMI result Body Mass Index 36.2 Tobacco/Smoking Status: Tobacco use Status Tobacco use date assessed 09/01/24 01/15/25 16:05 Patient Tobacco Use Status Former Tobacco user 01/15/25 16:05 Tobacco use type Cigarette 01/15/25 16:05 e-Cigarette/Vaping Use Never Used 01/15/25 16:05 Thrive Assessment: Date of Thrive Assessment Date Thrive assessed 04/25/24 01/15/25 16:05 Currently or been in a relationship where the following occur: No concerns reported Const General: well developed; No acute distress Nutritional Appearance: well nourished Orientation/consciousness: patient oriented x3 HENMT Head: Yes normocephalic and Yes atraumatic Eyes General: appearance normal, both eyes and all related structures Pupils: Equal, round and reactive pupils present EOM: EOMs intact bilaterally Resp Effort & Inspection: normal respiratory effort Neuro General: patient oriented x3 and gait normal Cranial nerves: Yes Equal, round and reactive pupils present Psych Affect: normal affect Results AMB Hemoglobin A1c AMB Hemoglobin A1c 5.4 % Last Edit by TRUDY Lloyd on 01/15/25 16:11 Results Reviewed Results Reviewed: Laboratory Last Values Hgb A1c (Clinic) 5.4 % (4.0-6.0) 01/15/25 16:09 Coding Level of Care Code Est Pt Level 4 (63776) Diagnoses Diabetes E11.9 CAD (coronary artery disease) I25.10 Hypercholesterolemia E78.00 Essential hypertension I10 Assessment & Plan Assessment & Plan (1) Diabetes: Code(s): E11.9 - Type 2 diabetes mellitus without complications Category: Medical Plan: 39-year-old male presents for follow-up diabetes A1c now 5.4% on Ozempic and metformin. Continue Ozempic as prescribed He can decrease metformin from 500 mg daily to 250 mg daily Keep A1c less than 7 and preferably less than 6.5 Will continue monitor Patient says he had diabetic retinal exam last year. Encouraged him to call his cable coverer to set up his next appointment. (2) CAD (coronary artery disease): Code(s): I25.10 - Atherosclerotic heart disease of [place] coronary artery without angina pectoris Category: Medical Plan: Followed by cardiology, Dr. Brown. Recently started on dual anti-platelet therapy and will continue for 1 year Continue blood pressure control with goal less than 130/84 Continue cholesterol control with high-dose statin and goal less than 55 for LDL cholesterol Stable Follow-up with Cardiology as recommended (3) Hypercholesterolemia: Code(s): E78.00 - Pure hypercholesterolemia, unspecified Category: Medical Plan: LDL cholesterol goal less than 55 and on high dose atorvastatin Patient will get lipids checked prior to next visit and we will review (4) Essential hypertension: Code(s): I10 - Essential (primary) hypertension Category: Medical Plan: Blood pressure is at goal of less than 130/80 without current medication. Monitor blood pressures Orders: Orders AMB Hemoglobin A1c Today E11.9 - Type 2 diabetes mellitus without complications Comprehensive [place]. Panel Fast Today Z00.00 - Encounter for general adult medical examination without abnormal findings Complete Blood Count Auto Diff Today Z00.00 - Encounter for general adult medical examination without abnormal findings Prostate Specific Antigen Scr Today Z12.5 - Encounter for screening for malignant neoplasm of prostate TSH reflex Free T4 Today Z00.00 - Encounter for general adult medical examination without abnormal findings UA CC w/rflx Micro + Cult Today Z00.00 - Encounter for general adult medical examination without abnormal findings Lipid Panel Today Z00.00 - Encounter for general adult medical examination without abnormal findings Microalbumin, Random (w Creat) Today I10 - Essential (primary) hypertension Medications: Changed From atorvastatin 80 mg PO DAILY To atorvastatin 80 mg PO DAILY 90 tabs 3RF 90 days From metformin 500 mg PO DAILY To metformin 500 mg PO DAILY 90 tabs 3RF 90 days
[2025-01-15 16:01] VITALS: BP 104/60; PULSE 100; RESP 16; TEMP 36.8; O2SAT 98; BMI 36.2
--- OUTSIDE RECORDS SUMMARY | 2025-01-15 16:56 | XMS_ITS | Clinical Summary ---
Author Organization [facility] Address [address] [place] [address] Phone Care Team Providers Care Warehouse General Laborer Name Role Phone Liu Nava MD Primary Care Provider [phone]- [phone] Allergies Active Allergy Reactions Criticality Noted Date [...] hyperglycemia, without long-term current use of insulin ([facility] V24, [facility] V28) Take 750 mg by mouth 2 (two) times a day with meals. 60 tablet 2 07/15/2024 Active metoprolol succinate (TOPROL-XL) 50 mg 24 hr tablet Take 1 tablet (50 mg total) by mouth 1 (one) time for 1 dose. Do not crush or chew. 1 each 07/13/2024 Active empagliflozin (Jardiance) 10 mg tabletIndicatio ns:NSTEMI (non-ST elevated myocardial infarction) [place] [place] [facility] [place]Type 2 diabetes mellitus with hyperglycemia, without long-term current use of insulin ([facility] [place] [facility] [place] Take 1 tablet (10 mg total) by mouth 1 (one) time each day. 30 tablet 2 07/13/2024 Active insulin syringe-needle U-100 0.5 mL 29 gauge x 1/2 syringe Use to inject 1-4 times daily as directed. 200 each 1 07/13/2024 Active Active Problems Problem Noted Date Diagnosed Date NSTEMI (non-ST elevated myoc ardial infarction) [place] [place] [facility] [place] 07/10/2024 Medical History Medical History Date Comments Diabetes mellitus ([facility] [place] [facility] [place] Hyperlipidemia [...] Safety Answer Date Record ed Physical Abuse Unrecognized value 07/11/2024 Verbal Abuse Unrecognized value 07/11/2024 Sex and Gender Information Value Date [...] Years) (1 of 2 - PCV) 2002 HPV Vaccines (1 - 3-dose SCD M series) 2010 Depression Screening 03/15/2024 HIV Screening 07/11/2024 Social Influencers of Health Screening 07/11/2024 COVID-19 Vaccine (4 - 2024-2 6 season) 2024 03/23/2021, 07/28/2020, 07/07/2020 Influenza Vaccine (#1) 2024 Cholesterol Screening (Lipid Panel) 07/11/2029 07/11/2024 RSV Immunization Adult Patients (1 - 1-dose 75+ series) 2058 Hepatitis C Screening Completed 07/11/2024 HIB Vaccines [...] LAB CHEMISTRY METHOD 07/11/2024 6:[address] [facility] Triglycerides 145 0 - 150 mg/dL LAB CHEMISTRY METHOD 07/11/2024 6:[address] [facility] HDL 45 >=40 mg/dL LAB CHEMISTRY METHOD 07/11/2024 6:[address] [facility] LDL Calculated 70 0 - 100 mg/dL LAB CHEMISTRY METHOD 07/11/2024 6:[address] [facility] VLDL Cholesterol Naun 29 mg/dL LAB CHEMISTRY METHOD 07/11/2024 6:[address] [facility] Non HDL Chol. (LDL+VLDL) 99 <145 mg/dL LAB CHEMISTRY METHOD 07/11/2024 6:[address] [facility] Chol/HDL Ratio 3.2 0.0 - 4.4 LAB CHEMISTRY METHOD 07/11/2024 6:[address] [facility] Blood Venous blood specimen / Unknown Venipuncture / Unknown 07/11/2024 4:09 AM EDT 07/11/2024 4:14 AM EDT us Lilian TAVERAS LAB BLOOD ORDERABLES Final Resu lt [facility] [address] [place] [address], * Hepatitis panel, acute with reflex to confirmation (07/11/2024 4:09 AM EDT) Hepatitis B Surface Ag Negative Negative LAB CHEMISTRY METHOD 07/11/2024 11:[address] [facility] Hepatitis A Antibody IgM Negative Negative LAB CHEMISTRY METHOD 07/11/2024 11:[address] [facility] Hep B Core IgM Negative Negative LAB CHEMISTRY METHOD 07/11/2024 11:[address] [facility] Hepatitis C Antibody Negative Negative LAB CHEMISTRY METHOD 07/11/2024 11:[address] [facility] Blood Venous blood specimen / Unknown Venipuncture / Unknown 07/11/2024 4:09 AM EDT 07/11/2024 4:14 AM EDT us Lilian TAVERAS LAB BLOOD ORDERABLES Final Resu lt [facility] ([facility]) [facility] [address] [place] [address], from Last 3 Months or Most Recently Relevant to Health Maintenance [place] [address] [id number] Advance Directives * Full Code - Default [...] currently active code status orders. Care Teams Warehouse General Laborer Relationship Specialty Start Date End Date Liu Nava MD PCP - General Family Medicine 07/10/24
== END 2025-01-15 16:20 | disposition home or self-care (01) ==
LOC: HO.HMCFM 15:50
PROVIDERS: PCP Family Medicine; Visit Provider Family Medicine
DX: E11.9 Type 2 diabetes mellitus without complications (principal); I25.10 Atherosclerotic heart disease of native coronary artery without angina pectoris; E78.00 Pure hypercholesterolemia, unspecified; I10 Essential (primary) hypertension

== ENCOUNTER → 2025-01-15 15:49 | Outpatient (BNVA) | payer BC, SELFPAY | PROVIDERS: PCP Family Medicine; Visit Provider Family Medicine | DX: E11.9 Type 2 diabetes mellitus without complications (principal); I25.10 Atherosclerotic heart disease of native coronary artery without angina pectoris; E78.00 Pure hypercholesterolemia, unspecified; I10 Essential (primary) hypertension; Z79.84 Long term (current) use of oral hypoglycemic drugs; Z79.899 Other long term (current) drug therapy | CPT/HCPCS: 83036 ==

== ENCOUNTER 2025-03-02 11:27 | Outpatient (AMB) | payer BC, SELFPAY ==
--- NOTE | 2025-03-02 11:35 | MHC.PC.OV ---
Vital Signs 03/02/25 11:43 Height 5 ft 10 in Weight 235 lb BMI 33.7 BP 110/78 Blood Pressure Location Lt brachial Position Sitting Pulse 95 Pulse Source Pulse Oximeter Temp 97.9 F Temp Source Temporal Artery Scan Pulse Oximetry (%) 100 Oxygen Delivery Method Room Air Intake Visit Reasons: CPE with f/u labs and health maint. 30 mins Intake Note: Isai presents in the office today for his annual physical and a follow up to his labs. Wringer Operator Required: No Allergies SEAFOOD Allergy (Severe, Uncoded 03/02/25 11:40) DIFFICULTY BREATHING Medication List - Last Reconciled 03/02/25 by Liu Nava MD aspirin (Adult Low Dose Aspirin) 81 mg PO DAILY atorvastatin 80 mg PO DAILY 90 days blood sugar diagnostic (FreeStyle Lite Strips) As directed to check blood sugar twice daily blood-glucose meter (FreeStyle Lite Meter kit) DX: E11.9, test blood sugar 2 times a day, duration 999 days blood-glucose sensor (FreeStyle Ivette 3 Plus Sensor device) Apply 1 new sensor every 15 days as directed to monitor blood glucose continuously. blood-glucose,assessment analyst,cont (FreeStyle Ivette 3 [place]) Use daily to monitor blood glucose levels continuously. clopidogrel 75 mg PO DAILY elastic bandage (Coban Self-Adherent Wrap) As directed glucose (Dex4 Glucose Quick Dissolve) 16 grams (4 x 4 gram) PO Q15M PRN lancets (FreeStyle Lancets) As directed to test blood sugar twice daily metformin 250 mg PO DAILY semaglutide (Ozempic) 1 mg (0.75 mL) subcut QWEEK Tobacco use date assessed: 03/02/25 Dental Screening Dental Screen Date: 03/02/25 Did you have a dental visit in the last 12 months?: Yes Did you have a dental problem in the last 6 months where you did not have access to dental care?: No Was dental information given to patient?: Patient has dentist HPI CPE with f/u labs and health maint. 30 mins HPI Details 39 y/o male presents for a CPE with f/u labs and health maint. Labs drawn 03/02/25. Reviewed labs with pt. A1c 5.5%. Blood pressure today 110/78, 95p. Recent diabetic eye exam showed no diabetic retinopathy. [facility] Medical History Hepatic steatosis Uncontrolled type 2 diabetes mellitus with hyperglycemia History of COVID-19 History of asthma DVT (deep venous thrombosis) Surgical History No pertinent past surgical history Family History Mother Glioblastoma Social History (Updated 03/02/25 @ 11:42 by Cora Hinojosa CMA) Household Members: Family Housing: House Do you presently have visiting nurse or other home services: No Alcohol intake: never Comment: sleeping Patient Tobacco Use Status: Former Tobacco user Tobacco use type: Cigarette e-Cigarette/Vaping Use: Never Used Second Hand Smoke Exposure: No Substance Use Type: Marijuana service: No Current occupational status: employed 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 Current occupational exposures/hazards: No Cognitive needs: No Hearing needs: No Vision needs: No Questionnaire Thrive Questionnaire Date Thrive assessed: 04/25/24 I am a: Patient What is your living situation today?: I have a steady place to live Within the past 12 months, did the food you bought not last and you didn't have the money to get more?: Never true Within the past 12 months, did you worry whether your food would run out before you got money to buy more?: Never true Do you have trouble paying for medicines?: No Do you have trouble getting transportation to medical appointments?: No Do you have trouble paying your heating and electricity bill?: No Do you have trouble taking care of your child, family member or friend?: No Do you have trouble with day-to-day activities such as bathing, preparing meals, shopping, managing finances, etc.?: No Are you currently unemployed and looking for a job?: No Are you interested in more education?: No Currently or been in a relationship where the following occur: No concerns reported THRIVE Score: 0 Review of Systems Const Denies chills, Denies fatigue, Denies fever(s), Denies headache(s) and Denies weakness Eyes Denies change in vision ENT Denies dizziness, Denies headache(s), Denies hearing loss, Denies nasal congestion, Denies sinus pain, Denies sinus pressure and Denies sore throat Card Denies chest pain, Denies lightheadedness, Denies dyspnea and Denies other (palpitations) Resp Denies cough, Denies dyspnea and Denies wheezing GI Denies abdominal pain, Denies melena, Denies hematochezia, Denies change in bowel habits, Denies dyspepsia and Denies nausea Denies hematuria and Denies dysuria Musc Denies abnormal gait, Denies myalgias, Denies arthralgias, Denies numbness and Denies tingling Skin/Breast Denies rash, Denies unusual bruising and Denies wounds Neuro Denies abnormal gait, Denies dizziness, Denies headache(s), Denies memory loss, Denies numbness, Denies Sensory deficit (Neuro), Denies tingling and Denies weakness Psych Denies anxiety, Denies depression and Denies memory loss Endo Denies cold intolerance, Denies fatigue, Denies heat intolerance, Denies polydipsia and Denies polyuria Chad/Lymph Denies easy bleeding and Denies easy bruising Aller/Immun Denies wheezing Physical exam (Primary Care) Vital Signs: Last Vital Signs Temp 97.9 F 03/02/25 11:43 Pulse 95 03/02/25 11:43 BP 110/78 03/02/25 11:43 Pulse Ox 100 03/02/25 11:43 Oxygen Delivery Method Room Air 03/02/25 11:43 BMI result Body Mass Index 33.7 Tobacco/Smoking Status: Tobacco use Status Tobacco use date assessed 03/02/25 03/02/25 11:48 Patient Tobacco Use Status Former Tobacco user 03/02/25 11:42 Tobacco use type Cigarette 03/02/25 11:42 e-Cigarette/Vaping Use Never Used 03/02/25 11:42 Thrive Assessment: Date of Thrive Assessment Date Thrive assessed 04/25/24 03/02/25 11:36 Currently or been in a relationship where the following occur: No concerns reported Const General: no acute distress, well developed, alert and awake Nutritional Appearance: well nourished Orientation/consciousness: patient oriented x3 HENMT Head: Yes normocephalic and Yes atraumatic Ears: hearing grossly normal bilaterally and TM's normal bilaterally General nose exam: Normal external nose present and Normal nares present Mouth: Normal oral and palatal mucosa present and moist mucous membranes Teeth and gingiva: dentition normal Throat: Yes posterior oropharynx normal Eyes General: appearance normal, both eyes and all related structures Pupils: Equal, round and reactive pupils present and Pupil accommodation reflex normal EOM: EOMs intact bilaterally Neck Neck: Yes normal visual inspection, Yes no lymphadenopathy and Yes trachea midline Thyroid: Thyroid normal Carotids: no bruits Lymphatic: no lymphadenopathy noted Chest Chest palpation & inspection: normal inspection of the chest Resp Effort & Inspection: normal respiratory effort Auscultation: clear to auscultation bilaterally Cardio Rate: regular rate Rhythm: regular rhythm Heart sounds: S1 normal heart sound present, S2 normal heart sound present, no gallops, no murmurs and no rubs Bruits: no abdominal aortic bruits and no carotid bruits GI Palpation (GI): No Abdominal aortic bruit present, Soft to palpation, nontender, No hepatosplenomegaly present and No Rebound tenderness present Auscultation: normal bowel sounds General: Yes no CVA tenderness Back/Spine/Pelvis Back: no CVA tenderness Cervical Spine: cervical ROM normal and No Cervical spine tenderness Thoracic/Lumbar Spine: thoraco-lumbar ROM normal, No pain with thoraco-lumbar ROM, No thoracic spinal tenderness and No lumbar spinal tenderness Skin Lesions: no lesions Rashes: no rashes Trauma: no lacerations or abrasions Wounds: no wounds Nails: normal Neuro General: patient oriented x3 Cranial nerves: Yes Equal, round and reactive pupils present Cognition (Neuro): normal cognition Gait exam (Neuro): Normal gait present Motor exam (neuro): 5/5 motor strength present throughout Sensory Exam: No Sensory deficit (Neuro) Deep tendon reflexes (DTR's): Right patellar reflex intensity grade: 2+ and Left patellar reflex intensity grade: 2+ Extrem General: Yes normal to inspection and No edema Psych Appearance: grossly normal Affect: normal affect Attitude: cooperative Thought process: Normal thought process present Results AMB Hemoglobin A1c AMB Hemoglobin A1c 5.5 % Last Edit by Cora Hinojosa CMA on 03/02/25 11:56 Results Reviewed Results Reviewed: Laboratory Last Values Hgb A1c (Clinic) 5.5 % (4.0-6.0) 03/02/25 11:49 Coding Level of Care Code Est Pt Level 3 (28060) Est Pt Prev Care 40-64y(26173) Diagnoses Annual physical exam Z00.00 Diabetes E11.9 Essential hypertension I10 Hypercholesterolemia E78.00 CAD (coronary artery disease) I25.10 Assessment & Plan Assessment & Plan (1) Annual physical exam: Code(s): Z00.00 - Encounter for general adult medical examination without abnormal findings Category: Medical Plan: 39-year-old male presents for complete physical exam Encouraged healthy diet with active lifestyle and plenty of exercise (2) Diabetes: Code(s): E11.9 - Type 2 diabetes mellitus without complications Category: Medical Plan: A1c 5.5% despite decreasing metformin at last visit He continues to lose weight on Ozempic Continue diabetic diet and continue Ozempic as prescribed. Will decrease metformin. We will continue to monitor (3) Essential hypertension: Code(s): I10 - Essential (primary) hypertension Category: Medical Plan: Blood pressure is well controlled. Goal is less than 130/80 Continue weight loss Watch salt and sodium (4) Hypercholesterolemia: Code(s): E78.00 - Pure hypercholesterolemia, unspecified Category: Medical Plan: LDL goal is less than 55 Continue atorvastatin 80 mg daily Continue diet low in saturated fats and cholesterol Continue weight loss and at exercise He will get his labs drawn and we can follow-up in about 6 weeks (5) CAD (coronary artery disease): Code(s): I25.10 - Atherosclerotic heart disease of [place] coronary artery without angina pectoris Category: Medical Plan: Stable Continue blood pressure, blood sugar and lipid control Continue dual platelet therapy with clopidogrel and aspirin Continue weight loss. Encouraged more exercise Follow-up with Cardiology as recommended Orders: Orders AMB Hemoglobin A1c Today E11.65 - Type 2 diabetes mellitus with hyperglycemia, R03.0 - Elevated blood-pressure reading, without diagnosis of hypertension
[2025-03-02 11:43] VITALS: BP 110/78; PULSE 95; TEMP 36.6; O2SAT 100; BMI 33.7
--- OUTSIDE RECORDS SUMMARY | 2025-03-02 13:33 | XMS_ITS | Clinical Summary ---
Author Organization [facility] Address [address] [place] [address] Phone Care Team Providers Care Sorting Supervisor Name Role Phone Liu Nava MD Primary Care Provider [phone]- [phone] Allergies Active Allergy Reactions Criticality Noted Date [...] hyperglycemia, without long-term current use of insulin ([facility] V24, [facility] V28) Take 750 mg by mouth 2 (two) times a day with meals. 60 tablet 2 07/15/2024 Active metoprolol succinate (TOPROL-XL) 50 mg 24 hr tablet Take 1 tablet (50 mg total) by mouth 1 (one) time for 1 dose. Do not crush or chew. 1 each 07/13/2024 Active empagliflozin (Jardiance) 10 mg tabletIndicatio ns:NSTEMI (non-ST elevated myocardial infarction) ([facility] [place], [facility]),Type 2 diabetes mellitus with hyperglycemia, without long-term current use of insulin ([facility], [facility] V28) Take 1 tablet (10 mg total) by mouth 1 (one) time each day. 30 tablet 2 07/13/2024 Active insulin syringe-needle U-100 0.5 mL 29 gauge x 1/2 syringe Use to inject 1-4 times daily as directed. 200 each 1 07/13/2024 Active Active Problems Problem Noted Date Diagnosed Date NSTEMI (non-ST elevated myocardial infarction) 0 07/10/2024 Medical History Medical History Date Comments Diabetes mellitus ([facility], [facility] V28) Hyperlipidemia Family History Medical History Relation [...] Orientation Straight 07/12/2024 9: 03 AM EDT Last Filed Vital Signs Vital Sign Reading [...] Influencers of Health Screening 07/11/2024 COVID-19 Vaccine ( - 2024-2 6 season) 2024 03/23/2021, 07/28/2020, [...] 6:41 AM EDT [facility] Non HDL Chol. (LDL+VLDL) 99 <145 mg/dL LAB CHEMISTRY METHOD 07/11/2024 6:41 AM EDT [facility] Chol/HDL Ratio 3.2 0.0 - 4.4 LAB CHEMISTRY METHOD 07/11/2024 6:41 AM T [facility] Blood Venous blood specimen / Unknown Venipuncture / Unknown 07/11/2024 4:09 AM EDT 07/11/2024 4:14 AM EDT us Lilian TAVERAS LAB BLOOD ORDERABLES Final Resu lt [facility] [address] [place] [address], [place] [phone] * Hepatitis panel, acute with reflex to [...] Resu lt [facility] [address] [place] [address], from Last 3 Months or Most Recently Relevant to Health Maintenance Insurance [facility] Advance Directives * Full Code - Default [...] currently active code status orders. Care Teams Sorting Supervisor Relationship Specialty Start Date End Date Liu Nava MD PCP - General Family Medicine 07/10/24
== END 2025-03-02 12:16 | disposition home or self-care (01) ==
LOC: HO.HMCFM 11:28
PROVIDERS: PCP Family Medicine; Visit Provider Family Medicine
DX: Z00.00 Encounter for general adult medical examination without abnormal findings (principal); E11.65 Type 2 diabetes mellitus with hyperglycemia; I10 Essential (primary) hypertension; E78.00 Pure hypercholesterolemia, unspecified; I25.10 Atherosclerotic heart disease of native coronary artery without angina pectoris

== ENCOUNTER → 2025-03-02 11:27 | Outpatient (BNVA) | payer BC, SELFPAY | PROVIDERS: PCP Family Medicine; Visit Provider Family Medicine | DX: E11.65 Type 2 diabetes mellitus with hyperglycemia (principal); R03.0 Elevated blood-pressure reading, without diagnosis of hypertension | CPT/HCPCS: 83036 ==

== ENCOUNTER 2025-03-09 07:50 | Outpatient (REF) | payer BC, SELFPAY ==
--- OUTSIDE RECORDS SUMMARY | 2025-03-09 07:52 | XMS_ITS | Clinical Summary ---
Author Organization [facility] Address [address] [place] [address] Phone Care Team Providers Care Dust Operator Name Role Phone Liu Nava MD Primary Care Provider [phone]- [phone] Allergies Active Allergy Reactions Criticality Noted Date [...] hyperglycemia, without long-term current use of insulin ([facility] V24, [facility] V28) Take 750 mg by mouth 2 (two) times a day with meals. 60 tablet 2 07/15/2024 Active metoprolol succinate (TOPROL-XL) 50 mg 24 hr tablet Take 1 tablet (50 mg total) by mouth 1 (one) time for 1 dose. Do not crush or chew. 1 each 07/13/2024 Active empagliflozin (Jardiance) 10 mg tabletIndicatio ns:NSTEMI (non-ST elevated myocardial infarction) [place] [place] [facility] [place]Type 2 diabetes mellitus with hyperglycemia, without long-term current use of insulin [place] [place] [facility] [place] [place] Take 1 tablet (10 mg [...] Medical History Date Comments Diabetes mellitus [place] [place], [facility] V28) Hyperlipidemia Family History Medical [...] LAB CHEMISTRY METHOD 07/11/2024 6:41 AM EDT [facility] Triglycerides 145 0 - 150 mg/dL LAB CHEMISTRY METHOD 07/11/2024 6:41 AM EDT [facility] HDL 45 >=40 mg/dL LAB CHEMISTRY METHOD 07/11/2024 6:41 AM EDT [facility] LDL Calculated 70 0 - 100 mg/dL LAB CHEMISTRY METHOD 07/11/2024 6:41 AM EDT [facility] VLDL Cholesterol Naun 29 mg/dL LAB CHEMISTRY METHOD 07/11/2024 6:41 AM EDT [facility] Non HDL Chol. (LDL+VLDL) 99 <145 mg/dL LAB CHEMISTRY METHOD 07/11/2024 6:41 AM EDT [facility] Chol/HDL Ratio 3.2 0.0 - 4.4 LAB CHEMISTRY METHOD 07/11/2024 6:41 AM T [facility] Blood Venous blood specimen / Unknown Venipuncture / Unknown 07/11/2024 4:09 AM EDT 07/11/2024 4:14 AM EDT us Lilian TAVERAS LAB BLOOD ORDERABLES Final Resu lt [facility] [address] [place] [address], [place] [phone] * Hepatitis panel, acute with reflex to confirmation (07/11/2024 4:09 AM EDT) Hepatitis B Surface Ag Negative Negative LAB CHEMISTRY METHOD 07/11/2024 11:27 AM EDT [facility] Hepatitis A Antibody IgM Negative Negative LAB CHEMISTRY METHOD 07/11/2024 11:27 AM EDT [facility] Hep B Core IgM Negative Negative LAB CHEMISTRY METHOD 07/11/2024 11:27 AM EDT [facility] Hepatitis C Antibody Negative Negative LAB CHEMISTRY METHOD 07/11/2024 11:27 AM EDT [facility] Blood Venous blood specimen / Unknown Venipuncture / Unknown 07/11/2024 4:09 AM EDT 07/11/2024 4:14 AM EDT us Lilian TAVERAS LAB BLOOD ORDERABLES Final Resu lt [facility] [address] [place] [address], from Last 3 Months or Most Recently Relevant to Health Maintenance Insurance [facility] Advance Directives [...] currently active code status orders. Care Teams Dust Operator Relationship Specialty Start Date End Date Liu Nava MD PCP - General Family Medicine 07/10/24
[2025-03-09 08:06] LABS: MANUAL DIFF FLAG NO
[2025-03-09 08:12] LABS: Hematocrit 48.1 % (42.0-52.0); Hemoglobin 15.7 g/dl (14.0-18.0); Imm Gran Abs Auto 0.04 X10*3/uL (0.00-0.03); Imm Gran Pct Auto 0.5 % (0.0-0.4); Lymphocytes Absolute Auto 1.9 X10*3/uL (1.2-4.9); Mean Corpuscular HGB Conc 32.6 g/dl (31.0-36.0); Mean Corpuscular Hemoglobin 27.1 pg (27.0-33.0); Mean Corpuscular Volume 83.1 fL (80.0-98.0); NRBC Abs Auto 0.000 X10*3/uL (0.0-0.012); NRBC Pct Auto 0.0 /100WBC (0.0-0.2); Platelet Count 230 X10*3/uL (160-400); Red Blood Count 5.79 X10*6/uL (4.60-5.80); White Blood Count 7.7 X10*3/uL (4.8-10.8)
[2025-03-09 08:52] LABS: Alanine Aminotransferase 35 U/L (0-40); Albumin Level 4.5 g/dL (3.5-5.0); Alkaline Phosphatase 47 U/L (39-117); Anion Gap 10 (12-20); Aspartate Amino Transferase 32 U/L (5-37); Blood Urea Nitrogen 15 mg/dL (9-16); Calcium 9.2 mg/dL (8.4-10.2); Carbon Dioxide 26 mmol/L (22-29); Chloride 107 mmol/L (96-108); Cholesterol 147 mg/dL (<200); Estimated Glomerular Filt Rate > 60; HDL Cholesterol 48 mg/dL (>40); Potassium 4.1 mmol/L (3.3-5.1); Sodium 139 mmol/L (135-145); Total Protein 7.6 g/dL (6.5-8.0); Triglycerides 100 mg/dL (<150)
[2025-03-09 10:09] LABS: Appearance Urine Clear; Glucose Urine UA Negative (Negative); PH 5.0 (5.0-9.0); Specific Gravity - Urine 1.020 (1.005-1.025)
[2025-03-09 10:59] LABS: Microalbum/Creatinine Ratio Ur 6.9 ug/mg cr (<30)
== END 2025-03-09 07:51 | disposition home or self-care (01) ==
LOC: HO.LAB 07:50
PROVIDERS: PCP Family Medicine; Visit Provider Family Medicine
DX: Z00.00 Encounter for general adult medical examination without abnormal findings (principal); Z12.5 Encounter for screening for malignant neoplasm of prostate; I10 Essential (primary) hypertension
CPT/HCPCS: 36415; 80053; 80061; 81003; 82043; 82570; 84153; 84443; 85025